=== PATIENT | male | born 1945 | race Caucasian/White ===

== ENCOUNTER → 2016-12-22 | Outpatient (REF) | payer MEDICARE, BC, OTHER ==
[2016-12-22 14:01] LABS: MEAN CORPUSCULAR HGB CONC 33.2 g/dl (32.0-36.5); MEAN CORPUSCULAR VOLUME 93.5 fl (80.0-96.0); WHITE BLOOD COUNT 5.2 K/mm3 (4.0-10.0)
[2016-12-22 14:38] LABS: ALBUMIN 3.6 GM/DL (3.2-5.2); ALBUMIN/GLOBULIN RATIO 1.03 (1.00-1.93); ALKALINE PHOSPHATASE 54 U/L (45-117); ALT/SGPT 41 U/L (12-78); ANION GAP 9 MEQ/L (8-16); AST/SGOT 38 U/L (15-37); BILIRUBIN,TOTAL 0.7 MG/DL (0.2-1.0); BLOOD UREA NITROGEN 27 MG/DL (7-18); CALCIUM LEVEL 8.5 MG/DL (8.8-10.2); CARBON DIOXIDE LEVEL 27 MEQ/L (21-32); CHLORIDE LEVEL 105 MEQ/L (98-107); CREATININE FOR GFR 1.07 MG/DL (0.70-1.30); GLOMERULAR FILTRATION RATE > 60.0 (>42); GLUCOSE, FASTING 203 MG/DL (83-110); POTASSIUM SERUM 4.1 MEQ/L (3.5-5.1); SODIUM LEVEL 141 MEQ/L (136-145); TOTAL PROTEIN 7.1 GM/DL (6.4-8.2)
== END ==
LOC: M LABDRAW1 12:56
PROVIDERS: ATTEND Internal Medicine
DX: M06.9 Rheumatoid arthritis, unspecified (principal); E11.9 Type 2 diabetes mellitus without complications

== ENCOUNTER → 2017-07-08 | Outpatient (REF) | payer MEDICARE, OTHER ==
[2017-07-08 12:06] LABS: ALBUMIN 3.6 GM/DL (3.2-5.2); ALKALINE PHOSPHATASE 56 U/L (45-117); ALT/SGPT 30 U/L (12-78); ANION GAP 9 MEQ/L (8-16); AST/SGOT 26 U/L (7-37); BILIRUBIN,TOTAL 0.5 MG/DL (0.2-1.0); BLOOD UREA NITROGEN 24 MG/DL (7-18); CALCIUM LEVEL 8.5 MG/DL (8.8-10.2); CARBON DIOXIDE LEVEL 28 MEQ/L (21-32); CHLORIDE LEVEL 105 MEQ/L (98-107); CHOLESTEROL LEVEL 139 MG/DL (<200); CREATININE FOR GFR 1.07 MG/DL (0.70-1.30); GLOMERULAR FILTRATION RATE > 60.0 (>42); GLUCOSE, FASTING 192 MG/DL (83-110); POTASSIUM SERUM 4.4 MEQ/L (3.5-5.1); SODIUM LEVEL 142 MEQ/L (136-145); TOTAL PROTEIN 7.2 GM/DL (6.4-8.2); TRIGLYCERIDES LEVEL 217 MG/DL (<150)
== END ==
LOC: M SFHCPLAZ 09:40
PROVIDERS: ATTEND Internal Medicine
DX: E78.00 Pure hypercholesterolemia, unspecified (principal); E11.9 Type 2 diabetes mellitus without complications

== ENCOUNTER → 2018-01-08 | Outpatient (REF) | payer MEDICARE, OTHER ==
[2018-01-08 17:51] LABS: ALBUMIN 3.5 GM/DL (3.2-5.2); ALBUMIN/GLOBULIN RATIO 1.06 (1.00-1.93); ALKALINE PHOSPHATASE 58 U/L (45-117); ALT/SGPT 30 U/L (12-78); ANION GAP 11 MEQ/L (8-16); AST/SGOT 28 U/L (7-37); BILIRUBIN,TOTAL 0.5 MG/DL (0.2-1.0); BLOOD UREA NITROGEN 29 MG/DL (7-18); CALCIUM LEVEL 8.2 MG/DL (8.8-10.2); CARBON DIOXIDE LEVEL 25 MEQ/L (21-32); CHLORIDE LEVEL 106 MEQ/L (98-107); CHOLESTEROL LEVEL 130 MG/DL (<200); CHOLESTEROL RISK RATIO 5.416 (<5); CREATININE FOR GFR 1.21 MG/DL (0.70-1.30); GLOMERULAR FILTRATION RATE > 60.0 (>42); GLUCOSE, FASTING 288 MG/DL (70-100); HDL CHOLESTEROL 24 MG/DL (>40); LDL CHOLESTEROL 43.8 MG/DL (<100); MAGNESIUM LEVEL 1.3 MG/DL (1.8-2.4); NON-HDL-C 106 MG/DL; POTASSIUM SERUM 4.2 MEQ/L (3.5-5.1); SODIUM LEVEL 142 MEQ/L (136-145); TOTAL PROTEIN 6.8 GM/DL (6.4-8.2); TRIGLYCERIDES LEVEL 311 MG/DL (<150)
[2018-01-08 17:58] LABS: ESTIMATED AVERAGE GLUCOSE 209 MG/DL (60-110); HEMOGLOBIN A1c 8.9 %
[2018-01-08 18:33] LABS: MALB URINE SIEMENS 25.2 MG/L; MAU/CREAT RATIO 17.6 MCG/MG (0.0-30.0)
== END ==
LOC: M SFHCPLAZ 09:48
DX: I10 Essential (primary) hypertension (principal); E11.9 Type 2 diabetes mellitus without complications; E78.00 Pure hypercholesterolemia, unspecified
CPT/HCPCS: 83735

== ENCOUNTER 2018-02-20 18:45 | Emergency (ER) | payer MEDICARE, BC, OTHER | END 2018-02-20 20:08 | disposition home or self-care (01) | LOC: M ED 18:45 | DX: S00.03XA Contusion of scalp, initial encounter (principal); S80.211A Abrasion, right knee, initial encounter; W01.198A Fall on same level from slipping, tripping and stumbling with subsequent striking against other object, initial encounter; Y92.89 Other specified places as the place of occurrence of the external cause; I25.10 Atherosclerotic heart disease of native coronary artery without angina pectoris; E11.9 Type 2 diabetes mellitus without complications; J44.9 Chronic obstructive pulmonary disease, unspecified; G47.33 Obstructive sleep apnea (adult) (pediatric); M06.9 Rheumatoid arthritis, unspecified; Z95.0 Presence of cardiac pacemaker; Z95.5 Presence of coronary angioplasty implant and graft; Z79.899 Other long term (current) drug therapy; Z79.01 Long term (current) use of anticoagulants; Z79.84 Long term (current) use of oral hypoglycemic drugs | CPT/HCPCS: 70450 ==

== ENCOUNTER 2018-03-12 11:45 | Emergency (ER) | payer MEDICARE, BC, OTHER | END 2018-03-12 12:40 | disposition home or self-care (01) | LOC: M ED 11:45 | DX: S20.212A Contusion of left front wall of thorax, initial encounter (principal); W01.198A Fall on same level from slipping, tripping and stumbling with subsequent striking against other object, initial encounter; Y92.099 Unspecified place in other non-institutional residence as the place of occurrence of the external cause; Y93.9 Activity, unspecified; Y99.9 Unspecified external cause status; E11.9 Type 2 diabetes mellitus without complications; I10 Essential (primary) hypertension; J44.9 Chronic obstructive pulmonary disease, unspecified; M19.90 Unspecified osteoarthritis, unspecified site; Z95.0 Presence of cardiac pacemaker; Z79.82 Long term (current) use of aspirin; Z79.84 Long term (current) use of oral hypoglycemic drugs; Z79.899 Other long term (current) drug therapy | CPT/HCPCS: 71101 ==

== ENCOUNTER → 2018-04-27 | Outpatient (CLI) | payer MEDICARE, BC, OTHER | LOC: M WUC 11:43 | DX: M17.12 Unilateral primary osteoarthritis, left knee (principal); M25.562 Pain in left knee | CPT/HCPCS: 73560 ==

== ENCOUNTER → 2018-07-07 | Outpatient (CLI) | payer MEDICARE, OTHER | LOC: M LRY 09:07 | DX: M06.9 Rheumatoid arthritis, unspecified (principal) | CPT/HCPCS: 73130; 80053 ==

== ENCOUNTER → 2018-07-07 | Outpatient (REF) | payer MEDICARE, OTHER ==
[2018-07-07 11:57] LABS: BASO % 0.6 % (0.0-1.0); EOS # 0.2 10^3/uL (0.0-0.50); EOS % 2.6 % (0.0-3.0); HEMATOCRIT 43.9 % (42.0-52.0); HEMOGLOBIN 14.7 g/dl (13.5-17.5); IMMATURE GRANULOCYTE % 0.5 % (0-3.0); LYMPH # 0.9 10^3/uL (1.5-4.5); LYMPH % 14.4 % (24.0-44.0); MEAN CORPUSCULAR HEMOGLOBIN 30.7 pg (27.0-33.0); MEAN CORPUSCULAR HGB CONC 33.5 g/dl (32.0-36.5); MEAN CORPUSCULAR VOLUME 91.6 fl (80.0-96.0); MONO # 0.5 10^3/uL (0.0-0.8); MONO % 7.6 % (0.0-5.0); NEUTROPHILS # 4.9 10^3/uL (1.8-7.7); NEUTROPHILS % 74.3 % (36.0-66.0); PLATELET COUNT, AUTOMATED 105 10^3/uL (150-450); RED BLOOD COUNT 4.79 10^6/uL (4.30-6.10); RED CELL DISTRIBUTION WIDTH 13.9 % (11.5-14.5); WHITE BLOOD COUNT 6.5 10^3/uL (4.0-10.0)
[2018-07-07 12:02] LABS: APPEARANCE, URINE CLEAR (CLEAR); BACTERIA, URINE AUTO NEGATIVE (NEGATIVE); BILIRUBIN, URINE AUTO NEGATIVE (NEGATIVE); BLOOD, URINE BLOOD NEGATIVE (NEGATIVE); COLOR, URINE YELLOW (YELLOW); GLUCOSE, URINE (UA) AUTO 3+ mg/dL (NEGATIVE); KETONE, URINE AUTO NEGATIVE (NEGATIVE); LEUKOCYTE ESTERASE, URINE AUTO NEGATIVE (NEGATIVE); MUCUS, URINE SMALL (NEGATIVE); NITRITE, URINE AUTO NEGATIVE (NEGATIVE); PROTEIN, URINE AUTO NEGATIVE (NEGATIVE); RBC, URINE AUTO 0 /HPF (0-3); SQUAMOUS EPITHELIAL CELL UR AU 0 /HPF (0-6); UROBILINOGEN, URINE AUTO 0.2 mg/dL (0.0-2.0); WBC, URINE AUTO 0 /HPF (0-3)
[2018-07-07 12:24] LABS: ALBUMIN 3.4 GM/DL (3.2-5.2); ALBUMIN/GLOBULIN RATIO 0.97 (1.00-1.93); ALKALINE PHOSPHATASE 54 U/L (45-117); ALT/SGPT 37 U/L (12-78); ANION GAP 9 MEQ/L (8-16); AST/SGOT 26 U/L (7-37); BILIRUBIN,TOTAL 0.7 MG/DL (0.2-1.0); BLOOD UREA NITROGEN 32 MG/DL (7-18); C REACTIVE PROTEIN QUANTITATIV < 0.30 MG/DL (0.00-0.30); CALCIUM LEVEL 8.4 MG/DL (8.8-10.2); CARBON DIOXIDE LEVEL 27 MEQ/L (21-32); CHLORIDE LEVEL 105 MEQ/L (98-107); CREATININE FOR GFR 1.19 MG/DL (0.70-1.30); GLOMERULAR FILTRATION RATE > 60.0 (>42); GLUCOSE, FASTING 196 MG/DL (70-100); POTASSIUM SERUM 4.3 MEQ/L (3.5-5.1); RHEUMATOID FACTOR QUANT < 10.0 IU/ML (<15.0); SODIUM LEVEL 141 MEQ/L (136-145); TOTAL PROTEIN 6.9 GM/DL (6.4-8.2)
[2018-07-07 12:29] LABS: TOTAL PROTEIN,RANDOM URINE 14.7 MG/DL (0.0-12.0)
[2018-07-07 12:36] LABS: COMPLEMENT C3 121 MG/DL (90-180); COMPLEMENT C4 14 MG/DL (10-40); HEPATITIS B SURFACE ANTIBODY NEGATIVE (POSITIVE)
[2018-07-07 12:41] LABS: HEPATITIS B SURFACE ANTIGEN NEGATIVE (NEGATIVE)
[2018-07-07 13:09] LABS: HEPATITIS C VIRUS ABY INDEX 0.1 INDEX (<0.8)
[2018-07-07 13:24] LABS: ERYTHROCYTE SEDIMENTATION RATE 10 mm/hr (0-20)
[2018-07-10 15:07] LABS: QuantiFERON-TB Gold Plus Negative (Negative)
[2018-07-11 00:06] LABS: ANA (HEP2) Negative (.); ANTI DOUBLE STRAND-DNA AB 2 IU/mL (0-9); HEPATITIS B CORE ANTIBODY IGG Negative (Negative); RNP ANTIBODY 0.2 AI (0.0-0.9); SMITHS ANTIBODY < 0.2 AI (0.0-0.9); SSA SJOGRENS A <0.2 AI (0.0-0.9); SSB SJOGRENS B <0.2 AI (0.0-0.9)
[2018-07-11 00:06] LABS: CYCLIC CITRULLINATED PEPTIDE 40 units (0-19)
== END ==
LOC: M SFHCLERA 08:49
DX: M06.9 Rheumatoid arthritis, unspecified (principal); M32.9 Systemic lupus erythematosus, unspecified; M65.331 Trigger finger, right middle finger; Z79.899 Other long term (current) drug therapy
CPT/HCPCS: 80053

== ENCOUNTER → 2018-08-08 | Outpatient (CLI) | payer MEDICARE, OTHER ==
[~2018-08-08] MED LIST: AMLO5TAB6; ASPI1TAB PO; DIGO0.12; ELIQ5TAB; ENBR50IN4; FLUO40CA; FOLI1TAB11; GLIP5TAB8 PO; HYDR25TAB; JANU100T; JARD1TAB; LISI-538; METF500T13 PO; METH2.5T48; METO200T28; SIMV20TA2; TAMSULOSIN
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
== END ==
LOC: M WUC 15:10
PROVIDERS: ATTEND Physician Assistant
DX: S90.31XA Contusion of right foot, initial encounter (principal); X58.XXXA Exposure to other specified factors, initial encounter; Y92.9 Unspecified place or not applicable

== ENCOUNTER → 2018-08-31 | Outpatient (CLI) | payer MEDICARE, OTHER ==
[2018-08-31 13:05] LABS: ALBUMIN 3.4 GM/DL (3.2-5.2); BILIRUBIN,TOTAL 0.7 MG/DL (0.2-1.0); CALCIUM LEVEL 8.8 MG/DL (8.8-10.2); CHOLESTEROL RISK RATIO 4.235 (<5); CREATININE FOR GFR 1.42 MG/DL (0.70-1.30); GLOMERULAR FILTRATION RATE 51.9 (>42); POTASSIUM SERUM 4.7 MEQ/L (3.5-5.1)
[2018-08-31 14:21] LABS: HEMOGLOBIN A1c 8.3 %
== END ==
LOC: M WUC 09:08
PROVIDERS: ATTEND Family Medicine
DX: E11.65 Type 2 diabetes mellitus with hyperglycemia (principal)

== ENCOUNTER → 2018-09-18 | Outpatient (CLI) | payer MEDICARE, OTHER ==
[2018-09-18 17:49] LABS: ALBUMIN 3.4 GM/DL (3.2-5.2); ALT/SGPT 52 U/L (12-78); BILIRUBIN,TOTAL 0.4 MG/DL (0.2-1.0); BLOOD UREA NITROGEN 37 MG/DL (7-18); C REACTIVE PROTEIN QUANTITATIV < 0.30 MG/DL (0.00-0.30); CALCIUM LEVEL 8.6 MG/DL (8.8-10.2); CARBON DIOXIDE LEVEL 27 MEQ/L (21-32); CHLORIDE LEVEL 107 MEQ/L (98-107); CREATININE FOR GFR 1.27 MG/DL (0.70-1.30); GLUCOSE, FASTING 174 MG/DL (70-100); POTASSIUM SERUM 4.6 MEQ/L (3.5-5.1); SODIUM LEVEL 141 MEQ/L (136-145); TOTAL PROTEIN 6.6 GM/DL (6.4-8.2)
[2018-09-18 17:56] LABS: BASO % 0.4 % (0.0-1.0); EOS # 0.2 10^3/uL (0.0-0.50); EOS % 2.3 % (0.0-3.0); HEMATOCRIT 42.5 % (42.0-52.0); HEMOGLOBIN 14.2 g/dl (13.5-17.5); LYMPH # 0.9 10^3/uL (1.5-4.5); MEAN CORPUSCULAR HEMOGLOBIN 31.9 pg (27.0-33.0); MEAN CORPUSCULAR HGB CONC 33.4 g/dl (32.0-36.5); MEAN CORPUSCULAR VOLUME 95.5 fl (80.0-96.0); MONO # 0.5 10^3/uL (0.0-0.8); MONO % 7.6 % (0.0-5.0); NEUTROPHILS # 5.4 10^3/uL (1.8-7.7); NEUTROPHILS % 76.3 % (36.0-66.0); PLATELET COUNT, AUTOMATED 109 10^3/uL (150-450); RED BLOOD COUNT 4.45 10^6/uL (4.30-6.10); WHITE BLOOD COUNT 7.1 10^3/uL (4.0-10.0)
[2018-09-18 18:21] LABS: ERYTHROCYTE SEDIMENTATION RATE 10 mm/hr (0-20)
== END ==
LOC: M WUC 11:48
PROVIDERS: ATTEND Internal Medicine Rheumatology
DX: M06.9 Rheumatoid arthritis, unspecified (principal)

== ENCOUNTER → 2018-11-11 | Outpatient (CLI) | payer MEDICARE, OTHER ==
[2018-11-11 13:15] LABS: HEMATOCRIT 43.7 % (42.0-52.0); HEMOGLOBIN 14.6 g/dl (13.5-17.5); MEAN CORPUSCULAR HEMOGLOBIN 31.2 pg (27.0-33.0); MEAN CORPUSCULAR HGB CONC 33.4 g/dl (32.0-36.5); MEAN CORPUSCULAR VOLUME 93.4 fl (80.0-96.0); PLATELET COUNT, AUTOMATED 130 10^3/uL (150-450); RED BLOOD COUNT 4.68 10^6/uL (4.30-6.10); WHITE BLOOD COUNT 7.3 10^3/uL (4.0-10.0)
[2018-11-11 13:38] LABS: ALBUMIN 3.5 GM/DL (3.2-5.2); ALT/SGPT 31 U/L (12-78); BILIRUBIN,TOTAL 0.7 MG/DL (0.2-1.0); BLOOD UREA NITROGEN 24 MG/DL (7-18); C REACTIVE PROTEIN QUANTITATIV < 0.30 MG/DL (0.00-0.30); CALCIUM LEVEL 8.7 MG/DL (8.8-10.2); CARBON DIOXIDE LEVEL 26 MEQ/L (21-32); CHLORIDE LEVEL 105 MEQ/L (98-107); CREATININE FOR GFR 1.16 MG/DL (0.70-1.30); GLOMERULAR FILTRATION RATE > 60.0 (>42); GLUCOSE, FASTING 166 MG/DL (70-100); POTASSIUM SERUM 4.4 MEQ/L (3.5-5.1); SODIUM LEVEL 140 MEQ/L (136-145); TOTAL PROTEIN 7.1 GM/DL (6.4-8.2)
[2018-11-11 13:53] LABS: ERYTHROCYTE SEDIMENTATION RATE 14 mm/hr (0-20)
== END ==
LOC: M WUC 10:22
PROVIDERS: ATTEND Internal Medicine Rheumatology
DX: M06.9 Rheumatoid arthritis, unspecified (principal)

== ENCOUNTER → 2019-01-11 | Outpatient (CLI) | payer MEDICARE, OTHER, BC ==
[~2019-01-11] MED LIST changes: -ASPI1TAB PO; +ASPI81TA26 PO
--- NOTE | 2019-01-11 14:14 | REP ---
Clinical: Acute right foot pain. Technique: AP, lateral, bilateral oblique views right foot . Findings: The osseous structures and joint spaces are intact and normal. There is no evidence for acute fracture or dislocation. No periosteal reaction or changes to suggest old injury. Surrounding soft tissues are unremarkable. Incidental vascular calcifications suggest small vessel disease. No subcutaneous emphysema or radiodense foreign body. Impression: No acute fracture or dislocation. No findings to suggest old injury. Peripheral vascular disease. Electronically Signed by Santiago Espinoza MD 01/11/2019 02:05 P
== END ==
LOC: M RAD 12:27
PROVIDERS: ATTEND Family Medicine
DX: I73.9 Peripheral vascular disease, unspecified (principal)

== ENCOUNTER → 2019-02-01 | Outpatient (REF) | payer MEDICARE, OTHER ==
[2019-02-01 13:19] LABS: APPEARANCE, URINE CLEAR (CLEAR); BACTERIA, URINE AUTO NEGATIVE (NEGATIVE); BILIRUBIN, URINE AUTO NEGATIVE (NEGATIVE); BLOOD, URINE BLOOD NEGATIVE (NEGATIVE); COLOR, URINE YELLOW (YELLOW); GLUCOSE, URINE (UA) AUTO 3+ mg/dL (NEGATIVE); KETONE, URINE AUTO NEGATIVE (NEGATIVE); LEUKOCYTE ESTERASE, URINE AUTO NEGATIVE (NEGATIVE); MUCUS, URINE SMALL (NEGATIVE); NITRITE, URINE AUTO NEGATIVE (NEGATIVE); PROTEIN, URINE AUTO NEGATIVE (NEGATIVE); RBC, URINE AUTO 0 /HPF (0-3); SPECIFIC GRAVITY URINE AUTO 1.025 (1.002-1.035); SQUAMOUS EPITHELIAL CELL UR AU 0 /HPF (0-6); UROBILINOGEN, URINE AUTO 0.2 mg/dL (0.0-2.0); WBC, URINE AUTO 1 /HPF (0-3)
== END ==
LOC: M SMT 12:49
PROVIDERS: ATTEND Nurse Practitioner Women's Health
DX: N39.41 Urge incontinence (principal)
CPT/HCPCS: 36415; 51798; 80053; 81001; 85025; 85652; 86140; 87086; G0463

== ENCOUNTER → 2019-02-01 | Outpatient (REF) | payer MEDICARE, OTHER ==
[2019-02-01 19:07] LABS: BASO % 0.6 % (0.0-1.0); EOS # 0.1 10^3/uL (0.0-0.50); EOS % 2.1 % (0.0-3.0); HEMATOCRIT 44.2 % (42.0-52.0); HEMOGLOBIN 14.1 g/dl (13.5-17.5); LYMPH # 0.7 10^3/uL (1.5-4.5); LYMPH % 11.3 % (24.0-44.0); MEAN CORPUSCULAR HEMOGLOBIN 29.4 pg (27.0-33.0); MEAN CORPUSCULAR HGB CONC 31.9 g/dl (32.0-36.5); MEAN CORPUSCULAR VOLUME 92.3 fl (80.0-96.0); MONO # 0.5 10^3/uL (0.0-0.8); MONO % 7.8 % (0.0-5.0); NEUTROPHILS # 5.1 10^3/uL (1.8-7.7); NEUTROPHILS % 77.9 % (36.0-66.0); PLATELET COUNT, AUTOMATED 130 10^3/uL (150-450); RED BLOOD COUNT 4.79 10^6/uL (4.30-6.10); WHITE BLOOD COUNT 6.5 10^3/uL (4.0-10.0)
[2019-02-01 19:28] LABS: ALBUMIN 3.4 GM/DL (3.2-5.2); BILIRUBIN,TOTAL 0.5 MG/DL (0.2-1.0); C REACTIVE PROTEIN QUANTITATIV 0.3 MG/DL (0.00-0.30); CALCIUM LEVEL 9.2 MG/DL (8.8-10.2); CREATININE FOR GFR 1.27 MG/DL (0.70-1.30); GLOMERULAR FILTRATION RATE 58.9 (>42); POTASSIUM SERUM 4.1 MEQ/L (3.5-5.1); TOTAL PROTEIN 7.4 GM/DL (6.4-8.2)
[2019-02-01 20:14] LABS: ERYTHROCYTE SEDIMENTATION RATE 12 mm/hr (0-20)
== END ==
LOC: M SFHCPLAZ 15:39
PROVIDERS: ATTEND Internal Medicine Rheumatology
DX: M06.9 Rheumatoid arthritis, unspecified (principal)

== ENCOUNTER → 2019-09-22 | Outpatient (REF) | payer MEDICARE, OTHER ==
[~2019-09-22] MED LIST changes: -DIGO0.12; +DIGO0.123; -ENBR50IN4; +ETAN50PE; -SIMV20TA2; +SIMV20TA22
[2019-09-22 16:23] LABS: APPEARANCE, URINE CLEAR (CLEAR); BACTERIA, URINE AUTO NEGATIVE (NEGATIVE); BILIRUBIN, URINE AUTO NEGATIVE (NEGATIVE); BLOOD, URINE BLOOD NEGATIVE (NEGATIVE); COLOR, URINE YELLOW (YELLOW); GLUCOSE, URINE (UA) AUTO 3+ mg/dL (NEGATIVE); KETONE, URINE AUTO NEGATIVE (NEGATIVE); LEUKOCYTE ESTERASE, URINE AUTO NEGATIVE (NEGATIVE); MUCUS, URINE SMALL (NEGATIVE); NITRITE, URINE AUTO NEGATIVE (NEGATIVE); PROTEIN, URINE AUTO NEGATIVE (NEGATIVE); RBC, URINE AUTO 1 /HPF (0-3); SPECIFIC GRAVITY URINE AUTO 1.026 (1.002-1.035); SQUAMOUS EPITHELIAL CELL UR AU 0 /HPF (0-6); UROBILINOGEN, URINE AUTO 0.2 mg/dL (0.0-2.0); WBC, URINE AUTO 0 /HPF (0-3)
== END ==
LOC: M SMT 16:01
PROVIDERS: ATTEND Nurse Practitioner Women's Health
DX: R35.0 Frequency of micturition (principal)

== ENCOUNTER → 2019-12-28 | Outpatient (CLI) | payer MEDICARE, BC, OTHER ==
--- NOTE | 2019-12-28 12:20 | REP ---
CT CHEST WITHOUT IV CONTRAST: CT chest performed without IV contrast. Sagittal and coronal reconstruction images are performed. Comparison made with prior CT chest, 10/14/2010 at [facility]. The lungs show mild diffuse interstitial fibrotic change. No consolidating infiltrate is seen. There are two calcified granulomas in the left lower lobe. Heart is normal in size. There is no pleural or pericardial effusion. There is mild ectasia diffusely of the ascending thoracic aorta and aortic arch with mild atherosclerotic calcification. I do not see significant axillary or mediastinal adenopathy. Dual-lead pacemaker is noted. There are mild degenerative changes of the spine. In the visualized portions of the upper abdomen, the liver has a cirrhotic appearance with diffusely lobulated borders. The spleen is enlarged. IMPRESSION: Mild interstitial fibrotic change in the lungs. Two calcified granulomas left lower lobe. No suspicious nodule or lymphadenopathy in the chest. The liver has a cirrhotic appearance and there is splenomegaly noted suggesting portal hypertension. Electronically Signed by Catrachito Dillon MD 12/28/2019 12:51 P
== END ==
LOC: M RAD 09:07
PROVIDERS: ATTEND Internal Medicine Pulmonary Disease
DX: R91.8 Other nonspecific abnormal finding of lung field (principal); R16.1 Splenomegaly, not elsewhere classified

== ENCOUNTER → 2020-12-06 | Outpatient (CLI) | payer MEDICARE, BC, OTHER ==
[~2020-12-06] MED LIST changes: +AMLO1TAB24; -AMLO5TAB6; +HYDR-3490; -HYDR25TAB; -LISI-538; +LISI20TA33
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
== END ==
LOC: M WUC 15:40
PROVIDERS: ATTEND Physician Assistant
DX: S20.211A Contusion of right front wall of thorax, initial encounter (principal); W18.30XA Fall on same level, unspecified, initial encounter; Y92.009 Unspecified place in unspecified non-institutional (private) residence as the place of occurrence of the external cause

== ENCOUNTER → 2021-01-17 | Outpatient (CLI) | payer MEDICARE, BC, OTHER ==
[2021-01-17 12:30] LABS: HEMATOCRIT 43.1 % (42.0-52.0); HEMOGLOBIN 13.7 g/dl (13.5-17.5); MEAN CORPUSCULAR HEMOGLOBIN 30.8 pg (27.0-33.0); MEAN CORPUSCULAR HGB CONC 31.8 g/dl (32.0-36.5); MEAN CORPUSCULAR VOLUME 96.9 fl (80.0-96.0); RED BLOOD COUNT 4.45 10^6/uL (4.30-6.10); WHITE BLOOD COUNT 6.5 10^3/uL (4.0-10.0)
[2021-01-17 12:47] LABS: INR 1.25
[2021-01-17 12:58] LABS: PLATELET COUNT, AUTOMATED 81 10^3/uL (150-450)
[2021-01-17 13:10] LABS: ALBUMIN 3.4 GM/DL (3.2-5.2); ALT/SGPT 25 U/L (12-78); BILIRUBIN,TOTAL 0.4 MG/DL (0.2-1.0); BLOOD UREA NITROGEN 21 MG/DL (7-18); CALCIUM LEVEL 9.5 MG/DL (8.8-10.2); CARBON DIOXIDE LEVEL 28 MEQ/L (21-32); CHLORIDE LEVEL 108 MEQ/L (98-107); CHOLESTEROL LEVEL 116 MG/DL (<200); CHOLESTEROL RISK RATIO 3.866 (<5); CREATININE FOR GFR 1.07 MG/DL (0.70-1.30); GLOMERULAR FILTRATION RATE > 60.0 (>42); GLUCOSE, FASTING 149 MG/DL (70-100); HDL CHOLESTEROL 30 MG/DL (>40); LDL CHOLESTEROL 60 MG/DL (<100); NON-HDL-C 86 MG/DL; NT-PRO BNP 333 PG/ML (<450); POTASSIUM SERUM 4.3 MEQ/L (3.5-5.1); SODIUM LEVEL 141 MEQ/L (136-145); TOTAL PROTEIN 6.9 GM/DL (6.4-8.2); TRIGLYCERIDES LEVEL 129 MG/DL (<150)
== END ==
LOC: M WUC 10:28
PROVIDERS: ATTEND Physician Assistant
DX: D69.6 Thrombocytopenia, unspecified (principal); K74.60 Unspecified cirrhosis of liver; Z79.899 Other long term (current) drug therapy

== ENCOUNTER → 2021-02-05 | Outpatient (CLI) | payer MEDICARE, BC, OTHER ==
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
== END ==
LOC: M RAD 09:17
PROVIDERS: ATTEND Physician Assistant
DX: R10.11 Right upper quadrant pain (principal); R74.01 Elevation of levels of liver transaminase levels; D69.6 Thrombocytopenia, unspecified

== ENCOUNTER → 2021-04-26 | Outpatient (CLI) | payer MEDICARE, OTHER, BC ==
[2021-04-26 10:18] LABS: PARTIAL THROMBOPLASTIN TIME 33.7 SECONDS (25.9-37.0)
[2021-04-26 10:22] LABS: INR 1.26; PROTHROMBIN TIME 16.2 SECONDS (12.7-14.5)
[2021-04-26 10:45] LABS: ALBUMIN 3.2 GM/DL (3.2-5.2); ALT/SGPT 23 U/L (12-78); BILIRUBIN,DIRECT 0.2 MG/DL (0.0-0.2); BILIRUBIN,TOTAL 0.6 MG/DL (0.2-1.0); FERRITIN 9 NG/ML (26-388); HEPATITIS B SURFACE ANTIBODY NEGATIVE (POSITIVE); IRON (FE) 26 UG/DL (65-175); THYROID STIMULATING HORMONE 0.941 uIU/ML (0.358-3.740); TOTAL IRON BINDING CAPACITY 372 UG/DL (250-450); TOTAL PROTEIN 6.8 GM/DL (6.4-8.2)
[2021-04-26 10:46] LABS: TOTAL 25(OH) VITAMIN D 72.1 NG/ML (30.0-100.0)
[2021-04-26 10:55] LABS: HEPATITIS B SURFACE ANTIGEN NEGATIVE (NEGATIVE)
[2021-04-26 11:23] LABS: HEPATITIS B CORE ANTIBODY IGM NEGATIVE (NEGATIVE); HEPATITIS C VIRUS ABY INDEX < 0.0 INDEX (<0.8)
[2021-04-26 11:25] LABS: HEPATITIS A ANTIBODY IGM NEGATIVE (NEGATIVE)
[2021-04-29 10:11] LABS: ALPHA 1 ANTITRYPSIN 126 mg/dL (101-187); ANTI-MITOCHONDRIAL ANTIBODY <20.0 Units (0.0-20.0); ANTI-SMOOTH MUSCLE ANTIBODY 10 Units (0-19); ANTINUCLEAR ANTIBODIES DIRECT Negative (Negative); CERULOPLASMIN 24.6 mg/dL (16.0-31.0); HEPATITIS A IgG TOTAL Positive (Negative); LIVER-KIDNEY MICROSOMAL ABY <20.1 Units (0.0-20.0); TISSUE TRANSGLUTAMINASE IgA <2 U/mL (0-3)
[2021-04-29 12:49] LABS: ALBUMIN 3.64 GM/DL (3.29-5.55); ALBUMIN % 53.5 % (55.8-66.1); ALPHA-1-GLOBULINS 0.27 GM/DL (0.17-0.41); ALPHA-2-GLOBULINS 0.68 GM/DL (0.42-0.99); BETA-1-GLOBULINS % 7.4 % (4.7-7.2); BETA-2-GLOBULINS 0.37 GM/DL (0.19-0.55); BETA-2-GLOBULINS % 5.6 % (3.2-6.5); GAMMA GLOBULIN % 19.6 % (11.1-18.8); GAMMA GLOBULINS 1.33 GM/DL (0.65-1.58)
== END ==
LOC: M WUC 08:27
PROVIDERS: ATTEND Student in an Organized Health Care Education/Training Program
DX: R74.8 Abnormal levels of other serum enzymes (principal); R53.83 Other fatigue; E56.1 Deficiency of vitamin K; Z79.899 Other long term (current) drug therapy

== ENCOUNTER 2021-06-29 13:51 | Emergency (ER) | payer OTHER, MEDICARE, BC ==
[~2021-06-29] VITALS: Ht 180.3 cm; Wt 97.3 kg
[2021-06-29 14:09] VITALS: BP 144/80
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
--- OUTSIDE RECORDS SUMMARY | 2021-06-29 14:50 | CCD ---
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 Active Not available benzonatate 100 mg capsule Take 1 capsule 3 times a day by oral route as needed. Active Not available cephalexin 500 mg capsule TAKE ONE CAPSULE BY MOUTH EVERY TWELVE HOURS FOR 7 DAYS Completed 11/30/2020 clopidogrel 75 mg tablet TAKE 4 TABLETS BY MOUTH ONCE DAILY FOR ONE DAY, TAKE ALL FOUR TABLETS THE NIGHT PRIOR TO CARDIAC CATHETERIZATION Active Not emory ilable digoxin 125 mcg (0.125 mg) tablet Active Not available doxycycline hyclate 100 mg capsule Take 1 capsule twice a day by oral route for 7 days. Active Not available Eliquis 5 mg tablet Active Not availabl e fluoxetine 20 mg capsule Completed 021 fluoxetine 20 mg tablet Take 1 tablet every day by oral route. Completed 01/31/2021 fluoxetine 40 mg capsule TAKE ONE CAPSULE BY MOUTH @8AM Completed 06/24/20 21 fluticasone propionate 50 mcg/actuation nasal spray,suspension INSTILL TWO SPRAYS IN EACH NOSTRIL ONCE DAILY Completed 11/30/2020 GaviLyte-G 236 gram-22.74 gram-6.74 gram-5.86 gram oral solution Completed 06/24/2021 glipizide 5 mg tablet Active Not availa ble irbesartan 150 mg tablet TAKE ONE TABLET BY MOUTH @8AM Completed Jardiance 10 mg tablet Take 1 tablet every day by oral route. Completed 11/30/2020 Jardiance 25 mg tablet Active Not avail able loratadine 10 mg capsule Take by oral route. Completed 06/24/2021 losartan 25 mg tablet Active Not availa ble metformin ER 500 mg tablet,extended rele ase 24 hr TAKE FOUR TABLETS BY MOUTH EVERY DAY Active No t available metoprolol succinate ER 100 mg tablet,extended release 24 hr Act sadia Not available metoprolol succinate ER 200 mg tablet,extended release 24 hr Com pleted 05/01/2021 Myrbetriq 50 mg tablet,extended release TAKE ONE TABLET BY MOUTH @8AM Completed sertraline 25 mg tablet Active Not avai lable simvastatin 20 mg tablet TAKE ONE TABLET BY MOUTH @8PM Completed Toviaz 4 mg tablet,extended release Active Not available tramadol 50 mg tablet TAKE ONE TABLET BY MOUTH ONCE DAILY NEEDED FOR PAIN, MAX DAILY DOSE ONE TABLET Completed 11/30/2020 Problems Name Status Onset Date Source Diabetes Mellitus Active 11/30/2020 Body Mass Index 30+ - Obesity Active 11/30/2020 Mixed Anxiety and Depressive Disorder Active 11/30/2020 Chronic Atrial Fibrillation Active 11/30/2020 Gastroesophageal Reflux Disease without Esophagitis Active 11/30/2020 Lower Abdominal Pain Active 01/11/2021 Obstructive Sleep Apnea Syndrome Active 06/24/2021 Coronary Arteriosclerosis Active 06/24/2021 Cardiac Pacemaker in Situ Active 06/24/2021 Procedures Date Name Performed by Placement of Stent in Pulmonary Artery I nformation not available Cardiac Pacemaker Procedure Information not available Results Lab Results Date Name Specimen Result Interpretation Description Value Range Status Address 06/21/2021 SARS CoV 2 RdRp Gene, QL Probe, Respiratory Spec imen Nasopharyngeal Normal Sars-cov-2 negative negative Final [facility] Medical: [address] [facility] 04/26/2021 PT/PTT, Plasma High Prothrombin Time 16. 2 seconds 12.7-14.5 seconds Final [facility]: 83 0 [facility] Normal Inr 1.26 Final [facility]: [address] [facility] Normal Partial Thromboplastin Time 33 .7 seconds 25.9-37.0 seconds [facility]: [address] [facility] 04/26/2021 Gamma Glutamyltranspeptidase High Gamma Glutamyltranspeptidase 113 U/L 15-85 U/L Final [facility] nter: [address] [place] [address] 04/26/2021 Vitamin D, 25-Hydroxy, Total, Serum Normal Total 25(Oh) Vitamin D 72.1 NG/mL 30.0-100.0 NG/mL Final [facility]: [address] [place] [address] 04/26/2021 Smooth Muscle Ab, Serum Normal Anti -smooth Muscle Antibody 10 units 0-19 units [facility] nter: [address] [place] [address] 04/26/2021 Grpdl-9-Fcingjjictu (Aat), QN, Serum Normal Alpha 1 Antitrypsin 126 mg/dL 101-187 mg/dL Final [facility] Center: [address] [place] [address] 04/26/2021 BRICE (Antinuclear Antibodies) Screen, Serum Nor mal Antinuclear Antibodies Direct negative negative Final [facility] ical Center: [address] [place] [address] 04/26/2021 Tissue Transglutaminase IgA Normal Tissue Transglutaminase IgA <2 U/mL 0-3 U/mL [facility] nter: [address] [place] [address] 04/26/2021 Liver-kidney Microsomal Effie Normal Liver-kidney Microsomal Effie <20.1 units 0.0-20.0 units [facility] nter: [address] [place] [address] 04/26/2021 Hepatitis a IgG Total ABNORMAL Hepatitis a I gG Total positive negative [facility]: 83 0 [facility] 04/26/2021 Ceruloplasmin, Serum Normal Ceruloplasmin 24.6 mg/dL 16.0-31.0 mg/dL [facility]: 83 0 [facility] 04/26/2021 Mitochondrial Ab, Serum Normal Anti -mitochondrial Antibody <20.0 units 0.0-20.0 units [facility] nter: [address] [place] [address] 04/26/2021 Cordero Fibrosure [id number] High Fibrosis Sco re 0.74 0.00-0.21 [facility]: [address] [place] [address] Normal Fibrosis Stage F3-F4 . Final [facility]: [address] [facility] High Steatosis Score 0.77 0.00-0.30 [facility]: [address] [facility] Normal Steatosis Grade . [facility]: [address] [facility] High Cordero Score 0.50 0.25 [facility]: [address] [facility] Normal Cordero Grade . Final [facility]: [address] [facility] Normal Height 72 in . in [facility]: [address] [facility] Normal Weight [address] [facility]: [address] [facility] High Alpha 2-Macroglobulins,qn 281 mg/dL 110-276 mg/dL [facility]: [address] [facility] Normal Haptoglobin 105 mg/dL 34-355 mg/dL F [facility]: [address] [facility] Low Apolipoprotein a-1 91 mg/dL 101-178 mg/dL [facility]: [address] [facility] Normal Bilirubin, Total 0.3 mg/dL 0.0-1.2 m g/dL [facility]: [address] [facility] High Ggt 86 IU/L 0-65 IU/L [facility]: [address] [facility] Normal ALT (SGPT) P5P 19 IU/L 0-55 IU/L [facility]: [address] [facility] Normal AST (SGOT) P5P 27 IU/L 0-40 IU/L [facility]: [address] [facility] Normal Cholesterol Total 126 mg/dL 100-199 mg/dL [facility]: [address] [facility] High Glucose, Serum 162 mg/dL 65-99 mg/dL [facility]: [address] [facility] High Triglycerides 159 mg/dL 0-149 mg/dL [facility]: [address] [facility] Normal Interpretations . [facility]: [address] [facility] Normal Fibrosis Scoring . Final [facility]: [address] [facility] Normal Steatosis Grading . [facility] 8[address] [facility] Normal Cordero Scoring . Final [facility]: [address] [facility] Normal Limitations . Final [facility]: [address] [facility] Normal Comment . Final [facility]: [address] [facility] 04/26/2021 Hepatitis C Ab, Serum Normal Hepati tis C Virus Effie Index < 0.0 index <0.8 index Final [facility] nter: [address] [facility] 04/26/2021 Hepatic Function Panel, Serum Normal AST/SG OT 25 U/L 7-37 U/L [facility]: [address] [facility] Normal ALT/SGPT 23 U/L 12-78 U/L Final [facility]: [address] [facility] Normal Alkaline Phosphatase 59 U/L 45-117 U /L [facility]: [address] [facility] Normal Bilirubin,total 0.6 mg/dL 0.2-1.0 mg /dL [facility]: [address] [facility] Normal Bilirubin,direct 0.2 mg/dL 0.0-0.2 m g/dL [facility]: 0 [facility] Normal Total Protein 6.8 gm/dL 6.4-8.2 gm/d L [facility]: [address] [facility] Normal Albumin 3.2 gm/dL 3.2-5.2 gm/dL [facility]: [address] [facility] Normal Albumin/globulin Ratio 0.9 [facility]: [address] [facility] 04/26/2021 TIBC (Total Iron-binding Capacity), Serum Low Iron (Fe) 26 ug/dL 65-175 ug/dL [facility] nter: [address] [facility] Normal Total Iron Binding Capacity 372 ug/d L 250-450 ug/dL [facility]: [address] [place] [address] Low Percent Saturation 7.0 % 19.7-50.0 % [facility]: [address] [place] [address] 04/26/2021 Protein Electrophoresis Panel, Serum or Plasma Lo w Albumin % 53.5 % 55.8-66.1 % [facility] nter: [address] [place] [address] Normal Ayrlt-3-Jouiqsyk % 4.0 % 2.9-4.9 % [facility]: [address] [place] [address] Normal Ggaze-7-Ldcnvbxdp % 10.0 % 7.1-11.8 % [facility]: [address] [place] [address] High Ytsf-0-Kdgnsjfhm % 7.4 % 4.7-7.2 % [facility]: [address] [place] [address] Normal Sbba-0-Kqyxkzhct % 5.6 % 3.2-6.5 % [facility]: [address] [place] [address] High Gamma Globulin % 19.6 % 11.1-18.8 % [facility]: [address] [place] [address] Normal Albumin 3.64 gm/dL 3.29-5.55 gm/dL F inal [facility]: [address] [place] [address] Normal Wrluv-3-Txabnqssh 0.27 gm/dL 0.17-0. 41 gm/dL [facility]: [address] [place] [address] Normal Ncxqp-9-Nwxynissg 0.68 gm/dL 0.42-0. 99 gm/dL [facility]: [address] [place] [address] Normal Znzw-3-Pyashlqud 0.50 gm/dL 0.28-0.6 0 gm/dL [facility]: [address] [place] [address] Normal Fmpm-2-Beqwhomlh 0.37 gm/dL 0.19-0.5 5 gm/dL [facility]: [address] [place] [address] Normal Gamma Globulins 1.33 gm/dL 0.65-1.58 gm/dL [facility]: [address] [place] [address] Normal Total Protein 6.8 gm/dL 6.4-8.2 gm/d L [facility]: [address] [facility] Normal Spep Interpretation see comment [facility]: [address] [place] [address] Normal Spep Pathologist Review rev'd by Hector mckeon [facility]: [address] [place] [address] 04/26/2021 Hepatitis B Monitoring Profile Normal Hepatitis B Surface Antigen negative negative [facility]: [address] [place] [address] Normal Hepatitis B Surface Antibody negativ e positive [facility]: [address] [place] [address] Normal Hepatitis B Core Antibody IgM negati ve negative [facility]: [address] [place] [address] 04/26/2021 Hepatitis a Antibody IgM Normal Hep atitis a Antibody IgM negative negative [facility] nter: [address] [place] [address] 04/26/2021 TSH, Serum or Plasma Normal Thyroid Stimulating Hormone 0.941 uIU/mL 0.358-3.740 uIU/mL [facility] nter: [address] [facility] 04/26/2021 Ferritin, Serum or Plasma Low Ferritin 9 NG/mL 26-388 NG/mL [facility]: [address] [place] [address] 04/26/2021 Alpha Fetoprotein Tumor Quant Normal Alpha Fetoprotein Tumor Quant 2.1 NG/mL <8.1 NG/mL [facility]: [address] [place] [address] 04/24/2021 Lipid Panel, Serum Blood venous Cholesterol , Total 124 mg/dL <200 mg/dL Final [facility]: [address] Blood venous Low HDL Cholesterol 25 mg/dL > or = 40 mg/dL Final [facility]: [address] Blood venous Triglycerides 148 mg/dL <150 mg/dL Final [facility]: [address] Blood venous LDL-cholesterol 76 mg/dL (yumi c) <100 mg/dL (calc) Final [facility]: [address] Blood venous High Chol/hdlc Ratio 5.0 calc <5.0 calc Final [facility]: [address] [facility] Blood venous Non HDL Cholesterol 99 m g/dL (calc) <130 mg/dL (calc) Final [facility]: [address] [facility] Blood venous High LDL Particle Number 1171 nmol /L <1138 nmol/L Final [facility]: [address] [facility] Blood venous High LDL Small 347 nmol/L <142 nmo l/L Final [facility]: [address] [facility] Blood venous High LDL Medium 223 nmol/L <215 nm ol/L Final [facility]: [address] [facility] Blood venous Low HDL Large 3402 nmol/L >6729 n mol/L Final [facility]: [address] [facility] Blood venous ABNORMAL LDL Pattern B pattern A pat tern Final [facility]: [address] [facility] Blood venous Low LDL Peak Size 210.9 angstrom >222.9 angstrom Final [facility]: [address] [facility] Blood venous Apolipoprotein B 77 mg/dL Final [facility]: [address] [facility] Blood venous Lipoprotein (a) 18 nmol/L <75 nmol/L Final [facility]: [address] [facility] 04/24/2021 CMP, Serum or Plasma Blood venous High Glucose 163 mg/dL 65-99 mg/dL Final [facility]: [address] [facility] Blood venous High Urea Nitrogen (BUN) 29 mg/dL 7-25 mg/dL [facility]: [address] [facility] Blood venous Normal Creatinine 1.10 mg/dL 0.70-1. 18 mg/dL Final [facility]: [address] [facility] Blood venous Normal eGFR Non-afr. Bhutanese 6 4 mL/min/1.73m2 > or = 60 mL/min/1.73m2 Final [facility]: [address] [facility] Blood venous Normal eGFR 75 mL/min/1.73m2 > or = 60 mL/min/1.73m2 Final [facility]: [address] [facility] Blood venous High BUN/creatinine Ratio 26 (calc ) 6-22 (calc) Final [facility]: [address] [facility] Blood venous Normal Sodium 140 mmol/L 135-146 mmo l/L Final [facility]: [address] [facility] Blood venous Normal Potassium 4.3 mmol/L 3.5-5.3 mmol/L Final [facility]: [address] [facility] [place] Blood venous Normal Chloride 105 mmol/L 98-110 mm ol/L [facility]: [address] [facility] Blood venous Normal Carbon Dioxide 24 mmol/L 20-3 2 mmol/L Final [facility]: [address] [facility] Blood venous Normal Calcium 9.0 mg/dL 8.6-10.3 mg /dL Final [facility]: [address] [facility] Blood venous Normal Protein, Total 6.7 g/dL 6.1-8 .1 g/dL Final [facility]: [address] [facility] Blood venous Normal Albumin 3.7 g/dL 3.6-5.1 g/dL [facility]: [address] [facility] Blood venous Normal Globulin 3.0 g/dL (calc) 1.9- 3.7 g/dL (calc) Final [facility]: [address] [facility] Blood venous Normal Albumin/globulin Ratio 1 .2 (calc) 1.0-2.5 (calc) Final [facility]: [address] [facility] Blood venous Normal Bilirubin, Total 0.7 mg/dL 0. 2-1.2 mg/dL Final [facility]: [address] [facility] Blood venous Normal Alkaline Phosphatase 55 U/L 3 5-144 U/L Final [facility]: [address] [facility] Blood venous Normal Ast 22 U/L 10-35 U/L Final [facility]: [address] [place] [facility] Blood venous Normal Alt 15 U/L 9-46 U/L [facility]: [address] [place] [facility] 04/24/2021 Microalbumin, Urine Urine Normal Albumin, Urine 0.7 mg/dL see note: mg/dL [facility] [address] [facility] Urine Dex Final [facility]: [address] [facility] 04/24/2021 Tsh Blood venous Normal Tsh 0.79 mIU/L 0.40-4.50 mIU/L Final [facility]: [address] [facility] 04/24/2021 HbA1C (Hemoglobin a1C), Blood Blood venous High Hemoglobin a1C 7.0 % of total HGB <5.7 % of total HGB Final [facility]: [address] [facility] 01/24/2021 Lipid Panel, Serum Blood venous High Triglycerid es 160 mg/dL <150 mg/dL Final [facility]: [address] [facility] Blood venous Normal Cholesterol, Total 119 mg/dL <200 mg/dL Final [facility]: [address] [facility] Blood venous Low HDL Cholesterol 24 mg/dL > or = 40 mg/dL [facility]: [address] [facility] Blood venous Normal LDL-cholesterol 71 mg/dL (yumi c) Final [facility]: [address] [facility] Blood venous High Chol/hdlc Ratio 5.0 (calc) <5 .0 (calc) Final [facility]: [address] [facility] Blood venous Normal Non HDL Cholesterol 95 m g/dL (calc) <130 mg/dL (calc) Final [facility]: [address] [facility] 01/24/2021 TSH, Serum or Plasma Blood venous Normal T3 Uptake 31 % 22-35 % [facility]: [address] [facility] Normal T4 (Thyroxine), Total 5. 2 mcg/dL 4.9-10.5 mcg/dL Final [facility]: [address] [facility] Blood venous Normal Free T4 Index (T7) 1.6 1.4 -3.8 [facility]: [address] [facility] Blood venous Normal Tsh 1.18 mIU/L 0.40-4.50 mIU /L [facility]: [address] [facility] 01/24/2021 CMP, Serum or Plasma Blood venous High Glucose 151 mg/dL 65-99 mg/dL Final [facility]: [address] [facility] Blood venous Normal Urea Nitrogen (BUN) 25 mg/dL 7-25 mg/dL Final [facility]: [address] [facility] Blood venous Normal Creatinine 1.06 mg/dL 0.70-1. 18 mg/dL [facility]: [address] [facility] Blood venous Normal eGFR Non-afr. Bhutanese 6 7 mL/min/1.73m2 > or = 60 mL/min/1.73m2 Final [facility]: [address] [facility] Blood venous Normal eGFR 78 mL/min/1.73m2 > or = 60 mL/min/1.73m2 Final [facility]: [address] [facility] Blood venous BUN/creatinine Ratio not applicable (calc) 6-22 (calc) [facility]: [address] [facility] Blood venous Normal Sodium 140 mmol/L 135-146 mmo l/L [facility]: [address] [facility] Blood venous Normal Potassium 4.4 mmol/L 3.5-5.3 mmol/L [facility]: [address] [facility] Blood venous Normal Chloride 105 mmol/L 98-110 mm ol/L [facility]: [address] [facility] Blood venous Normal Carbon Dioxide 29 mmol/L 20-3 2 mmol/L [facility]: [address] [facility] Blood venous Normal Calcium 9.1 mg/dL 8.6-10.3 mg /dL [facility]: [address] [facility] Blood venous Normal Protein, Total 6.7 g/dL 6.1-8 .1 g/dL [facility]: [address] [facility] Blood venous Normal Albumin 3.7 g/dL 3.6-5.1 g/dL [facility]: [address] [facility] Blood venous Normal Globulin 3.0 g/dL (calc) 1.9- 3.7 g/dL (calc) [facility]: [address] [facility] Blood venous Normal Albumin/globulin Ratio 1 .2 (calc) 1.0-2.5 (calc) [facility]: [address] [facility] Blood venous Normal Bilirubin, Total 0.5 mg/dL 0. 2-1.2 mg/dL [facility]: [address] [facility] Blood venous Normal Alkaline Phosphatase 70 U/L 3 5-144 U/L Final [facility]: [address] [facility] Blood venous Normal Ast 21 U/L 10-35 U/L Final [facility]: [address] [facility] [place] Blood venous Normal Alt 14 U/L 9-46 U/L Final [facility]: [address] [facility] [place] 01/24/2021 HbA1C (Hemoglobin a1C), Blood Blood venous High Hemoglobin a1C 6.5 % of total HGB <5.7 % of total HGB Final [facility]: [address] [place] [facility] [place] Past Encounters 06/24/2021 Acute Bronchitis Ayah Clark MD: [address] [place] [phone], Ph. 06/21/2021 Exposure to SARS-CoV-2 Victor Manuel Concepcion MD: [address] [place] [phone], Ph. 05/31/2021 Mixed Anxiety and Depressive Disorder; Chronic Atrial Fibrillation; Administration of Influenza Vaccine Victor Manuel Concepcion MD: [address] [place] [phone], Ph. 05/01/2021 Body Mass Index 30+ - Obesity; Diabetes Mellitus; Mixed Anxiety and Depressive Disorder; Chronic Atrial Fibrillation Victor Manuel Concepcion MD: [address] [place] [phone], Ph. 04/24/2021 Victor Manuel Concepcion MD: [address] [place] [phone], Ph. 01/31/2021 Diabetes Mellitus; Type 2 Diabetes Mellitus without Complication; Mixed Anxiety and Depressive Disorder Victor Manuel Concepcion MD: [address] [place] [phone], Ph. 01/24/2021 Victor Manuel Concepcion MD: [address] [place] [phone], Ph. 01/11/2021 Lower Abdominal Pain Victor Manuel Concepcion MD: [address] [place] [phone], Ph. 11/30/2020 Gastroesophageal Reflux Disease without Esophagitis; Diabetes Mellitus; Chronic Atrial Fibrillation; Mixed Anxiety and Depressive Disorder; Body Mass Index 30+ - Obesity Victor Manuel Concepcion MD: [address] [place] [phone], Ph. Social History Tobacco Smoking Status Never Smoker Vaccine List Vaccine Type COVID-19, mRNA, LNP-S, PF, 100 mcg/0.5 m L dose 12/11/2020 influenza, high-dose, quadrivalent .7 mL Plan of Care Reminders Provider Appointments None recorded. Lab None recorded. Referral None recorded. Procedures None recorded. Surgeries None recorded. Imaging None recorded. Vitals 06/24/2021 02:00PM SAME DAY 20 Height Weight BMI Blood Pressure 72 in 209 lbs 6 oz 28.4 kg/m2 126/72 mm[Hg] 05/31/2021 01:00PM ESTABLISHED [id number] Height Weight BMI Blood Pressure 72 in 206 lbs 27.9 kg/m2 107/74 mm[Hg] 05/01/2021 03:00PM ESTABLISHED [id number] Height Weight BMI Blood Pressure 72 in 90/62 mm[Hg] 04/24/2021 09:10AM NURSE LAB COLLECTION Height 72 in 01/31/2021 03:00PM ESTABLISHED [id number] Height Weight BMI Blood Pressure 72 in 195 lbs 2 oz 26.5 kg/m2 97/67 mm[Hg] 01/24/2021 08:20AM NURSE LAB COLLECTION Height 72 in 01/11/2021 03:00PM ESTABLISHED [id number] Height Weight BMI Blood Pressure 72 in 210 lbs 4 oz 28.5 kg/m2 114/81 mm[Hg] 11/30/2020 10:20AM NEW PATIENT (10yrs - OLDER) Height Weight BMI Blood Pressure 72 in 222 lbs 2 oz 30.1 kg/m2 143/98 mm[Hg]
--- OUTSIDE RECORDS SUMMARY | 2021-06-29 14:50 | CCD ---
Author Organization Unknown Address [address] [place] [address] Phone [phone] Care Team Providers Care Individual Small Group Instructor Name Role Phone KELLY KIRK 82 [phone] [facility] 114 [phone] Allergies Code Code System Name Reaction Severity [...] Result Interpretation Description Value Range Status Address 04/26/2021 PT/PTT, Plasma High Prothrombin Time 16. 2 seconds 12.7-14.5 seconds [facility]: 83 0 [facility] Normal Inr 1.26 [facility]: 830 [facility] Normal Partial Thromboplastin Time 33 .7 seconds 25.9-37.0 seconds Final [facility]: 830 [facility] 04/26/2021 Gamma Glutamyltranspeptidase High Gamma Glutamyltranspeptidase 113 U/L 15-85 U/L [facility] nter: 830 [facility] 04/26/2021 Vitamin D, 25-Hydroxy, Total, Serum Normal Total 25(Oh) Vitamin D 72.1 NG/mL 30.0-100.0 NG/mL [facility] Center: [address] [place] [address] 04/26/2021 Smooth Muscle Ab, Serum Normal Anti -smooth Muscle Antibody 10 units 0-19 units [facility] nter: [address] [place] [address] 04/26/2021 [id number] (Aat), QN, Serum Normal Alpha 1 Antitrypsin 126 mg/dL 101-187 mg/dL [facility] l Center: [address] [place] [address] 04/26/2021 BRICE (Antinuclear Antibodies) Screen, Serum Nor mal Antinuclear Antibodies Direct negative negative [facility] ical Center: [address] [place] [address] 04/26/2021 Tissue Transglutaminase IgA Normal Tissue Transglutaminase IgA <2 U/mL 0-3 U/mL [facility] nter: [address] [place] [address] 04/26/2021 Liver-kidney Microsomal Effie Normal Liver-kidney Microsomal Effie <20.1 units 0.0-20.0 units [facility] nter: 0 [facility] 04/26/2021 Hepatitis a IgG Total ABNORMAL Hepatitis a I gG Total positive negative [facility]: 83 0 [facility] 04/26/2021 Ceruloplasmin, Serum Normal Ceruloplasmin 24.6 mg/dL 16.0-31.0 mg/dL [facility]: 83 0 [facility] 04/26/2021 Mitochondrial Ab, Serum Normal Anti -mitochondrial Antibody <20.0 units 0.0-20.0 units [facility] nter: 0 [facility] 04/26/2021 Cordero Fibrosure [id number] High Fibrosis Sco re 0.74 0.00-0.21 [facility]: [address] [place] [address] Normal Fibrosis Stage F3-F4 . [facility]: [address] [place] [address] High Steatosis Score 0.77 0.00-0.30 [facility]: [address] [place], [place] [id number] Normal Steatosis Grade . Final [facility]: 830 [facility] High Cordero Score 0.50 0.25 [facility]: 830 [facility] Normal Cordero Grade . Final [facility]: 830 [facility] Normal Height 72 in . in [facility]: 830 [facility] Normal Weight 210 lbs . lbs Final [facility]: 830 [facility] High Alpha 2-Macroglobulins,qn 281 mg/dL 110-276 mg/dL [facility]: 830 [facility] Normal Haptoglobin 105 mg/dL 34-355 mg/dL [facility]: 830 [facility] Low Apolipoprotein a-1 91 mg/dL 101-178 mg/dL [facility]: 830 [facility] Normal Bilirubin, Total 0.3 mg/dL 0.0-1.2 m g/dL [facility]: 830 [facility] High Ggt 86 IU/L 0-65 IU/L [facility]: 830 [facility] Normal ALT (SGPT) P5P 19 IU/L 0-55 IU/L [facility]: 830 [facility] Normal AST (SGOT) P5P 27 IU/L 0-40 IU/L [facility]: 830 [facility] Normal Cholesterol Total 126 mg/dL 100-199 mg/dL [facility]: 830 [facility] High Glucose, Serum 162 mg/dL 65-99 mg/dL [facility]: 830 [facility] High Triglycerides 159 mg/dL 0-149 mg/dL [facility]: 830 [facility] Normal Interpretations . [facility]: 830 [facility] Normal Fibrosis Scoring . [facility]: 830 [facility] Normal Steatosis Grading . [facility]: 830 [facility] Normal Cordero Scoring . Final [facility]: 830 [facility] Normal Limitations . Final [facility]: 830 [facility] Normal Comment . Final [facility]: 830 [facility] 04/26/2021 Hepatitis C Ab, Serum Normal Hepati tis C Virus Effie Index < 0.0 index <0.8 index Final [facility] nter: 830 [facility] 04/26/2021 Hepatic Function Panel, Serum Normal AST/SG OT 25 U/L 7-37 U/L Final [facility]: 830 [facility] Normal ALT/SGPT 23 U/L 12-78 U/L Final [facility]: 830 [facility] Normal Alkaline Phosphatase 59 U/L 45-117 U /L [facility]: 830 [facility] Normal Bilirubin,total 0.6 mg/dL 0.2-1.0 mg /dL [facility]: 830 [facility] Normal Bilirubin,direct 0.2 mg/dL 0.0-0.2 m g/dL [facility]: 830 [facility] Normal Total Protein 6.8 gm/dL 6.4-8.2 gm/d L [facility]: 830 [facility] Normal Albumin 3.2 gm/dL 3.2-5.2 gm/dL Liza l [facility]: 830 [facility] Normal Albumin/globulin Ratio 0.9 [facility]: 830 [facility] 04/26/2021 TIBC (Total Iron-binding Capacity), Serum Low Iron (Fe) 26 ug/dL 65-175 ug/dL [facility] nter: 830 [facility] Normal Total Iron Binding Capacity 372 ug/d L 250-450 ug/dL [facility]: 0 [facility] Low Percent Saturation 7.0 % 19.7-50.0 % [facility]: 830 [facility] 04/26/2021 Protein Electrophoresis Panel, Serum or Plasma Lo w Albumin % 53.5 % 55.8-66.1 % [facility] nter: [address] [place] [address] Normal Hemim-3-Wnvwmhgz % 4.0 % 2.9-4.9 % [facility]: [address] [place] [address] Normal Xirlh-4-Sugxrlvgt % 10.0 % 7.1-11.8 % [facility]: [address] [place] [address] High Xypq-3-Hcolrbuom % 7.4 % 4.7-7.2 % [facility]: [address] [place] [address] Normal Nbrq-2-Mrvzkaycl % 5.6 % 3.2-6.5 % [facility]: [address] [place] [address] High Gamma Globulin % 19.6 % 11.1-18.8 % [facility]: [address] [place] [address] Normal Albumin 3.64 gm/dL 3.29-5.55 gm/dL F inal [facility]: [address] [place] [address] Normal Lmpyo-6-Cxghtyaza 0.27 gm/dL 0.17-0. 41 gm/dL [facility]: [address] [place] [address] Normal Hcyaj-7-Gexrzvfzm 0.68 gm/dL 0.42-0. 99 gm/dL [facility]: [address] [place] [address] Normal Kavb-0-Wnqtevyfu 0.50 gm/dL 0.28-0.6 0 gm/dL [facility]: [address] [place] [address] Normal Nwmb-5-Prsttpqad 0.37 gm/dL 0.19-0.5 5 gm/dL [facility]: [address] [place] [address] Normal Gamma Globulins 1.33 gm/dL 0.65-1.58 gm/dL [facility]: [address] [place] [address] Normal Total Protein 6.8 gm/dL 6.4-8.2 gm/d L [facility]: [address] [place] [address] Normal Spep Interpretation see comment [facility]: [address] [place] [address] Normal Spep Pathologist Review rev'd by Hector mckeon [facility]: [address] [place] [address] 04/26/2021 Hepatitis B Monitoring Profile Normal Hepatitis B Surface Antigen negative negative Final [facility]: [address] [place] [address] Normal Hepatitis B Surface Antibody negativ e positive Final [facility]: [address] [place] [address] Normal Hepatitis B Core Antibody IgM negati ve negative Final [facility]: [address] [place] [address] 04/26/2021 Hepatitis a Antibody IgM Normal Hep atitis a Antibody IgM negative negative Final [facility] nter: [address] [place] [address] 04/26/2021 TSH, Serum or Plasma Normal Thyroid Stimulating Hormone 0.941 uIU/mL 0.358-3.740 uIU/mL [facility] nter: [address] [place] [address] 04/26/2021 Ferritin, Serum or Plasma Low Ferritin 9 NG/mL 26-388 NG/mL Final [facility]: [address] [place] [address] 04/26/2021 Alpha Fetoprotein Tumor Quant Normal Alpha Fetoprotein Tumor Quant 2.1 NG/mL <8.1 NG/mL [facility]: [address] [place] [address] 04/24/2021 Lipid Panel, Serum Blood venous Cholesterol , Total 124 mg/dL <200 mg/dL [facility] [address] [facility] Blood venous Low HDL Cholesterol 25 mg/dL > or = 40 mg/dL Final [facility]: [address] [facility] Blood venous Triglycerides 148 mg/dL <150 mg/dL Final [facility]: [address] [facility] Blood venous LDL-cholesterol 76 mg/dL (yumi c) <100 mg/dL (calc) Final [facility]: [address] [facility] Blood venous High Chol/hdlc Ratio 5.0 calc <5.[address] [facility]: [address] [facility] Blood venous Non HDL Cholesterol 99 m g/dL (calc) <130 mg/dL (calc) Final [facility]: [address] [facility] Blood venous High LDL Particle Number 1171 nmol /L <1138 nmol/L Final [facility]: 875 [facility] Blood venous High LDL Small 347 nmol/L <142 nmo l/L Final [facility]: 875 [facility] Blood venous High LDL Medium 223 nmol/L <215 nm ol/L Final [facility]: 875 [facility] Blood venous Low HDL Large 3402 nmol/L >6729 n mol/L Final [facility]: 875 [facility] Blood venous ABNORMAL LDL Pattern B pattern A pat tern Final [facility]: 875 [facility] Blood venous Low LDL Peak Size 210.9 angstrom >222.[address] [facility]: 875 [facility] Blood venous Apolipoprotein B 77 mg/dL [facility]: 875 [facility] Blood venous Lipoprotein (a) 18 nmol/L <75 nmol/L Final [facility]: 875 [facility] 04/24/2021 CMP, Serum or Plasma Blood venous High Glucose 163 mg/dL 65-99 mg/dL Final [facility]: 875 [facility] Blood venous High Urea Nitrogen (BUN) 29 mg/dL 7-25 mg/dL Final [facility]: 875 [facility] Blood venous Normal Creatinine 1.10 mg/dL 0.70-1. 18 mg/dL [facility]: 875 [facility] Blood venous Normal eGFR Non-afr. Libyan 6 4 mL/min/1.73m2 > or = 60 mL/min/1.73m2 Final [facility]: 875 [facility] Blood venous Normal eGFR 75 mL/min/1.73m2 > or = 60 mL/min/1.73m2 Final [facility]: 875 [facility] Blood venous High BUN/creatinine Ratio 26 (calc ) 6-22 (calc) [facility]: 875 [facility] Blood venous Normal Sodium 140 mmol/L 135-146 mmo l/L Final [facility]: 875 [facility] Blood venous Normal Potassium 4.3 mmol/L 3.5-5.3 mmol/L Final [facility]: 875 [facility] Blood venous Normal Chloride 105 mmol/L 98-110 mm ol/L Final [facility]: 875 [facility] Blood venous Normal Carbon Dioxide 24 mmol/L 20-3 2 mmol/L [facility]: 875 [facility] Blood venous Normal Calcium 9.0 mg/dL 8.6-10.3 mg /dL Final [facility]: 875 [facility] Blood venous Normal Protein, Total 6.7 g/dL 6.1-8 .1 g/dL [facility]: 875 [facility] Blood venous Normal Albumin 3.7 g/dL 3.6-5.1 g/dL [facility]: 875 [facility] Blood venous Normal Globulin 3.0 g/dL (calc) 1.9- 3.7 g/dL (calc) [facility]: 875 [facility] Blood venous Normal Albumin/globulin Ratio 1 .2 (calc) 1.0-2.5 (calc) [facility]: [address] [facility] Blood venous Normal Bilirubin, Total 0.7 mg/dL 0. 2-1.2 mg/dL Final [facility]: 875 [facility] Blood venous Normal Alkaline Phosphatase 55 U/L 3 5-144 U/L [facility]: 875 [facility] Blood venous Normal Ast 22 U/L 10-35 U/L Final [facility]: 875 [facility] Blood venous Normal Alt 15 U/L 9-46 U/L Final [facility]est [facility]: 875 [facility] 04/24/2021 Microalbumin, Urine Urine Normal Albumin, Urine 0.7 mg/dL see note: mg/dL [facility] 875 [facility] Urine Dex Final [facility]: 875 [facility] 04/24/2021 Tsh Blood venous Normal Tsh 0.79 mIU/L 0.40-4.50 mIU/L Final [facility]: 875 [facility] 04/24/2021 HbA1C (Hemoglobin a1C), Blood Blood venous High Hemoglobin a1C 7.0 % of total HGB <5.7 % of total HGB Final [facility]: 875 [facility] 01/24/2021 Lipid Panel, Serum Blood venous High Triglycerid es 160 mg/dL <150 mg/dL Final [facility]: 875 [facility] Blood venous Normal Cholesterol, Total 119 mg/dL <200 mg/dL [facility]: 875 [facility] Blood venous Low HDL Cholesterol 24 mg/dL > or = 40 mg/dL [facility]: 875 [facility] Blood venous Normal LDL-cholesterol 71 mg/dL (yumi c) [facility]: 875 [facility] Blood venous High Chol/hdlc Ratio 5.0 (calc) <5 .0 (calc) [facility]: 875 [facility] Blood venous Normal Non HDL Cholesterol 95 m g/dL (calc) <130 mg/dL (calc) Final [facility]: 875 [facility] 01/24/2021 TSH, Serum or Plasma Blood venous Normal T3 Uptake 31 % 22-35 % [facility]: 875 [facility] Blood venous Normal T4 (Thyroxine), Total 5. 2 mcg/dL 4.9-10.5 mcg/dL [facility]: 875 [facility] Blood venous Normal Free T4 Index (T7) 1.6 1.4 -3.8 [facility]: 875 [facility] Blood venous Normal Tsh 1.18 mIU/L 0.40-4.50 mIU /L [facility]: 875 [facility] 01/24/2021 CMP, Serum or Plasma Blood venous High Glucose 151 mg/dL 65-99 mg/dL [facility]: 875 [facility] Blood venous Normal Urea Nitrogen (BUN) 25 mg/dL 7-25 mg/dL [facility]: 875 [facility] Blood venous Normal Creatinine 1.06 mg/dL 0.70-1. 18 mg/dL [facility]: 875 [facility] Blood venous Normal eGFR Non-afr. Libyan 6 7 mL/min/1.73m2 > or = 60 mL/min/1.73m2 Final [facility]: 875 [facility] Blood venous Normal eGFR 78 mL/min/1.73m2 > or = 60 mL/min/1.73m2 Final [facility]: 875 [facility] Blood venous BUN/creatinine Ratio not applicable (calc) 6-22 (calc) [facility]: [address] [facility] Blood venous Normal Sodium 140 mmol/L 135-146 mmo l/L [facility]: 875 [facility] Blood venous Normal Potassium 4.4 mmol/L 3.5-5.3 mmol/L [facility]: 875 [facility] Blood venous Normal Chloride 105 mmol/L 98-110 mm ol/L [facility]: 875 [facility] Blood venous Normal Carbon Dioxide 29 mmol/L 20-3 2 mmol/L [facility]: 875 [facility] Blood venous Normal Calcium 9.1 mg/dL 8.6-10.3 mg /dL [facility]: 8[address] [facility] Blood venous Normal Protein, Total 6.7 g/dL 6.1-8 .1 g/dL [facility]: 875 [facility] Blood venous Normal Albumin 3.7 g/dL 3.6-5.1 g/dL [facility]: 875 [facility] Blood venous Normal Globulin 3.0 g/dL (calc) 1.9- 3.7 g/dL (calc) [facility]: 875 [facility] Blood venous Normal Albumin/globulin Ratio 1 .2 (calc) 1.0-2.5 (calc) [facility]: [address] [facility] [facility] Blood venous Normal Bilirubin, Total 0.5 mg/dL 0. 2-1.2 mg/dL [facility]: 875 [facility] Blood venous Normal Alkaline Phosphatase 70 U/L 3 5-144 U/L [facility]: 875 [facility] Blood venous Normal Ast 21 U/L 10-35 U/L [facility]: [address] [facility] Blood venous Normal Alt 14 U/L 9-46 U/L Final [facility]: [address] [facility] 01/24/2021 HbA1C (Hemoglobin a1C), Blood Blood venous High Hemoglobin a1C 6.5 % of total HGB <5.7 % of total HGB Final [facility]: [address] [facility] Past Encounters 06/24/2021 Acute Bronchitis Ayah Clark MD: [address] [place] [phone], Ph. 06/21/2021 Exposure to SARS-CoV-2 Victor Manuel Concepcion MD: [address] [place] [phone], Ph. 05/31/2021 Mixed Anxiety and Depressive Disorder; Chronic Atrial Fibrillation; Administration of Influenza Vaccine Victor Manuel Concepcion MD: [address] [place] [phone], Ph. 05/01/2021 Body Mass Index 30+ - Obesity; Diabetes Mellitus; Mixed Anxiety and Depressive Disorder; Chronic Atrial Fibrillation Victor Manuel Concepcion MD: [address] [place] [phone], Ph. 04/24/2021 Victor Manuel Concepcion MD: [address] [place] [phone], Ph. 01/31/2021 Diabetes Mellitus; Type 2 Diabetes Mellitus without Complication; Mixed Anxiety and Depressive Disorder Victor Manuel Concepcion MD: [address] [place] [phone], Ph. 01/24/2021 Victor Manuel Concepcion MD: [address] [place] [phone], Ph. 01/11/2021 Lower Abdominal Pain Victor Manuel Concepcion MD: [address] [place] [phone], Ph. 11/30/2020 Gastroesophageal Reflux Disease without Esophagitis; Diabetes Mellitus; Chronic Atrial Fibrillation; Mixed Anxiety and Depressive Disorder; Body Mass Index 30+ - Obesity Victor Manuel Concepcion MD: [address] [place] [phone], Ph. Social History Tobacco Smoking Status Never [...] 28.4 kg/m2 126/72 mm[Hg] 05/31/2021 01:00PM ESTABLISHED [id number] Height Weight BMI Blood Pressure 72 in 206 lbs 27.9 kg/m2 107/74 mm[Hg] 05/01/2021 03:00PM ESTABLISHED [id number] Height Weight BMI Blood Pressure 72 in 90/62 mm[Hg] 04/24/2021 09:10AM NURSE LAB COLLECTION Height 72 in 01/31/2021 03:00PM ESTABLISHED [id number] Height Weight BMI Blood Pressure 72 in 195 lbs 2 oz 26.5 kg/m2 97/67 mm[Hg] 01/24/2021 08:20AM NURSE LAB COLLECTION Height 72 in 01/11/2021 03:00PM ESTABLISHED [id number] Height Weight BMI Blood Pressure 72 in 210 lbs 4 oz 28.5 kg/m2 114/81 mm[Hg] 11/30/2020 10:20AM NEW PATIENT (12yrs - OLDER) Height Weight BMI Blood Pressure 72 in 222 lbs 2 oz 30.1 kg/m2 143/98 mm[Hg]
--- OUTSIDE RECORDS SUMMARY | 2021-06-29 14:50 | CCD ---
Author Organization Unknown Address [address] [place] [id number] Phone [phone] Care Team Providers Care Lead Software Development Engineer Name Role Phone Victor Manuel Concepcion Unavailable Unavailable Allergies Code Code System Name Reaction Severity Status Onset NKDA Medications Name Status Start Date Stop Date albuterol sulfate HFA 90 mcg/actuation a erosol inhaler INHALE TWO PUFFS BY MOUTH FOUR TIMES DAILY NEEDED Active Not available atorvastatin 20 mg tablet TAKE ONE TABLET BY MOUTH @8PM Active Not avail able Baby Aspirin 81 mg chewable tablet Chew 1 tablet every day by oral route. Active Not available cephalexin 500 mg capsule TAKE ONE CAPSULE BY MOUTH EVERY TWELVE HOURS FOR 7 DAYS Completed 11/30/2020 clopidogrel 75 mg tablet TAKE 4 TABLETS BY MOUTH ONCE DAILY FOR ONE DAY, TAKE ALL FOUR TABLETS THE NIGHT PRIOR TO CARDIAC CATHETERIZATION Active Not emory ilable digoxin 125 mcg (0.125 mg) tablet TAKE ONE TABLET BY MOUTH @8PM Active Not avail able Eliquis 5 mg tablet TAKE ONE TABLET BY MOUTH @8AM and TAKE ONE TABLET BY MOUTH @8PM Active Not available fluoxetine 20 mg capsule Completed fluoxetine 20 mg tablet Take 1 tablet every day by oral route. Completed 01/31/2021 fluoxetine 40 mg capsule TAKE ONE CAPSULE BY MOUTH @8AM Active Not avai lable fluticasone propionate 50 mcg/actuation nasal spray,suspension INSTILL TWO SPRAYS IN EACH NOSTRIL ONCE DAILY Completed 11/30/2020 GaviLyte-G 236 gram-22.74 gram-6.74 gram-5.86 gram oral solution Active Not available glipizide 5 mg tablet Active Not availa ble irbesartan 150 mg tablet TAKE ONE TABLET BY MOUTH @8AM Completed Jardiance 10 mg tablet Take 1 tablet every day by oral route. Completed 11/30/2020 Jardiance 25 mg tablet TAKE ONE TABLET BY MOUTH @8AM Active Not avail able loratadine 10 mg capsule Take by oral route. Active Not available losartan 25 mg tablet TAKE ONE TABLET BY MOUTH @8AM Active Not avail able metformin ER 500 mg tablet,extended rele ase 24 hr TAKE FOUR TABLETS BY MOUTH EVERY DAY Active No t available metoprolol succinate ER 100 mg tablet,ex tended release 24 hr TAKE ONE TABLET BY MOUTH @8PM Active Not avail able metoprolol succinate ER 200 mg tablet,extended release 24 hr Com pleted 05/01/2021 Myrbetriq 50 mg tablet,extended release TAKE ONE TABLET BY MOUTH @8AM Completed 1 sertraline 25 mg tablet Take 1 tablet every day by oral route. Active Not available simvastatin 20 mg tablet TAKE ONE TABLET BY MOUTH @8PM Completed 1 Toviaz 4 mg tablet,extended release TAKE ONE TABLET BY MOUTH @8PM Active Not avail able tramadol 50 mg tablet TAKE ONE TABLET BY MOUTH ONCE DAILY NEEDED FOR PAIN, MAX DAILY DOSE ONE TABLET Completed 11/30/2020 Problems Name Status Onset Date Source Diabetes Mellitus Active 11/30/2020 Body Mass Index 30+ - Obesity Active 11/30/2020 Mixed Anxiety and Depressive Disorder Active 11/30/2020 Chronic Atrial Fibrillation Active 11/30/2020 Gastroesophageal Reflux Disease without Esophagitis Active 11/30/2020 Lower Abdominal Pain Active 01/11/2021 Procedures Date Name Performed by Placement of Stent 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 2 seconds 12.7-14.5 seconds [facility]: [address] [facility] Normal Inr 1.26 [facility]: 0 [facility] Normal Partial Thromboplastin Time 33 .7 seconds 25.9-37.0 seconds [facility]: [address] [facility] 04/26/2021 Gamma Glutamyltranspeptidase High Gamma Glutamyltranspeptidase 113 U/L 15-85 U/L [facility] nter: 0 [facility] 04/26/2021 Vitamin D, 25-Hydroxy, Total, Serum Normal Total 25(Oh) Vitamin D 72.1 NG/mL 30.0-100.0 NG/mL Final [facility]: 0 [facility] 04/26/2021 Smooth Muscle Ab, Serum Normal Anti -smooth Muscle Antibody 10 units 0-19 units [facility] nter: [address] [facility] 04/26/2021 Hlqam-5-Gxosszkycaj (Aat), QN, Serum Normal Alpha 1 Antitrypsin 126 mg/dL 101-187 mg/dL [facility]: [address] [place] [address] 04/26/2021 BRICE (Antinuclear Antibodies) Screen, Serum Nor mal Antinuclear Antibodies Direct negative negative [facility] ical Center: [address] [place] [address] 04/26/2021 Tissue Transglutaminase IgA Normal Tissue Transglutaminase IgA <2 U/mL 0-3 U/mL [facility] nter: 0 [facility] 04/26/2021 Liver-kidney Microsomal Effie Normal Liver-kidney Microsomal Effie <20.1 units 0.0-20.0 units [facility] nter: [address] [facility] 04/26/2021 Hepatitis a IgG Total ABNORMAL Hepatitis a I gG Total positive negative [facility]: [address] [facility] 04/26/2021 Ceruloplasmin, Serum Normal Ceruloplasmin 24.6 mg/dL 16.0-31.0 mg/dL [facility]: [address] [facility] 04/26/2021 Mitochondrial Ab, Serum Normal Anti -mitochondrial Antibody <20.0 units 0.0-20.0 units [facility] nter: [address] [facility] 04/26/2021 Cordero Fibrosure [id number] High Fibrosis Sco re 0.74 0.00-0.21 [facility]: 0 [facility] Normal Fibrosis Stage F3-F4 . [facility]: 0 [facility] High Steatosis Score 0.77 0.00-0.30 [facility]: 0 [facility] Normal Steatosis Grade . [facility] 0 [facility] High Cordero Score 0.50 0.25 [facility]: [address] [facility] Normal Cordero Grade . Final [facility]: [address] [facility] Normal Height 72 in . in Final [facility]: [address] [facility] Normal Weight 210 lbs . lbs [facility]: [address] [facility] High Alpha 2-Macroglobulins,qn 281 mg/dL 110-276 mg/dL [facility]: [address] [facility] Normal Haptoglobin 105 mg/dL 34-355 mg/dL [facility]: [address] [facility] Low Apolipoprotein a-1 91 mg/dL 101-178 mg/dL [facility]: [address] [facility] Normal Bilirubin, Total 0.3 mg/dL 0.0-1.2 m g/dL [facility]: [address] [facility] High Ggt 86 IU/L 0-65 IU/L [facility]: [address] [facility] Normal ALT (SGPT) P5P 19 IU/L 0-55 IU/L [facility]: [address] [facility] Normal AST (SGOT) P5P 27 IU/L 0-40 IU/L [facility]: [address] [facility] Normal Cholesterol Total 126 mg/dL 100-199 mg/dL [facility]: [address] [facility] High Glucose, Serum 162 mg/dL 65-99 mg/dL [facility]: [address] [facility] High Triglycerides 159 mg/dL 0-149 mg/dL [facility]: [address] [facility] Normal Interpretations . [facility]: [address] [facility] Normal Fibrosis Scoring . Final [facility]: [address] [facility] Normal Steatosis Grading . [facility]: [address] [facility] Normal Cordero Scoring . Final [facility]: [address] [facility] Normal Limitations . Final [facility]: [address] [facility] Normal Comment . Final [facility]: [address] [place] [address] 04/26/2021 Hepatitis C Ab, Serum Normal Hepati tis C Virus Effie Index < 0.0 index <0.8 index [facility] nter: [address] [place] [address] 04/26/2021 Hepatic Function Panel, Serum Normal AST/SG OT 25 U/L 7-37 U/L [facility]: [address] [place] [address] Normal ALT/SGPT 23 U/L 12-78 U/L [facility]: [address] [place] [address] Normal Alkaline Phosphatase 59 U/L 45-117 U /L [facility]: [address] [place] [address] Normal Bilirubin,total 0.6 mg/dL 0.2-1.0 mg /dL [facility]: [address] [place] [address] Normal Bilirubin,direct 0.2 mg/dL 0.0-0.2 m g/dL [facility]: [address] [place] [address] Normal Total Protein 6.8 gm/dL 6.4-8.2 gm/d L [facility]: [address] [place] [address] Normal Albumin 3.2 gm/dL 3.2-5.2 gm/dL Liza l [facility]: [address] [place] [address] Normal Albumin/globulin Ratio 0.9 [facility]: [address] [place] [address] 04/26/2021 TIBC (Total Iron-binding Capacity), Serum Low Iron (Fe) 26 ug/dL 65-175 ug/dL [facility] nter: [address] [place] [address] Normal Total Iron Binding Capacity 372 ug/d L 250-450 ug/dL [facility]: [address] [place] [address] Low Percent Saturation 7.0 % 19.7-50.0 % [facility]: [address] [place] [address] 04/26/2021 Protein Electrophoresis Panel, Serum or Plasma Lo w Albumin % 53.5 % 55.8-66.1 % [facility] nter: [address] [place] [address] Normal Umljs-4-Tslcccim % 4.0 % 2.9-4.9 % [facility]: [address] [place] [address] Normal Uoszc-8-Lwdouxavi % 10.0 % 7.1-11.8 % [facility]: [address] [place] [address] High Ktop-3-Qpwakogck % 7.4 % 4.7-7.2 % [facility]: [address] [place] [address] Normal Hcqn-2-Wfrksfesc % 5.6 % 3.2-6.5 % [facility]: [address] [place] [address] High Gamma Globulin % 19.6 % 11.1-18.8 % [facility]: [address] [place] [address] Normal Albumin 3.64 gm/dL 3.29-5.55 gm/dL F inal [facility]: [address] [place] [address] Normal Ioofw-0-Thddbwxch 0.27 gm/dL 0.17-0. 41 gm/dL [facility]: [address] [place] [address] Normal Wapnk-9-Gxmdnnvca 0.68 gm/dL 0.42-0. 99 gm/dL [facility]: [address] [place] [address] Normal Nguk-5-Pbdwmkctk 0.50 gm/dL 0.28-0.6 0 gm/dL [facility]: [address] [place] [address] Normal Klyz-5-Niqplbmlh 0.37 gm/dL 0.19-0.5 5 gm/dL [facility]: [address] [place] [address] Normal Gamma Globulins 1.33 gm/dL 0.65-1.58 gm/dL [facility]: [address] [place] [address] Normal Total Protein 6.8 gm/dL 6.4-8.2 gm/d L [facility]: [address] [place] [address] Normal Spep Interpretation see comment [facility]: [address] [place] [address] Normal Spep Pathologist Review rev'd by Hector mckeon [facility]: [address] [place] [address] 04/26/2021 Hepatitis B Monitoring Profile Normal Hepatitis B Surface Antigen negative negative Final [facility]: [address] [facility] Normal Hepatitis B Surface Antibody negativ e positive Final [facility]: [address] [facility] Normal Hepatitis B Core Antibody IgM negati ve negative Final [facility]: [address] [place] [address] 04/26/2021 Hepatitis a Antibody IgM Normal Hep atitis a Antibody IgM negative negative Final [facility] nter: 0 [facility] 04/26/2021 TSH, Serum or Plasma Normal Thyroid Stimulating Hormone 0.941 uIU/mL 0.358-3.740 uIU/mL Final [facility] nter: 0 [facility] 04/26/2021 Ferritin, Serum or Plasma Low Ferritin 9 NG/mL 26-388 NG/mL Final [facility]: [address] [place] [address] 04/26/2021 Alpha Fetoprotein Tumor Quant Normal Alpha Fetoprotein Tumor Quant 2.1 NG/mL <8.1 NG/mL Final [facility]: [address] [facility] 04/24/2021 Lipid Panel, Serum Blood venous Cholesterol , Total 124 mg/dL <200 mg/dL [facility] [address] [facility] Blood venous Low HDL Cholesterol 25 mg/dL > or = 40 mg/dL Final [facility]: [address] [facility] Blood venous Triglycerides 148 mg/dL <150 mg/dL Final [facility]: [address] [facility] Blood venous LDL-cholesterol 76 mg/dL (yumi c) <100 mg/dL (calc) Final [facility]: [address] [facility] Blood venous High Chol/hdlc Ratio 5.0 calc <5.0 calc Final [facility]: [address] [facility] Blood venous Non HDL Cholesterol 99 m g/dL (calc) <130 mg/dL (calc) Final [facility]: [address] [facility] Blood venous High LDL Particle Number 1171 nmol /L <1138 nmol/L Final [facility]: [address] [facility] High LDL Small 347 nmol/L <142 nmo l/L [facility]: [address] [facility] Blood venous High LDL Medium 223 nmol/L <215 nm ol/L Final [facility]: [address] [facility] Blood venous Low HDL Large 3402 nmol/L >6729 n mol/L Final [facility]: [address] [facility] Blood venous ABNORMAL LDL Pattern B pattern A pat tern Final [facility]: [address] [facility] Blood venous Low LDL Peak Size 210.9 angstrom >222.9 angstrom Final [facility]: [address] [facility] Blood venous Apolipoprotein B 77 mg/dL Final [facility]: [address] [facility] Blood venous Lipoprotein (a) 18 nmol/L <75 nmol/L [facility]: [address] [facility] 04/24/2021 CMP, Serum or Plasma Blood venous High Glucose 163 mg/dL 65-99 mg/dL Final [facility]: [address] [facility] Blood venous High Urea Nitrogen (BUN) 29 mg/dL 7-25 mg/dL Final [facility]: [address] [facility] Blood venous Normal Creatinine 1.10 mg/dL 0.70-1. 18 mg/dL [facility]: [address] [facility] Blood venous Normal eGFR Non-afr. [place] 6 4 mL/min/1.73m2 > or = 60 mL/min/1.73m2 Final [facility]: [address] [facility] Blood venous Normal eGFR 75 mL/min/1.73m2 > or = 60 mL/min/1.73m2 Final [facility]: [address] [facility] Blood venous High BUN/creatinine Ratio 26 (calc ) 6-22 (calc) [facility]: [address] [facility] Blood venous Normal Sodium 140 mmol/L 135-146 mmo l/L Final [facility]: [address] [facility] Blood venous Normal Potassium 4.3 mmol/L 3.5-5.3 mmol/L Final [facility]: [address] [facility] Blood venous Normal Chloride 105 mmol/L 98-110 mm ol/L Final [facility]: [address] [facility] Blood venous Normal Carbon Dioxide 24 mmol/L 20-3 2 mmol/L Final [facility]: [address] [facility] Blood venous Normal Calcium 9.0 mg/dL 8.6-10.3 mg /dL [facility]: [address] [facility] Blood venous Normal Protein, Total 6.7 g/dL 6.1-8 .1 g/dL [facility]: [address] [facility] Blood venous Normal Albumin 3.7 g/dL 3.6-5.1 g/dL [facility]: [address] [facility] Blood venous Normal Globulin 3.0 g/dL (calc) 1.9- 3.7 g/dL (calc) [facility]: [address] [facility] Blood venous Normal Albumin/globulin Ratio 1 .2 (calc) 1.0-2.5 (calc) [facility]: [address] [facility] Blood venous Normal Bilirubin, Total 0.7 mg/dL 0. 2-1.2 mg/dL Final [facility]: [address] [facility] Blood venous Normal Alkaline Phosphatase 55 U/L 3 5-144 U/L [facility]: [address] [facility] Blood venous Normal Ast 22 U/L 10-35 U/L Final [facility]: [address] [facility] Blood venous Normal Alt 15 U/L 9-46 U/L Final [facility]: [address] [facility] 04/24/2021 Microalbumin, Urine Urine Normal Albumin, Urine 0.7 mg/dL see note: mg/dL [facility] [address] [facility] Urine Dex Final [facility]: [address] [facility] 04/24/2021 Tsh Blood venous Normal Tsh 0.79 mIU/L 0.40-4.50 mIU/L Final [facility]: [address] [facility] 04/24/2021 HbA1C (Hemoglobin a1C), Blood Blood venous High Hemoglobin a1C 7.0 % of total HGB <5.7 % of total HGB Final [facility]: [address] [facility] 01/24/2021 Lipid Panel, Serum Blood venous High Triglycerid es 160 mg/dL <150 mg/dL Final [facility]: [address] [facility] Blood venous Normal Cholesterol, Total 119 mg/dL <200 mg/dL [facility]: [address] [facility] Blood venous Low HDL Cholesterol 24 mg/dL > or = 40 mg/dL [facility]: [address] [facility] Blood venous Normal LDL-cholesterol 71 mg/dL (yumi c) [facility]: [address] [facility] Blood venous High Chol/hdlc Ratio 5.0 (calc) <5 .0 (calc) Final [facility]: [address] [facility] Blood venous Normal Non HDL Cholesterol 95 m g/dL (calc) <130 mg/dL (calc) Final [facility]: [address] [facility] 01/24/2021 TSH, Serum or Plasma Blood venous Normal T3 Uptake 31 % 22-35 % [facility]: [address] [facility] Blood venous Normal T4 (Thyroxine), Total 5. 2 mcg/dL 4.9-10.5 mcg/dL Final [facility]: [address] [facility] Blood venous Normal Free T4 Index (T7) 1.6 1.4 -3.8 [facility]: [address] [facility] Blood venous Normal Tsh 1.18 mIU/L 0.40-4.50 mIU /L [facility]: [address] [facility] 01/24/2021 CMP, Serum or Plasma Blood venous High Glucose 151 mg/dL 65-99 mg/dL Final [facility]: [address] [facility] Blood venous Normal Urea Nitrogen (BUN) 25 mg/dL 7-25 mg/dL Final [facility]: [address] [facility] Blood venous Normal Creatinine 1.06 mg/dL 0.70-1. 18 mg/dL [facility]: [address] [facility] Blood venous Normal eGFR Non-afr. [place] 6 7 mL/min/1.73m2 > or = 60 mL/min/1.73m2 Final [facility]: [address] [facility] Blood venous Normal eGFR 78 mL/min/1.73m2 > or = 60 mL/min/1.73m2 [facility] [address] [facility] Blood venous BUN/creatinine Ratio not applicable (calc) 6-22 (calc) [facility]: [address] [facility] Blood venous Normal Sodium 140 mmol/L 135-146 mmo l/L [facility]: [address] [facility] Blood venous Normal Potassium 4.4 mmol/L 3.5-5.3 mmol/L [facility]: [address] [facility] Blood venous Normal Chloride 105 mmol/L 98-110 mm ol/L [facility]: [address] [facility] Blood venous Normal Carbon Dioxide 29 mmol/L 20-3 2 mmol/L [facility]: [address] [facility] Blood venous Normal Calcium 9.1 mg/dL 8.6-10.3 mg /dL [facility]: [address] [facility] Blood venous Normal Protein, Total 6.7 g/dL 6.1-8 .1 g/dL [facility]: [address] [facility] Blood venous Normal Albumin 3.7 g/dL 3.6-5.1 g/dL [facility]: [address] [facility] Blood venous Normal Globulin 3.0 g/dL (calc) 1.9- 3.7 g/dL (calc) [facility]: [address] [facility] Blood venous Normal Albumin/globulin Ratio 1 .2 (calc) 1.0-2.5 (calc) [facility]: [address] [facility] Blood venous Normal Bilirubin, Total 0.5 mg/dL 0. 2-1.2 mg/dL [facility]: [address] [facility] Blood venous Normal Alkaline Phosphatase 70 U/L 3 5-144 U/L [facility]: [address] [facility] Blood venous Normal Ast 21 U/L 10-35 U/L [facility]: [address] [facility] Blood venous Normal Alt 14 U/L 9-46 U/L Final [facility]: [facility]/24/[facility]21 HbA1C (Hemoglobin a1C), Blood Blood venous High Hemoglobin a1C 6.5 % of total HGB <5.7 % of total HGB Final [facility]: [address] [facility] [facility] Past Encounters 05/31/2021 Mixed Anxiety and Depressive Disorder; Chronic Atrial Fibrillation; Administration of Influenza Vaccine Victor Manuel Concepcion MD: [address] [place] [phone], Ph. 05/01/2021 Body Mass Index 30+ - Obesity; Diabetes Mellitus; Mixed Anxiety and Depressive Disorder; Chronic Atrial Fibrillation Victor Manuel Concepcion MD: [address] [place] [phone], Ph. 04/24/2021 Victor Manuel Concepcion MD: [address] [place] [phone], Ph. 01/31/2021 Diabetes Mellitus; Type 2 Diabetes Mellitus without Complication; Mixed Anxiety and Depressive Disorder Victor Manuel Concepcion MD: [address] [place] [phone], Ph. 01/24/2021 Victor Manuel Concepcion MD: [address] [place] [phone], Ph. 01/11/2021 Lower Abdominal Pain Victor Manuel Concepcion MD: [address] [place] [phone], Ph. 11/30/2020 Gastroesophageal Reflux Disease without Esophagitis; Diabetes Mellitus; Chronic Atrial Fibrillation; Mixed Anxiety and Depressive Disorder; Body Mass Index 30+ - Obesity Victor Manuel Concepcion MD: [address] [place] [phone], Ph. Social History Tobacco Smoking Status Never Smoker Vaccine List Vaccine Type COVID-19, mRNA, LNP-S, PF, 100 mcg/0.5 m L dose 12/11/2020 Plan of Care Reminders Provider Appointments None recorded. Lab None recorded. Referral None recorded. Procedures None recorded. Surgeries None recorded. Imaging None recorded. Vitals 05/31/2021 01:00PM ESTABLISHED [id number] Height Weight BMI Blood Pressure 72 in 206 lbs 27.9 kg/m2 107/74 mm[Hg] 05/01/2021 03:00PM ESTABLISHED [id number] Height Weight BMI Blood Pressure 72 in 90/62 mm[Hg] 04/24/2021 09:10AM NURSE LAB COLLECTION Height 72 in 01/31/2021 03:00PM ESTABLISHED [id number] Height Weight BMI Blood Pressure 72 in 195 lbs 2 oz 26.5 kg/m2 97/67 mm[Hg] 01/24/2021 08:20AM NURSE LAB COLLECTION Height 72 in 01/11/2021 03:00PM ESTABLISHED [id number] Height Weight BMI Blood Pressure 72 in 210 lbs 4 oz 28.5 kg/m2 114/81 mm[Hg] 11/30/2020 10:20AM NEW PATIENT (10yrs - OLDER) Height Weight BMI Blood Pressure 72 in 222 lbs 2 oz 30.1 kg/m2 143/98 mm[Hg]
--- OUTSIDE RECORDS SUMMARY | 2021-06-29 14:50 | CCD ---
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 2 seconds 12.7-14.5 seconds [facility]: 83 0 [facility] Normal Inr 1.26 [facility]: 0 [facility] Normal Partial Thromboplastin Time 33 .7 seconds 25.9-37.0 seconds [facility]: 830 [facility] 04/26/2021 Gamma Glutamyltranspeptidase High Gamma Glutamyltranspeptidase 113 U/L 15-85 U/L [facility] nter: 0 [facility] 04/26/2021 Vitamin D, 25-Hydroxy, Total, Serum Normal Total 25(Oh) Vitamin D 72.1 NG/mL 30.0-100.0 NG/mL Final [facility] Center: 0 [facility] 04/26/2021 Smooth Muscle Ab, Serum Normal Anti -smooth Muscle Antibody 10 units 0-19 units [facility] nter: 830 [facility] 04/26/2021 Qowud-7-Ayeyzfawwur (Aat), QN, Serum Normal Alpha 1 Antitrypsin 126 mg/dL 101-187 mg/dL [facility] Center: [address] [place] [address] 04/26/2021 BRICE (Antinuclear Antibodies) Screen, Serum Nor mal Antinuclear Antibodies Direct negative negative [facility] ical Center: [address] [place] [address] 04/26/2021 Tissue Transglutaminase IgA Normal Tissue Transglutaminase IgA <2 U/mL 0-3 U/mL [facility] nter: 0 [facility] 04/26/2021 Liver-kidney Microsomal Effie Normal Liver-kidney Microsomal Effie <20.1 units 0.0-20.0 units [facility] nter: 830 [facility] 04/26/2021 Hepatitis a IgG Total ABNORMAL Hepatitis a I gG Total positive negative [facility]: 83 0 [facility] 04/26/2021 Ceruloplasmin, Serum Normal Ceruloplasmin 24.6 mg/dL 16.0-31.0 mg/dL [facility]: 83 0 [facility] 04/26/2021 Mitochondrial Ab, Serum Normal Anti -mitochondrial Antibody <20.0 units 0.0-20.0 units [facility] nter: 830 [facility] 04/26/2021 Cordero Fibrosure [id number] High Fibrosis Sco re 0.74 0.00-0.21 [facility]: 0 [facility] Normal Fibrosis Stage F3-F4 . [facility]: 0 [facility] High Steatosis Score 0.77 0.00-0.30 [facility]: 0 [facility] Normal Steatosis Grade . [facility]: 0 [facility] High Cordero Score 0.50 0.25 [facility]: 830 [facility] Normal Cordero Grade . Final [facility]: 830 [facility] Normal Height 72 in . in Final [facility]: 830 [facility] Normal Weight 210 lbs . lbs [facility]: 830 [facility] High Alpha 2-Macroglobulins,qn 281 mg/dL 110-276 mg/dL [facility]: 830 [facility] Normal Haptoglobin 105 mg/dL 34-355 mg/dL F [facility]: 830 [facility] Low Apolipoprotein a-1 91 mg/dL 101-178 mg/dL [facility]: 830 [facility] Normal Bilirubin, Total 0.3 mg/dL 0.0-1.2 m g/dL [facility]: 830 [facility] High Ggt 86 IU/L 0-65 IU/L [facility]: 830 [facility] Normal ALT (SGPT) P5P 19 IU/L 0-55 IU/L [facility]: 830 [facility] Normal AST (SGOT) P5P 27 IU/L 0-40 IU/L [facility]: 830 [facility] Normal Cholesterol Total 126 mg/dL 100-199 mg/dL [facility]: 830 [facility] High Glucose, Serum 162 mg/dL 65-99 mg/dL [facility]: 830 [facility] High Triglycerides 159 mg/dL 0-149 mg/dL [facility]: 830 [facility] Normal Interpretations . [facility]: 830 [facility] Normal Fibrosis Scoring . Final [facility]: 830 [facility] Normal Steatosis Grading . [facility]: 830 [facility] Normal Cordero Scoring . Final [facility]: 830 [facility] Normal Limitations . Final [facility]: 830 [facility] Normal Comment . Final [facility]: [address] [place] [address] 04/26/2021 Hepatitis C Ab, Serum Normal Hepati tis C Virus Effie Index < 0.0 index <0.8 index [facility] nter: [address] [place] [address] 04/26/2021 Hepatic Function Panel, Serum Normal AST/SG OT 25 U/L 7-37 U/L [facility]: [address] [place] [address] Normal ALT/SGPT 23 U/L 12-78 U/L [facility]: [address] [place] [address] Normal Alkaline Phosphatase 59 U/L 45-117 U /L [facility]: [address] [place] [address] Normal Bilirubin,total 0.6 mg/dL 0.2-1.0 mg /dL [facility]: [address] [place] [address] Normal Bilirubin,direct 0.2 mg/dL 0.0-0.2 m g/dL [facility]: [address] [place] [address] Normal Total Protein 6.8 gm/dL 6.4-8.2 gm/d L [facility]: [address] [place] [address] Normal Albumin 3.2 gm/dL 3.2-5.2 gm/dL Liza l [facility]: [address] [place] [address] Normal Albumin/globulin Ratio 0.9 [facility]: [address] [place] [address] 04/26/2021 TIBC (Total Iron-binding Capacity), Serum Low Iron (Fe) 26 ug/dL 65-175 ug/dL [facility] nter: [address] [place] [address] Normal Total Iron Binding Capacity 372 ug/d L 250-450 ug/dL [facility]: [address] [place] [address] Low Percent Saturation 7.0 % 19.7-50.0 % [facility]: [address] [place] [address] 04/26/2021 Protein Electrophoresis Panel, Serum or Plasma Lo w Albumin % 53.5 % 55.8-66.1 % [facility] nter: [address] [place] [address] Normal Kurdf-6-Hzzlgyja % 4.0 % 2.9-4.9 % [facility]: [address] [place] [address] Normal Mcgnv-3-Mzvqbonjl % 10.0 % 7.1-11.8 % [facility]: [address] [place] [address] High Kruu-6-Enfioxknx % 7.4 % 4.7-7.2 % [facility]: [address] [place] [address] Normal Afot-1-Yauhgcqcd % 5.6 % 3.2-6.5 % [facility]: [address] [place] [address] High Gamma Globulin % 19.6 % 11.1-18.8 % [facility]: [address] [place] [address] Normal Albumin 3.64 gm/dL 3.29-5.55 gm/dL F inal [facility]: [address] [place] [address] Normal Ptjrj-3-Tujkrfipj 0.27 gm/dL 0.17-0. 41 gm/dL [facility]: [address] [place] [address] Normal Tpuue-7-Xqlnbfzrb 0.68 gm/dL 0.42-0. 99 gm/dL [facility]: [address] [place] [address] Normal Arnq-8-Vgyitvdst 0.50 gm/dL 0.28-0.6 0 gm/dL [facility]: [address] [place] [address] Normal Njup-4-Bcnhkoiou 0.37 gm/dL 0.19-0.5 5 gm/dL [facility]: [address] [place] [address] Normal Gamma Globulins 1.33 gm/dL 0.65-1.58 gm/dL [facility]: [address] [place] [address] Normal Total Protein 6.8 gm/dL 6.4-8.2 gm/d L [facility]: [address] [place] [address] Normal Spep Interpretation see comment [facility]: [address] [place] [address] Normal Spep Pathologist Review rev'd by Hector mckeon [facility]: [address] [place] [address] 04/26/2021 Hepatitis B Monitoring Profile Normal Hepatitis B Surface Antigen negative negative Final [facility] Center: 830 [facility] Normal Hepatitis B Surface Antibody negativ e positive Final [facility]: 830 [facility] Normal Hepatitis B Core Antibody IgM negati ve negative Final [facility]: [address] [place] [address] 04/26/2021 Hepatitis a Antibody IgM Normal Hep atitis a Antibody IgM negative negative Final [facility] nter: 0 [facility] 04/26/2021 TSH, Serum or Plasma Normal Thyroid Stimulating Hormone 0.941 uIU/mL 0.358-3.740 uIU/mL Final [facility] nter: 0 [facility] 04/26/2021 Ferritin, Serum or Plasma Low Ferritin 9 NG/mL 26-388 NG/mL Final [facility]: [address] [place] [address] 04/26/2021 Alpha Fetoprotein Tumor Quant Normal Alpha Fetoprotein Tumor Quant 2.1 NG/mL <8.1 NG/mL Final [facility]: 830 [facility] 04/24/2021 Lipid Panel, Serum Blood venous Cholesterol , Total 124 mg/dL <200 mg/dL [facility] : [address] [facility] Blood venous Low HDL Cholesterol 25 mg/dL > or = 40 mg/dL Final [facility]: [address] [facility] Blood venous Triglycerides 148 mg/dL <150 mg/dL Final [facility]: [address] [facility] Blood venous LDL-cholesterol 76 mg/dL (yumi c) <100 mg/dL (calc) Final [facility]: [address] [facility] Blood venous High Chol/hdlc Ratio 5.0 calc <5.0 calc Final [facility]: [address] [facility] Blood venous Non HDL Cholesterol 99 m g/dL (calc) <130 mg/dL (calc) Final [facility]: [address] [facility] Blood venous High LDL Particle Number 1171 nmol /L <1138 nmol/L Final [facility]: [address] [facility] Blood venous High LDL Small 347 nmol/L <142 nmo l/L [facility]: 875 [facility] Blood venous High LDL Medium 223 nmol/L <215 nm ol/L Final [facility]: 875 [facility] Blood venous Low HDL Large 3402 nmol/L >6729 n mol/L Final [facility]: 875 [facility] Blood venous ABNORMAL LDL Pattern B pattern A pat tern Final [facility]: 875 [facility] Blood venous Low LDL Peak Size 210.9 angstrom >222.9 angstrom Final [facility]: 875 [facility] Blood venous Apolipoprotein B 77 mg/dL Final [facility]: 875 [facility] Blood venous Lipoprotein (a) 18 nmol/L <75 nmol/L [facility]: 875 [facility] 04/24/2021 CMP, Serum or Plasma Blood venous High Glucose 163 mg/dL 65-99 mg/dL Final [facility]: 875 [facility] Blood venous High Urea Nitrogen (BUN) 29 mg/dL 7-25 mg/dL Final [facility]: 875 [facility] Blood venous Normal Creatinine 1.10 mg/dL 0.70-1. 18 mg/dL [facility]: 875 [facility] Blood venous Normal eGFR Non-afr. Algerian 6 4 mL/min/1.73m2 > or = 60 mL/min/1.73m2 Final [facility]: 875 [facility] Blood venous Normal eGFR 75 mL/min/1.73m2 > or = 60 mL/min/1.73m2 Final [facility]: 875 [facility] Blood venous High BUN/creatinine Ratio 26 (calc ) 6-22 (calc) [facility]: 875 [facility] Blood venous Normal Sodium 140 mmol/L 135-146 mmo l/L Final [facility]: 875 [facility] Blood venous Normal Potassium 4.3 mmol/L 3.5-5.3 mmol/L Final [facility]: 875 [facility] Blood venous Normal Chloride 105 mmol/L 98-110 mm ol/L Final [facility]: 875 [facility] Blood venous Normal Carbon Dioxide 24 mmol/L 20-3 2 mmol/L Final [facility]: 875 [facility] Blood venous Normal Calcium 9.0 mg/dL 8.6-10.3 mg /dL [facility]: 875 [facility] Blood venous Normal Protein, Total 6.7 g/dL 6.1-8 .1 g/dL [facility]: 875 [facility] Blood venous Normal Albumin 3.7 g/dL 3.6-5.1 g/dL [facility]: 875 [facility] Blood venous Normal Globulin 3.0 g/dL (calc) 1.9- 3.7 g/dL (calc) [facility]: 875 [facility] Blood venous Normal Albumin/globulin Ratio 1 .2 (calc) 1.0-2.5 (calc) [facility]: 875 [facility] Blood venous Normal Bilirubin, Total 0.7 mg/dL 0. 2-1.2 mg/dL Final [facility]: 875 [facility] Blood venous Normal Alkaline Phosphatase 55 U/L 3 5-144 U/L [facility]: 875 [facility] Blood venous Normal Ast 22 U/L 10-35 U/L Final [facility]: 875 [facility] Blood venous Normal Alt 15 U/L 9-46 U/L Final [facility]est [facility]: 875 [facility] 04/24/2021 Microalbumin, Urine Urine Normal Albumin, Urine 0.7 mg/dL see note: mg/dL Final [facility]: 875 [facility] Urine Dex Final [facility] Diag nostics [facility]: 875 [facility] 04/24/2021 Tsh Blood venous Normal Tsh 0.79 mIU/L 0.40-4.50 mIU/L Final [facility]: 875 [facility] 04/24/2021 HbA1C (Hemoglobin a1C), Blood Blood venous High Hemoglobin a1C 7.0 % of total HGB <5.7 % of total HGB Final [facility]: 875 [facility] 01/24/2021 Lipid Panel, Serum Blood venous High Triglycerid es 160 mg/dL <150 mg/dL Final [facility]: 875 [facility] Blood venous Normal Cholesterol, Total 119 mg/dL <200 mg/dL [facility]: 875 [facility] Blood venous Low HDL Cholesterol 24 mg/dL > or = 40 mg/dL [facility]: 875 [facility] Blood venous Normal LDL-cholesterol 71 mg/dL (yumi c) [facility]: 875 [facility] Blood venous High Chol/hdlc Ratio 5.0 (calc) <5 .0 (calc) Final [facility]: 875 [facility] Blood venous Normal Non HDL Cholesterol 95 m g/dL (calc) <130 mg/dL (calc) Final [facility]: 875 [facility] 01/24/2021 TSH, Serum or Plasma Blood venous Normal T3 Uptake 31 % 22-35 % [facility]: 875 [facility] Blood venous Normal T4 (Thyroxine), Total 5. 2 mcg/dL 4.9-10.5 mcg/dL Final [facility]: 875 [facility] Blood venous Normal Free T4 Index (T7) 1.6 1.4 -3.8 [facility]: 875 [facility] Blood venous Normal Tsh 1.18 mIU/L 0.40-4.50 mIU /L [facility]: 875 [facility] 01/24/2021 CMP, Serum or Plasma Blood venous High Glucose 151 mg/dL 65-99 mg/dL Final [facility]: 875 [facility] Blood venous Normal Urea Nitrogen (BUN) 25 mg/dL 7-25 mg/dL Final [facility]: 875 [facility] Blood venous Normal Creatinine 1.06 mg/dL 0.70-1. 18 mg/dL [facility]: 875 [facility] Blood venous Normal eGFR Non-afr. Algerian 6 7 mL/min/1.73m2 > or = 60 mL/min/1.73m2 Final [facility]: 875 [facility] Blood venous Normal eGFR 78 mL/min/1.73m2 > or = 60 mL/min/1.73m2 [facility] 875 [facility] Blood venous BUN/creatinine Ratio not applicable (calc) 6-22 (calc) [facility]: [address] [facility] Blood venous Normal Sodium 140 mmol/L 135-146 mmo l/L [facility]: 875 [facility] Blood venous Normal Potassium 4.4 mmol/L 3.5-5.3 mmol/L [facility]: 875 [facility] Blood venous Normal Chloride 105 mmol/L 98-110 mm ol/L [facility]: 875 [facility] Blood venous Normal Carbon Dioxide 29 mmol/L 20-3 2 mmol/L [facility]: 875 [facility] Blood venous Normal Calcium 9.1 mg/dL 8.6-10.3 mg /dL [facility]: 875 [facility] Blood venous Normal Protein, Total 6.7 g/dL 6.1-8 .1 g/dL [facility]: 875 [facility] Blood venous Normal Albumin 3.7 g/dL 3.6-5.1 g/dL [facility]: 875 [facility] Blood venous Normal Globulin 3.0 g/dL (calc) 1.9- 3.7 g/dL (calc) [facility]: 875 [facility] Blood venous Normal Albumin/globulin Ratio 1 .2 (calc) 1.0-2.5 (calc) [facility]: [address] [facility] Blood venous Normal Bilirubin, Total 0.5 mg/dL 0. 2-1.2 mg/dL [facility]: 875 [facility] Blood venous Normal Alkaline Phosphatase 70 U/L 3 5-144 U/L [facility]: 875 [facility] Blood venous Normal Ast 21 U/L 10-35 U/L [facility]: 875 [facility] Blood venous Normal Alt 14 U/L 9-46 U/L Final [facility]21 HbA1C (Hemoglobin a1C), Blood Blood venous High Hemoglobin a1C 6.5 % of total HGB <5.7 % of total HGB Final [facility]: [address] [place] Past Encounters 05/31/2021 Mixed Anxiety and Depressive Disorder; Chronic Atrial Fibrillation; Administration of Influenza Vaccine Victor Manuel Concepcion MD: [address] [place] [phone], Ph. 05/01/2021 Body Mass Index 30+ - Obesity; Diabetes Mellitus; Mixed Anxiety and Depressive Disorder; Chronic Atrial Fibrillation Victor Manuel Concepcion MD: [address] [place] [phone], Ph. 04/24/2021 Victor Manuel Concepcion MD: [address] [place] [phone], Ph. 01/31/2021 Diabetes Mellitus; Type 2 Diabetes Mellitus without Complication; Mixed Anxiety and Depressive Disorder Victor Manuel Concepcion MD: [address] [place] [phone], Ph. 01/24/2021 Victor Manuel Concepcion MD: [address] [place] [phone], Ph. 01/11/2021 Lower Abdominal Pain Victor Manuel Concepcion MD: [address] [place] [phone], Ph. 11/30/2020 Gastroesophageal Reflux Disease without Esophagitis; Diabetes Mellitus; Chronic Atrial Fibrillation; Mixed Anxiety and Depressive Disorder; Body Mass Index 30+ - Obesity Victor Manuel Concepcion MD: [address] [place] [phone], Ph. Social History Tobacco Smoking Status Never Smoker Vaccine List Vaccine Type COVID-19, mRNA, LNP-S, PF, 100 mcg/0.5 m L dose 12/11/2020 Plan of Care Reminders Provider Appointments None recorded. Lab None recorded. Referral None recorded. Procedures None recorded. Surgeries None recorded. Imaging None recorded. Vitals 05/31/2021 01:00PM ESTABLISHED [id number] Height Weight BMI Blood Pressure 72 in 206 lbs 27.9 kg/m2 107/74 mm[Hg] 05/01/2021 03:00PM ESTABLISHED [id number] Height Weight BMI Blood Pressure 72 in 90/62 mm[Hg] 04/24/2021 09:10AM NURSE LAB COLLECTION Height 72 in 01/31/2021 03:00PM ESTABLISHED [id number] Height Weight BMI Blood Pressure 72 in 195 lbs 2 oz 26.5 kg/m2 97/67 mm[Hg] 01/24/2021 08:20AM NURSE LAB COLLECTION Height 72 in 01/11/2021 03:00PM ESTABLISHED [id number] Height Weight BMI Blood Pressure 72 in 210 lbs 4 oz 28.5 kg/m2 114/81 mm[Hg] 11/30/2020 10:20AM NEW PATIENT (12yrs - OLDER) Height Weight BMI Blood Pressure 72 in 222 lbs 2 oz 30.1 kg/m2 143/98 mm[Hg]
--- OUTSIDE RECORDS SUMMARY | 2021-06-29 14:51 | CCD ---
Author Organization Unknown Address [address] [place] [address] Phone [phone] Care Team Providers Care [employer]person [employer] Name Role Phone Victor Manuel Concepcion Unavailable [...] mcg (0.125 mg) tablet Active Not available Eliquis 5 mg tablet Active Not availabl e fluoxetine 20 mg capsule Completed 021 fluoxetine 20 mg tablet Take 1 tablet every day by oral route. Completed 01/31/2021 fluoxetine 40 mg capsule Active Not emory ilable fluticasone propionate 50 mcg/actuation nasal spray,suspension INSTILL TWO SPRAYS IN EACH NOSTRIL ONCE DAILY Completed 11/30/2020 glipizide 5 mg tablet Active Not availa ble irbesartan 150 mg tablet TAKE ONE TABLET BY MOUTH @8AM Completed Jardiance 10 mg tablet Take 1 tablet every day by oral route. Completed 11/30/2020 Jardiance 25 mg tablet Active Not avail able loratadine 10 mg capsule Take by oral route. Active Not available losartan 25 mg tablet Active Not availa ble metformin ER 500 mg tablet,extended rele ase 24 hr TAKE FOUR TABLETS BY MOUTH EVERY DAY Active No t available metoprolol succinate ER 200 mg tablet,extended release 24 hr Act sadia Not available Myrbetriq 50 mg tablet,extended release TAKE ONE TABLET BY MOUTH @8AM Completed simvastatin 20 mg tablet TAKE ONE TABLET BY MOUTH @8PM Active Not avail able Toviaz 4 mg tablet,extended release Active Not [...] Result Interpretation Description Value Range Status Address 01/24/2021 Lipid Panel, Serum Blood venous High Triglycerid es 160 mg/dL <150 mg/dL Final [facility]: [address] [facility] Blood venous Normal Cholesterol, Total 119 mg/dL <200 mg/dL Final [facility]: [address] [facility] Blood venous Low HDL Cholesterol 24 mg/dL > or = 40 mg/dL Final [facility]: [address] [facility] Blood venous Normal LDL-cholesterol 71 mg/dL (yumi c) Final [facility]: [address] [facility] Blood venous High Chol/hdlc Ratio 5.0 (calc) <5 .0 (calc) Final [facility]: [address] [facility] Blood venous Normal Non HDL Cholesterol 95 m g/dL (calc) <130 mg/dL (calc) Final [facility]: [address] [facility] 01/24/2021 TSH, Serum or Plasma Blood venous Normal T3 Uptake 31 % 22-35 % Final [facility]: [address] [facility] Blood venous Normal T4 (Thyroxine), Total 5. 2 mcg/dL 4.9-10.5 mcg/dL Final [facility]: [address] [facility] Blood venous Normal Free T4 Index (T7) 1.6 1.4 -3.8 [facility]: [address] [facility] Blood venous Normal Tsh 1.18 mIU/L 0.40-4.50 mIU /L Final [facility]: [address] [facility] 01/24/2021 CMP, Serum or Plasma Blood venous High Glucose 151 mg/dL 65-99 mg/dL Final [facility]: [address] [facility] Blood venous Normal Urea Nitrogen (BUN) 25 mg/dL 7-25 mg/dL [facility]: [address] [facility] Blood venous Normal Creatinine 1.06 mg/dL 0.70-1. 18 mg/dL [facility]: [address] [facility] Blood venous Normal eGFR Non-afr. Citizen Of [place] 6 7 mL/min/1.73m2 > or = 60 mL/min/1.73m2 Final [facility]: [address] [facility] Blood venous Normal eGFR 78 mL/min/1.73m2 > or = 60 mL/min/1.73m2 Final [facility]: [address] [facility] Blood venous BUN/creatinine Ratio not applicable (calc) 6-22 (calc) [facility]: [address] [facility] venous Normal Sodium 140 mmol/L 135-146 mmo l/L [facility]: [address] [facility] Blood venous Normal Potassium 4.4 mmol/L 3.5-5.3 mmol/L [facility]: [address] [facility] Blood venous Normal Chloride 105 mmol/L 98-110 mm ol/L [facility]: [address] [facility] Blood venous Normal Carbon Dioxide 29 mmol/L 20-3 2 mmol/L [facility]: [address] [facility] Blood venous Normal Calcium 9.1 mg/dL 8.6-10.3 mg /dL [facility]: [address] [facility] Blood venous Normal Protein, Total 6.7 g/dL 6.1-8 .1 g/dL [facility]: [address] [facility] Blood venous Normal Albumin 3.7 g/dL 3.6-5.1 g/dL [facility]: [address] [facility] Blood venous Normal Globulin 3.0 g/dL (calc) 1.9- 3.7 g/dL (calc) [facility]: [address] [facility] Blood venous Normal Albumin/globulin Ratio 1 .2 (calc) 1.0-2.5 (calc) Final [facility]: [address] [facility] Blood venous Normal Bilirubin, Total 0.5 mg/dL 0. 2-1.2 mg/dL Final [facility]: [address] [facility] Blood venous Normal Alkaline Phosphatase 70 U/L 3 5-144 U/L Final [facility]: [address] [facility] Blood venous Normal Ast 21 U/L 10-35 U/L Final [facility]: [address] [facility] Blood venous Normal Alt 14 U/L 9-46 U/L Final [facility]: [address] [facility] 01/24/2021 HbA1C (Hemoglobin a1C), Blood Blood venous High Hemoglobin a1C 6.5 % of total HGB <5.7 % of total HGB Final [facility] Encounters 04/24/2021 Victor Manuel Concepcion MD: [address] [place] [phone], Ph. 01/31/2021 Diabetes Mellitus; Type 2 Diabetes Mellitus without Complication; Mixed Anxiety and Depressive Disorder Victor Manuel Concepcion MD: [address] [place] [phone], Ph. 01/24/2021 Victor Manuel Concepcion MD: [address] [place] [phone], Ph. 01/11/2021 Lower Abdominal Pain Victor Manuel Concepcion MD: [address] [place] [phone], Ph. 11/30/2020 Gastroesophageal Reflux Disease without Esophagitis; Diabetes Mellitus; Chronic Atrial Fibrillation; Mixed Anxiety and Depressive Disorder; Body Mass Index 30+ - Obesity Victor Manuel Concepcion MD: [address] [place] [phone], Ph. Social History Tobacco Smoking Status Never Smoker Vaccine List Vaccine Type COVID-19, mRNA, LNP-S, PF, 100 mcg/0.5 m L dose 12/11/2020 Plan of Care Reminders Provider Appointments None recorded. Lab None recorded. Referral None recorded. Procedures None recorded. Surgeries None recorded. Imaging None recorded. Vitals 04/24/2021 09:10AM NURSE LAB COLLECTION Height 72 in 01/31/2021 03:00PM ESTABLISHED [id number] Height Weight BMI Blood Pressure 72 in 195 lbs 2 oz 26.5 kg/m2 97/67 mm[Hg] 01/24/2021 08:20AM NURSE LAB COLLECTION Height 72 in 01/11/2021 03:00PM ESTABLISHED [id number] Height Weight BMI Blood Pressure 72 in 210 lbs 4 oz 28.5 kg/m2 114/81 mm[Hg] 11/30/2020 10:20AM NEW PATIENT (10yrs - OLDER) Height Weight BMI Blood Pressure 72 in 222 lbs 2 oz 30.1 kg/m2 143/98 mm[Hg]
--- OUTSIDE RECORDS SUMMARY | 2021-06-29 14:51 | CCD | Continuity of Care Document ---
Author Author Edwin OROURKE F.N.P. Organization Unknown Address [address], [address] [place] [address] Phone [phone] Care Team Providers Care Social Director Name Role Phone Victor Manuel Concepcion MD [facility] [phone] Problems Description No Information Available Social History Type Date Description Comments Sex Unknown ETOH Use Denies alcohol use Tobacco Use Start: Unknown Patient has never smoked Sun Exposure moderate amount of sun exposure Sun Exposure Has never used tanning bed Sun Exposure Has never experienced blistering from sunburns Sun Exposure Does not use sunscreen Allergies and adverse reactions Description No Known Drug Allergies Medications Active Medications SIG Qnty Indications Ordering Provide r Date Lisinopril 20mg Tablets 1 tab by mouth every day Unknown Metformin HCL 500mg Tablets 2 tab by mouth twice a day Unknown Prozac 20mg Capsules 1 tab by mouth every day Unknown Vitamin D3 5000Unit Capsules 1 tab by mouth every day Unknown Digoxin 125mcg Tablets 1 tab by mouth every day Unknown Aspir-[address] 1 tab by mouth every day Unknown Hydrochlorothiazide 25mg Tablets 1 by mouth every day Unknown Glipizide 5mg Tablets 1 tab by mouth twice a day Unknown Eliquis Unknown Zocor Unknown Metoprolol Succinate ER Unknown 0 Jardiance Unknown Magnesium Oxide Unknown 0 Vitamin B12 Unknown Immunizations Description No Information Available Vital Signs Date Vital Result Comment 05/08/2021 10:15am BP Systolic 135 mmHg BP Diastolic 85 mmHg Weight 206.00 lb Height 71 inches 5'11" BMI (Body Mass Index) 28.7 kg/m2 11/05/2020 10:03am BP Systolic 128 mmHg BP Diastolic 71 mmHg Weight 208.00 lb Body Temperature 97.1 F Results Test Acquired Date Facility Test Result H/L Range Note L Holiness ( 3 Of 4 ) 05/08/2021 [facility] Icd9 Code ICD9 Code: C44.6 <SEE NOTE> 1, 2 PDFReport SEE IMAGE 1 A. Excise with CO 06/29 B. No further treatment necessary C. LN2 any remaining D. Excise with CO 06/29 2 ICD9 Code: C44.609 Protocol: shave Clinical Text: BCC Final Diagnosis: BASAL CELL CARCINOMA, SUPERFICIAL AND NODULAR TYPE. Gross Text: The specimen grossly was irregular in shape and measured 10 x 6 mm. on the surface and 1 mm. deep. It was divided into 2 sections on the long axis. All of the tissue was submitted for processing. Microscopic Description: There are aggregates of basaloid cells emanating from the undersurface of the epidermis and forming nests. These basaloid cells have hyperchromatic nuclei, scant cytoplasm and show peripheral palisading. CPT: 40407*4 CPT: 87313*1 CPT: 96963*1 Procedures Date Code Description Status 05/08/2021 67003 Office/Outpatient Established Mo d MDM 30-39 Min Completed 05/08/2021 74750 Each Separate/Additional Lesion Completed 05/08/2021 89451 Shave Biopsy Of Skin, Single Les ion Completed Medical Devices Description No Information Available Encounters Type Date Location Provider Dx Diagnosis Office Visit 05/08/2021 10:15a Main Office Claribel Orourke, F.N.P. D48.5 Neoplasm of uncertain behavior of skin D22.5 Melanocytic nevi of trunk L82.1 Other seborrheic keratosis L81.4 Other melanin hyperpigmentat ion L85.9 Epidermal thickening, unspec ified R23.3 Spontaneous ecchymoses Z85.820 Personal history of malignan t melanoma of skin Z85.828 Personal history of other ma lignant neoplasm of skin Z08 Encntr for follow-up exam af ter trtmt for malignant neoplasm Assessments Date Code Description Provider 05/08/2021 D48.5 Neoplasm of uncertain behavior o f skin Claribel Orourke, F.N.P. 05/08/2021 D22.5 Melanocytic nevi of trunk Isabelleandre hopper Dave, F.N.P. 05/08/2021 L82.1 Other seborrheic keratosis Mary Orourke F.N.P. 05/08/2021 L81.4 Other melanin hyperpigmentation Claribel Orourke F.N.P. 05/08/2021 L85.9 Epidermal thickening, unspecifie d Claribel Orourke, F.N.P. 05/08/2021 R23.3 Spontaneous ecchymoses Claribel Orourke F.N.P. 05/08/2021 Z85.820 Personal history of malignant me lanoma of skin Claribel Orourke F.N.P. 05/08/2021 Z85.828 Personal history of other malign ant neoplasm of skin Claribel Orourke F.N.P. 05/08/2021 Z08 Encounter for follow-up examinat ion after completed treatmen Liseth HesterN.P. Plan of Treatment Future Appointment(s):* 06/19/2021 2:30 pm - Claribel Orourke FScarlettN.P. at Main Office * 11/12/2021 10:45 am - Liseth HesterN.P. at Main Office 05/08/2021 - Liseth HesterN.P.* D48.5 Neoplasm of uncertain behavior of skin* Comments:* Shave biopsy today, back - changed nevus, R preauricular and L nondenominational - AK vs SCC in situ, L forearm - BCC.Discussed risks of biopsy to include scarring, infection, need for further treatment. Alternative to the biopsy is watchful waiting.Informed consent for biopsy signed and photographs takenVerified , name and sites. The area was prepped with alcohol and anesthesized with 1% Lidocaine with Epinephrine. The wound was dressed with band-aid and Vaseline. Patient tolerated well with no complications. Specimen sent to pathology. Wound care instructions provided. Will call with pathology when available.Instructed to call with any problems. Continue to monitor for recurrence. * D22.5 Melanocytic nevi of trunk* Comments:* Nevi on trunk appear healthy. Monitor for changes. Sun protection and sunscreen use discussed. Literature given on monthly self skin evaluations. Should any moles change in shape or color, itch, bleed or burn, pt will contact office for evaluation sooner than their interval appointment. * L82.1 Other seborrheic keratosis* Comments:* Reassurance.Discussed seborrheic keratoses are benign warty growths on the skin that appear with age and that they are not contagious.The precise cause of Miguel K's is unknown although can run in families so genes may play a role.Discussed if ever becomes irritated to call for a removal appointment. * L81.4 Other melanin hyperpigmentation* Comments:* Solar lentigines - reassurance.Discussed that solar lentignes appear from the sun that was received years ago. * L85.9 Epidermal thickening, unspecified* Comments:* Reassurance.Discussed if lesion becomes irritated or catches on clothing, we can remove in the future. * R23.3 Spontaneous ecchymoses* Comments:* Reassurance. Call with any problems. * Z85.820 Personal history of malignant melanoma of skin* Comments:* Continue to monitor for recurrence. * Z85.828 Personal history of other malignant neoplasm of skin* Comments:* Continue to monitor for recurrence. * Z08 Encounter for follow-up examination after completed treatmen* Comments:* Reviewed sign and symptoms of skin cancer, including ABCDE's of melanoma.Discussed the importance of using a sunscreen with Zinc Oxide or Titanium Dioxide and to reapply every 2-3 hours.Discussed importance of avoidance of tanning beds and excessive UV exposure.Discussed the importance of monthly self skin examinations.Recommended a skin cancer screening on a yearly basis.Discussed increased risk of skin cancer due to sunburn. See above. * Follow up:* 6 months/PRN - FSC/MM Functional Status Description No Information Available Mental Status Description No Information Available Referrals Description No Information Available
--- OUTSIDE RECORDS SUMMARY | 2021-06-29 14:51 | CCD ---
Author Organization Unknown Address [address] [place] [address] Phone [phone] Care Team Providers Care Foil Wrapper Name Role Phone Victor Manuel Concepcion Unavailable [...] 100 mg tablet,ex tended release 24 hr Take 1 tablet every day by oral route. Active Not available metoprolol succinate ER 200 mg tablet,extended release 24 hr Com pleted 05/01/2021 Myrbetriq 50 mg tablet,extended release TAKE ONE TABLET BY MOUTH @8AM Completed 1 simvastatin 20 mg tablet TAKE ONE TABLET BY MOUTH @8PM Completed 1 Toviaz 4 mg tablet,extended release Active Not [...] Prothrombin Time 16. 2 seconds 12.7-14.5 seconds [facility]: [address] [place] [address] Normal Inr 1.26 [facility]: [address] [place] [address] Normal Partial Thromboplastin Time 33 .7 seconds 25.9-37.0 seconds [facility]: [address] [place] [address] 04/26/2021 Gamma Glutamyltranspeptidase High Gamma Glutamyltranspeptidase 113 U/L 15-85 U/L [facility] nter: [address] [place] [address] 04/26/2021 Vitamin D, 25-Hydroxy, Total, Serum Normal Total 25(Oh) Vitamin D 72.1 NG/mL 30.0-100.0 NG/mL Final [facility] Center: [address] [place] [address] 04/26/2021 Smooth Muscle Ab, Serum Normal Anti -smooth Muscle Antibody 10 units 0-19 units Final [facility] nter: [address] [place] [address] 04/26/2021 Onpaz-9-Dvuxrydcjbo (Aat), QN, Serum Normal Alpha 1 Antitrypsin 126 mg/dL 101-187 mg/dL Final [facility] Center: [address] [place] [address] 04/26/2021 BRICE (Antinuclear Antibodies) Screen, Serum Nor mal Antinuclear Antibodies Direct negative negative [facility] Center: [address] [facility] 04/26/2021 Tissue Transglutaminase IgA Normal Tissue Transglutaminase IgA <2 U/mL 0-3 U/mL [facility] nter: [address] [facility] 04/26/2021 Liver-kidney Microsomal Effie Normal Liver-kidney Microsomal Effie <20.1 units 0.0-20.0 units [facility] nter: [address] [facility] 04/26/2021 Hepatitis a IgG Total ABNORMAL Hepatitis a I gG Total positive negative [facility]: [address] [facility] 04/26/2021 Ceruloplasmin, Serum Normal Ceruloplasmin 24.6 mg/dL 16.0-31.0 mg/dL [facility]: [address] [facility] 04/26/2021 Mitochondrial Ab, Serum Normal Anti -mitochondrial Antibody <20.0 units 0.0-20.0 units [facility] nter: [address] [facility] 04/26/2021 Cordero Fibrosure [id number] High Fibrosis Sco re 0.74 0.00-0.21 [facility]: [address] [facility] Normal Fibrosis Stage F3-F4 . [facility]: [address] [facility] High Steatosis Score 0.77 0.00-0.30 [facility]: [address] [facility] Normal Steatosis Grade . [facility]: [address] [facility] High Cordero Score 0.50 0.25 [facility]: [address] [facility] Normal Cordero Grade . [facility]: [address] [facility] Normal Height 72 in . in [facility]: [address] [facility] Normal Weight 210 lbs . lbs [facility]: [address] [facility] High Alpha 2-Macroglobulins,qn 281 mg/dL 110-276 mg/dL [facility]: [address] [facility] Normal Haptoglobin 105 mg/dL 34-355 mg/dL F inal [facility]: [address] [facility] Low Apolipoprotein a-1 91 mg/dL 101-178 mg/dL [facility]: [address] [facility] Normal Bilirubin, Total 0.3 mg/dL 0.0-1.2 m g/dL [facility]: [address] [facility] High Ggt 86 IU/L 0-65 IU/L [facility]: [address] [facility] Normal ALT (SGPT) P5P 19 IU/L 0-55 IU/L [facility]: [address] [facility] Normal AST (SGOT) P5P 27 IU/L 0-40 IU/L [facility]: [address] [facility] Normal Cholesterol Total 126 mg/dL 100-199 mg/dL [facility]: [address] [facility] High Glucose, Serum 162 mg/dL 65-99 mg/dL [facility]: [address] [facility] High Triglycerides 159 mg/dL 0-149 mg/dL [facility]: [address] [facility] Normal Interpretations . [facility]: [address] [facility] Normal Fibrosis Scoring . Final [facility]: [address] [facility] Normal Steatosis Grading . [facility]: [address] [facility] Normal Cordero Scoring . Final [facility]: [address] [facility] Normal Limitations . Final [facility]: [address] [facility] Normal Comment . Final [facility]: [address] [facility] 04/26/2021 Hepatitis C Ab, Serum Normal Hepati tis C Virus Effie Index < 0.0 index <0.8 index [facility] nter: [address] [facility] 04/26/2021 Hepatic Function Panel, Serum Normal AST/SG OT 25 U/L 7-37 U/L [facility]: [address] [place] [address] Normal ALT/SGPT 23 U/L 12-78 U/L Final [facility]: [address] [place] [address] Normal Alkaline Phosphatase 59 U/L 45-117 U /L [facility]: [address] [place] [address] Normal Bilirubin,total 0.6 mg/dL 0.2-1.0 mg /dL [facility]: [address] [place] [address] Normal Bilirubin,direct 0.2 mg/dL 0.0-0.2 m g/dL [facility]: [address] [place] [address] Normal Total Protein 6.8 gm/dL 6.4-8.2 gm/d L [facility]: [address] [place] [address] Normal Albumin 3.2 gm/dL 3.2-5.2 gm/dL Liza l [facility]: [address] [place] [address] Normal Albumin/globulin Ratio 0.9 [facility]: [address] [place] [address] 04/26/2021 TIBC (Total Iron-binding Capacity), Serum Low Iron (Fe) 26 ug/dL 65-175 ug/dL [facility]ter: [address] [place] [address] Normal Total Iron Binding Capacity 372 ug/d L 250-450 ug/dL [facility]: [address] [place] [address] Low Percent Saturation 7.0 % 19.7-50.0 % [facility]: [address] [place] [address] 04/26/2021 Protein Electrophoresis Panel, Serum or Plasma Lo w Albumin % 53.5 % 55.8-66.1 % [facility]: [address] [place] [address] Normal Jfwfg-7-Zsnhnchn % 4.0 % 2.9-4.9 % [facility]: [address] [place] [address] Normal Dkjti-4-Xtzrezykq % 10.0 % 7.1-11.8 % [facility]: [address] [place] [address] High Boue-1-Bttvjwtbv % 7.4 % 4.7-7.2 % [facility]: [address] [place] [address] Normal Hade-5-Tepbmmxib % 5.6 % 3.2-6.5 % [facility]: [address] [place] [address] High Gamma Globulin % 19.6 % 11.1-18.8 % [facility]: [address] [place] [address] Normal Albumin 3.64 gm/dL 3.29-5.55 gm/dL F inal [facility]: [address] [facility] Normal Hqrxi-8-Itbmttpes 0.27 gm/dL 0.17-0. 41 gm/dL [facility]: [address] [place] [address] Normal Ghnuk-8-Nkwoervuf 0.68 gm/dL 0.42-0. 99 gm/dL [facility]: [address] [place] [address] Normal Udcd-9-Qnmdopsrc 0.50 gm/dL 0.28-0.6 0 gm/dL [facility]: [address] [place] [address] Normal Qrvk-1-Duxlrgcvw 0.37 gm/dL 0.19-0.5 5 gm/dL [facility]: [address] [place] [address] Normal Gamma Globulins 1.33 gm/dL 0.65-1.58 gm/dL [facility]: [address] [place] [address] Normal Total Protein 6.8 gm/dL 6.4-8.2 gm/d L [facility]: [address] [place] [address] Normal Spep Interpretation see comment [facility]: [address] [place] [address] Normal Spep Pathologist Review rev'd by Hector mckeon [facility]: [address] [place] [address] 04/26/2021 Hepatitis B Monitoring Profile Normal Hepatitis B Surface Antigen negative negative [facility] Center: [address] [place] [address] Normal Hepatitis B Surface Antibody negativ e positive [facility]: 0 [facility] Normal Hepatitis B Core Antibody IgM negati ve negative [facility]: 0 [facility] 04/26/2021 Hepatitis a Antibody IgM Normal Hep atitis a Antibody IgM negative negative [facility] nter: [address] [facility] 04/26/2021 TSH, Serum or Plasma Normal Thyroid Stimulating Hormone 0.941 uIU/mL 0.358-3.740 uIU/mL Final [facility] nter: [address] [facility] 04/26/2021 Ferritin, Serum or Plasma Low Ferritin 9 NG/mL 26-388 NG/mL Final [facility]: [address] [facility] 04/26/2021 Alpha Fetoprotein Tumor Quant Normal Alpha Fetoprotein Tumor Quant 2.1 NG/mL <8.1 NG/mL Final [facility]: [address] [facility] 04/24/2021 HbA1C (Hemoglobin a1C), Blood Blood venous High Hemoglobin a1C 7.0 % of total HGB <5.7 % of total HGB Final [facility] 01/24/2021 Lipid Panel, Serum Blood venous High Triglycerid es 160 mg/dL <150 mg/dL Final [facility]: [address] [facility] Blood venous Normal Cholesterol, Total 119 mg/dL <200 mg/dL Final [facility]: [address] [facility] Blood venous Low HDL Cholesterol 24 mg/dL > or = 40 mg/dL Final [facility]: [address] [facility] Blood venous Normal LDL-cholesterol 71 mg/dL (yumi c) Final [facility]: [address] [facility] Blood venous High Chol/hdlc Ratio 5.0 (calc) <5 .0 (calc) Final [facility]: [address] [facility] Blood venous Normal Non HDL Cholesterol 95 m g/dL (calc) <130 mg/dL (calc) Final [facility]: [address] [facility] 01/24/2021 TSH, Serum or Plasma Blood venous Normal T3 Uptake 31 % 22-35 % Final [facility]: [address] [facility] Blood venous Normal T4 (Thyroxine), Total 5. 2 mcg/dL 4.9-10.5 mcg/dL Final [facility]: [address] [facility] Blood venous Normal Free T4 Index (T7) 1.6 1.4 -3.[address] [facility]: [address] [facility] Blood venous Normal Tsh 1.18 mIU/L 0.40-4.50 mIU /L Final [facility]: [address] [facility] 01/24/2021 CMP, Serum or Plasma Blood venous High Glucose 151 mg/dL 65-99 mg/dL Final [facility]: [address] [facility] Blood venous Normal Urea Nitrogen (BUN) 25 mg/dL 7-25 mg/dL Final [facility]: [address] [facility] Blood venous Normal Creatinine 1.06 mg/dL 0.70-1. 18 mg/dL [facility]: [address] [facility] Blood venous Normal eGFR Non-afr. Samoan 6 7 mL/min/1.73m2 > or = 60 mL/min/1.73m2 Final [facility]: [address] [facility] Blood venous Normal eGFR 78 mL/min/1.73m2 > or = 60 mL/min/1.73m2 Final [facility]: [address] [facility] Blood venous BUN/creatinine Ratio not applicable (calc) 6-22 (calc) [facility]: [address] [facility] Blood venous Normal Sodium 140 mmol/L 135-146 mmo l/L [facility]: [address] [facility] Blood venous Normal Potassium 4.4 mmol/L 3.5-5.3 mmol/L [facility]: [address] [facility] Blood venous Normal Chloride 105 mmol/L 98-110 mm ol/L Final [facility]: [address] [facility] Blood venous Normal Carbon Dioxide 29 mmol/L 20-3 2 mmol/L [facility]: [address] [facility] Blood venous Normal Calcium 9.1 mg/dL 8.6-10.3 mg /dL [facility]: [address] [facility] Blood venous Normal Protein, Total 6.7 g/dL 6.1-8 .1 g/dL [facility]: [address] [facility] Blood venous Normal Albumin 3.7 g/dL 3.6-5.1 g/dL [facility]: [address] [facility] Blood venous Normal Globulin 3.0 g/dL (calc) 1.9- 3.7 g/dL (calc) Final [facility]: [address] [place] [facility] Blood venous Normal Albumin/globulin Ratio 1 .2 (calc) 1.0-2.5 (calc) Final [facility]: [address] [facility] Blood venous Normal Bilirubin, Total 0.5 mg/dL 0. 2-1.2 mg/dL Final [facility]: [address] [facility] Blood venous Normal Alkaline Phosphatase 70 U/L 3 5-144 U/L Final [facility]: [address] [facility] Blood venous Normal Ast 21 U/L 10-35 U/L Final [facility]: [address] [facility] Blood venous Normal Alt 14 U/L 9-46 U/L Final [facility]: [address] [facility] 01/24/2021 HbA1C (Hemoglobin a1C), Blood Blood venous High Hemoglobin a1C 6.5 % of total HGB <5.7 % of total HGB Final [facility]: [address] [facility] Past Encounters 05/01/2021 Body Mass Index 30+ - Obesity; Diabetes Mellitus; Mixed Anxiety and Depressive Disorder; Chronic Atrial Fibrillation Victor Manuel Concepcion MD: [address] [place] [address], Ph. 04/24/2021 Victor Manuel Concepcion MD: [address] [place] [phone], Ph. 01/31/2021 Diabetes Mellitus; Type 2 Diabetes Mellitus without Complication; Mixed Anxiety and Depressive Disorder Victor Manuel Concepcion MD: [address] [place] [address], Ph. 01/24/2021 Victor Manuel Concepcion MD: [address] [place] [address], Ph. 01/11/2021 Lower Abdominal Pain Victor Manuel Concepcion MD: [address] [place] [address], Ph. 11/30/2020 Gastroesophageal Reflux Disease without Esophagitis; Diabetes Mellitus; Chronic Atrial Fibrillation; Mixed Anxiety and Depressive Disorder; Body Mass Index 30+ - Obesity Victor Manuel Concepcion MD: [address] [place] [address], Ph. Social History Tobacco Smoking Status Never Smoker Vaccine List Vaccine Type COVID-19, mRNA, LNP-S, PF, 100 mcg/0.5 m L dose 12/11/2020 Plan of Care Reminders Provider Appointments None recorded. Lab None recorded. Referral None recorded. Procedures None recorded. Surgeries None recorded. Imaging None recorded. Vitals 05/01/2021 03:00PM ESTABLISHED [id number] Height Weight BMI Blood Pressure 72 in 90/62 mm[Hg] 04/24/2021 09:10AM NURSE LAB COLLECTION Height 72 in 01/31/2021 03:00PM ESTABLISHED [id number] Height Weight BMI Blood Pressure 72 in 195 lbs 2 oz 26.5 kg/m2 97/67 mm[Hg] 01/24/2021 08:20AM NURSE LAB COLLECTION Height 72 in 01/11/2021 03:00PM ESTABLISHED [id number] Height Weight BMI Blood Pressure 72 in 210 lbs 4 oz 28.5 kg/m2 114/81 mm[Hg] 11/30/2020 10:20AM NEW PATIENT (10yrs - OLDER) Height Weight BMI Blood Pressure 72 in 222 lbs 2 oz 30.1 kg/m2 143/98 mm[Hg]
--- OUTSIDE RECORDS SUMMARY | 2021-06-29 14:51 | CCD | Continuity of Care Document ---
Author Author Edwin OROURKE F.N.P. Organization Unknown Address [address], [address] [place] [address] Phone [phone] Care Team Providers Care Internal Specialist Name Role Phone Victor Manuel Concepcion MD AUTM [phone] Problems Description No Information Available Social History [...] Date Facility Test Result H/L Range Note Laboratory test finding 05/08/2021 Edel R[facility]ARDSON [id number] Pathology <pending> Procedures Date Code Description Status 05/08/2021 21776 Office/Outpatient Established Mo d MDM 30-39 Min Completed 05/08/2021 75326 Each Separate/Additional Lesion Completed 05/08/2021 42923 Shave Biopsy Of Skin, Single Les ion [...] F.N.P. 05/08/2021 D22.5 Melanocytic nevi of trunk Sachin Young'reuben, F.N.P. 05/08/2021 L82.1 Other seborrheic keratosis Mary Young'reuben, F.N.P. 05/08/2021 L81.4 Other melanin hyperpigmentation Claribel Young'reuben, F.N.P. 05/08/2021 L85.9 Epidermal thickening, unspecifie d Claribel Reesereuben, F.N.P. 05/08/2021 R23.3 Spontaneous ecchymoses Claribel Orourke, F.N.P. 05/08/2021 Z85.820 Personal history of malignant me lanoma of skin Brissa Hester. 05/08/2021 Z85.828 Personal history of other malign ant neoplasm of skin Brissa Hester. 05/08/2021 Z08 Encounter for follow-up examinat ion after completed treatmen Brissa Hester. Plan of Treatment Future Appointment(s):* 11/12/2021 10:45 am - Brissa Hester. at Main Office 05/08/2021 - Brissa Hester.* D48.5 Neoplasm of uncertain behavior of skin* Comments:* Shave biopsy today, back - changed nevus, R preauricular and L restoration - AK vs SCC in situ, L [...]
--- OUTSIDE RECORDS SUMMARY | 2021-06-29 14:54 | CCD ---
Author Author [facility] Organization [facility] Address Unknown Phone Unavailable Care Team Providers Care Pipe Tester Name Role Phone Jame Concepcion MD Unavailable Unavailable Jame Concepcion MD Unavailable Unavailable Jame Concepcion MD Unavailable Unavailable Jame Concepcion MD Unavailable Unavailable Jame Concepcion MD Unavailable Unavailable Jame Concepcion MD Unavailable Unavailable Jame Concepcion MD Unavailable Unavailable Jame Concepcion MD Unavailable Unavailable Jame Concepcion MD Unavailable Unavailable Jame Concepcion MD Unavailable Unavailable Jame Concepcion MD Unavailable Unavailable Jame Concepcion MD Unavailable Unavailable Jame Concepcion MD Unavailable Unavailable Jame Concepcion MD Unavailable Unavailable Jame Concepcion MD Unavailable Unavailable Jame Concepcion MD Unavailable Unavailable Jame Concepcion MD Unavailable Unavailable Jame Concepcion MD Unavailable Unavailable Jame Concepcion MD Unavailable Unavailable Jame Concepcion MD Unavailable Unavailable Jame Concepcion MD Unavailable Unavailable Jame Concepcion MD Unavailable Unavailable Jame Concepcion MD Unavailable Unavailable Jame Concepcion MD Unavailable Unavailable Jame Concepcion MD Unavailable Unavailable Jame Concepcion MD Unavailable Unavailable Jame Concepcion MD Unavailable Unavailable Jame Concepcion MD Unavailable Unavailable Jame Concepcion MD Unavailable Unavailable Jame Concepcion MD Unavailable Unavailable Jame Concepcion MD Unavailable Unavailable Jame Concepcion MD Unavailable Unavailable Jame Concepcion MD Unavailable Unavailable Jame Concepcion MD Unavailable Unavailable Jame Concepcion MD Unavailable Unavailable Jame Concepcion MD Unavailable Unavailable Jame Concepcion MD Unavailable Unavailable Jame Concepcion MD Unavailable Unavailable Jame Concepcion MD Unavailable Unavailable Jame Concepcion MD Unavailable Unavailable Jame Concepcion MD Unavailable Unavailable Jame Concepcion MD Unavailable Unavailable Jame Concepcion MD Unavailable Unavailable Jame Concepcion MD Unavailable Unavailable Jame Concepcion MD Unavailable Unavailable Concepcion, Jame Rush MD Unavailable Unavailable Concepcion, Jame Rush MD Unavailable Unavailable Concepcion, Jame Rush MD Unavailable Unavailable Concepcion, Jame Rush MD Unavailable Unavailable Concepcion, Jame Rush MD Unavailable Unavailable Concepcion, Jame Rush MD Unavailable Unavailable Concepcion, Jame Rush MD Unavailable Unavailable Concepcion, Jame Rush MD Unavailable Unavailable Concepcion, Jame Rush MD Unavailable Unavailable Carlene, Jame Rush MD Unavailable Unavailable Concepcion, Jame Rush MD Unavailable Unavailable Concepcion, Jame Rush MD Unavailable Unavailable Concepcion, Jame Rush MD Unavailable Unavailable Concepcion, Jame Rush MD Unavailable Unavailable Concepcion, Jame Rush MD Unavailable Unavailable Concepcion, Jame Rush MD Unavailable Unavailable Concepcion, Jame Rush MD Unavailable Unavailable Concepcion, Jame Rush MD Unavailable Unavailable Concepcion, Jame Rush MD Unavailable Unavailable Concepcion, Jame Rush MD Unavailable Unavailable Concepcion, Jame Rush MD Unavailable Unavailable Concepcion, Jame Rush MD Unavailable Unavailable Concepcion, Jame Rush MD Unavailable Unavailable Concepcion, Jame Rush MD Unavailable Unavailable Concepcion, Jame Rush MD Unavailable Unavailable Concepcion, Jame Rush MD Unavailable Unavailable Concepcion, Jame Rush MD Unavailable Unavailable Concepcion, Jame Rush MD Unavailable Unavailable Concepcion, Jame Rush MD Unavailable Unavailable Concepcion, Jame Rush MD Unavailable Unavailable Concepcion, Jame Rush MD Unavailable Unavailable Concepcion, Jame Rush MD Unavailable Unavailable Concepcion, Jame Rush MD Unavailable Unavailable Concepcion, Jame Rush MD Unavailable Unavailable Concepcion, Jame Rush MD Unavailable Unavailable Concepcion, Jame Rush MD Unavailable Unavailable Concepcion, Jame Rush MD Unavailable Unavailable Concepcion, Jame Rush MD Unavailable Unavailable Concepcion, Jame Rush MD Unavailable Unavailable Concepcion, Jame Rush MD Unavailable Unavailable Concepcion, Jame Rush MD Unavailable Unavailable Concepcion, Jame Rush MD Unavailable Unavailable Concepcion, Jame Rush MD Unavailable Unavailable Carlene, Jame Rush MD Unavailable Unavailable Jame Concepcion MD Unavailable Unavailable Jame Concepcion MD Unavailable Unavailable Jame Concepcion MD Unavailable Unavailable Jame Concepcion MD Unavailable Unavailable Saurabh ORDAZ MD Unavailable Unavailable Saurabh ORDAZ MD Unavailable Unavailable Saurabh ORDAZ MD Unavailable Unavailable Saurabh ORDAZ MD Unavailable Unavailable Saurabh ORDAZ MD Unavailable Unavailable Saurabh ORDAZ MD Unavailable Unavailable Saurabh ORDAZ MD Unavailable Unavailable Saurabh ORDAZ MD Unavailable Unavailable Saurabh ORDAZ MD Unavailable Unavailable Saurabh ORDAZ MD Unavailable Unavailable Saurabh ORDAZ MD Unavailable Unavailable Saurabh ORDAZ MD Unavailable Unavailable Saurabh ORDAZ MD Unavailable Unavailable Saurabh ORDAZ MD Unavailable Unavailable Saurabh ORDAZ MD Unavailable Unavailable Saurabh ORDAZ MD Unavailable Unavailable Saurabh ORDAZ MD Unavailable Unavailable Saurabh ORDAZ MD Unavailable Unavailable Saurabh ORDAZ MD Unavailable Unavailable Saurabh ORDAZ MD Unavailable Unavailable CordellYenifer barnett MD Unavailable Unavailable CordellYenifer barnett MD Unavailable Unavailable CordellYenifer barnett MD Unavailable Unavailable CordellYenifer barnett MD Unavailable Unavailable CordellYenifer barnett MD Unavailable Unavailable CordellYenifer barnett MD Unavailable Unavailable CordellYenifer barnett MD Unavailable Unavailable CordellYenifer barnett MD Unavailable Unavailable CordellYenifer barnett MD Unavailable Unavailable CordellYenifer barnett MD Unavailable Unavailable CordellYenifer barnett MD Unavailable Unavailable CordellYenifer barnett MD Unavailable Unavailable CordellYenifer barnett MD Unavailable Unavailable CordellYenifer barnett MD Unavailable Unavailable CordellYenifer barnett MD Unavailable Unavailable CordellYenifer barnett MD Unavailable Unavailable CordellYenifer barnett MD Unavailable Unavailable CordellYenifer barnett MD Unavailable Unavailable CordellYenifer barnett MD Unavailable Unavailable CordellYenifer barnett MD Unavailable Unavailable CordellYenifer barnett MD Unavailable Unavailable CordellYenifer barnett MD Unavailable Unavailable CordellYenifer barnett MD Unavailable Unavailable CordellYenifer barnett MD Unavailable Unavailable CordellYenifer barnett MD Unavailable Unavailable CordellYenifer barnett MD Unavailable Unavailable CordellYenifer barnett MD Unavailable Unavailable CordellYenifer barnett MD Unavailable Unavailable CordellYenifer barnett MD Unavailable Unavailable CordellYenifer barnett MD Unavailable Unavailable Cordell, Shital RPA-C Unavailable Unavailable Cordell, Shital RPA-C Unavailable Unavailable Cordell, Shital RPA-C Unavailable Unavailable Cordell, Shital RPA-C Unavailable Unavailable Cordell, Shital RPA-C Unavailable Unavailable Cordell, Shital RPA-C Unavailable Unavailable Cordell, Shital RPA-C Unavailable Unavailable Cordell, Shital RPA-C Unavailable Unavailable Cordell, Shital RPA-C Unavailable Unavailable Cordell, Shital RPA-C Unavailable Unavailable Cordell, Shital RPA-C Unavailable Unavailable Cordell, Shital RPA-C Unavailable Unavailable Cordell, Shital RPA-C Unavailable Unavailable Cordell, Shital RPA-C Unavailable Unavailable Cordell, Shital RPA-C Unavailable Unavailable Cordell, Shital RPA-C Unavailable Unavailable Cordell, Shital RPA-C Unavailable Unavailable Cordell, Shital RPA-C Unavailable Unavailable Cordell, Shital RPA-C Unavailable Unavailable Cordell, Shital RPA-C Unavailable Unavailable Cordell, Shital RPA-C Unavailable Unavailable Cordell, Shital RPA-C Unavailable Unavailable Cordell, Shital RPA-C Unavailable Unavailable Cordell, Shital RPA-C Unavailable Unavailable Cordell, Shital RPA-C Unavailable Unavailable Cordell, Shital RPA-C Unavailable Unavailable Cordell, Shital RPA-C Unavailable Unavailable Cordell, Shital RPA-C Unavailable Unavailable Cordell, Shital RPA-C Unavailable Unavailable Cordell, Shital RPA-C Unavailable Unavailable Cordell, Shital RPA-C Unavailable Unavailable Cordell, Shital RPA-C Unavailable Unavailable Cordell, Shital RPA-C Unavailable Unavailable Cordell, Shital RPA-C Unavailable Unavailable Cordell, Shital RPA-C Unavailable Unavailable Cordell, Shital RPA-C Unavailable Unavailable Cordell, Shital RPA-C Unavailable Unavailable Cordell, Shital RPA-C Unavailable Unavailable Cordell, Shital RPA-C Unavailable Unavailable Cordell, Shital RPA-C Unavailable Unavailable Cordell, Shital RPA-C Unavailable Unavailable Cordell, Shital RPA-C Unavailable Unavailable Cordell, Shital RPA-C Unavailable Unavailable Cordell, Shital RPA-C Unavailable Unavailable Cordell, Shital RPA-C Unavailable Unavailable Cordell, Shital RPA-C Unavailable Unavailable Cordell, Shital RPA-C Unavailable Unavailable Cordell, Shital RPA-C Unavailable Unavailable Dominik PRASAD MD Unavailable Unavailable Dominik PRASAD MD Unavailable Unavailable Dominik PRASAD MD Unavailable Unavailable Domiink PRASAD MD Unavailable Unavailable Dominik PRASAD MD Unavailable Unavailable Dominik PRASAD MD Unavailable Unavailable Dominik PRASAD MD Unavailable Unavailable Dominik PRASAD MD Unavailable Unavailable Dominik PRASAD MD Unavailable Unavailable Dominik PRASAD MD Unavailable Unavailable Dominik PRASAD MD Unavailable Unavailable Dominik PRASAD MD Unavailable Unavailable Dominik PRASAD MD Unavailable Unavailable Dominik PRASAD MD Unavailable Unavailable Dominik PRASAD MD Unavailable Unavailable Dominik PRASAD MD Unavailable Unavailable Dominik PRASAD MD Unavailable Unavailable Dominik PRASAD MD Unavailable Unavailable Dominik PRASAD MD Unavailable Unavailable Dominik PRASAD MD Unavailable Unavailable Dominik PRASAD MD Unavailable Unavailable Dominik PRASAD MD Unavailable Unavailable Dominik PRASAD MD Unavailable Unavailable Dominik PRASAD MD Unavailable Unavailable Dominik PRASAD MD Unavailable Unavailable Dominik PRASAD MD Unavailable Unavailable Dominik PRASAD MD Unavailable Unavailable Dominik PRASAD MD Unavailable Unavailable Dominik PRASAD MD Unavailable Unavailable Dominik PRASAD MD Unavailable Unavailable OSMAR, H VICTOR MANUEL MD Unavailable Unavailable OSMAR, H VICTOR MANUEL MD Unavailable Unavailable OSMAR, H VICTOR MANUEL MD Unavailable Unavailable OSMAR, H VICTOR MANUEL MD Unavailable Unavailable OSMAR, H VICTOR MANUEL MD Unavailable Unavailable OSMAR, H VICTOR MANUEL MD Unavailable Unavailable OSMAR, H VICTOR MANUEL MD Unavailable Unavailable OSMAR, H VICTOR MANUEL MD Unavailable Unavailable OSMAR, H VICTOR MANUEL MD Unavailable Unavailable OSMAR, H VICTOR MANUEL MD Unavailable Unavailable OSMAR, H VICTOR MANUEL MD Unavailable Unavailable OSMAR, H VICTOR MANUEL MD Unavailable Unavailable OSMAR, H VICTOR MANUEL MD Unavailable Unavailable OSMAR, H VICTOR MANUEL MD Unavailable Unavailable OSMAR, H VICTOR MANUEL MD Unavailable Unavailable OSMAR, H VICTOR MANUEL MD Unavailable Unavailable OSMAR, H VICTOR MANUEL MD Unavailable Unavailable OSMAR, H VICTOR MANUEL MD Unavailable Unavailable OSMAR, H VICTOR MANUEL MD Unavailable Unavailable OSMAR, H VICTOR MANUEL MD Unavailable Unavailable OSMAR, H VICTOR MANUEL MD Unavailable Unavailable OSMAR, H VICTOR MANUEL MD Unavailable Unavailable OSMAR, H VICTOR MANUEL MD Unavailable Unavailable OSMAR, H VICTOR MANUEL MD Unavailable Unavailable OSMAR, H VICTOR MANUEL MD Unavailable Unavailable OSMAR, H VICTOR MANUEL MD Unavailable Unavailable OSMAR, H VICTOR MANUEL MD Unavailable Unavailable OSMAR, H VICTOR MANUEL MD Unavailable Unavailable OSMAR, H VICTOR MANUEL MD Unavailable Unavailable OSMAR, H VICTOR MANUEL MD Unavailable Unavailable OSMAR, H VICTOR MANUEL MD Unavailable Unavailable OSMAR, H VICTOR MANUEL MD Unavailable Unavailable OSMAR, H VICTOR MANUEL MD Unavailable Unavailable OSMAR, H VICTOR MANUEL MD Unavailable Unavailable OSMAR, H VICTOR MANUEL MD Unavailable Unavailable OSMAR, H VICTOR MANUEL MD Unavailable Unavailable OSMAR, H VICTORM ANUEL MD Unavailable Unavailable OSMAR, H VICTOR MANUEL MD Unavailable Unavailable OSMAR, H VICTOR MANUEL MD Unavailable Unavailable OSMAR, H VICTOR MANUEL MD Unavailable Unavailable OSMAR, H VICTOR MANUEL MD Unavailable Unavailable OSMAR, H VICTOR MANUEL MD Unavailable Unavailable OSMAR, H VICTOR MANUEL MD Unavailable Unavailable OSMAR, H VICTOR MANUEL MD Unavailable Unavailable OSMAR, H VICTOR MANUEL MD Unavailable Unavailable OSMAR, H VICTOR MANUEL MD Unavailable Unavailable Amber, Betina Unavailable Unavailable Amber, Betina Unavailable Unavailable Amber, Betina Unavailable Unavailable Amber, Betina Unavailable Unavailable Amber, Betina Unavailable Unavailable Amber, Betina Unavailable Unavailable Amber, Betina Unavailable Unavailable Amber, Betina Unavailable Unavailable Amber, Betina Unavailable Unavailable Amber, Betina Unavailable Unavailable Amber, Betina Unavailable Unavailable Amber, Betina Unavailable Unavailable Amber, Betina Unavailable Unavailable Amber, Betina Unavailable Unavailable Amber, Betina Unavailable Unavailable Amber, Betina Unavailable Unavailable Amber, Betina Unavailable Unavailable Amber, Betina Unavailable Unavailable Amber, Betina Unavailable Unavailable Amber, Betina Unavailable Unavailable Amber, Betina Unavailable Unavailable Amber, Betina Unavailable Unavailable Amber, Betina Unavailable Unavailable Amber, Betina Unavailable Unavailable Amber, Betina Unavailable Unavailable Amber, Betina Unavailable Unavailable GOLDIE (OSMAR), Isa CONNELL MD Unavailable Unavailab le GOLDIE (OSMAR), Isa CONNELL MD Unavailable Unavailab le GOLDIE (OSMAR), Isa CONNELL MD Unavailable Unavailab le GOLDIE (OSMAR), Isa CONNELL MD Unavailable Unavailab le GOLDIE (OSMAR), Isa CONNELL MD Unavailable Unavailab le GOLDIE (OSMAR), Isa CONNELL MD Unavailable Unavailab le GOLDIE (OSMAR), Isa CONNELL MD Unavailable Unavailab le GOLDIE (OSMAR), Isa CONNELL MD Unavailable Unavailab le GOLDIE (OSMAR), Isa CONNELL MD Unavailable Unavailab le GOLDIE (OSMAR), Isa CONNELL MD Unavailable Unavailab le GOLDIE (OSMAR), Isa CONNELL MD Unavailable Unavailab le GOLDIE (OSMAR), Isa CONNELL MD Unavailable Unavailab le GOLDIE (OSMAR), Isa CONNELL MD Unavailable Unavailab le GOLDIE (OSMAR), Isa CONNELL MD Unavailable Unavailab le GOLDIE (OSMAR), Isa CONNELL MD Unavailable Unavailab le GOLDIE (OSMAR), Isa CONNELL MD Unavailable Unavailab le GOLDIE (OSMAR), Isa CONNELL MD Unavailable Unavailab le GOLDIE (OSMAR), Isa CONNELL MD Unavailable Unavailab le GOLDIE (OSMAR), Isa CONNELL MD Unavailable Unavailab le GOLDIE (OSMAR), Isa CONNELL MD Unavailable Unavailab le GOLDIE (OSMAR), Isa CONNELL MD Unavailable Unavailab le GOLDIE (OSMAR), Isa CONNELL MD Unavailable Unavailab le GOLDIE (OSMAR), Isa CONNELL MD Unavailable Unavailab le GOLDIE (OSMAR), Isa CONNELL MD Unavailable Unavailab le GOLDIE (OSMAR), Isa CONNELL MD Unavailable Unavailab le GOLDIE (OSMAR), Isa CONNELL MD Unavailable Unavailab le GOLDIE (OSMAR), Isa CONNELL MD Unavailable Unavailab le GOLDIE (OSMAR), Isa CONNELL MD Unavailable Unavailab le GOLDIE (OSMAR), Isa CONNELL MD Unavailable Unavailab le GOLDIE (OSMAR), Isa CONNELL MD Unavailable Unavailab le GOLDIE (OSMAR), Isa CONNELL MD Unavailable Unavailab le GOLDIE (OSMAR), Isa CONNELL MD Unavailable Unavailab le GOLDIE (OSMAR), Isa CONNELL MD Unavailable Unavailab le GOLDIE (OSMAR), Isa CONNELL MD Unavailable Unavailab le GOLDIE (OSMAR), Isa CONNELL MD Unavailable Unavailab le GOLDIE (OSMAR), Isa CONNELL MD Unavailable Unavailab le GOLDIE (OSMAR), Isa CONNELL MD Unavailable Unavailab le GOLDIE (OSMAR), Isa CONNELL MD Unavailable Unavailab le GOLDIE (OSMAR), Isa CONNELL MD Unavailable Unavailab le GOLDIE (OSMAR), Isa CONNELL MD Unavailable Unavailab le GOLDIE (OSMAR), Isa CONNELL MD Unavailable Unavailab le GOLDIE (OSMAR), Isa CONNELL MD Unavailable Unavailab le GOLDIE (OSMAR), Isa CONNELL MD Unavailable Unavailab le GOLDIE (OSMAR), Isa CONNELL MD Unavailable Unavailab le GOLDIE (OSMAR), Isa CONNELL MD Unavailable Unavailab le GOLDIE (OSMAR), Isa CONNELL MD Unavailable Unavailab le GOLDIE (OSMAR), Isa CONNELL MD Unavailable Unavailab le GOLDIE (OSMAR), Isa CONNELL MD Unavailable Unavailab le GOLDIE (OSMAR), Isa CONNELL MD Unavailable Unavailab le GOLDIE (OSMAR), Isa CONNELL MD Unavailable Unavailab le GOLDIE (OSMAR), Isa CONNELL MD Unavailable Unavailab le GOLDIE (OSAMR), Isa CONNELL MD Unavailable Unavailab le GOLDIE (OSMAR), Isa CONNELL MD Unavailable Unavailab le GOLDIE (OSMAR), Isa CONNELL MD Unavailable Unavailab le GOLDIE (OSMAR), Isa CONNELL MD Unavailable Unavailab le GOLDIE (OSMAR), sIa CONNELL MD Unavailable Unavailab le GOLDIE (OSMAR), Isa CONNELL MD Unavailable Unavailab le GOLDIE (OSMAR), Isa CONNELL MD Unavailable Unavailab le GOLDIE (OSMAR), Isa CONNELL MD Unavailable Unavailab le GOLDIE (OSMAR), Isa CONNELL MD Unavailable Unavailab le GOLDIE (OSMAR), Isa CONNELL MD Unavailable Unavailab le GOLDIE (OSMAR), Isa CONNELL MD Unavailable Unavailab le GOLDIE (OSMAR), Isa CONNELL MD Unavailable Unavailab le GOLDIE (OSMAR), Isa CONNELL MD Unavailable Unavailab le GOLDIE (OSMAR), Isa CONNELL MD Unavailable Unavailab le GOLDIE (OSMAR), Isa CONNELL MD Unavailable Unavailab le GOLDIE (OSMAR), Isa CONNELL MD Unavailable Unavailab le GOLDIE (OSMAR), Isa CONNELL MD Unavailable Unavailab le GOLDIE (OSMAR), Isa CONNELL MD Unavailable Unavailab le GOLDIE (OSMAR), Isa CONNELL MD Unavailable Unavailab le GOLDIE (OSMAR), Isa CONNELL MD Unavailable Unavailab le GOLDIE (OSMAR), Isa CONNELL MD Unavailable Unavailab le GOLDIE (OSMAR), Isa CONNELL MD Unavailable Unavailab le GOLDIE (OSMAR), Isa CONNELL MD Unavailable Unavailab le GOLDIE (OSMAR), Isa CONNELL MD Unavailable Unavailab le GOLDIE (OSMAR), Isa CONNELL MD Unavailable Unavailab le GOLDIE (OSMAR), Isa CONNELL MD Unavailable Unavailab le GOLDIE (OSMAR), Isa CONNELL MD Unavailable Unavailab le GOLDIE (OSMAR), Isa CONNELL MD Unavailable Unavailab le GOLDIE (OSMAR), Isa CONNELL MD Unavailable Unavailab le GOLDIE (OSMAR), Isa CONNELL MD Unavailable Unavailab le GOLDIE (OSMAR), Isa CONNELL MD Unavailable Unavailab le GOLDIE (OSMAR), Isa CONNELL MD Unavailable Unavailab le GOLDIE (OSMAR), Isa CONNELL MD Unavailable Unavailab le GOLDIE (OSMAR), Isa CONNELL MD Unavailable Unavailab le GOLDIE (OSMAR), Isa CONNELL MD Unavailable Unavailab le GOLDIE (OSMAR), Isa CONNELL MD Unavailable Unavailab le GOLDIE (OSMAR), Isa CONNELL MD Unavailable Unavailab le GOLDIE (OSMAR), Isa CONNELL MD Unavailable Unavailab le GOLDIE (OSMAR), Isa CONNELL MD Unavailable Unavailab le GOLDIE (OSMAR), Isa CONNELL MD Unavailable Unavailab le GOLDIE (OSMAR), Isa CONNELL MD Unavailable Unavailab le GOLDIE (OSMAR), Isa CONNELL MD Unavailable Unavailab le GOLDIE (OSMAR), Isa CONNELL MD Unavailable Unavailab le GOLDIE (OSMAR), Isa CONNELL MD Unavailable Unavailab le GOLDIE (OSMAR), Isa CONNELL MD Unavailable Unavailab le GOLDIE (OSMAR), Isa CONNELL MD Unavailable Unavailab le GOLDIE (OSMAR), Isa CONNELL MD Unavailable Unavailab le GOLDIE (OSMAR), Isa CONNELL MD Unavailable Unavailab le GOLDIE (OSMAR), Isa CONNELL MD Unavailable Unavailab le GOLDIE (OSMAR), Isa CONNELL MD Unavailable Unavailab le GOLDIE (OSMAR), Isa CONNELL MD Unavailable Unavailab le GOLDIE (OSMAR), Isa CONNELL MD Unavailable Unavailab le GOLDIE (OSMAR), Isa CONNELL MD Unavailable Unavailab le GOLDIE (OSMAR), Isa CONNELL MD Unavailable Unavailab le GOLDIE (OSMAR), Isa CONNELL MD Unavailable Unavailab le GOLDIE (OSMAR), Isa CONNELL MD Unavailable Unavailab le GOLDIE (OSMAR), Isa CONNELL MD Unavailable Unavailab le GOLDIE (OSMAR), Isa CONNELL MD Unavailable Unavailab le GOLDIE (OSMAR), Isa CONNELL MD Unavailable Unavailab le GOLDIE (OSMAR), Isa CONNELL MD Unavailable Unavailab le GOLDIE (OSMAR), Isa CONNELL MD Unavailable Unavailab le GOLDIE (OSMAR), Isa CONNELL MD Unavailable Unavailab le GOLDIE (OSMAR), Isa CONNELL MD Unavailable Unavailab le GOLDIE (OSMAR), Isa CONNELL MD Unavailable Unavailab le GOLDIE (OSMAR), Isa CONNELL MD Unavailable Unavailab le GOLDIE (OSMAR), Isa CONNELL MD Unavailable Unavailab le GOLDIE (OSMAR), Isa CONNELL MD Unavailable Unavailab le GOLDIE (OSMAR), Isa CONNELL MD Unavailable Unavailab le GOLDIE (OSMAR), Isa CONNELL MD Unavailable Unavailab le GOLDIE (OSMAR), Isa CONNELL MD Unavailable Unavailab le GOLDIE (OSMAR), Isa CONNELL MD Unavailable Unavailab le GOLDIE (OSMAR), Isa CONNELL MD Unavailable Unavailab le GOLDIE (OSMAR), Isa CONNELL MD Unavailable Unavailab le GOLDIE (OSMAR), Isa CONNELL MD Unavailable Unavailab le GOLDIE (OSMAR), Isa CONNELL MD Unavailable Unavailab le GOLDIE (OSMAR), Isa CONNELL MD Unavailable Unavailab le GOLDIE (OSMAR), Isa CONNELL MD Unavailable Unavailab le GOLDIE (OSMAR), Isa CONNELL MD Unavailable Unavailab le GOLDIE (OSMAR), Isa CONNELL MD Unavailable Unavailab le GOLDIE (OSMAR), Isa CONNELL MD Unavailable Unavailab le GOLDIE (OSMAR), Isa CONNELL MD Unavailable Unavailab le GOLDIE (OSMAR), Isa CONNELL MD Unavailable Unavailab le GOLDIE (OSMAR), Isa CONNELL MD Unavailable Unavailab le GOLDIE (OSMAR), Isa CONNELL MD Unavailable Unavailab le GOLDIE (OSMAR), Isa CONNELL MD Unavailable Unavailab le GOLDIE (OSMAR), Isa CONNELL MD Unavailable Unavailab le GOLDIE (OSMAR), Isa CONNELL MD Unavailable Unavailab le GOLDIE (OSMAR), Isa CONNELL MD Unavailable Unavailab le GOLDIE (OSMAR), Isa CONNELL MD Unavailable Unavailab le GOLDIE (OSMAR), Isa CONNELL MD Unavailable Unavailab le GOLDIE (OSMAR), Isa CONNELL MD Unavailable Unavailab le GOLDIE (OSMAR), Isa CONNELL MD Unavailable Unavailab le GOLDIE (OSMAR), Isa CONNELL MD Unavailable Unavailab le GOLDIE (OSMAR), Isa CONNELL MD Unavailable Unavailab le GOLDIE (OSMAR), Isa CONNELL MD Unavailable Unavailab le GOLDIE (OSMAR), Isa CONNELL MD Unavailable Unavailab le GOLDIE (OSMAR), Isa CONNELL MD Unavailable Unavailab le GOLDIE (OSMAR), Isa CONNELL MD Unavailable Unavailab le GOLDIE (OSMAR), Isa CONNELL MD Unavailable Unavailab le GOLDIE (OSMAR), Isa CONNELL MD Unavailable Unavailab le GOLDIE (OSMAR), Isa CONNELL MD Unavailable Unavailab le GOLDIE (OSMAR), Isa CONNELL MD Unavailable Unavailab le GOLDIE (OSMAR), Isa CONNELL MD Unavailable Unavailab le GOLDIE (OSMAR), Isa CONNELL MD Unavailable Unavailab le GOLDIE (OSMAR), Isa CONNELL MD Unavailable Unavailab le GOLDIE (OSMAR), Isa CONNELL MD Unavailable Unavailab le GOLDIE (OSMAR), Isa CONNELL MD Unavailable Unavailab le GOLDIE (OSMAR), Isa CONNELL MD Unavailable Unavailab le GOLDIE (OSMAR), Isa CONNELL MD Unavailable Unavailab le GOLDIE (OSMAR), Isa CONNELL MD Unavailable Unavailab le GOLDIE (OSMAR), Isa CONNELL MD Unavailable Unavailab le GOLDIE (OSMAR), Isa CONNELL MD Unavailable Unavailab le GOLDIE (OSMAR), Isa CONNELL MD Unavailable Unavailab le GOLDIE (OSMAR), Isa CONNELL MD Unavailable Unavailab le GOLDIE (OSMAR), Isa CONNELL MD Unavailable Unavailab le GOLDIE (OSMAR), Isa CONNELL MD Unavailable Unavailab le GOLDIE (OSMAR), Isa CONNELL MD Unavailable Unavailab le GOLDIE (OSMAR), Isa CONNELL MD Unavailable Unavailab le GOLDIE (OSMAR), Isa CONNELL MD Unavailable Unavailab le GOLDIE (OSMAR), Isa CONNELL MD Unavailable Unavailab le GOLDIE (OSMAR), Isa CONNELL MD Unavailable Unavailab le GOLDIE (OSMAR), Isa CONNELL MD Unavailable Unavailab le GOLDIE (OSMAR), Isa CONNELL MD Unavailable Unavailab le El-Khally, Miranda Reyna MD Unavailable Unavailable El-Khally, Miranda Reyna MD Unavailable Unavailable El-Khally, Miranda Reyna MD Unavailable Unavailable El-Khally, A Ziad MD Unavailable Unavailable El-Khally, A Ziad MD Unavailable Unavailable El-Khally, A Ziad MD Unavailable Unavailable El-Khally, A Ziad MD Unavailable Unavailable El-Khally, A Ziad MD Unavailable Unavailable El-Khally, A Ziad MD Unavailable Unavailable El-Khally, A Ziad MD Unavailable Unavailable El-Khally, A Ziad MD Unavailable Unavailable El-Khally, A Ziad MD Unavailable Unavailable El-Khally, A Ziad MD Unavailable Unavailable El-Khally, A Ziad MD Unavailable Unavailable El-Khally, A Ziad MD Unavailable Unavailable El-Khally, A Ziad MD Unavailable Unavailable El-Khally, A Ziad MD Unavailable Unavailable El-Khally, A Ziad MD Unavailable Unavailable El-Khally, A Ziad MD Unavailable Unavailable El-Khally, A Ziad MD Unavailable Unavailable El-Khally, A Ziad MD Unavailable Unavailable El-Khally, A Ziad MD Unavailable Unavailable El-Khally, A Ziad MD Unavailable Unavailable El-Khally, A Ziad MD Unavailable Unavailable El-Khally, A Ziad MD Unavailable Unavailable El-Khally, A Ziad MD Unavailable Unavailable El-Khally, A Ziad MD Unavailable Unavailable El-Khally, A Ziad MD Unavailable Unavailable El-Khally, A Ziad MD Unavailable Unavailable El-Khally, A Ziad MD Unavailable Unavailable El-Khally, A Ziad MD Unavailable Unavailable El-Khally, A Ziad MD Unavailable Unavailable El-Khally, A Ziad MD Unavailable Unavailable El-Khally, A Ziad MD Unavailable Unavailable El-Khally, A Ziad MD Unavailable Unavailable El-Khally, A Ziad MD Unavailable Unavailable El-Khally, A Ziad MD Unavailable Unavailable El-Khally, A Ziad MD Unavailable Unavailable El-Khally, A Ziad MD Unavailable Unavailable El-Khally, A Ziad MD Unavailable Unavailable El-Khally, A Ziad MD Unavailable Unavailable El-Khally, A Ziad MD Unavailable Unavailable El-Khally, A Ziad MD Unavailable Unavailable KATHERINE, ANGIE PA Unavailable Unavailable KATHERINE, ANGIE PA Unavailable Unavailable KATHERINE, ANGIE PA Unavailable Unavailable KATHERINE, ANGIE PA Unavailable Unavailable KATHERINE, ANGIE PA Unavailable Unavailable KATHERINE, ANGIE PA Unavailable Unavailable KATHERINE, ANGIE PA Unavailable Unavailable KATHERINE, ANGIE PA Unavailable Unavailable KATHERINE, ANGIE PA Unavailable Unavailable KATHERINE, ANGIE PA Unavailable Unavailable KATHERINE, ANGIE PA Unavailable Unavailable KATHERINE, ANGIE PA Unavailable Unavailable KATHERINE, ANGIE PA Unavailable Unavailable KATHERINE, ANGIE PA Unavailable Unavailable KATHERINE, ANGIE PA Unavailable Unavailable KATHERINE, ANGIE PA Unavailable Unavailable KATHERINE, ANGIE PA Unavailable Unavailable KATHERINE, AGNIE PA Unavailable Unavailable KATHERINE, ANGIE PA Unavailable Unavailable KATHERINE, ANGIE PA Unavailable Unavailable KATHERINE, ANGIE PA Unavailable Unavailable KATHERINE, ANGIE PA Unavailable Unavailable KATHERINE, ANGIE PA Unavailable Unavailable KATHERINE, ANGIE PA Unavailable Unavailable KATHERINE, ANGIE PA Unavailable Unavailable KATHERINE, ANGIE PA Unavailable Unavailable KATHERINE, ANGIE PA Unavailable Unavailable KATHERINE, ANGIE PA Unavailable Unavailable KATHERINE, ANGIE PA Unavailable Unavailable KATHERINE, ANGIE PA Unavailable Unavailable KATHERINE, ANGIE PA Unavailable Unavailable KATHERINE, ANGIE PA Unavailable Unavailable KATHERINE, ANGIE PA Unavailable Unavailable KATHERINE, ANGIE PA Unavailable Unavailable KATHERINE, ANGIE PA Unavailable Unavailable KATHERINE, ANGIE PA Unavailable Unavailable Chloe Vojtech Unavailable Unavailable Ivan Coronajtech Unavailable Unavailable Ivan Coronajjennifer CHOUDHARY Unavailable Unavailable Ivan Coronajtech Unavailable Unavailable Ivan Coronajtech Unavailable Unavailable Kaileyka Vojtech Unavailable Unavailable Kaileyka Vojtech Unavailable Unavailable Kaileyka Vojtech Unavailable Unavailable Chloe Vojtech Unavailable Unavailable Kaileyka Vojtech Unavailable Unavailable Kaileyka Vojtech Unavailable Unavailable Slecristinaka Vojtech Unavailable Unavailable Kaileyka Vojtech Unavailable Unavailable Slecristinaka Vojtech Unavailable Unavailable Kaileyka Vojtech Unavailable Unavailable Kaileyka Vojtech Unavailable Unavailable Kaileyka Vojtech Unavailable Unavailable Kaileyka Vojtech Unavailable Unavailable Slecristinaka Vojtech Unavailable Unavailable Slecristinaka Vojtech Unavailable Unavailable Slezka Vojtech Unavailable Unavailable Slecristinaka Vojtech Unavailable Unavailable Slecristinaka Vojtech Unavailable Unavailable Slecristinaka Voella CHOUDHARY Unavailable Unavailable Licha Corona MD Unavailable Unavailable Licha Corona MD Unavailable Unavailable Licha Corona MD Unavailable Unavailable Licha Corona MD Unavailable Unavailable Licha Corona MD Unavailable Unavailable Licha Corona MD Unavailable Unavailable Licha Corona MD Unavailable Unavailable Lihca Corona MD Unavailable Unavailable Licha Corona MD Unavailable Unavailable Licha Corona MD Unavailable Unavailable Licha Corona MD Unavailable Unavailable Licha Corona MD Unavailable Unavailable Licha Corona MD Unavailable Unavailable Licha Corona MD Unavailable Unavailable Licha Corona MD Unavailable Unavailable Licha Corona MD Unavailable Unavailable Licha Corona MD Unavailable Unavailable Licha Corona MD Unavailable Unavailable Licha Corona MD Unavailable Unavailable Licha Corona MD Unavailable Unavailable Licha Corona MD Unavailable Unavailable Licha Corona MD Unavailable Unavailable Licha Corona MD Unavailable Unavailable Licha Corona MD Unavailable Unavailable Licha Corona MD Unavailable Unavailable Licha Corona MD Unavailable Unavailable Licha Corona MD Unavailable Unavailable Licha Corona MD Unavailable Unavailable Licha Corona MD Unavailable Unavailable Licha Corona MD Unavailable Unavailable Licha Corona MD Unavailable Unavailable Licha Corona MD Unavailable Unavailable Licha Corona MD Unavailable Unavailable Licha Corona MD Unavailable Unavailable Licha Corona MD Unavailable Unavailable Dominik PRASAD MD Unavailable Unavailable Dominik PRASAD MD Unavailable Unavailable Dominik PRASAD MD Unavailable Unavailable Dominik PRASAD MD Unavailable Unavailable Dominik PRASAD MD Unavailable Unavailable Dominik PRASAD MD Unavailable Unavailable Dominik PRASAD MD Unavailable Unavailable Dominik PRASAD MD Unavailable Unavailable Dominik PRASAD MD Unavailable Unavailable Dominik PRASAD MD Unavailable Unavailable Dominik PRASAD MD Unavailable Unavailable Dominik PRASAD MD Unavailable Unavailable Dominik PRASAD MD Unavailable Unavailable Dominik PRASAD MD Unavailable Unavailable Dominik PRASAD MD Unavailable Unavailable Dominik PRASAD MD Unavailable Unavailable Dominik PRASAD MD Unavailable Unavailable Dominik PRASAD MD Unavailable Unavailable Dominik PRASAD MD Unavailable Unavailable Dominik PRASAD MD Unavailable Unavailable Dominik PRASAD MD Unavailable Unavailable OSMAR H VICTOR MANUEL CHOUDHARY Unavailable Unavailable OSMARDominik MD Unavailable Unavailable Dominik PRASAD MD Unavailable Unavailable OSMAR H VICTOR MANUEL MD Unavailable Unavailable OSMAR H VICTOR MANUEL MD Unavailable Unavailable OSMAR H VICTOR MANUEL MD Unavailable Unavailable OSMAR H VICTOR MANUEL MD Unavailable Unavailable OSMAR H VICTOR MANUEL MD Unavailable Unavailable OSMAR, H VICTOR MANUEL MD Unavailable Unavailable OSMAR, H VICTOR MANUEL MD Unavailable Unavailable OSMAR H VICTOR MANUEL MD Unavailable Unavailable OSMAR, H VICTOR MANUEL MD Unavailable Unavailable OSMAR, H VICTOR MANUEL MD Unavailable Unavailable OSMAR, H VICTOR MANUEL MD Unavailable Unavailable OSMAR, H VICTOR MANUEL MD Unavailable Unavailable OSMAR, H VICTOR MANUEL MD Unavailable Unavailable OSMAR H VICTOR MANUEL MD Unavailable Unavailable OSMAR, H VICTOR MANUEL MD Unavailable Unavailable OSMAR, H VICTOR MANUEL MD Unavailable Unavailable OSMAR H VICTOR MANUEL MD Unavailable Unavailable OSMAR, H VICTOR MANUEL MD Unavailable Unavailable OSMAR, H VICTOR MANUEL MD Unavailable Unavailable OSMAR H VICTOR MANUEL MD Unavailable Unavailable OSMAR, H VICTOR MANUEL MD Unavailable Unavailable OSMAR H VICTOR MANUEL MD Unavailable Unavailable OSMAR H VICTOR MANUEL MD Unavailable Unavailable OSMAR H VICTOR MANUEL MD Unavailable Unavailable OSMAR H VICTOR MANUEL MD Unavailable Unavailable Dominik PRASAD MD Unavailable Unavailable OSMAR H VICTOR MANUEL CHOUDHARY Unavailable Unavailable OSMAR H VICTOR MANUEL CHOUDHARY Unavailable Unavailable Dominik PRASAD MD Unavailable Unavailable OSMAR H VICTOR MANUEL CHOUDHARY Unavailable Unavailable Dominik PRASAD MD Unavailable Unavailable Dominik PRASAD MD Unavailable Unavailable Dominik PRASAD MD Unavailable Unavailable Dominik PRASAD MD Unavailable Unavailable Dominik PRASAD MD Unavailable Unavailable OSMAR H VICTOR MANUEL CHOUDHARY Unavailable Unavailable Dominik PRASAD MD Unavailable Unavailable Dominik PRASAD MD Unavailable Unavailable Dominik PRASAD MD Unavailable Unavailable Dominik PRASAD MD Unavailable Unavailable Dominik PRASAD MD Unavailable Unavailable Dominik PRASAD MD Unavailable Unavailable Dominik PRASAD MD Unavailable Unavailable Dominik PRASAD MD Unavailable Unavailable OSMAR H VICTOR MANUEL CHOUDHARY Unavailable Unavailable OSMAR H VICTOR MANUEL CHOUDHARY Unavailable Unavailable Dominik PRASAD MD Unavailable Unavailable OSMAR H VICTOR MANUEL CHOUDHARY Unavailable Unavailable Dominik PRASAD MD Unavailable Unavailable Dominik PRASAD MD Unavailable Unavailable OSMAR H VICTOR MANUEL CHOUDHARY Unavailable Unavailable Dominik PRASAD MD Unavailable Unavailable Rochlele Hernadez MD Unavailable Unavailable Rochelle Hernadez MD Unavailable Unavailable Rochelle Hernadez MD Unavailable Unavailable Rochelle Hernadez MD Unavailable Unavailable Rochelle Hernadez MD Unavailable Unavailable Rochelle Hernadez MD Unavailable Unavailable Rochelle Hernadez MD Unavailable Unavailable Rochelle Hernadez MD Unavailable Unavailable Rochelle Hernadez MD Unavailable Unavailable Rochelle Hernadez MD Unavailable Unavailable Rochelle Hernadez MD Unavailable Unavailable Satya, E Carolina MD Unavailable Unavailable Satya, E Carolina MD Unavailable Unavailable Satya, E Carolina MD Unavailable Unavailable Satya, E Carolina MD Unavailable Unavailable Satya, E Carolina MD Unavailable Unavailable Satya, E Carolina MD Unavailable Unavailable Satya, E Carolina MD Unavailable Unavailable Satya, E Carolina MD Unavailable Unavailable Satya, E Carolina MD Unavailable Unavailable Satya, E Carolina MD Unavailable Unavailable Satya, E Carolina MD Unavailable Unavailable Satya, E Carolina MD Unavailable Unavailable Satya, E Carolina MD Unavailable Unavailable Satya, E Carolina MD Unavailable Unavailable Satya, E Carolina MD Unavailable Unavailable Satya, E Carolina MD Unavailable Unavailable Satya, E Carolina MD Unavailable Unavailable Satya, E Carolina MD Unavailable Unavailable Satya, E Carolina MD Unavailable Unavailable Satya, E Carolina MD Unavailable Unavailable Satya, E Carolina MD Unavailable Unavailable Satya, E Carolina MD Unavailable Unavailable Satya, E Carolina MD Unavailable Unavailable Satya, E Carolina MD Unavailable Unavailable Satya, E Carolina MD Unavailable Unavailable Satya, E Carolina MD Unavailable Unavailable Satya, E Carolina MD Unavailable Unavailable Satya, E Carolina MD Unavailable Unavailable Satya, E Carolina MD Unavailable Unavailable Satya, E Carolina MD Unavailable Unavailable Satya, E Carolina MD Unavailable Unavailable Satya, E Carolina MD Unavailable Unavailable Satya, E Carolina MD Unavailable Unavailable Satya, E Carolina MD Unavailable Unavailable Satya, E Carolina MD Unavailable Unavailable Satya, E Carolina MD Unavailable Unavailable Satya, E Carolina MD Unavailable Unavailable Satya, E Carolina MD Unavailable Unavailable Satya, E Carolina MD Unavailable Unavailable Satya, E Carolina MD Unavailable Unavailable Satya, E Carolina MD Unavailable Unavailable Satya, E Carolina MD Unavailable Unavailable Satya, E Carolina MD Unavailable Unavailable Leake, Danitza CALENDER WIND UP HELPER Unavailable Unavailable Leake, Danitza CALENDER WIND UP HELPER Unavailable Unavailable Leake, Danitza CALENDER WIND UP HELPER Unavailable Unavailable Leake, Danitza CALENDER WIND UP HELPER Unavailable Unavailable Leake, Danitza CALENDER WIND UP HELPER Unavailable Unavailable Leake, Danitza CALENDER WIND UP HELPER Unavailable Unavailable Leake, Danitza CALENDER WIND UP HELPER Unavailable Unavailable Leake, Danitza CALENDER WIND UP HELPER Unavailable Unavailable Leake, Danitza CALENDER WIND UP HELPER Unavailable Unavailable Leake, Danitza CALENDER WIND UP HELPER Unavailable Unavailable Leake, Danitza CALENDER WIND UP HELPER Unavailable Unavailable Leake, Danitza CALENDER WIND UP HELPER Unavailable Unavailable Leake, Danitza CALENDER WIND UP HELPER Unavailable Unavailable Leake, Danitza CALENDER WIND UP HELPER Unavailable Unavailable Leake, Danitza CALENDER WIND UP HELPER Unavailable Unavailable Leake, Danitza CALENDER WIND UP HELPER Unavailable Unavailable Leake, Danitza CALENDER WIND UP HELPER Unavailable Unavailable Leake, Danitza CALENDER WIND UP HELPER Unavailable Unavailable Leake, Danitza CALENDER WIND UP HELPER Unavailable Unavailable Leake, Danitza CALENDER WIND UP HELPER Unavailable Unavailable Leake, Danitza CALENDER WIND UP HELPER Unavailable Unavailable Leake, Danitza CALENDER WIND UP HELPER Unavailable Unavailable Leake, Danitza CALENDER WIND UP HELPER Unavailable Unavailable Leake, Danitza CALENDER WIND UP HELPER Unavailable Unavailable Leake, Danitza CALENDER WIND UP HELPER Unavailable Unavailable Leake, Danitza CALENDER WIND UP HELPER Unavailable Unavailable Leake, Danitza CALENDER WIND UP HELPER Unavailable Unavailable Leake, Danitza CALENDER WIND UP HELPER Unavailable Unavailable Leake, Danitza CALENDER WIND UP HELPER Unavailable Unavailable Leake, Danitza CALENDER WIND UP HELPER Unavailable Unavailable Leake, Danitza CALENDER WIND UP HELPER Unavailable Unavailable Leake, Danitza CALENDER WIND UP HELPER Unavailable Unavailable Leake, Danitza CALENDER WIND UP HELPER Unavailable Unavailable Leake, Danitza CALENDER WIND UP HELPER Unavailable Unavailable Leake, Danitza CALENDER WIND UP HELPER Unavailable Unavailable Leake, Danitza CALENDER WIND UP HELPER Unavailable Unavailable DRAZEK, I JOHNNA PA Unavailable Unavailable DRAZEK, I JOHNNA PA Unavailable Unavailable DRAZEK, I JOHNNA PA Unavailable Unavailable DRAZEK, I JOHNNA PA Unavailable Unavailable DRAZEK, I JOHNNA PA Unavailable Unavailable DRAZEK, I JOHNNA PA Unavailable Unavailable DRAZEK, I JOHNNA PA Unavailable Unavailable DRAZEK, I JOHNNA PA Unavailable Unavailable DRAZEK, I JOHNNA PA Unavailable Unavailable DRAZEK, I JOHNNA PA Unavailable Unavailable DRAZEK, I JOHNNA PA Unavailable Unavailable DRAZEK, I JOHNNA PA Unavailable Unavailable DRAZEK, I JOHNNA PA Unavailable Unavailable DRAZEK, I JOHNNA PA Unavailable Unavailable DRAZEK, I JOHNNA PA Unavailable Unavailable DRAZEK, I JOHNNA PA Unavailable Unavailable DRAZEK, I JOHNNA PA Unavailable Unavailable DRAZEK, I JOHNNA PA Unavailable Unavailable DRAZEK, I JOHNNA PA Unavailable Unavailable DRAZEK, I JOHNNA PA Unavailable Unavailable DRAZEK, I JOHNNA PA Unavailable Unavailable DRAZEK, I JOHNNA PA Unavailable Unavailable DRAZEK, I JOHNNA PA Unavailable Unavailable DRAZEK, I JOHNNA PA Unavailable Unavailable DRAZEK, I JOHNNA PA Unavailable Unavailable DRAZEK, I JOHNNA PA Unavailable Unavailable DRAZEK, I JOHNNA PA Unavailable Unavailable DRAZEK, I JOHNNA PA Unavailable Unavailable DRAZEK, I JOHNNA PA Unavailable Unavailable DRAZEK, I JOHNNA PA Unavailable Unavailable Larson, L Anjana PA Unavailable Unavailable Larson, L Anjana PA Unavailable Unavailable Larson, L Anjana PA Unavailable Unavailable Larson, L Anjana PA Unavailable Unavailable Larson, L Anjana PA Unavailable Unavailable Larson, L Anjana PA Unavailable Unavailable Larson, L Anjana PA Unavailable Unavailable Larson, L Anjana PA Unavailable Unavailable Larson, L Anjana PA Unavailable Unavailable Larson, L Anjana PA Unavailable Unavailable Larson, L Anjana PA Unavailable Unavailable Larson, L Anjana PA Unavailable Unavailable Larson, L Anjana PA Unavailable Unavailable Larson, L Anjana PA Unavailable Unavailable Larson, L Anjana PA Unavailable Unavailable Larson, L Anjana PA Unavailable Unavailable Larson, L Anjana PA Unavailable Unavailable Larson, L Anjana PA Unavailable Unavailable Larson, L Anjana PA Unavailable Unavailable Larson, L Anjana PA Unavailable Unavailable Larson, L Anjana PA Unavailable Unavailable Larson, L Anjana PA Unavailable Unavailable Larson, L Anjana PA Unavailable Unavailable Larson, L Anjana PA Unavailable Unavailable Larson, L Anjana PA Unavailable Unavailable Larson, L Anjana PA Unavailable Unavailable Larson, L Anjana PA Unavailable Unavailable Larson, L Anjana PA Unavailable Unavailable Larson, L Anjana PA Unavailable Unavailable Larson, L Anjana PA Unavailable Unavailable Larson, L Anjana PA Unavailable Unavailable Larson, L Anjana PA Unavailable Unavailable Larson, L Anjana PA Unavailable Unavailable Larson, L Anjana PA Unavailable Unavailable Larson, L Anjana PA Unavailable Unavailable Larson, L Anjana PA Unavailable Unavailable Larson, L Anjana PA Unavailable Unavailable Larson, L Anjana PA Unavailable Unavailable Larson, L Anjana PA Unavailable Unavailable IvoryIsma serra MD Unavailable Unavailable IvoryIsma serra MD Unavailable Unavailable IvoryIsma burgess MD Unavailable Unavailable IvoryIsma burgess MD Unavailable Unavailable IvoryIsma MD Unavailable Unavailable IvoryIsma MD Unavailable Unavailable IvoryIsma MD Unavailable Unavailable IvoryIsma MD Unavailable Unavailable IvoryIsma MD Unavailable Unavailable IvoryIsma MD Unavailable Unavailable IvoryIsma burgess MD Unavailable Unavailable IvoryIsma burgess MD Unavailable Unavailable Isma Ivory MD Unavailable Unavailable Isma Ivory MD Unavailable Unavailable Isma Ivory MD Unavailable Unavailable Isma Ivory MD Unavailable Unavailable Satya, E Carolina MD Unavailable Unavailable Satya, E Carolina MD Unavailable Unavailable Satya, E Carolina MD Unavailable Unavailable Satya, E Carolina MD Unavailable Unavailable Satya, E Carolina MD Unavailable Unavailable Satya, E Carolina MD Unavailable Unavailable Satya, E Carolina MD Unavailable Unavailable Satya, E Carolina MD Unavailable Unavailable Satya, E Carolina MD Unavailable Unavailable Satya, E Carolina MD Unavailable Unavailable Satya, E Carolina MD Unavailable Unavailable Sayta, E Carolina MD Unavailable Unavailable Satya, E Carolina MD Unavailable Unavailable Satya, E Carolina MD Unavailable Unavailable Satya, E Carolina MD Unavailable Unavailable Satya, E Carolina MD Unavailable Unavailable Satya, E Carolina MD Unavailable Unavailable Satya, E Carolina MD Unavailable Unavailable Satya, E Carolina MD Unavailable Unavailable Satya, E Carolina MD Unavailable Unavailable Satya, E Carolina MD Unavailable Unavailable Satya, E Carolina MD Unavailable Unavailable Satya, E Carolina MD Unavailable Unavailable Satya, E Carolina MD Unavailable Unavailable Satya, E Carolina MD Unavailable Unavailable Satya, E Carolina MD Unavailable Unavailable Satya, E Carolina MD Unavailable Unavailable Satya, E Carolina MD Unavailable Unavailable Satya, E Carolina MD Unavailable Unavailable Satya, E Carolina MD Unavailable Unavailable Satya, E Carolina MD Unavailable Unavailable Satya, E Carolina MD Unavailable Unavailable Satya, E Carolina MD Unavailable Unavailable Satya, E Carolina MD Unavailable Unavailable Satya, E Carolina MD Unavailable Unavailable Satya, E Carolina MD Unavailable Unavailable Satya, E Carolina MD Unavailable Unavailable Satya, E Carolina MD Unavailable Unavailable Satya, E Carolina MD Unavailable Unavailable Satya, E Carolina MD Unavailable Unavailable Satya, E Carolina MD Unavailable Unavailable Satya, E Carolina MD Unavailable Unavailable Satya, E Carolina MD Unavailable Unavailable Satya, E Carolina MD Unavailable Unavailable Satya, E Carolina MD Unavailable Unavailable Satya, E Carolina MD Unavailable Unavailable Satya, E Carolina MD Unavailable Unavailable Satya, E Carolina MD Unavailable Unavailable Satya, E Carolina MD Unavailable Unavailable Satya, E Carolina MD Unavailable Unavailable Satya, E Carolina MD Unavailable Unavailable Satya, E Carolina MD Unavailable Unavailable Satya, E Carolina MD Unavailable Unavailable Satya, E Carolina MD Unavailable Unavailable Re-disclosure Warning The records that you are about to access may contain information from federally-assisted alcohol or drug abuse programs. If such information is present, then the following federally mandated warning applies: This information has been disclosed to you from records protected by federal confidentiality rules (42 CFR part 2). The federal rules prohibit you from making any further disclosure of this information unless further disclosure is expressly permitted by the written consent of the person to whom it pertains or as otherwise permitted by 42 CFR part 2. A general authorization for the release of medical or other information is NOT sufficient for this purpose. The Federal rules restrict any use of the information to criminally investigate or prosecute any alcohol or drug abuse patient.The records that you are about to access may contain highly sensitive health information, the redisclosure of which is protected by Article 27-F of the [facility] Public Health law. If you continue you may have access to information: Regarding HIV / AIDS; Provided by facilities licensed or operated by the [facility] Office of Mental Health; or Provided by the [facility] Office for People With Developmental Disabilities. If such information is present, then the following [facility] mandated warning applies: This information has been disclosed to you from confidential records which are protected by state law. State law prohibits you from making any further disclosure of this information without the specific written consent of the person to whom it pertains, or as otherwise permitted by law. Any unauthorized further disclosure in violation of state law may result in a fine or detention sentence or both. A general authorization for the release of medical or other information is NOT sufficient authorization for further disc losure. Allergies and Adverse Reactions Type Description Substance Reaction Status Data Source(s ) Allergy to substance No Known Allergies No known allergies (situation ) [facility]) Allergy to substance No Known Allergies No known allergies (situation ) [facility]) Allergy to substance No Known Allergies No known allergies (situation ) [facility]) Family History Family Member Name Family Member Gender Family Member Status Date o f Status Description Data Source(s) Unknown Unknown Problem [facility] ([facility]) Unknown Male Problem MEDENT ([facility]) Unknown Unknown Encounters Encounter Providers Location Date Indications Data Source(s ) Ayah Clark MD: [address] [place] [id number], Ph. Attender: Ayah Clark [facility] 06/24/2021 12:00:00 AM EST MARCIA ([facility]) Ayah Clark MD: [address] [place] [address], Ph. Attender: Ayah Clark [facility] 06/24/2021 12:00:00 AM EST MARCIA ([facility]) Victor Manuel Concepcion MD: [address] [place] [phone], Ph. Attender: Victor Manuel Concepcion MD [facility] 06/21/2021 12:00:00 AM EDT MARCIA ([facility]) Victor Manuel Concepcion MD: [address] [place] [phone], Ph. Attender: Victor Manuel Concepcion MD [facility] 06/21/2021 12:00:00 AM EDT [facility]ARC[facility] ([facility]) Attender: KO AMEZCUA MD ([place]) 08:21:11 PM EDT [facility] Attender: KO AMEZCUA MD ([place]) 08:21:11 PM EDT [facility] Admitter: VICTOR MANUEL PRASAD MDReferrer: VICTOR MANUEL PORTER MD 06/17/2021 12:00:00 AM EDT Other specified abnormal findings of blood chemistry [facility] Other specified abnormal findings of blo od chemistry Outpatient Attender: RONNIE ORDAZ MDReferrer: KO AMEZCUA MD ([place]) [id number] 06/07/2021 12:00:00 AM EDT - 06/07/2021 11:36:28 AM EDT [facility] Outpatient Referrer: KO AMEZCUA MD ([place]) [id number]-[id number] T 06/07/2021 12:00:00 AM EDT - 06/07/2021 09:49:06 AM EDT [facility] Victor Manuel Concepcion MD: [address] [place] [address], Ph. Attender: Victor Manuel Concepcion MD [facility] 05/31/2021 12:00:00 AM EDT [facility] ([facility]) Victor Manuel Concepcion MD: [address] [place] [address], Ph. Attender: Victor Manuel Concepcion MD [facility] 05/31/2021 12:00:00 AM EDT MARCIA ([facility]) Victor Manuel Concepcion MD: [address] [place] [address], Ph. Attender: Victor Manuel Concepcion MD [facility] 05/31/2021 12:00:00 AM EDT MARCIA ([facility]) Victor Manuel Concepcion MD: [address] [place] [address], Ph. Attender: Victor Manuel Concepcion MD [facility] 05/31/2021 12:00:00 AM EDT MARCIA ([facility]) Outpatient Attender: Isma Ivory MDAt tender: RONNIE ORDAZ MDAdmitter: RONNIE ORDAZ MD [id number] 05/24/2021 10:45:12 AM EDT - 06/12/2021 12:56:00 PM EDT [facility] Patient discharged. Attender: KO URRUTIA) MDReferrer: Jame Landa RPA-C 05/17/2021 08:21:10 PM EDT [facility] Attender: KO AMEZCUA ([place]) MDReferrer: Jame Landa RPA-C 05/17/2021 08:21:10 PM EDT [facility] Outpatient Attender: Claribel Martinez [facility] Main Office 05/08/2021 10:15:00 AM EDT MEDENT ([facility]) Victor Manuel Concepcion MD: [address] [place] [address], Ph. Attender: Victor Manuel Concepcion MD [facility] 05/01/2021 12:00:00 AM EDT MARCIA ([facility]) Victor Manuel Concepcion MD: [address] [place] [address], Ph. Attender: Victor Manuel Concepcion MD [facility] 05/01/2021 12:00:00 AM EDT MARCIA ([facility]) Victor Manuel Concepcion MD: [address] [place] [address], Ph. Attender: Victor Manuel Concepcion MD [facility] 05/01/2021 12:00:00 AM EDT MARCIA ([facility]) Victor Manuel Concepcion MD: [address] [place] [address], Ph. Attender: Victor Manuel Concepcion MD [facility] 05/01/2021 12:00:00 AM EDT MARCIA ([facility]) Victor Manuel Concepcion MD: [address] [place] [address], Ph. Attender: Victor Manuel Concepcion MD [facility] 05/01/2021 12:00:00 AM EDT MARCIA ([facility]) Outpatient SJP.CT-SJP.SYR 04/25/2021 09:10:56 AM EDT [facility] Victor Manuel Concepcion MD: [address] [place] [address], Ph. Attender: Victor Manuel Concepcion MD [facility] 04/24/2021 12:00:00 AM EDT MARCIA ([facility]) Victor Manuel Concepcion MD: [address] [place] [address], Ph. Attender: Victor Manuel Concepcion MD [facility] 04/24/2021 12:00:00 AM EDT MARCIA ([facility]) Victor Manuel Concepcion MD: [address] [place] [address], Ph. Attender: Victor Manuel Concepcion MD [facility] 04/24/2021 12:00:00 AM EDT MARCIA ([facility]) Victor Manuel Concepcion MD: [address] [place] [address], Ph. Attender: Victor Manuel Concepcion MD [facility] 04/24/2021 12:00:00 AM EDT MARCIA ([facility]) Victor Manuel Concepcion MD: [address] [place] [address], Ph. Attender: Victor Manuel Concepcion MD [facility] 04/24/2021 12:00:00 AM EDT MARCIA ([facility]) Victor Manuel Concepcion MD: [address] [place] [phone], Ph. Attender: Victor Manuel Concepcion MD [place] [facility] 04/24/2021 12:00:00 AM EDT MARCIA ([facility]) Attender: KO URRUTIA) MDReferrer: D eidre Cordell RPA-C 04/23/2021 08:21:09 PM EDT [facility] Attender: KO URRUTIA) MDReferrer: D eidre Cordell RPA-C 04/23/2021 08:21:09 PM EDT [facility] Attender: KO URRUTIA) MDReferrer: D eidre Cordell RPA-C 04/23/2021 08:21:09 PM EDT [facility] Attender: KO AMEZCUA ([place]) MDReferrer: D eidre Cordell RPA-C 04/23/2021 08:21:09 PM EDT [facility] Attender: KO AMEZCUA MD ([place]) 08:21:09 PM EDT [facility] Attender: KO AMEZCUA MD ([place]) 08:21:09 PM EDT [facility] Attender: KO AMEZCUA MD ([place]) 1 08:21:09 PM EDT [facility] Attender: KO AMEZCUA MD ([place]) 08:21:09 PM EDT [facility] Attender: KO AMEZCUA MD ([place]) 08:21:09 PM EDT [facility] Attender: KO AMEZCUA MD ([place]) 08:21:09 PM EDT [facility] Attender: KO AMEZCUA MD ([place]) 08:21:09 PM EDT [facility] Attender: KO AMEZCUA MD ([place]) 1 08:21:09 PM EDT [facility] Attender: KO AMEZCUA MD ([place]) 08:21:08 PM EDT [facility] Attender: KO AMEZCUA MD ([place]) 08:21:08 PM EDT [facility] Office Visit Attender: JOHNNA LASSITER Physical Therapy 2020 05:15:00 PM EDT [facility] ([facility]) Attender: KO AMEZCUA MD ([place]) 08:21:08 PM EDT [facility] Attender: KO AMEZCUA MD ([place]) 08:21:08 PM EDT [facility] Attender: KO AMEZCUA ([place]) MDReferrer: Tere PRASAD MD 03/22/2021 08:21:08 PM EDT [facility] Attender: KO AMEZCUA ([place]) MDReferrer: Tere PRASAD MD 03/22/2021 08:21:08 PM EDT [facility] Office Visit Attender: JOHNNA LASSITER Physical Therapy 2020 05:30:00 PM EDT MED[facility] ([facility]) Outpatient Attender: Anjana ENRIQUEDIANE-SJP.DIANE 01/2021 01:51:04 PM EDT - 03/22/2021 03:56:46 PM EDT [facility] Outpatient CT-BARONP.SYR 03/13/2021 11:31:20 AM EDT [facility] Office Visit Attender: JOHNNA LASSITER Physical Therapy 2020 05:15:00 PM EDT MEDENT ([facility]) Outpatient Attender: Axel Pitts MDAdmitter: Axel ag MD [id number] 03/11/2021 08:11:00 AM EDT - 03/11/2021 04:30:00 PM EDT [facility] Patient discharged. Office Visit Attender: JOHNNA LASSITER Physical Therapy 2020 08:45:00 AM EDT [facility] ([facility]) Outpatient Attender: Anjana CAMPA.DIANE-SJP.DIANE 08/2020 07:38:23 AM EDT - 02/14/2021 08:54:18 AM EDT [facility] Outpatient Attender: Yenifer Brantley/Shauna/Jaden/Silvio ndl 02/13/2021 02:30:00 PM EDT [facility] ([facility] ) Outpatient Referrer: Licha CAMPA.CT-SJP.SYR 01/16 02:17:02 PM EDT [facility] Victor Manuel Concepcion MD: [address] [place] [phone], Ph. Attender: Victor Manuel Concepcion MD [facility] 01/31/2021 12:00:00 AM EDT MARCIA ([facility]) Victor Manuel Concepcion MD: [address] [place] [phone], Ph. Attender: Victor Manuel Concepcion MD [facility] 01/31/2021 12:00:00 AM EDT MARCIA ([facility]) Victor Manuel Concepcion MD: [address] [place] [phone], Ph. Attender: Victor Manuel Concepcion MD [facility] 01/31/2021 12:00:00 AM EDT MARCIA ([facility]) Victor Manuel Concepcion MD: [address] [place] [phone], Ph. Attender: Victor Manuel Concepcion MD [facility] 01/31/2021 12:00:00 AM EDT MARCIA ([facility]) Victor Manuel Concepcion MD: [address] [place] [address], Ph. Attender: Victor Manuel Concepcion MD [facility] 01/31/2021 12:00:00 AM EDT MARCIA ([facility]) Victor Manuel Concepcion MD: [address] [place] [address], Ph. Attender: Victor Manuel Concepcion MD [facility] 01/31/2021 12:00:00 AM EDT MARCIA ([facility]) Victor Manuel Concepcion MD: [address] [place] [address], Ph. Attender: Victor Manuel Concepcion MD [facility] 01/31/2021 12:00:00 AM EDT MARCIA ([facility]) OFFICE OUTPATIENT VISIT 15 MINUTES Attender: JOHNNA SHAH PA Phys ical Therapy 01/25/2021 11:30:00 AM EDT MEDENT ([facility]) Victor Manuel Concepcion MD: [address] [place] [address], Ph. Attender: Victor Manuel Concepcino MD [facility] 01/24/2021 12:00:00 AM EDT MARCIA ([facility]) Victor Manuel Concepcion MD: [address] [place] [address], Ph. Attender: Victor Manuel Concepcion MD [facility] 01/24/2021 12:00:00 AM EDT MARCIA ([facility]) Victor Manuel Concepcion MD: [address] [place] [address], Ph. Attender: Victor Manuel Concepcion MD [facility] 01/24/2021 12:00:00 AM EDT MARCIA ([facility]) Victor Manuel Concepcion MD: [address] [place] [address], Ph. Attender: Victor Manuel Concepcion MD [facility] 01/24/2021 12:00:00 AM EDT MARCIA ([facility]) Victor Manuel Concepcion MD: [address] [place] [address], Ph. Attender: Victor Manuel Concepcion MD [facility] 01/24/2021 12:00:00 AM EDT MARCIA ([facility]) Victor Manuel Concepcion MD: [address] [place] [address], Ph. Attender: Victor Manuel Concepcion MD [facility] 01/24/2021 12:00:00 AM EDT MARCIA ([facility]) Victor Manuel Concepcion MD: [address] [place] [phone], Ph. Attender: Victor Manuel Concepcion MD [facility] 01/24/2021 12:00:00 AM EDT MARCIA ([facility]) Victor Manuel Concepcion MD: [address] [place] [phone], Ph. Attender: Victor Manuel Concepcion MD [facility] 01/24/2021 12:00:00 AM EDT MARCIA ([facility]) Outpatient Attender: ANGIE orta 01/21/2021 03:05:00 PM EDT [facility] ([facility] Outpatient KIMBERLY-LOKESH 01/17/2021 10:29:04 AM EDT [facility] Outpatient KIMBERLY-LOKESH.DIANE 01/17/2021 09:34:15 AM EDT [facility] Outpatient Attender: Anjana HARRIS-LOKESH.DIANE 10/2020 12:00:00 AM EDT - 01/17/2021 09:58:24 AM EDT [facility] Victor Manuel Concepcion MD: [address] [place] [address], Ph. Attender: Victor Manuel Concepcion MD [facility] 01/11/2021 12:00:00 AM EDT MARCIA ([facility]) Victor Manuel Concepcion MD: [address] [place] [address], Ph. Attender: Victor Manuel Concepcion MD [facility] 01/11/2021 12:00:00 AM EDT MARCIA ([facility]) Victor Manuel Concepcion MD: [address] [place] [address], Ph. Attender: Victor Manuel Concepcion MD [facility] 01/11/2021 12:00:00 AM EDT MARCIA ([facility]) Victor Manuel Concepcion MD: [address] [place] [address], Ph. Attender: Victor Manuel Concepcion MD [facility] 01/11/2021 12:00:00 AM EDT MARCIA ([facility]) Victor Manuel Concepcion MD: [address] [place] [address], Ph. Attender: Victor Manuel Concepcion MD [facility] 01/11/2021 12:00:00 AM EDT MARCIA ([facility]) Victor Manuel Concepcion MD: [address] [place] [address], Ph. Attender: Victor Manuel Concepcion MD [facility] 01/11/2021 12:00:00 AM EDT MARCIA ([facility]) Victor Manuel Concepcion MD: [address] [place] [address], Ph. Attender: Victor Manuel Concepcion MD [facility] 01/11/2021 12:00:00 AM EDT MARCIA ([facility]) Victor Manuel Concepcion MD: [address] [place] [address], Ph. Attender: Victor Manuel Concepcion MD [facility] 01/11/2021 12:00:00 AM EDT MARCIA ([facility]) Victor Manuel Concepcion MD: [address] [place] [address], Ph. Attender: Victor Manuel Concepcion MD [facility] 01/11/2021 12:00:00 AM EDT MARCIA ([facility]) Outpatient Attender: ANGIE orta 12/06/2020 03:05:00 PM EDT MEDENT ([facility]) Victor Manuel Concepcion MD: [address] [place] [address], Ph. Attender: Victor Manuel Concepcion MD [facility] 11/30/2020 12:00:00 AM EDT MARCIA ([facility]) Victor Manuel Concepcion MD: [address] [place] [address], Ph. Attender: Victor Manuel Concepcion MD [facility] 11/30/2020 12:00:00 AM EDT MARCIA ([facility]) Victor Manuel Concepcion MD: [address] [place] [address], Ph. Attender: Victor Manuel Concepcion MD [facility] 11/30/2020 12:00:00 AM EDT MARCIA ([facility]) Victor Manuel Concepcion MD: [address] [place] [address], Ph. Attender: Victor Manuel Concepcion MD [facility] 11/30/2020 12:00:00 AM EDT MARCIA ([facility]) Victor Manuel Concepcion MD: [address] [place] [address], Ph. Attender: Victor Manuel Concepcion MD [facility] 11/30/2020 12:00:00 AM EDT MARCIA ([facility]) Victor Manuel Concepcion MD: [address] [place] [address], Ph. Attender: Victor Manuel Concepcion MD [facility] 11/30/2020 12:00:00 AM EDT MARCIA ([facility]) Victor Manuel Concepcion MD: [address] [place] [address], Ph. Attender: Victor Manuel Concepcion MD [facility] 11/30/2020 12:00:00 AM EDT MARCIA ([facility]) Victor Manuel Concepcion MD: [address] [place] [address], Ph. Attender: Victor Manuel Concepcion MD [facility] 11/30/2020 12:00:00 AM EDT MARCIA ([facility]) Victor Manuel Concepcion MD: [address] [place] [address], Ph. Attender: Victor Manuel Concepcion MD [facility] 11/30/2020 12:00:00 AM EDT MARCIA ([facility]) Victor Manuel Concepcion MD: [address] [place] [address], Ph. Attender: Victor Manuel Concepcion MD [facility] 11/30/2020 12:00:00 AM EDT MARCIA ([facility]) Outpatient Attender: Anjana LILLY 12/2020 12:00:00 AM [facility] - 09/21/2020 02:04:20 PM [facility] Outpatient Attender: Anjana GUILLAUMESJP.DIANE 10/2020 12:00:00 AM EST - 09/19/2020 09:54:08 AM EST [facility] Outpatient SJP.CT-SJP.SYR 09/03/2020 08:40 :13 AM EST - 09/08/2020 10:29:57 AM EST [facility] Outpatient SJP.DIANE-SJP.DIANE 08/30/2020 12:00:00 AM EST [facility] Outpatient SJP.DIANE-SJP.DIANE 07/24/2020 12:00:00 AM EST [facility] Outpatient Referrer: Anjana ENRIQUEDIANE-SJP.DIANE 09/2019 12:00:00 AM [facility] Outpatient Attender: Anjana ENRIQUEDIANE-SJP.DIANE 12:00:00 AM EDT - 06/15/2020 09:15:33 AM EDT [facility] Outpatient<td ID="encounterTypeDescripti onID0">followup</td><td>Carolina Hernadez MD</td><td>[facility], [facility]</td><td>06/06/2020</td><td>11:16AM</td><td>11:44AM</td><td><content ID="encounterDiagnosisID0-0">Atrial Fibrillation</content>, <content ID="encounterDiagnosisID0-1">Essential Hypertension</content>, <content ID="encounterDiagnosisID0-2">Diabetes Mellitus Poorly Controlled</content>, <content ID="encounterDiagnosisID0-3">Urge Incontinence of Urine</content>, <content ID="encounterDiagnosisID0-4">Vitamin D Deficiency</content>, <content ID="encounterDiagnosisID0-5">Nonorganic Sleep Apnea Obstructive</content>, <content ID="encounterDiagnosisID0-6">Assessment of Cardiac Devices Pacemaker Present</content>, <content ID="encounterDiagnosisID0-7">Hyperlipoproteinemia Mixed</content>, <content ID="encounterDiagnosisID0-8">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</content>, <content ID="encounterDiagnosisID0-9">Major Depression, Recurrent, Moderate Episode</content></td> Attender: Carolina Hernadez MD [facility], [facility] 06/06/2020 11:16:00 AM EDT - 06/06/2020 11:44:00 AM ED T Hyperlipoproteinemia MixedUrge Incontinence of UrineDiabetes Mellitus Poorly ControlledMajor Depression, Recurrent, Moderate Episode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Assessment of Cardiac Devices Pacemaker PresentNonorganic Sleep Apnea ObstructiveVitamin D DeficiencyEssential HypertensionAtrial Fibrillation [place] ([facility]) Hyperlipoproteinemia Mixed Urge Incontinence of Urine Diabetes Mellitus Poorly Controlled Major Depression, Recurrent, Moderate Ep isode Atherosclerosis Coronary Artery with Ang magen Pectoris with Documented Spasm Assessment of Cardiac Devices Pacemaker Present Nonorganic Sleep Apnea Obstructive Vitamin D Deficiency Essential Hypertension Atrial Fibrillation Outpatient SJP.CT-SJP.SYR 05/24/2020 10:23:57 AM EDT [facility] Unknown [address] [facility], [facility] [id number] 05/24/2020 12:00:00 AM EDT eCW1 ([facility]) Outpatient Attender: Carolina Hernadez MD 05/23/2020 03:36:00 PM EDT E55.9 [facility] E55.9 <td ID="encounterTypeDescriptionID2">[facility]</td><td>Carolina Hernadez MD</td><td>[facility], P</td><td>05/23/2020</td><td>12:49PM</td><td>1:56PM</td><td><content ID="encounterDiagnosisID2-0">Atrial Fibrillation</content>, <content ID="encounterDiagnosisID2-1">Essential Hypertension</content>, <content ID="encounterDiagnosisID2-2">Diabetes Mellitus Poorly Controlled</content>, <content ID="encounterDiagnosisID2-3">Urge Incontinence of Urine</content>, <content ID="encounterDiagnosisID2-4">Vitamin D Deficiency</content>, <content ID="encounterDiagnosisID2-5">Nonorganic Sleep Apnea Obstructive</content>, <content ID="encounterDiagnosisID2-6">Assessment of Cardiac Devices Pacemaker Present</content>, <content ID="encounterDiagnosisID2-7">Hyperlipoproteinemia Mixed</content>, <content ID="encounterDiagnosisID2-8">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</content>, <content ID="encounterDiagnosisID2-9">Major Depression, Recurrent, Moderate Episode</content></td>Outpatient Attender: Carolina Hernadez MD [facility], [facility] 05/23/2020 12:49:00 PM EDT - 05/23/2020 01:56:00 PM ED T Hyperlipoproteinemia MixedUrge Incontinence of UrineDiabetes Mellitus Poorly ControlledHyperlipoproteinemia MixedUrge Incontinence of UrineDiabetes Mellitus Poorly ControlledHyperlipoproteinemia MixedUrge Incontinence of UrineDiabetes Mellitus Poorly ControlledMajor Depression, Recurrent, Moderate Episode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Assessment of Cardiac Devices Pacemaker PresentNonorganic Sleep Apnea ObstructiveVitamin D DeficiencyEssential HypertensionAtrial FibrillationMajor Depression, Recurrent, Moderate Episode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Assessment of Cardiac Devices Pacemaker PresentNonorganic Sleep Apnea ObstructiveVitamin D DeficiencyEssential HypertensionAtrial FibrillationMajor Depression, Recurrent, Moderate Episode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Assessment of Cardiac Devices Pacemaker PresentNonorganic Sleep Apnea ObstructiveVitamin D DeficiencyEssential HypertensionAtrial Fibrillation [place] ([facility]) Hyperlipoproteinemia Mixed Urge Incontinence of Urine Diabetes Mellitus Poorly Controlled Hyperlipoproteinemia Mixed Urge Incontinence of Urine Diabetes Mellitus Poorly Controlled Hyperlipoproteinemia Mixed Urge Incontinence of Urine Diabetes Mellitus Poorly Controlled Major Depression, Recurrent, Moderate Ep isode Atherosclerosis Coronary Artery with Ang magen Pectoris with Documented Spasm Assessment of Cardiac Devices Pacemaker Present Nonorganic Sleep Apnea Obstructive Vitamin D Deficiency Essential Hypertension Atrial Fibrillation Major Depression, Recurrent, Moderate Ep isode Atherosclerosis Coronary Artery with Ang magen Pectoris with Documented Spasm Assessment of Cardiac Devices Pacemaker Present Nonorganic Sleep Apnea Obstructive Vitamin D Deficiency Essential Hypertension Atrial Fibrillation Major Depression, Recurrent, Moderate Ep isode Atherosclerosis Coronary Artery with Ang magen Pectoris with Documented Spasm Assessment of Cardiac Devices Pacemaker Present Nonorganic Sleep Apnea Obstructive Vitamin D Deficiency Essential Hypertension Atrial Fibrillation Outpatient<td ID="encounterTypeDescripti onID1"> Annual Wellness SUBSEQUENT visi t(> 1yr since prev.</td><td>Carolina Hernadez MD</td><td>[facility], [facility]</td><td>05/23/2020</td><td> 12:49PM</td><td>1:56PM</td><td><content ID="encounterDiagnosisID1-0">Routine History and Physical 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)</content>, <content ID="encounterDiagnosisID1-1">Tobacco Use</content></td> Attender: Carolina Hernadez MD [facility], [facility] 05/23/2020 12:49:00 P M EDT - 05/23/2020 01:56:00 PM EDT Tobacco UseRoutine History and Physical 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)Tobacco UseRoutine History and Physical 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) [place] ([facility]) Tobacco Use Routine History and Physical Senior Citi rosa (65-80 Yrs) Tobacco Use Routine History and Physical Senior C[place] rosa (65-80 Yrs) Immunizations Vaccine Date Status Description Data Source(s) influenza, high-dose, quadrivalent 05/31/2021 01:49:00 PM EDT co mpleted 10.7 mL [place] ([facility]) influenza, high-dose, quadrivalent 05/31/2021 01:49:00 PM EDT co mpleted 10.7 mL [place] ([facility]) COVID-19, mRNA, LNP-S, PF, 100 mcg/0.5 mL dose 12/11/2020 12 :00:00 AM EDT completed 12/11/2020 [place] ([facility]) COVID-19, mRNA, LNP-S, PF, 100 mcg/0.5 mL dose 12/11/2020 12 :00:00 AM EDT completed 12/11/2020 [place] ([facility]) COVID-19, mRNA, LNP-S, PF, 100 mcg/0.5 mL dose 12/11/2020 12 :00:00 AM EDT completed 12/11/2020 [place] ([facility]) COVID-19, mRNA, LNP-S, PF, 100 mcg/0.5 mL dose 12/11/2020 12 :00:00 AM EDT completed 12/11/2020 [place] ([facility]) COVID-19, mRNA, LNP-S, PF, 100 mcg/0.5 mL dose 12/11/2020 12 :00:00 AM EDT completed 12/11/2020 [place] ([facility]) COVID-19, mRNA, LNP-S, PF, 100 mcg/0.5 mL dose 12/11/2020 12 :00:00 AM EDT completed 12/11/2020 [place] ([facility]) COVID-19, mRNA, LNP-S, PF, 100 mcg/0.5 mL dose 12/11/2020 12 :00:00 AM EDT completed 12/11/2020 [facility]) 09/28/2020 12:00:00 AM EST completed <td I D="[id number]">Covid-19 (Moderna)</td><td>09/28/2020, 08/31/2020</td><td></td> [facility] COVID-19 VACCINE Moderna 09/28/2020 12:00:00 AM EST completed [facility] Vaccine Series Complete: YESThis Data wa s Submitted to [facility] Via [employer]. 08/31/2020 12:00:00 AM EST completed <td I D="[id number]">Covid-19 (Moderna)</td><td>09/28/2020, 08/31/2020</td><td></td> [facility] COVID-19 VACCINE Moderna 08/31/2020 12:00:00 AM EST completed [employer] Vaccine Series Complete: NOThis Data was Submitted to [facility] Via [employer]an[employer]. Medications Medication Brand Name Start Date Product Form Dose Route Admi nistrative Instructions Pharmacy Instructions Status Indications Reaction Description Data Source(s) 2 ML Midazolam 1 MG/ML Injection midazolam (VERSED) in jection midazolam (VERSED) injection 06/12/2021 10:13:45 AM EDT Intravenous com pleted Intravenous, Code/trauma/sedation medication, Starting on Thu06/12/21 at [facility] Medication administered onsite fentaNYL Citrate (PF) (SUBLIMAZE) injection [id number] 06/12/2021 10:13:42 AM EDT Intravenous completed In travenous, Code/trauma/sedation medication, Starting on Thu06/12/21 at [facility] Medication administered onsite normal saline flush 0.9 % injection 3 mL [id number] 06/12/2021 09:00:00 AM EDT 3 mL Intravenous active 3 mL , Intravenous, Every 8 hours (scheduled), First dose on Thu06/12/21 at 0900, Admission - Sign & Hold
flush per protocol, D/C Main IV fluid if appropriate
[facility] Medication administered onsite dextrose 5 % and sodium chloride 0.45 % infusion [id number] 0 06/12/2021 09:00:00 AM EDT 30 mL/h Intravenous active at 30 mL/hr, 30 mL/hr, Intravenous, Continuous, Starting on Thu06/12/21 at 0900, Admission - Sign & Hold [facility] Medication administered onsite Acetaminophen 325 MG Oral Tablet acetaminophen (TYLENO L) 325 MG tablet 650 mg acetaminophen (TYLENOL) 325 MG tablet 650 mg 06/12/2021 08:21:12 AM EDT 650 mg Oral active 650 mg, Or al, Every 4 hours PRN, mild pain (1-3), Starting on Thu06/12/21 at 0821, Admission - Sign & Hold
"Maximum dose of acetaminophen is 4,000 mg from all sources in 24 hours."
[facility] Medication administered onsite apixaban 5 MG Oral Tablet Apixaban (Eliquis) 5 MG TABS tablet Apixaban (Eliquis) 5 MG TABS tablet 03/13/2021 12:00:00 AM EDT 5 mg Oral a ctive Take 1 tablet (5 mg total) by mouth 2 (two) times a day [facility] Losartan Potassium 25 MG Oral Tablet losartan (COZAAR) 25 MG tablet losartan (COZAAR) 25 MG tablet 03/13/2021 12:00:00 AM EDT aborted Essential hypertension TAKE ONE TABLET BY MOUTH @8AM [facility] Essential hypertension 24 HR Metformin hydrochloride 500 MG Ext ended Release Oral Tablet metFORMIN (GLUCOPHATE-XR) 500 MG 24 hr tablet metFORMIN (GLUCOPHATE-XR) 500 MG 24 hr tablet 03/13/2021 12:00:00 AM EDT 2000 mg Oral active Take 4 tablets (2,000 mg total) by mouth daily [facility] sodium chloride 0.9% (NS) infusion [id number] 03/11/2021 04:00:00 P M EDT Intravenous active at 100 mL/hr, Intravenous, Continuous, Starting on Thu03/11/21 at 1600, For 2 hours, Post-op [facility] Medication administered onsite iopamidol (ISOVUE-370) 76 % [id number] 03/11/2021 02:23:17 PM EDT active As needed, Starting on Thu03/11/21 at 1423, Intra-Proc edure [facility] Medication administered onsite 1 ML heparin sodium, porcine 1000 UNT/ML Injection hep humaira (porcine) injection heparin (porcine) injection 03/11/2021 02:13:37 PM EDT active As needed, Starting on Thu03/11/21 at 1413, Intra-Procedure [facility] Medication administered onsite 4 ML Verapamil hydrochloride 2.5 MG/ML Injection verap sweta (ISOPTIN) injection verapamil (ISOPTIN) injection 03/11/2021 02:13:21 PM EDT active As needed, Starting on Thu03/11/21 at 1413, Intra-Procedure [facility] Medication administered onsite lidocaine 1 % injection [id number] 03/11/2021 02:12:08 PM EDT active As needed, Starting on Thu at 1412, Intra-Procedure [facility] Medication administered onsite 2 ML Midazolam 1 MG/ML Injection midazolam (VERSED) in jection midazolam (VERSED) injection 03/11/2021 02:11:54 PM EDT active As needed, Starting on Thu03/11/21 at 1411, Intra-Procedure [facility] Medication administered onsite fentaNYL Citrate (PF) (SUBLIMAZE) injection [id number] 03/11/2021 02:11:36 PM EDT active As neede d, Starting on Thu03/11/21 at 1411, Intra-Procedure [facility] Medication administered onsite normal saline flush 0.9 % injection 3 mL [id number] 03/11/2021 09:00:00 AM EDT 3 mL Intravenous active 3 mL , Intravenous, Every 8 hours (scheduled), First dose on Thu03/11/21 at 0900, Pre-op
Rapid push positive pressure flushing shall be performed with a 10 cc normal saline syringe to check the PATENCY of a PIV site prior to any infusion therapy initiation unless resistance is met.
[facility] Medication administered onsite normal saline flush 0.9 % injection 3 mL [id number] 03/11/2021 09:00:00 AM EDT 3 mL Intravenous active 3 mL , Intravenous, Every 8 hours (scheduled), First dose on Thu03/11/21 at 0900, Pre-op
Rapid push positive pressure flushing shall be performed with a 10 cc normal saline syringe to check the PATENCY of a PIV site prior to any infusion therapy initiation unless resistance is met.
[facility] Medication administered onsite normal saline flush 0.9 % injection 3 mL [id number] 03/11/2021 09:00:00 AM EDT 3 mL Intravenous active 3 mL , Intravenous, PROTOCOL, First dose on Thu03/11/21 at 0900, Pre-op
flush per protocol, D/C Main IV fluid if appropriate
[facility] Medication administered onsite Aspirin 325 MG Oral Tablet aspirin tablet 325 mg aspirin tab let 325 mg 03/11/2021 09:00:00 AM EDT 325 mg Oral completed 325 mg, Oral, Once, On Thu03/11/21 at 0900, For 1 dose, Pre-op
Give if scheduled for cardiac or peripheral angioplasty/stent or carotid stenting. Administer AM dose prior to procedure if NOT taken at home. Max of 1 dose per day.
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
Start two hours prior to scheduled start time
[facility] Medication administered onsite 2 ML Sodium Hyaluronate 10 MG/ML Prefilled Syringe [Euflexxa ] Euflexxa 03/05/2021 12:00:00 AM EDT active [facility] ([facility]) clopidogrel 75 MG Oral Tablet clopidogrel (PLAVIX) 75 MG tablet clopidogrel (PLAVIX) 75 MG tablet 02/14/2021 12:00:00 AM EDT 300 mg Oral active Coronary angioplasty status Take 4 tablets (300 mg tot al) by mouth once for 1 dose Take all four (4) tablets the night before cardiac catheterization. [facility] Coronary angioplasty status Digoxin 0.125 MG Oral Tablet digoxin (LANOXIN) 125 MCG tablet digoxin (LANOXIN) 125 MCG tablet 01/17/2021 12:00:00 AM EDT 125 ug Oral aborted Atrial fibrillation Take 1 tablet (125 mcg total ) by mouth See Admin Instructions Take 4 tabs today then one tab once daily. [facility] Atrial fibrillation Losartan Potassium 25 MG Oral Tablet losartan (COZAAR) 25 MG tablet losartan (COZAAR) 25 MG tablet 12/20/2020 12:00:00 AM EDT aborted Essential hypertension TAKE ONE TABLET BY MOUTH @8AM [facility] Essential hypertension Losartan Potassium 25 MG Oral Tablet losartan (COZAAR) 25 MG tablet losartan (COZAAR) 25 MG tablet 07/19/2020 12:00:00 AM EST 25 mg Oral active Essential hypertension Take 1 tablet (25 mg total) by mouth daily [facility] Essential hypertension FLUAD QUADRIVALENT 0.5 ML PRSY [id number] 06/12/2020 12:00:00 AM EDT aborted ADMINISTER as DIRECTED [facility] tramadol hydrochloride 50 MG Oral Tablet traMADol (ULT DEX) 50 MG tablet traMADol (ULTRAM) 50 MG tablet 05/24/2020 12:00:00 AM EDT aborted as needed [facility] 24 HR Fesoterodine Fumarate 4 MG Extende d Release Oral Tablet [Toviaz] TOVIAZ 4 MG TB24 TOVIAZ 4 MG TB24 05/23/2020 12:00:00 AM EDT 4 mg Oral active Take 4 mg by mouth nightly [facility] 24 HR Fesoterodine Fumarate 4 MG Extende d Release Oral Tablet [Toviaz] Toviaz 4 MG Oral Tablet Extended Release 24 Hour Toviaz 4 MG Oral Tablet Extended Release 24 Hour 05/23/2020 12:00:00 AM EDT active 24 HR fesoterodine fumarate 4 MG Extended Release Oral Tablet [Toviaz] [facility]) tramadol hydrochloride 50 MG Oral Tablet traMADol HCl 50 MG Oral Tablet traMADol HCl 50 MG Oral Tablet 05/23/2020 12:00:00 AM EDT active tramadol hydrochloride 50 MG Oral Tablet [facility]) Glipizide 5 MG Oral Tablet glipiZIDE 5 MG Oral Tablet glipiZIDE 5 MG Oral Tablet 05/21/2020 12:00:00 AM EDT 1 active glipizide 5 MG Oral Tablet [facility]) 24 HR Metformin hydrochloride 500 MG Ext ended Release Oral Tablet metFORMIN (GLUCOPHATE-XR) 500 MG 24 hr tablet metFORMIN (GLUCOPHATE-XR) 500 MG 24 hr tablet 04/29/2020 12:00:00 AM EDT 4 {tbl} Oral aborted Take 4 tablets by mouth daily [facility] Digoxin 0.125 MG Oral Tablet Digoxin 125 MCG Oral Tabl et Digoxin 125 MCG Oral Tablet 04/23/2020 12:00:00 AM EDT aborted digoxin 0.125 MG Oral Tablet [place] ([facility]) irbesartan 150 MG Oral Tablet Irbesartan 150 MG Oral T ablet Irbesartan 150 MG Oral Tablet 01/26/2020 12:00:00 AM EDT aborte d irbesartan 150 MG Oral Tablet [place] ([facility]) Simvastatin 20 MG Oral Tablet Simvastatin 20 MG Oral Tablet 12/29/2019 12:00:00 AM EDT aborted simvastatin 20 M G Oral Tablet [facility]) 24 HR mirabegron 50 MG Extended Release Oral Tablet [Myrbetriq] Myrbetriq 50 MG Oral Tablet Extended Release 24 Hour Myrbetriq 50 MG Oral Tablet Extended Release 24 Hour 12/29/2019 12:00:00 AM EDT ab orted 24 HR mirabegron 50 MG Extended Release Oral Tablet [Myrbetriq] [facility]) 24 HR Metformin hydrochloride 500 MG Ext ended Release Oral Tablet metFORMIN HCl ER 500 MG Oral Tablet Extended Release 24 Hour metFORMIN HCl ER 500 MG Oral Tablet Extended Release 24 Hour 10/28/2019 12:00:00 AM EDT active 24 HR metformin hydrochloride 500 MG Extended Release Oral Tablet [facility] ([facility]) GE100 Blood Glucose Test In Vitro Strip GE100 Blood Glucose Test In Vitro Strip 09/29/2019 12:00:00 AM EST active GE100 Blood Glucose Test [facility]) Lancets 30G Miscellaneous Lancets 30G Miscellaneous 09/29/2019 1 2:00:00 AM EST active Lancets 30G [facility] ([facility]) apixaban 5 MG Oral Tablet [Eliquis] Eliquis 5 MG Oral Tablet Eliquis 5 MG Oral Tablet 09/05/2019 12:00:00 AM EST 1 active apixaban 5 MG Oral Tablet [Eliquis] [facility] ([facility]) 7 ACTUAT umeclidinium 0.0625 MG/ACTUAT D ry Powder Inhaler [Incruse] INCRUSE ELLIPTA 62.5 MCG/INH AEPB INCRUSE ELLIPTA 62.5 MCG/INH AEPB 08/11/2019 12:00:00 AM EST aborted [facility] valsartan 80 MG Oral Tablet Valsartan 80MG Oral Tablet Valsartan 80MG Oral Tablet 06/07/2019 12:00:00 AM EDT 1 aborted valsartan 80 MG Oral Tablet [facility] ([facility]) empagliflozin 10 MG Oral Tablet Empagliflozin (JARDIAN CE) 10 MG TABS Empagliflozin (JARDIANCE) 10 MG TABS 04/21/2019 12:00:00 AM EDT 10 mg Oral aborted Take 10 mg by mouth daily [facility] apixaban 5 MG Oral Tablet Apixaban (ELIQUIS) 5 MG TABS tablet Apixaban (ELIQUIS) 5 MG TABS tablet 01/31/2017 12:00:00 AM EDT 5 mg Oral aborted Take 1 tablet (5 mg total) by mouth 2 (two) times a day [facility] Metformin hydrochloride 1000 MG Oral Tab let metFORMIN (GLUCOPHAGE) 1000 MG tablet metFORMIN (GLUCOPHAGE) 1000 MG tablet 01/31/2017 12:00:00 AM EDT 1000 mg Oral aborted Take 1 tab let (1,000 mg total) by mouth 2 (two) times a day with meals [facility] fluticasone propionate 50 mcg/actuation nasal spray,suspension INSTILL TWO SPRAYS IN EACH NOSTRIL ONCE DAILY [id number] com pleted fluticasone propionate 0.05 MG/ACTUAT Metered Dose Nasal [place] ([facility]) tramadol hydrochloride 50 MG Oral Tablet tramadol 50 mg tablet TAKE ONE TABLET BY MOUTH ONCE DAILY NEEDED FOR PAIN, MAX DAILY DOSE ONE TABLET tramadol 50 mg tablet TAKE ONE TABLET BY MOUTH ONCE DAILY NEEDED FOR PAIN, MAX DAILY DOSE ONE TABLET completed tramadol hy drochloride 50 MG Oral Tablet [place] ([facility]) 24 HR metoprolol succinate 200 MG Extend ed Release Oral Tablet metoprolol succinate ER 200 mg tablet,extended release 24 hr metoprolol succinate ER 200 mg tablet,extended release 24 hr complet ed 24 HR metoprolol succinate 200 MG Extended Release Oral Tablet [place] ([facility]) irbesartan 150 MG Oral Tablet irbesartan 150 mg tablet TAKE ONE TABLET BY MOUTH @8AM irbesartan 150 mg tablet TAKE ONE TABLET BY MOUTH @8AM completed irbesartan 150 MG Oral Tablet AT [facility] ([facility]) Cephalexin 500 MG Oral Capsule cephalexi n 500 mg capsule TAKE ONE CAPSULE BY MOUTH EVERY TWELVE HOURS FOR 7 DAYS cephalexin 500 mg capsule TAKE ONE CAPSU LE BY MOUTH EVERY TWELVE HOURS FOR 7 DAYS completed cephalexin 500 MG Oral Capsule [place] ([facility]) fluticasone propionate 50 mcg/actuation nasal spray,suspension INSTILL TWO SPRAYS IN EACH NOSTRIL ONCE DAILY [id number] com pleted fluticasone propionate 0.05 MG/ACTUAT Metered Dose Nasal [place] ([facility]) 24 HR mirabegron 50 MG Extended Release Oral Tablet [Myrbetriq] Myrbetriq 50 mg tablet,extended release TAKE ONE TABLET BY MOUTH @8AM Myrbetriq 50 mg tablet,extended release TAKE ONE TABLET BY MOUTH @8AM completed 24 HR mirabegron 50 MG Extended Release Oral Tablet [Myrbetriq] [place] ([facility]) Simvastatin 20 MG Oral Tablet simvastati n 20 mg tablet TAKE ONE TABLET BY MOUTH @8PM simvastatin 20 mg tablet TAKE ONE TABLET BY MOUTH @8PM completed simvastatin 20 MG Oral Tablet AT [facility]) ferrous sulfate 325 MG Oral Tablet ferrous sulfate 325 (65 FE) MG tablet ferrous sulfate 325 (65 FE) MG tablet 325 mg Oral aborted Take 325 mg by mouth daily with breakfast [facility] Cephalexin 500 MG Oral Capsule cephalexi n 500 mg capsule TAKE ONE CAPSULE BY MOUTH EVERY TWELVE HOURS FOR 7 DAYS cephalexin 500 mg capsule TAKE ONE CAPSU LE BY MOUTH EVERY TWELVE HOURS FOR 7 DAYS completed cephalexin 500 MG Oral Capsule [place] ([facility]) 24 HR metoprolol succinate 200 MG Extend ed Release Oral Tablet metoprolol succinate ER 200 mg tablet,extended release 24 hr metoprolol succinate ER 200 mg tablet,extended release 24 hr complet ed 24 HR metoprolol succinate 200 MG Extended Release Oral Tablet [place] ([facility]) irbesartan 150 MG Oral Tablet irbesartan 150 mg tablet TAKE ONE TABLET BY MOUTH @8AM irbesartan 150 mg tablet TAKE ONE TABLET BY MOUTH @8AM completed irbesartan 150 MG Oral Tablet AT [facility] ([facility]) fluticasone propionate 50 mcg/actuation nasal spray,suspension INSTILL TWO SPRAYS IN EACH NOSTRIL ONCE DAILY [id number] com pleted fluticasone propionate 0.05 MG/ACTUAT Metered Dose Nasal [place] ([facility]) tramadol hydrochloride 50 MG Oral Tablet tramadol 50 mg tablet TAKE ONE TABLET BY MOUTH ONCE DAILY NEEDED FOR PAIN, MAX DAILY DOSE ONE TABLET tramadol 50 mg tablet TAKE ONE TABLET BY MOUTH ONCE DAILY NEEDED FOR PAIN, MAX DAILY DOSE ONE TABLET completed tramadol hy drochloride 50 MG Oral Tablet [place] ([facility]) 24 HR mirabegron 50 MG Extended Release Oral Tablet [Myrbetriq] Myrbetriq 50 mg tablet,extended release TAKE ONE TABLET BY MOUTH @8AM Myrbetriq 50 mg tablet,extended release TAKE ONE TABLET BY MOUTH @8AM completed 24 HR mirabegron 50 MG Extended Release Oral Tablet [Myrbetriq] [place] ([facility]) Digoxin 0.125 MG Oral Tablet digoxin 125 mcg (0.125 mg) tablet TAKE ONE TABLET BY MOUTH @8PM digoxin 125 mcg (0.125 mg) tablet TAKE ONE TABLET BY MOUTH @ 8PM completed digoxin 0.125 MG Oral Tablet [place] ([facility]) Cephalexin 500 MG Oral Capsule cephalexi n 500 mg capsule TAKE ONE CAPSULE BY MOUTH EVERY TWELVE HOURS FOR 7 DAYS cephalexin 500 mg capsule TAKE ONE CAPSU LE BY MOUTH EVERY TWELVE HOURS FOR 7 DAYS completed cephalexin 500 MG Oral Capsule [place] ([facility]) irbesartan 150 MG Oral Tablet irbesartan 150 mg tablet TAKE ONE TABLET BY MOUTH @8AM irbesartan 150 mg tablet TAKE ONE TABLET BY MOUTH @8AM completed irbesartan 150 MG Oral Tablet AT [facility]) tramadol hydrochloride 50 MG Oral Tablet tramadol 50 mg tablet TAKE ONE TABLET BY MOUTH ONCE DAILY NEEDED FOR PAIN, MAX DAILY DOSE ONE TABLET tramadol 50 mg tablet TAKE ONE TABLET BY MOUTH ONCE DAILY NEEDED FOR PAIN, MAX DAILY DOSE ONE TABLET completed tramadol hy drochloride 50 MG Oral Tablet [place] ([facility]) irbesartan 150 MG Oral Tablet irbesartan 150 mg tablet TAKE ONE TABLET BY MOUTH @8AM irbesartan 150 mg tablet TAKE ONE TABLET BY MOUTH @8AM completed irbesartan 150 MG Oral Tablet AT [facility] ([facility]) Simvastatin 20 MG Oral Tablet simvastati n 20 mg tablet TAKE ONE TABLET BY MOUTH @8PM simvastatin 20 mg tablet TAKE ONE TABLET BY MOUTH @8PM completed simvastatin 20 MG Oral Tablet AT [facility] ([facility]) Cephalexin 500 MG Oral Capsule cephalexi n 500 mg capsule TAKE ONE CAPSULE BY MOUTH EVERY TWELVE HOURS FOR 7 DAYS cephalexin 500 mg capsule TAKE ONE CAPSU LE BY MOUTH EVERY TWELVE HOURS FOR 7 DAYS completed cephalexin 500 MG Oral Capsule [place] ([facility]) Loratadine 10 MG Oral Capsule loratadine 10 mg capsule Take by oral route. loratadine 10 mg capsule Take by oral route. completed loratadine 10 MG Oral Capsule [place] ([facility]) 24 HR mirabegron 50 MG Extended Release Oral Tablet [Myrbetriq] Myrbetriq 50 mg tablet,extended release TAKE ONE TABLET BY MOUTH @8AM Myrbetriq 50 mg tablet,extended release TAKE ONE TABLET BY MOUTH @8AM completed 24 HR mirabegron 50 MG Extended Release Oral Tablet [Myrbetriq] [place] ([facility]) fluoxetine 20 mg tablet Take 1 tablet every day by oral route. [id number] 1 completed PMDD fluoxetine 20 MG Oral T ablet [place] ([facility]) fluticasone propionate 50 mcg/actuation nasal spray,suspension INSTILL TWO SPRAYS IN EACH NOSTRIL ONCE DAILY [id number] com pleted fluticasone propionate 0.05 MG/ACTUAT Metered Dose Nasal [place] ([facility]) Fluoxetine 40 MG Oral Capsule fluoxetine 40 mg capsule fluox etine 40 mg capsule completed fluoxetine 40 MG Oral Capsule [place] ([facility]) Loratadine 10 MG Oral Capsule loratadine 10 mg capsule Take by oral route. loratadine 10 mg capsule Take by oral route. completed loratadine 10 MG Oral Capsule [place] ([facility]) Simvastatin 20 MG Oral Tablet simvastati n 20 mg tablet TAKE ONE TABLET BY MOUTH @8PM simvastatin 20 mg tablet TAKE ONE TABLET BY MOUTH @8PM completed simvastatin 20 MG Oral Tablet AT [facility]) Digoxin 0.125 MG Oral Tablet digoxin 125 mcg (0.125 mg) tablet TAKE ONE TABLET BY MOUTH @8PM digoxin 125 mcg (0.125 mg) tablet TAKE ONE TABLET BY MOUTH @ 8PM completed digoxin 0.125 MG Oral Tablet [place] ([facility]) fluticasone propionate 50 mcg/actuation nasal spray,suspension INSTILL TWO SPRAYS IN EACH NOSTRIL ONCE DAILY [id number] com pleted fluticasone propionate 0.05 MG/ACTUAT Metered Dose Nasal [place] [facility]) Fluoxetine 40 MG Oral Capsule fluoxetine 40 mg capsule fluox etine 40 mg capsule completed fluoxetine 40 MG Oral Capsule [place] ([facility]) Fluoxetine 40 MG Oral Capsule fluoxetine 40 mg capsule TAKE ONE CAPSULE BY MOUTH @8AM fluoxetine 40 mg capsule TAKE ONE CAPSULE BY MOUTH @8AM completed fluoxetine 40 MG Oral Capsule AT [facility]) Cephalexin 500 MG Oral Capsule cephalexi n 500 mg capsule TAKE ONE CAPSULE BY MOUTH EVERY TWELVE HOURS FOR 7 DAYS cephalexin 500 mg capsule TAKE ONE CAPSU LE BY MOUTH EVERY TWELVE HOURS FOR 7 DAYS completed cephalexin 500 MG Oral Capsule [facility]) empagliflozin 10 MG Oral Tablet [Jardian ce] Jardiance 10 mg tablet Take 1 tablet every day by oral route. Jardiance 10 mg tablet Take 1 tablet tami ry day by oral route. 1 completed empagliflozin 10 MG Oral Tablet [Jardiance] [facility]) POLYETHYLENE GLYCOL 3350 59 MG/ML / Pota ssium Chloride 0.01 MEQ/ML / Sodium Bicarbonate 0.02 MEQ/ML / Sodium Chloride 0.025 MEQ/ML / sodium sulfate 0.04 MEQ/ML Oral Solution [Gaviltye-G] GaviLyte-G 236 gram-22.74 gram-6.74 gram-5.86 gram oral solution GaviLyte-G 236 gram-22.74 gram-6.74 gram -5.86 gram oral solution completed polye thylene glycol 3350 818380 MG / potassium chloride 2970 MG / sodium bicarbonate 6740 MG / sodium chloride 5860 MG / sodium sulfate 09707 MG Powder for Oral Solution [Gavilyte-G] [facility]) empagliflozin 10 MG Oral Tablet [Jardian ce] Jardiance 10 mg tablet Take 1 tablet every day by oral route. Jardiance 10 mg tablet Take 1 tablet tami ry day by oral route. 1 completed empagliflozin 10 MG Oral Tablet [Jardiance] [place] ([facility]) Cephalexin 500 MG Oral Capsule cephalexi n 500 mg capsule TAKE ONE CAPSULE BY MOUTH EVERY TWELVE HOURS FOR 7 DAYS cephalexin 500 mg capsule TAKE ONE CAPSU LE BY MOUTH EVERY TWELVE HOURS FOR 7 DAYS completed cephalexin 500 MG Oral Capsule [place] ([facility]) Cephalexin 500 MG Oral Capsule cephalexi n 500 mg capsule TAKE ONE CAPSULE BY MOUTH EVERY TWELVE HOURS FOR 7 DAYS cephalexin 500 mg capsule TAKE ONE CAPSU LE BY MOUTH EVERY TWELVE HOURS FOR 7 DAYS completed cephalexin 500 MG Oral Capsule [place] ([facility]) tramadol hydrochloride 50 MG Oral Tablet tramadol 50 mg tablet TAKE ONE TABLET BY MOUTH ONCE DAILY NEEDED FOR PAIN, MAX DAILY DOSE ONE TABLET tramadol 50 mg tablet TAKE ONE TABLET BY MOUTH ONCE DAILY NEEDED FOR PAIN, MAX DAILY DOSE ONE TABLET completed tramadol hy drochloride 50 MG Oral Tablet [facility]) 24 HR metoprolol succinate 200 MG Extend ed Release Oral Tablet metoprolol succinate ER 200 mg tablet,extended release 24 hr metoprolol succinate ER 200 mg tablet,extended release 24 hr complet ed 24 HR metoprolol succinate 200 MG Extended Release Oral Tablet [facility]) empagliflozin 10 MG Oral Tablet [Jardian ce] Jardiance 10 mg tablet Take 1 tablet every day by oral route. Jardiance 10 mg tablet Take 1 tablet tami day by oral route. 1 completed empagliflozin 10 MG [facility] POLYETHYLENE GLYCOL 3350 59 MG/ML / Pota ssium Chloride 0.01 MEQ/ML / Sodium Bicarbonate 0.02 MEQ/ML / Sodium Chloride 0.025 MEQ/ML / sodium sulfate 0.04 MEQ/ML Oral Solution [Gaviltye-G] GaviLyte-G 236 gram-22.74 gram-6.74 gram-5.86 gram oral solution GaviLyte-G 236 gram-22.74 gram-6.74 gram -5.86 gram oral solution completed polye thylene glycol 3350 289527 MG / potassium chloride 2970 MG / sodium bicarbonate 6740 MG / sodium chloride 5860 MG / sodium sulfate 01652 MG Powder for Oral Solution [Gavilyte-G] [place] ([facility]) 24 HR mirabegron 50 MG Extended Release Oral Tablet [Myrbetriq] Myrbetriq 50 mg tablet,extended release TAKE ONE TABLET BY MOUTH @8AM Myrbetriq 50 mg tablet,extended release TAKE ONE TABLET BY MOUTH @8AM completed 24 HR mirabegron 50 MG Extended Release Oral Tablet [Myrbetriq] [place] ([facility]) 24 HR mirabegron 50 MG Extended Release Oral Tablet [Myrbetriq] Myrbetriq 50 mg tablet,extended release TAKE ONE TABLET BY MOUTH @8AM Myrbetriq 50 mg tablet,extended release TAKE ONE TABLET BY MOUTH @8AM completed 24 HR mirabegron 50 MG Extended Release Oral Tablet [Myrbetriq] [place] ([facility]) Cephalexin 500 MG Oral Capsule cephalexi n 500 mg capsule TAKE ONE CAPSULE BY MOUTH EVERY TWELVE HOURS FOR 7 DAYS cephalexin 500 mg capsule TAKE ONE CAPSU LE BY MOUTH EVERY TWELVE HOURS FOR 7 DAYS completed cephalexin 500 MG Oral Capsule [facility]) Fluoxetine 20 MG Oral Capsule fluoxetine 20 mg capsule fluox etine 20 mg capsule completed fluoxetine 20 MG Oral Capsule [place] ([facility]) 24 HR metoprolol succinate 200 MG Extend ed Release Oral Tablet metoprolol succinate ER 200 mg tablet,extended release 24 hr metoprolol succinate ER 200 mg tablet,extended release 24 hr complet ed 24 HR metoprolol succinate 200 MG Extended Release Oral Tablet [place] ([facility]) 24 HR mirabegron 50 MG Extended Release Oral Tablet [Myrbetriq] Myrbetriq 50 mg tablet,extended release TAKE ONE TABLET BY MOUTH @8AM Myrbetriq 50 mg tablet,extended release TAKE ONE TABLET BY MOUTH @8AM completed 24 HR mirabegron 50 MG Extended Release Oral Tablet [Myrbetriq] [place] ([facility]) empagliflozin 10 MG Oral Tablet [Jardian ce] Jardiance 10 mg tablet Take 1 tablet every day by oral route. Jardiance 10 mg tablet Take 1 tablet tami ry day by oral route. 1 completed empagliflozin 10 MG Oral Tablet [Jardiance] [place] ([facility]) Fluoxetine 20 MG Oral Capsule fluoxetine 20 mg capsule fluox etine 20 mg capsule completed fluoxetine 20 MG Oral Capsule [place] ([facility]) tramadol hydrochloride 50 MG Oral Tablet tramadol 50 mg tablet TAKE ONE TABLET BY MOUTH ONCE DAILY NEEDED FOR PAIN, MAX DAILY DOSE ONE TABLET tramadol 50 mg tablet TAKE ONE TABLET BY MOUTH ONCE DAILY NEEDED FOR PAIN, MAX DAILY DOSE ONE TABLET completed tramadol hy drochloride 50 MG Oral Tablet [place] ([facility]) fluticasone propionate 50 mcg/actuation nasal spray,suspension INSTILL TWO SPRAYS IN EACH NOSTRIL ONCE DAILY [id number] com pleted fluticasone propionate 0.05 MG/ACTUAT Metered Dose Nasal [place] ([facility]) empagliflozin 10 MG Oral Tablet [Jardian ce] Jardiance 10 mg tablet Take 1 tablet every day by oral route. Jardiance 10 mg tablet Take 1 tablet tami day by oral route. 1 completed empagliflozin 10 MG Oral Tablet [Jardiance] [facility]) irbesartan 150 MG Oral Tablet irbesartan 150 mg tablet TAKE ONE TABLET BY MOUTH @8AM irbesartan 150 mg tablet TAKE ONE TABLET BY MOUTH @8AM completed irbesartan 150 MG Oral Tablet AT [facility]) tramadol hydrochloride 50 MG Oral Tablet tramadol 50 mg tablet TAKE ONE TABLET BY MOUTH ONCE DAILY NEEDED FOR PAIN, MAX DAILY DOSE ONE TABLET tramadol 50 mg tablet TAKE ONE TABLET BY MOUTH ONCE DAILY NEEDED FOR PAIN, MAX DAILY DOSE ONE TABLET completed tramadol hy drochloride 50 MG Oral Tablet [place] ([facility]) 24 HR metoprolol succinate 200 MG Extend ed Release Oral Tablet metoprolol succinate ER 200 mg tablet,extended release 24 hr metoprolol succinate ER 200 mg tablet,extended release 24 hr complet ed 24 HR metoprolol succinate 200 MG Extended Release Oral Tablet [place] ([facility]) empagliflozin 10 MG Oral Tablet [Jardian ce] Jardiance 10 mg tablet Take 1 tablet every day by oral route. Jardiance 10 mg tablet Take 1 tablet tami day by oral route. 1 completed empagliflozin 10 MG Oral Tablet [Jardiance] [place] ([facility]) fluoxetine 20 mg tablet Take 1 tablet every day by oral route. [id number] 1 completed PMDD fluoxetine 20 MG Oral T ablet [facility]) 24 HR mirabegron 50 MG Extended Release Oral Tablet [Myrbetriq] Myrbetriq 50 mg tablet,extended release TAKE ONE TABLET BY MOUTH @8AM Myrbetriq 50 mg tablet,extended release TAKE ONE TABLET BY MOUTH @8AM completed 24 HR mirabegron 50 MG Extended Release Oral Tablet [Myrbetriq] [place] ([facility]) Fluoxetine 40 MG Oral Capsule fluoxetine 40 mg capsule TAKE ONE CAPSULE BY MOUTH @8AM fluoxetine 40 mg capsule TAKE ONE CAPSULE BY MOUTH @8AM completed fluoxetine 40 MG Oral Capsule AT [facility]) tramadol hydrochloride 50 MG Oral Tablet tramadol 50 mg tablet TAKE ONE TABLET BY MOUTH ONCE DAILY NEEDED FOR PAIN, MAX DAILY DOSE ONE TABLET tramadol 50 mg tablet TAKE ONE TABLET BY MOUTH ONCE DAILY NEEDED FOR PAIN, MAX DAILY DOSE ONE TABLET completed tramadol hy drochloride 50 MG Oral Tablet [place] ([facility]) fluoxetine 20 mg tablet Take 1 tablet every day by oral route. [id number] 1 completed PMDD fluoxetine 20 MG Oral T ablet [facility]) Fluoxetine 20 MG Oral Capsule fluoxetine 20 mg capsule fluox etine 20 mg capsule completed fluoxetine 20 MG Oral Capsule [place] ([facility]) Fluoxetine 20 MG Oral Capsule fluoxetine 20 mg capsule fluox etine 20 mg capsule completed fluoxetine 20 MG Oral Capsule [place] ([facility]) tramadol hydrochloride 50 MG Oral Tablet tramadol 50 mg tablet TAKE ONE TABLET BY MOUTH ONCE DAILY NEEDED FOR PAIN, MAX DAILY DOSE ONE TABLET tramadol 50 mg tablet TAKE ONE TABLET BY MOUTH ONCE DAILY NEEDED FOR PAIN, MAX DAILY DOSE ONE TABLET completed tramadol hy drochloride 50 MG Oral Tablet [place] ([facility]) 24 HR mirabegron 50 MG Extended Release Oral Tablet [Myrbetriq] Myrbetriq 50 mg tablet,extended release TAKE ONE TABLET BY MOUTH @8AM Myrbetriq 50 mg tablet,extended release TAKE ONE TABLET BY MOUTH @8AM completed 24 HR mirabegron 50 MG Extended Release Oral Tablet [Myrbetriq] [place] ([facility]) tramadol hydrochloride 50 MG Oral Tablet tramadol 50 mg tablet TAKE ONE TABLET BY MOUTH ONCE DAILY NEEDED FOR PAIN, MAX DAILY DOSE ONE TABLET tramadol 50 mg tablet TAKE ONE TABLET BY MOUTH ONCE DAILY NEEDED FOR PAIN, MAX DAILY DOSE ONE TABLET completed tramadol hy drochloride 50 MG Oral Tablet [place] ([facility]) irbesartan 150 MG Oral Tablet irbesartan 150 mg tablet TAKE ONE TABLET BY MOUTH @8AM irbesartan 150 mg tablet TAKE ONE TABLET BY MOUTH @8AM completed irbesartan 150 MG Oral Tablet AT [facility]) Simvastatin 20 MG Oral Tablet simvastati n 20 mg tablet TAKE ONE TABLET BY MOUTH @8PM simvastatin 20 mg tablet TAKE ONE TABLET BY MOUTH @8PM completed simvastatin 20 MG Oral Tablet AT [facility]) 24 HR mirabegron 50 MG Extended Release Oral Tablet [Myrbetriq] Myrbetriq 50 mg tablet,extended release TAKE ONE TABLET BY MOUTH @8AM Myrbetriq 50 mg tablet,extended release TAKE ONE TABLET BY MOUTH @8AM completed 24 HR mirabegron 50 MG Extended Release Oral Tablet [Myrbetriq] [facility]) fluticasone propionate 50 mcg/actuation nasal spray,suspension INSTILL TWO SPRAYS IN EACH NOSTRIL ONCE DAILY [id number] com pleted fluticasone propionate 0.05 MG/ACTUAT Metered Dose Nasal [place] [facility]) irbesartan 150 MG Oral Tablet irbesartan 150 mg tablet TAKE ONE TABLET BY MOUTH @8AM irbesartan 150 mg tablet TAKE ONE TABLET BY MOUTH @8AM completed irbesartan 150 MG Oral Tablet AT [facility]) Digoxin 0.125 MG Oral Tablet digoxin (LANOXIN) 125 MCG tablet digoxin (LANOXIN) 125 MCG tablet 125 ug Oral aborted Take 125 mcg by mouth daily [facility] Glipizide 5 MG Oral Tablet glipiZIDE (GLUCOTROL) 5 MG tablet glipiZIDE (GLUCOTROL) 5 MG tablet 5 mg Oral aborted Take 5 mg by mouth 2 (two) times a day before meals [facility] Vitamin B 12 0.5 MG Oral Tablet vitamin B-12 (CYANOCOB ALAMIN) 500 MCG tablet vitamin B-12 (CYANOCOBALAMIN) 500 MCG tablet 1000 ug Oral aborted Take 1,000 mcg by mouth daily [facility] Fluoxetine 20 MG Oral Capsule fluoxetine 20 mg capsule fluox etine 20 mg capsule completed fluoxetine 20 MG Oral Capsule [facility]) empagliflozin 10 MG Oral Tablet [Jardian ce] Jardiance 10 mg tablet Take 1 tablet every day by oral route. Jardiance 10 mg tablet Take 1 tablet tami day by oral route. 1 completed empagliflozin 10 MG Oral Tablet [Jardiance] [place] ([facility]) irbesartan 150 MG Oral Tablet irbesartan 150 mg tablet TAKE ONE TABLET BY MOUTH @8AM irbesartan 150 mg tablet TAKE ONE TABLET BY MOUTH @8AM completed irbesartan 150 MG Oral Tablet AT [facility] ([facility]) tramadol hydrochloride 50 MG Oral Tablet tramadol 50 mg tablet TAKE ONE TABLET BY MOUTH ONCE DAILY NEEDED FOR PAIN, MAX DAILY DOSE ONE TABLET tramadol 50 mg tablet TAKE ONE TABLET BY MOUTH ONCE DAILY NEEDED FOR PAIN, MAX DAILY DOSE ONE TABLET completed tramadol hy drochloride 50 MG Oral Tablet [place] ([facility]) Cholecalciferol 2000 UNT Oral Tablet [place] lecalciferol (VITAMIN D3) 2000 UNITS TABS Cholecalciferol (VITAMIN D3) 2000 UNITS TABS 2000 mg Ora l aborted Take 2,000 mg by mouth daily [facility] Omeprazole 40 MG Delayed Release Oral Ca psule omeprazole (PRILOSEC) 40 MG capsule omeprazole (PRILOSEC) 40 MG capsule 40 mg Oral aborted Take 40 mg by mouth as needed [facility] Simvastatin 20 MG Oral Tablet simvastatin (ZOCOR) 20 M G tablet simvastatin (ZOCOR) 20 MG tablet 20 mg Oral aborted [place] e 20 mg by mouth nightly [facility] Simvastatin 20 MG Oral Tablet simvastati n 20 mg tablet TAKE ONE TABLET BY MOUTH @8PM simvastatin 20 mg tablet TAKE ONE TABLET BY MOUTH @8PM completed simvastatin 20 MG Oral Tablet AT [facility] ([facility]) Fluoxetine 20 MG Oral Capsule fluoxetine 20 mg capsule fluox etine 20 mg capsule completed fluoxetine 20 MG Oral Capsule [place] ([facility]) Cephalexin 500 MG Oral Capsule cephalexi n 500 mg capsule TAKE ONE CAPSULE BY MOUTH EVERY TWELVE HOURS FOR 7 DAYS cephalexin 500 mg capsule TAKE ONE CAPSU LE BY MOUTH EVERY TWELVE HOURS FOR 7 DAYS completed cephalexin 500 MG Oral Capsule [facility]) fluoxetine 20 mg tablet Take 1 tablet every day by oral route. [id number] 1 completed PMDD fluoxetine 20 MG Oral T ablet [place] ([facility]) fluticasone propionate 50 mcg/actuation nasal spray,suspension INSTILL TWO SPRAYS IN EACH NOSTRIL ONCE DAILY [id number] com pleted fluticasone propionate 0.05 MG/ACTUAT Metered Dose Nasal [place] ([facility]) irbesartan 150 MG Oral Tablet irbesartan 150 mg tablet TAKE ONE TABLET BY MOUTH @8AM irbesartan 150 mg tablet TAKE ONE TABLET BY MOUTH @8AM completed irbesartan 150 MG Oral Tablet AT [facility]) Glipizide 5 MG Oral Tablet glipizide 5 mg tablet glipizide 5 mg tablet completed glipizide 5 MG Oral Table t [place] ([facility]) empagliflozin 10 MG Oral Tablet [Jardian ce] Jardiance 10 mg tablet Take 1 tablet every day by oral route. Jardiance 10 mg tablet Take 1 tablet tami ry day by oral route. 1 completed empagliflozin 10 MG Oral Tablet [Jardiance] [place] ([facility]) empagliflozin 10 MG Oral Tablet [Jardian ce] Jardiance 10 mg tablet Take 1 tablet every day by oral route. Jardiance 10 mg tablet Take 1 tablet tami ry day by oral route. 1 completed empagliflozin 10 MG Oral Tablet [Jardiance] [place] ([facility]) fluticasone propionate 50 mcg/actuation nasal spray,suspension INSTILL TWO SPRAYS IN EACH NOSTRIL ONCE DAILY [id number] com pleted fluticasone propionate 0.05 MG/ACTUAT Metered Dose Nasal [place] ([facility]) empagliflozin 10 MG Oral Tablet [Jardian ce] Jardiance 10 mg tablet Take 1 tablet every day by oral route. Jardiance 10 mg tablet Take 1 tablet tami ry day by oral route. 1 completed empagliflozin 10 MG Oral Tablet [Jardiance] [place] ([facility]) 24 HR mirabegron 50 MG Extended Release Oral Tablet [Myrbetriq] Myrbetriq 50 mg tablet,extended release TAKE ONE TABLET BY MOUTH @8AM Myrbetriq 50 mg tablet,extended release TAKE ONE TABLET BY MOUTH @8AM completed 24 HR mirabegron 50 MG Extended Release Oral Tablet [Myrbetriq] [facility]) irbesartan 150 MG Oral Tablet irbesartan 150 mg tablet TAKE ONE TABLET BY MOUTH @8AM irbesartan 150 mg tablet TAKE ONE TABLET BY MOUTH @8AM completed irbesartan 150 MG Oral Tablet AT [place] ([facility]) fluoxetine 20 mg tablet Take 1 tablet every day by oral route. [id number] 1 completed PMDD fluoxetine 20 MG Oral T ablet [place] ([facility]) fluoxetine 20 mg tablet Take 1 tablet every day by oral route. 484040 1 completed PMDD fluoxetine 20 MG Oral T ablet [place] ([facility]) Cephalexin 500 MG Oral Capsule cephalexi n 500 mg capsule TAKE ONE CAPSULE BY MOUTH EVERY TWELVE HOURS FOR 7 DAYS cephalexin 500 mg capsule TAKE ONE CAPSU LE BY MOUTH EVERY TWELVE HOURS FOR 7 DAYS completed cephalexin 500 MG Oral Capsule [place] ([facility]) fluticasone propionate 50 mcg/actuation nasal spray,suspension INSTILL TWO SPRAYS IN EACH NOSTRIL ONCE DAILY 174994 com pleted fluticasone propionate 0.05 MG/ACTUAT Metered Dose Nasal [place] ([facility]) Fluoxetine 20 MG Oral Capsule fluoxetine 20 mg capsule fluox etine 20 mg capsule completed fluoxetine 20 MG Oral Capsule [place] ([facility]) Fluoxetine 40 MG Oral Capsule fluoxetine 40 mg capsule fluox etine 40 mg capsule completed fluoxetine 40 MG Oral Capsule [place] ([facility]) fluoxetine 20 mg tablet Take 1 tablet every day by oral route. 539205 1 completed PMDD fluoxetine 20 MG Oral T ablet [place] ([facility]) fluticasone (FLONASE) 50 MCG/ACT nasal spray [id number] 1 {spray} Nasal aborted 1 spray into each nostril da [facility] Insurance Providers Payer name Policy type / Coverage type Policy ID Covered green party ID Covered green party's relationship to uribe Policy Uribe Plan Information BCBS HASMUKH GREEN DIV [id number] SP [id number] BC HASMUKH GREEN DIV [id number] SP [id number] Medicare C [id number] SELF [id number] Medicare Part B [facility] [id number] MEDICARE A [id number] Self [id number] MEDICARE [id number] [place] [id number] ASSIGNED MEDICARE (81) [id number] 1 [id number] MEDICARE [id number] [id number] MEDICARE [id number] [place] [id number] [place] [facility] C [id number] SELF [id number] [place] [id number] Self [id number] A Medicare Part B [facility] [id number] 0 [id number] EXCELLUS BCBS [id number] xxxxxxxxxxxx [id number] EXCELLUS BCBS [id number] [place] YLS [id number] [place] Primary [id number] Self [id number] [facility] [id number] Self [id number] [place] Primary [id number] Self [id number] [facility] [id number] Self [id number] [facility] [id number] Self 1 [id number] [place] Primary [id number] Self [id number] [place] Primary [id number] Self 4 [id number] [facility] [id number] Self [id number] [place] UNAVAILABLE [id number] UNAVAI LABLE Medicare Part B [facility] [id number] [place] [facility] Insurance [id number] 0 [id number] [address] [place] UNAVAILABLE [id number] UNAVAI LABLE [place] Plan F [id number] SELF [id number] EMPIRE PLAN [facility] [id number] Self [id number] INSURANCE COVID-19 COVID [place] C OVID INSURANCE COVID-19 [id number] xOVID [id number] BCBS E[place]IRE [place] UNAVAILABLE UNAVAILABLE ANSI-Medicare Part B [id number] ANSI-Commercial [id number] ANSI-Commercial [id number] ANSI-Medicare Part B [id number] [employer] Other 0 [id number] Self 0 Medicare Part B [facility] Other 0 [id number] Self 0 ANSI-Medicare Part B [id number] ANSI-Commercial [id number] [employer] Other 0 [id number] Self 0 Medicare Part B [facility] [place] [facility] [place] Other 0 [id number] Self 0 ANSI-Commercial [id number] ANSI-Medicare Part B [id number] [facility] [id number] S [id number] MEDICARE C [id number] S [id number] [facility] [id number] [employer] Other 0 [id number] Self 0 Medicare Part B [facility] Other 0 [id number] Self 0 ANSI-Commercial [id number] ANSI-Medicare Part B [id number] [facility] Part B [id number] Self [id number] Medicare Natl Gov't Servi Medicare Primary [id number] Self [id number] ANSI-Commercial [id number] ANSI-Medicare Part B [id number] [employer] Other 0 [id number] Self 0 Medicare Part B [facility] Other 0 [id number] Self 0 [employer] Other 0 [id number] Self 0 Medicare Part B [facility] Other 0 [id number] Self 0 ANSI-Medicare Part B [id number] ANSI-Commercial [id number] ANSI-Commercial [id number] ANSI-Medicare Part B [id number] ANSI-Medicare Part B [id number] ANSI-Commercial [id number] ANSI-Medicare Part B [id number] ANSI-Commercial [id number] ANSI-Medicare Part B [id number] ANSI-Commercial [id number] ANSI-Medicare Part B [id number] ANSI-Commercial [id number] [facility] [id number] SP [id number] MEDICARE [id number] SP [id number] A ANSI-Commercial [id number] ANSI-Medicare Part B [id number] ANSI-Medicare Part B [id number] ANSI-Commercial [id number] ANSI-Commercial [id number] ANSI-Medicare Part B [id number] ANSI-Medicare Part B [id number] ANSI-Commercial [id number] ANSI-Medicare Part B [id number] ANSI-Commercial [id number] ANSI-Medicare Part B [id number] ANSI-Commercial [id number] ANSI-Medicare Part B [id number] ANSI-Commercial [id number] EMPIRE NON-NEIC (321) [id number] 1 [id number] [facility] [place] Medigap Part B [id number] Self [id number] Medicare Natl Gov't Servi Medicare Primary [id number] Self [id number] MEDICARE PI SEBASTIÁN BRYANT BS PI PI [facility] O [id number] S [id number] MEDICARE C [id number] S [id number] A [facility] Medigap Part B [id number] Self MEDICARE [id number] SP [id number] A [id number] BCBS E[place]IRE [place] DIV [id number] SP [id number] MEDICARE [id number] SP [id number] UNITED HEALTHCARE [id number] SP [id number] UNITED HE[employer]CARE [id number] SP [id number] [employer] Other 0 [id number] Self 0 Medicare Part B of [facility] Other 0 [id number] Self 0 [employer] Other 0 [id number] Self 0 Medicare Part B of [facility] Other 0 [id number] Self 0 [employer] Other 0 [id number] Self 0 Medicare Part B of [facility] Other 0 [id number] Self 0 [employer] Other 0 [id number] Self 0 Medicare Part B of [facility] Other 0 [id number] Self 0 [employer] Other 0 [id number] Self 0 Medicare Part B of [facility] Other 0 [id number] Self 0 [employer] Other 0 [id number] Self 0 Medicare Part B of [facility] Other 0 [id number] Self 0 [employer] Other 0 [id number] Self 0 Medicare Part B of [facility] Other 0 [id number] Self 0 [employer] Other 0 [id number] Self 0 Medicare Part B of [facility] Other 0 [id number] Self 0 [employer] Other 0 [id number] Self 0 Medicare Part B of [facility] Other 0 [id number] Self 0 [employer] Other 0 [id number] Self 0 Medicare Part B of [facility] Other 0 [id number] Self 0 [employer] Other 0 [id number] Self 0 Medicare Part B of [facility] Other 0 [id number] Self 0 [employer] Other 0 [id number] Self 0 Medicare Part B of [facility] Other 0 [id number] Self 0 [employer] Other 0 [id number] Self 0 Medicare Part B [facility] Other 0 [id number] Self 0 Problems, Conditions, and Diagnoses Code Display Name Description Problem Type Effective Dates Data Source(s) R79.89 Other specified abnormal findings of blo od chemistry Other specified abnormal findings of blood chemistry Diagnosis 06/17/2021 12:06:00 PM EDT [facility] R94.5 Abnormal results of liver function studi es Abnormal results of liver function studi Diagnosis 06/12/2021 08:08:00 AM EDT [facility] D50.9 Iron deficiency anemia, unspecified Iron deficie ncy anemia, unspecified Diagnosis 06/07/2021 10:21:39 AM EDT [facility] R79.89 Other specified abnormal findings of blo od chemistry Other specified abnormal findings of blo Diagnosis 06/07/2021 10:21:39 AM EDT [facility] R74.8 Abnormal levels of other serum enzymes A bnormal levels of other serum enzymes Diagnosis 06/07/2021 10:21:39 AM EDT [facility] U07.1 COVID-19 COVID-19 Diagnosis 06/07/2021 09:48:57 AM ED T [facility] Z95.0 Presence of cardiac pacemaker Presence of cardiac pace maker Diagnosis 03/22/2021 01:51:04 PM EDT [facility] Z98.61 Coronary angioplasty status Coronary angioplasty statu s Diagnosis 03/22/2021 01:51:04 PM EDT [facility] G47.33 Obstructive sleep apnea (adult) (pediatr ic) Obstructive sleep apnea (adult) (pediatr Diagnosis 03/22/2021 01:51:04 PM EDT [facility] R06.02 Shortness of breath Shortness of breath Diagnosis 0 03/22/2021 01:51:04 PM EDT [facility] D69.6 Thrombocytopenia, unspecified Thrombocytopenia, unspec ified Diagnosis 03/22/2021 01:51:04 PM EDT [facility] E11.51 Type 2 diabetes mellitus wit h diabetic peripheral angiopathy without gangrene Type 2 diabetes mellitus with diabetic p Diagnosis 03/22/2021 01:51:04 PM EDT [facility] I48.91 Unspecified atrial fibrillation Unspecified atri al fibrillation Diagnosis 03/22/2021 01:51:04 PM EDT [facility] I10 Essential (primary) hypertension Essential (primary) h ypertension Diagnosis 03/11/2021 08:11:00 AM EDT [facility] E78.2 Mixed hyperlipidemia Mixed hyperlipidemia Diagnosis 01/17/2021 08:05:51 AM EDT [facility] K74.60 Unspecified cirrhosis of liver Unspecified cirrhosis o f liver Diagnosis 01/17/2021 08:05:51 AM EDT [facility] [id number] Cardiac pacemaker in situ Cardiac Pacemaker in Situ Pr oblem 06/24/2021 12:00:00 AM EST [facility] ([facility]) [id number] Coronary arteriosclerosis Coronary Arteriosclerosis Pr oblem 06/24/2021 12:00:00 AM EST [facility] ([facility]) [id number] Obstructive sleep apnea syndrome Obstructive Sle ep Apnea Syndrome Problem 06/24/2021 12:00:00 AM EST [facility] ([facility]) [id number] Cardiac pacemaker in situ Cardiac Pacemaker in Situ Pr oblem 06/24/2021 12:00:00 AM EST [facility] ([facility]) 89372629 Coronary arteriosclerosis Coronary Arteriosclerosis Pr oblem 06/24/2021 12:00:00 AM EST [facility] ([facility]) [id number] Obstructive sleep apnea syndrome Obstructive Sle ep Apnea Syndrome Problem 06/24/2021 12:00:00 AM EST [facility] ([facility]) I25.10 Coronary artery disease invo lving northway coronary artery of northway heart without angina pectoris Coronary artery disease involving northway coronary artery of northway heart without angina pectoris [id number] 03/11/2021 12:00:00 AM EDT [facility] D69.6 Thrombocytopenia Thrombocytopenia [id number] 02/14/2021 12 :00:00 AM EDT [facility] [id number] Lower abdominal pain Lower Abdominal Pain Problem 01/11/2021 12:00:00 AM EDT [facility] ([facility]) [id number] Lower abdominal pain Lower Abdominal Pain Problem 01/11/2021 12:00:00 AM EDT [facility] ([facility]) [id number] Lower abdominal pain Lower Abdominal Pain Problem 01/11/2021 12:00:00 AM EDT [facility] ([facility]) 87954088 Lower abdominal pain Lower Abdominal Pain Problem 01/11/2021 12:00:00 AM EDT [facility] ([facility]) 80223245 Lower abdominal pain Lower Abdominal Pain Problem 01/11/2021 12:00:00 AM EDT [facility] ([facility]) 57789314 Lower abdominal pain Lower Abdominal Pain Problem 01/11/2021 12:00:00 AM EDT [facility] ([facility]) [id number] Lower abdominal pain Lower Abdominal Pain Problem 01/11/2021 12:00:00 AM EDT [facility] ([facility]) 02333389 Lower abdominal pain Lower Abdominal Pain Problem 01/11/2021 12:00:00 AM EDT [facility] ([facility]) 37719522 Lower abdominal pain Lower Abdominal Pain Problem 01/11/2021 12:00:00 AM EDT [facility] ([facility]) [id number] Gastroesophageal reflux disease without esophagitis Gastroesophageal Reflux Disease without Esophagitis Problem 11/30/2020 12:00:00 AM ED T [facility] ([facility]) 931002439 Chronic atrial fibrillation Chronic Atrial Fibrillatio n Problem 11/30/2020 12:00:00 AM EDT [facility] ([facility]) [id number] Mixed anxiety and depressive disorder Mi xed Anxiety and Depressive Disorder Problem 11/30/2020 12:00:00 AM EDT [facility] ([facility]) 568042764 Body mass index 30+ - obesity Body Mass Index 30+ - Ob esity Problem 11/30/2020 12:00:00 AM EDT [facility] ([facility]) 46301878 Diabetes mellitus Diabetes Mellitus Problem 11/30/2020 12:00:00 AM EDT [facility] ([facility]) 538164203 Gastroesophageal reflux disease without esophagitis Gastroesophageal Reflux Disease without Esophagitis Problem 11/30/2020 12:00:00 AM ED T [facility] ([facility]) 140260624 Chronic atrial fibrillation Chronic Atrial Fibrillatio n Problem 11/30/2020 12:00:00 AM EDT [facility] ([facility]) 035945105 Mixed anxiety and depressive disorder Mi xed Anxiety and Depressive Disorder Problem 11/30/2020 12:00:00 AM EDT [facility] ([facility]) 405967734 Body mass index 30+ - obesity Body Mass Index 30+ - Ob esity Problem 11/30/2020 12:00:00 AM EDT [facility] ([facility]) 01760488 Diabetes mellitus Diabetes Mellitus Problem 11/30/2020 12:00:00 AM EDT [facility] ([facility]) 946389485 Gastroesophageal reflux disease without esophagitis Gastroesophageal Reflux Disease without Esophagitis Problem 11/30/2020 12:00:00 AM ED T [facility] ([facility]) 870888878 Chronic atrial fibrillation Chronic Atrial Fibrillatio n Problem 11/30/2020 12:00:00 AM EDT [facility] ([facility]) 217659446 Mixed anxiety and depressive disorder Mi xed Anxiety and Depressive Disorder Problem 11/30/2020 12:00:00 AM EDT [facility] ([facility]) 665961987 Body mass index 30+ - obesity Body Mass Index 30+ - Ob esity Problem 11/30/2020 12:00:00 AM EDT [facility] ([facility]) 11638289 Diabetes mellitus Diabetes Mellitus Problem 11/30/2020 12:00:00 AM EDT [facility] ([facility]) 768251969 Gastroesophageal reflux disease without esophagitis Gastroesophageal Reflux Disease without Esophagitis Problem 11/30/2020 12:00:00 AM ED T [facility] ([facility]) 062142197 Chronic atrial fibrillation Chronic Atrial Fibrillatio n Problem 11/30/2020 12:00:00 AM EDT [facility] ([facility]) 490622227 Mixed anxiety and depressive disorder Mi xed Anxiety and Depressive Disorder Problem 11/30/2020 12:00:00 AM EDT [facility] ([facility]) 958285751 Body mass index 30+ - obesity Body Mass Index 30+ - Ob esity Problem 11/30/2020 12:00:00 AM EDT [facility] ([facility]) 48462358 Diabetes mellitus Diabetes Mellitus Problem 11/30/2020 12:00:00 AM EDT [facility] ([facility]) 871952620 Gastroesophageal reflux disease without esophagitis Gastroesophageal Reflux Disease without Esophagitis Problem 11/30/2020 12:00:00 AM ED T [facility] ([facility]) 124512289 Chronic atrial fibrillation Chronic Atrial Fibrillatio n Problem 11/30/2020 12:00:00 AM EDT [facility] ([facility]) 239508683 Mixed anxiety and depressive disorder Mi xed Anxiety and Depressive Disorder Problem 11/30/2020 12:00:00 AM EDT [facility] ([facility]) 402633214 Body mass index 30+ - obesity Body Mass Index 30+ - Ob esity Problem 11/30/2020 12:00:00 AM EDT [facility] ([facility]) 18282276 Diabetes mellitus Diabetes Mellitus Problem 11/30/2020 12:00:00 AM EDT [facility] ([facility]) 077831136 Gastroesophageal reflux disease without esophagitis Gastroesophageal Reflux Disease without Esophagitis Problem 11/30/2020 12:00:00 AM ED T [facility] ([facility]) 100337837 Chronic atrial fibrillation Chronic Atrial Fibrillatio n Problem 11/30/2020 12:00:00 AM EDT [facility] ([facility]) 045997549 Mixed anxiety and depressive disorder Mi xed Anxiety and Depressive Disorder Problem 11/30/2020 12:00:00 AM EDT [facility] ([facility]) 372523628 Body mass index 30+ - obesity Body Mass Index 30+ - Ob esity Problem 11/30/2020 12:00:00 AM EDT [facility] ([facility]) 43002276 Diabetes mellitus Diabetes Mellitus Problem 11/30/2020 12:00:00 AM EDT [facility] ([facility]) 090509075 Gastroesophageal reflux disease without esophagitis Gastroesophageal Reflux Disease without Esophagitis Problem 11/30/2020 12:00:00 AM ED T [facility] ([facility]) 451226058 Chronic atrial fibrillation Chronic Atrial Fibrillatio n Problem 11/30/2020 12:00:00 AM EDT [facility] ([facility]) 313912883 Mixed anxiety and depressive disorder Mi xed Anxiety and Depressive Disorder Problem 11/30/2020 12:00:00 AM EDT [facility] ([facility]) 372184532 Body mass index 30+ - obesity Body Mass Index 30+ - Ob esity Problem 11/30/2020 12:00:00 AM EDT [facility] ([facility]) 99186848 Diabetes mellitus Diabetes Mellitus Problem 11/30/2020 12:00:00 AM EDT [facility] ([facility]) 545956526 Gastroesophageal reflux disease without esophagitis Gastroesophageal Reflux Disease without Esophagitis Problem 11/30/2020 12:00:00 AM ED T [facility] ([facility]) 999005672 Chronic atrial fibrillation Chronic Atrial Fibrillatio n Problem 11/30/2020 12:00:00 AM EDT [facility] ([facility]) 561436723 Mixed anxiety and depressive disorder Mi xed Anxiety and Depressive Disorder Problem 11/30/2020 12:00:00 AM EDT [facility] ([facility]) 319036400 Body mass index 30+ - obesity Body Mass Index 30+ - Ob esity Problem 11/30/2020 12:00:00 AM EDT [facility] ([facility]) 21468725 Diabetes mellitus Diabetes Mellitus Problem 11/30/2020 12:00:00 AM EDT [facility] ([facility]) 235732465 Gastroesophageal reflux disease without esophagitis Gastroesophageal Reflux Disease without Esophagitis Problem 11/30/2020 12:00:00 AM ED T [facility] ([facility]) 659411373 Chronic atrial fibrillation Chronic Atrial Fibrillatio n Problem 11/30/2020 12:00:00 AM EDT [facility] ([facility]) 569429840 Mixed anxiety and depressive disorder Mi xed Anxiety and Depressive Disorder Problem 11/30/2020 12:00:00 AM EDT [facility] ([facility]) 366592638 Body mass index 30+ - obesity Body Mass Index 30+ - Ob esity Problem 11/30/2020 12:00:00 AM EDT [facility] ([facility]) 76883991 Diabetes mellitus Diabetes Mellitus Problem 11/30/2020 12:00:00 AM EDT [facility]) 722470003 Gastroesophageal reflux disease without esophagitis Gastroesophageal Reflux Disease without Esophagitis Problem 11/30/2020 12:00:00 AM ED T [facility]) 696949698 Chronic atrial fibrillation Chronic Atrial Fibrillatio n Problem 11/30/2020 12:00:00 AM EDT [facility] ([facility]) 675425946 Mixed anxiety and depressive disorder Mi xed Anxiety and Depressive Disorder Problem 11/30/2020 12:00:00 AM EDT [facility]) 003952087 Body mass index 30+ - obesity Body Mass Index 30+ - Ob esity Problem 11/30/2020 12:00:00 AM EDT [place] ([facility]) 73051483 Diabetes mellitus Diabetes Mellitus Problem 11/30/2020 12:00:00 AM EDT [facility]) G47.33 MAURIZIO (obstructive sleep apnea) MAURIZIO (obstructive sleep a pnea) [id number] 06/15/2020 12:00:00 AM EDT [facility] Surgeries/Procedures Procedure Description Date Indications Data Source(s) US GUIDANCE NEEDLE PLACEMENT RS&I <td>US GUIDED LIVER BIOPSY</td><td>Routine</td><td>06/12/2021 10:50 AM EDT</td><td> Abnormal levels of other serum enzymes Abnormal results of liver function studies Iron deficiency anemia, unspecified</td><td> </td> 06/12/2021 10:50:49 AM EDT Iron deficiency anemia, unspecifiedAbnor mal results of liver function studiesAbnormal levels of other serum enzymes [facility] Iron deficiency anemia, unspecified Abnormal results of liver function studi es Abnormal levels of other serum enzymes THROMBOPLASTIN TIME PARTIAL PLASMA/WHOLE BLOOD <td>APTT</td><td>Routine</td><td>06/07/2021 11:00 AM EDT</td><td> Elevated serum GGT level Elevated LFTs Iron deficiency anemia, unspecified iron deficiency anemia type</td><td> </td> 06/07/2021 11:00:00 AM EDT Iron deficiency anemia, unspecified iron deficiency anemia typeElevated LFTsElevated serum GGT level [facility] Iron deficiency anemia, unspecified iron deficiency anemia type Elevated LFTs Elevated serum GGT level PROTHROMBIN TIME <td>PROTIME-INR</td><td>Rout ine</td><td>06/07/2021 11:00 AM EDT</td><td> Elevated serum GGT level Elevated LFTs Iron deficiency anemia, unspecified iron deficiency anemia type</td><td> </td> 06/07/2021 11:00:00 AM EDT Iron deficiency anemia, unspecified iron deficiency anemia typeElevated LFTsElevated serum GGT level [facility] Iron deficiency anemia, unspecified iron deficiency anemia type Elevated LFTs Elevated serum GGT level BLOOD COUNT COMPLETE AUTO&AUTO DIFRNTL WBC COUNT <td>C BC AND DIFFERENTIAL</td><td>Routine</td><td>06/07/2021 11:00 AM EDT</td><td> Elevated serum GGT level Elevated LFTs Iron deficiency anemia, unspecified iron deficiency anemia type</td><td> </td> 06/07/2021 11:00:00 AM EDT Iron deficiency anemia, unspecified iron deficiency anemia typeElevated LFTsElevated serum GGT level [facility] Iron deficiency anemia, unspecified iron deficiency anemia type Elevated LFTs Elevated serum GGT level BASIC METABOLIC PANEL CALCIUM TOTAL <td>BASIC METABOLI C PANEL</td><td>Routine</td><td>06/07/2021 11:00 AM EDT</td><td> Elevated serum GGT level Elevated LFTs Iron deficiency anemia, unspecified iron deficiency anemia type</td><td> </td> 06/07/2021 11:00:00 AM EDT Iron deficiency anemia, unspecified iron deficiency anemia typeElevated LFTsElevated serum GGT level [facility] Iron deficiency anemia, unspecified iron deficiency anemia type Elevated LFTs Elevated serum GGT level Shave Biopsy Of Skin, Single Lesion 05/08/2021 12:00:0 0 AM EDT [facility] ([facility]) Each Separate/Additional Lesion 05/08/2021 12:00:00 AM EDT [facility] ([facility]) OFFICE OUTPATIENT VISIT 25 MINUTES 05/08/2021 12:00:00 AM EDT [facility] ([facility]) ARTHROCENTESIS ASPIR&/INJECTION MAJOR JT/BURSA 021 12:00:00 AM EDT [facility] ([facility]) ECG ROUTINE ECG W/LEAST 12 LDS W/I&R <td>POCT AMB EKG</td><td>Routine</td><td>03/23/2021 1:08 PM EDT</td><td> Atrial fibrillation</td><td> </td> 03/23/2021 01:08:00 PM EDT Atrial fibrillation [facility] Atrial fibrillation ARTHROCENTESIS ASPIR&/INJECTION MAJOR JT/BURSA 021 12:00:00 AM EDT [facility] ([facility]) ARTHROCENTESIS ASPIR&/INJECTION MAJOR JT/BURSA 021 12:00:00 AM EDT [facility] ([facility]) CARDIAC CATHETERIZATION <td>CARDIAC CATHETERIZATION</td><td>Routine</td><td>03/11/2021 2:21 PM EDT</td><td> Atrial fibrillation Coronary angioplasty status Cardiac pacemaker in situ Shortness of breath Essential hypertension Type 2 diabetes mellitus with peripheral vascular disease Thrombocytopenia MAURIZIO (obstructive sleep apnea)</td><td> </td> 03/11/2021 02:21:22 PM EDT [facility]IZ[facility] (obstructive sleep apnea)Thrombocyto peniaType 2 diabetes mellitus with peripheral vascular diseaseEssential hypertensionShortness of breathCardiac pacemaker in situCoronary angioplasty statusAtrial fibrillation [facility] MAURIZIO (obstructive sleep apnea) Thrombocytopenia Type 2 diabetes mellitus with peripheral vascular disease Essential hypertension Shortness of breath Cardiac pacemaker in situ Coronary angioplasty status Atrial fibrillation ECG ROUTINE ECG W/LEAST 12 LDS TRCG ONLY W/O I&R <td>E CG 12- LEAD</td><td>Routine</td><td>03/11/2021 8:19 AM EDT</td><td></td><td></td> 03/11/2021 08:19:02 AM EDT [facility] ARTHROCENTESIS ASPIR&/INJECTION MAJOR JT/BURSA 021 12:00:00 AM EDT [facility] ([facility] ) ECG ROUTINE ECG W/LEAST 12 LDS W/I&R <td>POCT AMB EKG</td><td>Routine</td><td>02/14/2021 8:11 AM EDT</td><td> Atrial fibrillation</td><td> </td> 02/14/2021 08:11:00 AM EDT Atrial fibrillation [facility] Atrial fibrillation OFFICE OUTPATIENT VISIT 25 MINUTES 02/13/2021 12:00:00 AM EDT [facility] ([facility]) OFFICE OUTPATIENT VISIT 15 MINUTES 01/25/2021 12:00:00 AM EDT [facility] ([facility] ) Remove Impact Cerumen Irrigati 01/21/2021 12:00:00 AM EDT [facility] ([facility]) ECG ROUTINE ECG W/LEAST 12 LDS W/I&R <td>POCT AMB EKG</td><td>Routine</td><td>01/17/2021 9:34 AM EDT</td><td> Atrial fibrillation</td><td> </td> 01/17/2021 09:34:00 AM EDT Atrial fibrillation [facility] Atrial fibrillation ARTHROCENTESIS ASPIR&/INJECTION MAJOR JT/BURSA 020 12:00:00 AM EST [facility] ([facility] ) RADIOLOGIC EXAM KNEE COMPLETE 4/MORE VIEWS 07/24/2020 12:00:00 AM EST [facility] ([facility]) RADIOLOGIC EXAM KNEE COMPLETE 4/MORE VIEWS 07/24/2020 12:00:00 AM EST [facility] ([facility]) ECG ROUTINE ECG W/LEAST 12 LDS W/I&R <td>POCT AMB EKG</td><td>Routine</td><td>06/15/2020 9:28 AM EDT</td><td> Atrial fibrillation</td><td> </td> 06/15/2020 01:28:00 PM EDT Atrial fibrillation [facility] Atrial fibrillation Venipuncture (routine) Venipuncture (routine) 05/23/2020 12:00:00 A M [facility] ([facility]) HgbA1C HgbA1C 05/23/2020 12:00:00 AM EDT [facility] ([facility]) CREATININE OTHER SOURCE Creatinine: URINE 05/23/2020 12:00:00 AM ED Critical access hospital) Mircro Alb urine Mircro Alb urine 05/23/2020 12:00:00 AM [facility] ([facility]) CMP-Complete Metabolic Profile CMP-Complete Metabolic Profil e 05/23/2020 12:00:00 AM [facility] Fasting Lipid Profile Fasting Lipid Profile 05/23/2020 12:00:00 AM [facility]) Annual wellness visit, includes a person alized prevention plan of service (pps), subsequent visit - subseq't annual wellness exam(1 yr after Initial) 05/23/2020 12:00:00 AM [facility]) Annual depression screening, 15 minutes MC-Annual depression screening- 15 min. 05/23/2020 12:00:00 AM [facility] ([facility]) Annual depression screening, 15 minutes MC-Annual depression screening- 15 min. 05/23/2020 12:00:00 AM [facility]) Annual wellness visit, includes a person alized prevention plan of service (pps), subsequent visit MC- subseq't annual wellness exam(1 yr after Initial) 05/23/2020 12:00:00 AM [facility]) Results ID Date Data Source [id number] 06/21/2021 01:24:00 PM EDT [facility] ([facility]) Name Value Range Interpretation Code Description Data Hillary rce(s) Supporting Document(s) sars-cov-2 negative negative Sars-cov-2 [place] ([facility]) ID Date Data Source [id number] 06/21/2021 01:22:00 PM EDT [facility] Name Value Range Interpretation Code Description Data Hillary rce(s) Supporting Document(s) SARS coronavirus 2 RdRp gene [Presence] in Respiratory specimen by BRITANY with probe detection Not detected [facility] This lab was ordered by [facility] and reported by [facility]. ID Date Data Source [id number] 06/19/2021 11:36:00 AM EDT [facility] Surgical Pathology ReportName: IRMA RAO ILLIPMRN: [id number] Number: [id number] Date: 06/17/2021 00:00Received Date: 06/17/2021 12:10Physician(s): KO AMEZCUA MD SPIZUOCO, PATRICIASpecimen(s) ReceivedA: Slides received for consultation, [facility] in [place], [id number], DZClinical HistoryElevated LFTs. Second opinion.DiagnosisCONSULTATION ON OUTSIDE SLIDES [id number], 06/12/2021:LIVER, LEFT, CORE BIOPSY: MODERATELY ACTIVE STEATOHEPATITIS WITH FOCALBRIDGING FIBROSIS. GRADE 2 OF 3, STAGE 3 OF 4 (BRUNT SCHEME). Electronically Signed By Catrachito Sage M.D., Attending Pa [email or web address]/3/2021 11:36:33 Gross DescriptionReceived from [facility] in [place], [place] are 3 H and E stainedslides and 4 specially stained slides labeled [id number] with thecorresponding pathology report. Also received are clinical notes./jrsMicroscopic DescriptionSections show liver parenchyma with mild (5 to 10%) macrovesicularsteatosis, noticeable ballooned hepatocytes, and mild lobularinflammation. Portal tracts show patchy mild chronic inflammation andbile ductular reaction. There is no evidence of ductopenia or bile ductdamage. Significant interface activity is not seen. PAS-D highlightsrare macrophages around portal tracts. Trichrome and reticulum stainsshow perisinusoidal fibrosis and focal bridging fibrosis. There is arelatively large area of nodularity that raises consideration fortransition to cirrhosis, however it is not entirely diagnostic. Ironstain is negative. The findings are compatible with partially burnt-outsteatohepatitis (nonalcoholic or alcoholic; clinical correlation isrecommended). While most of the changes are favored to be related tosteatohepatitis, there is moderate sinusoidal dilatation, and thereforevascular outflow disease should be considered clinically. Thank you forsending this case in consultation. Dr. Fan has given me the casebecause of my interest in liver pathology.This report may include one or more immunohistochemical stain results thatuse analyte specific reagents. All positive and negative controls havebeen reviewed by the attending pathologist and are satisfactory. The testswere developed and their performance characteristics determined by [facility] Pathology department. They have not been cleared or approved by the USFood and Drug Administration. The FDA has determined that such clearanceor approval is not necessary. Name Value Range Interpretation Code Description Data Hillary rce(s) Supporting Document(s) ID Date Data Source [id number] 06/20/2021 12:00:06 PM EDT [facility] [place], [place] [address]Tel# Surgical Pathology ReportPatient Name: EDWIN RAO: 4Accession #:[id number](s) ReceivedA: Left lobe liver tissueClinical Diagnosis and HistoryElevated LFT's, abnormal serum enzymesProcedures/AddendaAddendum Date Ordered: 06/20/2021 Status: Signed Out Date Complete: 06/20/2021 By: Arcelia Benjamin Date Reported: 06/20/2021 Addendum DiagnosisFINAL DIAGNOSISLIVER, LEFT, CORE BIOPSY: MODERATELY ACTIVE STEATOHEPATITIS WITH FOCAL BRIDGING FIBROSIS. GRADE 2 OF 3, STAGE 3 OF 4 (BRUNT SCHEME).Addendum CommentSlides are reviewed by Dr. Catrachito Sage at [facility] ([id number]). He states sections show liver parenchyma withmild (5 to 10%) macrovesicular steatosis, noticeable balloonedhepatocytes, and mild lobular inflammation. Portal tracts show patchymild chronic inflammation and bile ductular reaction. There is noevidence of ductopenia or bile duct damage. Significant interfaceactivity is not seen. PAS-D highlights rare macrophages around portaltracts. Trichrome and reticulum stains show perisinusoidal fibrosis andfocal bridging fibrosis. There is a relatively large areas of nodularitythat raises consideration for transition to cirrhosis, however, it is notentirely diagnostic. Iron stain is negative. The findings are compatiblewith partially burnt-out steatohepatitis (nonalcoholic or alcoholic;clinical correlation is recommended). While most of the changes arefavored to be related to steatohepatitis, there is moderate sinusoidaldilatation, and therefore vascular outflow disease should be consideredclinically. Kala Villavicencio M.D.DIAGNOSISPRELIMINARY DIAGNOSIS LIVER, LEFT, CORE BIOPSY: PATCHY PORTAL AND PARENCHYMAL INFLAMMATION WITH DEGENERATING HEPATOCYTES AND PERICELLULAR AND FOCAL BRIDGING FIBROSIS; SEECOMMENTSFINAL DIAGNOSIS PENDING OUTSIDE CO NSULTATIONCommentsAccording to the hospital information system and [facility], the patient has a history of coronaryartery disease, melanoma, diabetes, hyperlipidemia, fatigue, atrialfibrillation, and pacemaker insertion. He takes Eliquis. He deniesdrinking alcohol but his father did from cirrhosis of unknownetiology. The patient was recently found to have an elevated GGT level of112. In April 2021, his AST, ALT, bilirubin, and alkaline phosphatasewere normal. His ferritin was low at 9. His hepatitis serology wasnegative. An ultrasound in January 2021 showed cirrhotic features of theliver. The Lowerator Operator suspects the liver changes may be burnt outNASH. Sections show a congested liver with mild sinusoidal dilatation and focalmild steatosis. In addition, there is patchy portal and parenchymalinflammation composed of predominantly lymphocytes with scatteredneutrophils and eosinophils. The limiting plate is focally disrupted andseveral hepatocytes show balloon cell degenerative change. The bile ductsappear intact. PAS stain demonstrates focal PAS positive phagocytizeddebris but no alpha 1 antitrypsin inclusions. An iron stain is ne gative. Trichrome stain reveals pericellular and focal bridging fibrosis. Areticulin stain shows focal nodularity suggestive of early cirrhosis. Overall the changes are felt to be consistent steatohepatitis with focalbridging fibrosis and possible early cirrhosis. Final diagnosis ispending outside consultation. Gross DescriptionReceived in formalin labeled "left lobe liver tissue" are three rich-redcylindrical fragments of tissue measuring 2.0 cm in length each. Entirelysubmitted as A1. Liver biopsy protocol. jgllmr/pms Reported: 06/14/2021 08:34Electronically Signed Out By Kala Villavicencio M.D. [facility] [place] [id number] component performed at [facility], [facility], [address] [place] [address], [id number].Reported at [facility], [address] [place] [address], [id number]. This report may includeimmunohistochemical or in-situ hybridization results. Testing wasdeveloped and the performance characteristics determined by [employer] as required by CLIA '88. The FDA hasdetermined that approval for specific use is not necessary for clinicaluse. The quality of Hematoxylin and Eosin stains and as applicable, forall immunohistochemical and/or special stains, including positive andnegative controls, were reviewed and considered appropriate.ICD codes R74.8 R94.5CPT codesA: 07824X, 23329J, 35981X, 05074Q, 68601K Name Value Range Interpretation Code Description Data Hillary rce(s) Supporting Document(s) ID Date Data Source [id number] 06/12/2021 12:11:13 PM EDT [address] [id number] Name: EDWIN CHENGB: 1945Sex: MOrdering Provider: KO Torres Prov: KO Scott Provider: Procedure Performed: / US GUIDED LIVER BIOPSYExam Date: 06/12/2021 10:50MRN: [id number] Number: [id number] Class: OutpatientAccount #: [id number] for Exam: Abnormal levels of other serum enzymesTechnique: Real time sonographic images were obtained.Comparison: NoneFindings: This is a 75-year-old male with a history of abnormal LFTs. A liver biopsy has been requested. Informed consent was obtained. Potential complications of the procedure include but are not limited to: bleeding, infection, injury to adjacent blood vessels or organs and medication reaction. Ultrasound is used to scan the and to localize a safe site for performing the biopsy. The overlying skin is marked, prepped and draped in the usual sterile fashion. Sterile barrier technique was utilized throughout the procedure. Moderate sedation was administered. Local anesthesia was obtained with 1% lidocaine. Under ultrasound guidance with image documentation, a 17-gauge introducer was advanced into the liver. An 18-gauge biopsy needle was advanced through the introducer and 3 core samples of liver tissue were obtained. The introducer was removed. There were no immediate complications noted. A dressing was applied. The patient tolerated the procedure well. The procedure was performed by Santana Sierra PA-C under the direct supervision of Dr. Darling. During the procedure the patient received 23 minutes of moderate sedation services. During the procedure the patient received Versed one mg IV and fentanyl 50 mcg IV. There was an interventional radiology registered nurse present in the room to assist in the monitoring of the patient's level of consciousness and physiologic status.Impression: Ultrasound guided liver biopsy under moderate sedation as described above.Report electronically approved by: MAIKOL Hyman On 06/12/2021 11:44 AMThe procedure described above was performed under my supervision and I agree with this reportReport electronically signed by: TEN DARLING On 06/12/2021 12:11 PMWorkstation ID: [id number] Name Value Range Interpretation Code Description Data Hillary rce(s) Supporting Document(s) ID Date Data Source [id number] 06/12/2021 11:46:39 AM EDT [facility] NT INFORMATIONPatient MRN Name Date of Age Gend*PT [id number] Edwin Rao 1945 75 years M [facility] Location Admission Date/Time Visit ID Attending ProviderCV-24 06/12/21 0808 --- Ronnie Ordaz MD([id number]) EPI ID CSN Admitting Provider [id number] Ronnie Ordaz MD([id number]) Attestation signed by Ten Darling MD at 06/12/2021 11:46 AMProcedure performed under my supervision, I agree with above report.Ten Darling MD 06/12/2021 11:46 AMDepartment of Interventional Radiology ---------Brief Operative/Invasive Procedure NotePhillip H WhiteDATE OF : 1945MRN # [id number] DATE: 06/12/2021ROVIDER:MIAKOL Driver 06/12/2021 11:38 AMASSISTANCE(S): NonePROCEDURE:U/S guided liver biopsyPRE-PROCE DURE DIAGNOSIS:Abnormal LFTPOST PROCEDURE DIAGNOSIS:Abnormal LFTANESTHESIA TYPE:moderate and local - 1% lidocaine (10cc)DRAINS:noneSPECIMENS:3 core samples sent to lab for analysisESTIMATED BLOOD LOSS: MinimalGRAFTS OR IMPLANTS:noneFINDINGS: Consistent with operative diagnosisCOMPLICATIONS: noneSee dictated BRITTANI Dailyepartment of Interventional Radiology Name Value Range Interpretation Code Description Data Hillary rce(s) Supporting Document(s) ID Date Data Source [id number] 06/12/2021 09:39:38 AM EDT [facility] NT INFORMATIONPatient MRN Name Date of Age Gend*PT [id number] Edwin Rao 1945 75 years M [facility] Location Admission Date/Time Visit ID Attending ProviderCV-24 06/12/21 0808 --- Ronnie Ordaz MD([id number]) EPI ID CSN Admitting Provider [id number] Ronnie Ordaz MD([id number])Patient here for a liver biopsy. Questions and concerns answered. H&P reviewedfrom 06/07/21. Patient examined. No changes to H&P at this time. Last dose ofEliquis was 2 days ago. Name Value Range Interpretation Code Description Data Hillary rce(s) Supporting Document(s) ID Date Data Source [id number] 06/12/2021 08:12:26 AM EDT [facility] NT INFORMATIONPatient MRN Name Date of Age Gend*PT [id number] Edwin Rao 1945 75 years M [facility] Location Admission Date/Time Visit ID Attending ProviderCV-20 06/12/21 08 --- Ronnie Ordaz MD([id number]) EPI ID CSN Admitting Provider [id number] Ronnie Ordaz MD([id number]) Name Value Range Interpretation Code Description Data Hillary rce(s) Supporting Document(s) ID Date Data Source [id number] 06/07/2021 11:47:50 AM EDT [facility] NT INFORMATIONPatient MRN Name Date of Age Gend*PT [id number] Edwin Rao 1945 75 years M [facility] Location Admission Date/Time Visit ID Attending Provider --- --- --- Ronnie Ordaz MD([id number]) EPI ID CSN Admitting Provider [id number] ---INTERVENTIONAL RADIOLOGY AND OUT PATIENT HISTORY PHYSICALName: Edwin Rao : 1945 Sex: male Care Provider: ALEX MoranIAGNOSIS: Iron deficiency anemia, abnormal levels of other serum enzymesTREATMENT/PROCEDURE: Ultrasound-guided liver biopsy on 10/27/2021HISTORY OF PRESENT ILLNESS: Mr. Rao is a 75 years old white male with historyof history of CAD, stenting, melanoma, diabetes, hypertension, hyperlipidemia,atrial fibrillation, and pacemaker insertion who was recently found to haveelevated LFTs. Abdominal ultrasound dated 02/05/2021 showed cirrhotic feature ofthe liver. Patient denies any nausea, vomiting, unwanted we ight loss, change inbowel or bladder, or abdominal pain. Patient was evaluated bygastroenterologist. He is now scheduled to undergo liver biopsy for furtherevaluation and treatment.PAST MEDICAL HISTORY:Past Medical History:Diagnosis Date Abdominal US 02/05/20[address] ([facility]) Suggesting cirrhotic features needs to be correlated clinically. Abnormal levels of other serum enzymes Arthritis Cancer 2011 melanoma Cardiac catheterization 01/29/2017 LV EF 55%. Chronic occlusion of Jenn with collaterals from the left. Unable torecanalize. Borderline disease of LAD. Cardiac catheterization 11/2010 [facility], . PCI to RCA for 1v CAD. Cardiac catheterization 03/11/2021 ([facility], Dr. Pitts) Stable CAD with occluded RCA and collaterals from theleft. Borderline disease in the LAD unchanged from piror. Chest CT 03/2016 [place], [place]. Mild emphysema, small pulmonary nodules, suggestive of livercirrhosis. Coronary artery disease Dr. Corona Diabetes mellitus Echocardiogram 05/11/2015 Mild LVH, EF 60%. G1DD. No valvular disease. Unable to estimate CVP,probably normal PAP. Echocardiogram 05/15/2015 Mild LVH with normal LV size and systolic function. Grade 1 diastolicdysfunction. No significant valvular disease. Unable to estimate CVP butprobably normal PAP. Echocardiogram 06/21/2013 LV EF 50%, mildly dilated aortic root (4.0cm), no significant valvular disease ETT 01/11/2015 7 METs, 5.5minutes. Probably positive for ischemia - exercise induced chestdiscomfort, no associated ST-T abnormalities. Hyperlipidemia Hypertension CHERYL (iron deficiency anemia) MAURIZIO (obstructive sleep apnea) On CPAP Pacemaker 09/2004 [facility] Paroxysmal atrial fibrillation PFT's 10/23/2014 FVC 72%, FEV1 68%. FEV1/FVC 95%. Small airways dysfunction with air trapping.Comparable to most recent priors Pharmacologic SPECT 07/2016 LV EF 50%, partially reversible basal inferior defect, LVH, dilated RV. Regadenoson SPECT 07/18/2020 No regadenoson induced chest discomfort, ST-T abnormalities or significantarrhythmias. LVEF 56%, septal wall motion abnormality likely related tointermittent ventricular pacing. RV appears dilated. Normal perfusionPAST SURGICAL HISTORY:Past Surgical History:Procedure Laterality Date CARDIAC CATHETERIZATION N/A 03/11/2021 Procedure: Left heart cath; Surgeon: Axel Pitts MD; Laterality: N/A; CARDIAC CATHETERIZATION N/A 03/11/2021 Procedure: Coronary angiography; Surgeon: Axel Pitts MD; Laterality:N/A; CARDIAC PACEMAKER PLACEMENT N/A 10/27/2014 Procedure: REPLACE PACEMAKER GENERATOR ; Surgeon: Kurt Remy MD;Location: [facility] [place]; Service: Pacemakers; Laterality: N/A; COLONOSCOPY CORONARY STENT PLACEMENT INGUINAL HERNIA REPAIR Right PANENDOSCOPY SKIN BIOPSY TONSILLECTOMYALLERGIES: No Known Drug AllergiesMEDICATIONS:Prior to Admission medicationsMedication Sig Start Date End Date Taking? Authorizing Provideralbuterol (PROVENTIL HFA;VENTOLIN HFA) 108 (90 Base) MCG/ACT inhaler Inhale 2puffs every 4 (four) hours as needed for wheezing Historical Provider, MDApixaban (Eliquis) 5 MG TABS tablet Take 1 tablet (5 mg total) by mouth 2 (two)times a day 03/13/21 Axel Ptits MDascorbic acid (VITAMIN C) 500 MG tablet Take 500 mg by mouth daily HistoricalProvider, MDaspirin 81 MG chewable tablet Chew 81 mg daily Historical Provider, MDatorvastatin (LIPITOR) 20 MG tablet Take 20 mg by mouth nightly HistoricalProvider, MDdigoxin (LANOXIN) 125 MCG tablet Take 125 mcg by mouth nightly HistoricalProviMD paulEmpagliflozin (Jardiance) 25 MG TABS Take 25 mg by mouth daily HistoricalProviMD paulFLUoxetine (PROzac) 40 MG capsule Take 40 mg by mouth daily 01/20/17 HistoricalProviMD paullosartan (COZAAR) 25 MG tablet TAKE ONE TABLET BY MOUTH @8AMPatient taking differently: Take 25 mg by mouth daily 03/13/21 Leobardo CastilloetFORMIN (GLUCOPHATE-XR) 500 MG 24 hr tablet Take 4 tablets (2,000 mg total) bymouth daily 03/13/21 Sabinoad El-Khally, MDmetoprolol succinate (TOPROL-XL) 100 MG 24 hr tablet Take 100 mg by mouth daily08/15/19 Historical Provider, Kaylietroglycerin (NITROSTAT) 0.[address] 0.4 mg under the tongue every 5(five) minutes as needed for chest pain Historical Provider, José Manuelertraline (ZOLOFT) 25 MG tablet Take 25 mg by mouth daily HistoricalProvider, TOVIAZ 4 MG TB24 Take 4 mg by mouth nightly 05/23/20 Historical Provider, FLUCHRA QUADRIVALENT 0.5 ML PRSY ADMINISTER as DIRECTED 06/12/20 06/07/21Historical Provider, glipiZIDE (GLUCOTROL) 5 MG tablet Take 5 mg by mouth 2 (two) times a day beforemeals 06/07/21 Historical Provider, AMANDASE ELLIPTA 62.5 MCG/INH AEPB 08/11/19 06/07/21 Historical Provider, vitamin B-12 (CYANOCOBALAMIN) 500 MCG tablet Take 1,000 mcg by mouth daily06/07/21 Historical Provider, MIAHEVIEW OF SYSTEMS:Respiratory: Denies any shortness of breath, cough, yellow sputum production orwheezing.Cardiovascular: Denies any chest pain, pressure or tightness. Denies anyparoxysmal nocturnal dyspnea or orthopnea.GI: Denies nausea, vomiting, diarrhea, constipation or melena.Neurologic: Denies any numbness, tingling, tremors or syncope.Vascular: Denies any edema. Denies claudication.BP 123/73 (BP Location: Left upper arm, Patient Position: Sitting) | Pulse 82| Temp 96.3 F (Temporal) | Ht 1.791 m (5' 10.5") | Wt 94.1 kg (207 lb 8 oz)| SpO2 95% | BMI 29.35 kg/m PHYSICAL EXAM:Airway - IMental and Neurological Status: [id number]: Clear to auscultation. No wheezes, rhonchi or crackles.HEART: Rate rhythm regular. S1, S2. No murmur, rub or gallop. Left chest wallpacemaker intact.ABDOMEN: Bowel sounds positive times four. Soft, non tender. No reboundtenderness. No hepatosplenomegaly. Negative CVAT.EXTREMITIES: Pulses are symmetrical. No edema.NECK : No carotid bruit xgddntyihnq69/22/2021 11:42 AMPdain Corneliusikari, SENIOR LEAD JAVA DEVELOPER* Name Value Range Interpretation Code Description Data [facility] Supporting Document(s) ID Date Data Source [id number] 06/07/2021 04:46:57 PM EDT [facility] Name Value Range Interpretation Code Description Data [facility] rce(s) Supporting Document(s) WBC 3.1 10*3/uL (4.1-11.0) L [facility] [place] RBC 4.17 10*6/uL (4.60-6.10) L [facility] HGB 11.3 g/dL (13.5-18.0) L [facility] HCT 36.0 % (41.0-53.0) L [facility] MCV 86.3 fL (80.0-95.0) [facility] MCH 27.0 pg (27.0-32.0) [facility] MCHC 31.3 g/dL (32.0-36.0) L [facility] RDW 25.3 % (10.5-14.5) H [facility] PLT 68 10*3/uL (150-450) L [facility] PLATELET COUNT VERIFIED BY TECH MPV 9.4 fL (7.1-10.7) [facility] NEUT % 84.0 % (35.0-75.0) H [facility] LYMPH % 12.0 % (16.0-52.0) L [facility] MONO % 3.0 % (0.0-8.0) [facility] EOS % 1.0 % (0.0-5.0) [facility] NEUT # 2.6 10*3/uL (1.8-7.7) [facility] LYMPH # 0.4 10*3/uL (1.2-4.8) L [facility] MONO # 0.1 10*3/uL (0.0-0.8) [facility] Eosinophils [#/volume] in Blood by Automated count 0.0 10*3/uL (0.0-0 .5) [facility] ANISO 2+ [facility] POIK 1+ [facility] POLY 1+ [facility] OVALO 1+ [facility] ID Date Data Source [id number] 06/07/2021 03:35:39 PM EDT [facility] Name Value Range Interpretation Code Description Data Hillary rce(s) Supporting Document(s) SODIUM 141 mmol/L (136-145) [facility] POTASSIUM 4.4 mmol/L (3.6-5.2) [facility] CHLORIDE 108 mmol/L (100-108) [facility] CO2 25 mmol/L (22-31) [facility] ANION GAP 8 mmol/L (7-16) [facility] UREA NITROGEN 25 mg/dL (7-24) H [facility] CREATININE 1.20 mg/dL (0.80-1.30) [facility] BUN/CREAT RATIO 20.8 RATIO (10.0-20.0) H [facility] GLUCOSE 164 mg/dL (70-99) H [facility] CALCIUM 8.4 mg/dL (8.4-10.2) [facility] GFR 59 ml/min/1.73m2 (>59) L [facility] GFR ( AMER) >60 ml/min/1.73m2 (>59) [facility] GFR INTERPRETATION [facility] --NORMAL KIDNEY FUNCTION OR MILD DISEASE - GFR >OR= 60CHRONIC KIDNEY DISEASE - GFR 15 - 59RENAL FAILURE - GFR <15 Est. GFR calculation based on the MDRDstudy equation, which assumes a steadystate for creatinine. Est. GFR should notbe used for medication dosing. ID Date Data Source [id number] 06/07/2021 03:24:08 PM EDT [facility] Name Value Range Interpretation Code Description Data Hillary rce(s) Supporting Document(s) APTT 27.8 s (22.0-34.3) [facility] ID Date Data Source [id number] 06/07/2021 03:24:08 PM EDT [facility] Name Value Range Interpretation Code Description Data Hillary rce(s) Supporting Document(s) PT 12.1 s (9.2-11.9) H [facility] INR 1.14 [facility] SUGGESTED THERAPEUTIC RANGES USING INR F ORSTABILIZED ANTICOAGULATED PATIENTS:STANDARD DOSE THERAPY INR 2.0-3.0 DVT, PE, PREVENT DVT OR EMBOLISMHIGH DOSE THERAPY INR 2.5-3.5 PREVENT EMBOLISM FROM MECHANICAL HEART VALVE ID Date Data Source [id number] 06/08/2021 08:52:29 AM EDT [facility] Name Value Range Interpretation Code Description Data Hillary rce(s) Supporting Document(s) SPECIMEN DESCRIPTION [facility] COVID 19 RESULT (NDET) [facility] NEGATIVE COVID-19 RESULTS DONOT PRECLUDE COVID-2019 INFECTION ANDSHOULD NOT BE USED THE SOLE BASISFOR PATIENT MANAGEMENT DECISIONS. COMMENT [facility] THE [place] FDA HAS MADE THIS TEST AVAILABL EUNDER AN EMERGENCY USE AUTHORIZATION(EUA) FOR THE DETECTION AND/OR DIAGNOSISOF THE VIRUS THAT CAUSES COVID-19.THIS ASSAY AMPLIFIES AND DETECTS TARGETDNA USING CASTING AND CURING OPERATOR- MEDIATEDAMPLIFICATIONTESTING PERFORMED ON [facility] FIRST TEST [facility] EMPLOYED IN HLTHCARE [facility] SYMPTOMATIC [facility] Arun Webster DATE OF SYMPT ONSET [facility] HOSPITALIZED [facility] ICU [facility] CONGREGATE CARE SET [facility] ID Date Data Source [id number] 06/07/2021 09:35:00 AM EDT [facility] Name Value Range Interpretation Code Description Data Hillary rce(s) Supporting Document(s) SARS coronavirus 2 RNA [Presence] in Res piratory specimen by BRITANY with probe detection NOT [facility] This lab was reported by [facility]. ID Date Data Source [id number] 05/17/2021 01:00:00 PM EDT [facility] Name Value Range Interpretation Code Description Data Hillary rce(s) Supporting Document(s) Follow Up [facility] NIAVWe5bPnASXkSrZYNfOmeDQHrxFIxcAKMvS9W9NWbqBp7PVSpubrQbOCAlXq7+CXFiUB3rqe7tONRr gMy [file] vice president safety+lPBY/5mUAl99cxNra86hSHJI830QE3Wo6AK49aY ttH6Kp8aD0jhBISEpB/JyaGxtumkXFcpH/S6/ojl50rzEVgmtQ+eGrmVkMx4wuXRJyhKYprIhgzlulW6 gYIczOr6MOD4KEL0Iwhtz5FXTudM+bggiNZZhp8ICZaSnpG9qn6bgFgTA0ux9Xi1pqny97WfvjE5Bynt rhDvpVjct9D9UyBLCIaO/+UemYrWbs4DYkkvI+2Fm2 fVeQJ+odkr0yo8vH3q8Wfa7dVYy/J+vJeLh4J8eEaeE2dis2IXnSwwp+DvzN1skP8mOteH4UKs6ru87C z2TPuFR5PFyzh97cUZobv4bSRxbIrs4E7QRGEbksZj5TlWdbSqUBN2MDU9thjn5FVs28nd284p3TcP50 uiT1Ynmi0kH4o4SnIlT/OV0bEp1xUfdtoblU5otthv jWJWbvn0wVMQ6OA41L8egM+2AxU5x/9H+E5gpj0X4lIvq3/y3DHSCtmZ8sDbP3/LpRcVlejZEsMFjDSy fS1mmiXwzvrs7P5qE7WF1EtE5s366qkvq13HVzFE2KxD821XXGVf+Edilma/qW033kED7h7hWUMFuFFUA+ [file] upWyZmdwl0v/I/Shape Brick Molder/Aov3CEPQyVsJMaJzgkkuEEFvzPCPMfE57Pgu3Z4h6XvOCvRBbVlg7+7GclJmkSr [file] WFBahZ1AOMiZfnB5x5uj6B7fpXIFWBwPft4LrO5wKD3Nydy7QIOk5+V4hHlJ+9d450qJvTdY2kj6p+SENIOR LEAD JAVA DEVELOPER [file] y///care home+fVL8sYhP70lT26mDy5yb89e7OJqii1fadLWNn6PM6uEw7JK7JnddgoH/FSNq+wRHGvvqHxza [file] Puncher [file] fQy6+4/0+viGYeU/OfqE8+jXnX/W89kf/3RJKU+R+a/9D8h+Y/SENIOR LEAD JAVA DEVELOPER+h+d+S5v+S9gmhUkHOjis5g7P5y1 [file] pQbD+2myyiBFadr5oFnOMKNpvPfRvG/Real Estate Leasing Agent/UCu56J+sv+7CqBLeb3LV8g2QeMWB63scpzLMvq0Bp950Yg hSFQ8c6VE6w4kyKG60A3wZaDOSr4L+cpzoR4Vi/Asj FGhevjprUEacT8g9dqsB85/4ANKI/L7LGydJ3NIndnlsF6Cao2ldwdJhBhr4/YTv0Jxh9lZlTwoexKls 9vRqzC1Y3i9bxY39JZ057rhcX20VxQUScR+HEr8W4+h7OGJTGzLftzYDpBQUojol1tiUDxgU5hwWQe3C NUvH2r13a9Qc/aOXrxFqNNjHnLdBfiznNXFxHyUOtQ yXnPNoosUJGHUd2spJDiWsSwQnkePlV+MLH27pfGC8yxZO41xoJuz0VSV61Cq1qiszFFQhflqT4+UFkh z9X+g7JVHu3iaw4MbQZQGB8uWKuxkPewLKIwPjWFE4sj9BxQcEYoZ2CQkXYt3gqgaPvGXZ7Q0Ihrh/95 4accP8l6Zpq27iu7N895x06q75o3h16o0Tz/QzsGLR [file] GRBcgbGV+XPLpv35lxpyXdQ2+supervisor lead burning+WSppuZ/6FU7x0 [file] jdYuBHHI8ll/GHDkROQXXIwhH9moFo9IfauwhNVoXbv/LcEjVfK7+id7YP/SsHAMe/monkey keeper/AJyjD+yorb 6/zJNSQqdm0mpOSkoVDWouAjTr39hVN+1wiYuYiBsN NoYEeK5mUQWW3mYY09yu4S4af0AVf13hi3S3ZGIX+caz9a1Zf1Wg1hL2Lwe0XA9DjHOVXyjf30/36EFl i0KJKah5P6xcHGTI2unPnu0/7mtBiTCxDbs9V9dfFZ8FRAQ+HbBgb9wnD0sGve8TPlt2Z6w/7XUhQrLd mvMOy7PATXGp3eF8NKFsSjtACAIYVvxazxN/gakGcx wItBx9XCZEysKGuhKpHUEls7k6byhONQQqNy601X4pDJDpp0yagoEi2PWszGqWzRFlDOl77V/CQIpQzP /RB0S08ApBD6mTM8g4Ae6CDquhe+mRFeuiM1W0q5d0qpa9l+0QqoWD7+ufLVOHsMg4pDxbO1jBCAO/ qkTSp+Vxegjfbc4LGZ0DoBT2rHDrbg3XBUXSBmcRde qojpRuJr5cIEWMaWlheNeHHlBAjyIReyyK5gVbO5Zuq9JS1LwjNvmhS6+ccOxblZJ8PmvjNe9brjVDdq mhtmXkpy0B6lvI4f395/k1rMJ/cNDKj50UtR7TeE8Y68rrmcdpqpvxODlsF+Oe5rgPgSXeM4TLn+ZbtB NNCL5KHhanxFOicgeIgtOX75plVCbGUr41ueGdqNh7 o2NPIk45lk7AV8+muUVHWtnr6BNp1Tu/HSBYi3Boy9y6h8/tQyfhrmQZnDWQU/0U+O/tS9uUP2hg6/IN 5e+5kK8c5qYZUecePc6+K2N+k9YvN3EXZDV4guAL37sNB1NUOaSBI+sf1hL/S4OtIT390N2YMYxr2XWM bn7wM4LDjegbrIA/EohMbzHSg7kgD1hzWbB5rGvjJM 2mh0/dbpZ8i9cKwiRU3GJ+A/R57JPM0co6YPD6RZa8FF/1Z1Lzl9F8mrEqwU64QcVkEsQTluhzUZP78+ HQs7EdqD2BGjym9rfpOvZxJWcpbsMM7H3PUYsocBof+aOj7HrJlXifzFMoo9Ngk2aJP4G4Xh6ntvys3I To9LUTcvt22FcCCSpLcGCvkntQ2h5h+9EnvB/AiAxk 7ewZm7nQAFDkvQqe13KpHblxo7LGyAAJO3O83Db1M54FBeJgm91WELhazDbUsOX9gPvTiGUG24bCfEat Shane+ZZh4B9N7YcMTpX4wJZT3iJzNwO1rvVAHXzTqg5av4/Jox/9QvJmoq/6ey0FCK3DExupxJrBsE871v [file] LNG0KPAwBOkm8tegCSFvgDTJXzvOs159Sbe1yNLM1fWUNiIZ7ErhFp/vice president safety+jYIjLEpY1vw+wAe2D1n7q5 ld3hC/zv0rlu1P+CHPztoYEBi5tiK57XkTx9DpjKDI hZ7oDBp65aDyZbIqudbrC9NNmOynxyjSouLHEn+qev9InSAQ55lavj5qwKq+qwehqaGV/b/O4YN9EyHV 2RGndjE7l2LvKDIffFtMG1wz4gvk+kxo0VLC9GeUCU281+nw8PemvlSFnLF0fynv+qxQvCCZPi7iMMia Whi5o7m0jI95Ab1p/q23zB+TXPTg7Wcv0iBzEDu6x7 ItvVJ/5NsXs8shLwiNxKzh0zTDTi8fPZ0FWZQwFbqVk8Xhk/d3beo7XZioK+BnoV8up04A3WcEQZBadJ 7LU0IBUVpdRMi0F274aZG6hoPGeypI4PlH1Pd5HKKD1Pro/vJTF/fuSEAr/OKri9nVnP5DR208Gi/3cX QdZlUCl6sKSMNDKVoQ+t8mJaL7KcgcbNAo6G6JkCQ8 rvL9ScftBQtN+Cp8aKnSJg/2sgiupx6ieI4MId/1SXzNvZYJ5K9L6xZr+cb7H7EAgWOacTgg+TTZoQ1O jzA5pcadg4FCtSAT3VT2kKwBCdHR9hjoGzcomhGBKlqyG/XCkvxjN2JropT9ree7UiHRifb3luZ0flOE J9dcWPoYlGp4Vi3MiCTdc+1TM0XEDsRAe+752ktHTH qwRiA23+28NioYu0PJgFpQOM9/hw1/cfJV00YTgY/9aPWbW+K/t+rXeeZjT+ursahPXqNHj65i0H8F5n v6nvgm0y6H4rTXuDynC5PLTMOLtR2+ZUVGKsHGgNrzySZUH8DZXlfnpVZSCL2G2oCvMyNMPpiPMo/z63 hbOW4598T021H16mO86GEPTi2CG9048wa29aDQPfHg [file] HQSTAoaVJZB2XLTHCTQiMmLEOfSTXVR9IN5hX7Bic4 GxFIFjBGRnUF3unqAyERNgIn4RyRbbOBE0X5W5qWKcM7cZIZQnOxOyVAY9WTQkSm5ccZZrFZ1KXpxjZ4 BgYBBgYASSXGDSAkx+QGHTzAJoP1Na9pbKVp+VxC9gXYRC9h1L9U5Xf0jDED/ELFT4VRKxHaYVjHaHzE [id number] ID Date Data Source [id number] 05/08/2021 10:35:00 AM EDT [facility] ([facility]) Name Value Range Interpretation Code Description Data Hillary rce(s) Supporting Document(s) Laboratory test finding (navigational concept) Laboratory test result [facility] ([facility]) A. Excise with CO 11/13 B. No further treatment necessary C. LN2 any remaining D. Excise with CO 11/13 Laboratory test finding (navigational concept) Laboratory test result [facility] ([facility]) A. Excise with CO 11/13 B. No further treatment necessary C. LN2 any remaining D. Excise with CO 11/13 ID Date Data Source [id number] 05/08/2021 10:35:00 AM EDT [facility] Name Value Range Interpretation Code Description Data Hillary rce(s) Supporting Document(s) Laboratory test finding (navigational concept) Laboratory test result [facility] ([facility]) ID Date Data Source [id number] 04/26/2021 08:28:00 AM EDT MARCIA ([facility]) Name Value Range Interpretation Code Description Data Hillary rce(s) Supporting Document(s) alpha fetoprotein tumor quant 2.1 NG/mL <8.1 Alpha Fetoprotein Tumor Quant [facility]) ID Date Data Source [id number] 04/26/2021 08:28:00 AM EDT [facility]) Name Value Range Interpretation Code Description Data Hillary rce(s) Supporting Document(s) ferritin 9 NG/mL 26-388 Below low [facility] Date Data Source [id number] 04/26/2021 08:28:00 AM EDT [facility]) Name Value Range Interpretation Code Description Data Hillary rce(s) Supporting Document(s) thyroid stimulating hormone 0.941 uIU/mL 0.358-3.740 Thyroid Stimulating Hormone [facility]) ID Date Data Source [id number] 04/26/2021 08:28:00 AM EDT [facility]) Name Value Range Interpretation Code Description Data Hillary rce(s) Supporting Document(s) hepatitis A antibody IgM negative negative Hepatitis a Antibody IgM [facility]) ID Date Data Source [id number] 04/26/2021 08:28:00 AM EDT [facility]) Name Value Range Interpretation Code Description Data Hillary rce(s) Supporting Document(s) hepatitis B surface antigen negative negative Hepatiti s B Surface Antigen [place] ([facility]) hepatitis B surface antibody negative positive Hepatit is B Surface Antibody [place] ([facility]) hepatitis B core antibody IgM negative negative Hepati tis B Core Antibody IgM [facility]) ID Date Data Source [id number] 04/26/2021 08:28:00 AM EDT [facility]) Name Value Range Interpretation Code Description Data Hillary rce(s) Supporting Document(s) albumin % 53.5 % 55.8-66.1 Below low normal Albumin % MARCIA ( [facility]) shrdh-3-cxetrksb % 4.0 % 2.9-4.9 Ufldi-6-Txarbxax % [place] ([facility]) efbu-7-elklrznvh % 7.4 % 4.7-7.2 Above high normal Beta-1-Charles bulins % [place] ([facility]) sqiwj-6-dlvdamhkv % 10.0 % 7.1-11.8 Oxtcx-0-Ggbsvrco s % [place] ([facility]) gamma globulin % 19.6 % 11.1-18.8 Above high normal Gamma Globul in % [place] ([facility]) hcyk-0-tcxvwggyb % 5.6 % 3.2-6.5 Pcwp-3-Chtzlzoea % [place] ([facility]) giott-6-rplgsbuct 0.27 gm/dL 0.17-0.41 Jxtni-4-Uygulgxzr [place] ([facility]) albumin 3.64 gm/dL 3.29-5.55 Albumin [place] ([facility]) ftkns-3-icqmoymts 0.68 gm/dL 0.42-0.99 Hphwe-2-Kkrygyqhr [place] ([facility]) wmsu-1-avfycjrzy 0.37 gm/dL 0.19-0.55 Pocv-1-Axktfpjqd AT [facility] ([facility]) fero-2-meycrgszm 0.50 gm/dL 0.28-0.60 Ijja-8-Uqvfvkriu AT [facility] ([facility]) spep interpretation see comment Spep Interpreta tion [place] ([facility]) total protein 6.8 gm/dL 6.4-8.2 Total Protein [place] ( [facility]) gamma globulins 1.33 gm/dL 0.65-1.58 Gamma Globulins ATHE NA ([facility]) spep pathologist review rev'd by Hector ramirez Spe p Pathologist Review [place] ([facility]) ID Date Data Source [id number] 04/26/2021 08:28:00 AM EDT [place] ([facility]) Name Value Range Interpretation Code Description Data Hillary rce(s) Supporting Document(s) total iron binding capacity 372 ug/dL 250-450 Total Ir on Binding Capacity [place] ([facility]) iron (fe) 26 ug/dL 65-175 Below low normal Iron (Fe) [place] ( [facility]) percent saturation 7.0 % 19.7-50.0 Below low normal Percent Sat uration [place] ([facility]) ID Date Data Source [id number] 04/26/2021 08:28:00 AM EDT MARCIA ([facility]) Name Value Range Interpretation Code Description Data Hillary rce(s) Supporting Document(s) AST/SGOT 25 U/L 7-37 AST/SGOT [facility] ([facility]) ALT/SGPT 23 U/L 12-78 ALT/SGPT [place] ([facility]) alkaline phosphatase 59 U/L 45-117 Alkaline Phosph atase [place] ([facility]) bilirubin,total 0.6 mg/dL 0.2-1.0 Bilirubin,total ATHE ([facility]) bilirubin,direct 0.2 mg/dL 0.0-0.2 Bilirubin,direct AT [place] ([facility]) albumin 3.2 gm/dL 3.2-5.2 Albumin [facility] ([facility]) total protein 6.8 gm/dL 6.4-8.2 Total Protein [place] ( [facility]) albumin/globulin ratio Albumin/globu elan Ratio [place] ([facility]) ID Date Data Source [id number] 04/26/2021 08:28:00 AM EDT [facility] ([facility]) Name Value Range Interpretation Code Description Data Hillary rce(s) Supporting Document(s) hepatitis C virus rylan index < 0.0 <0.8 Hepatiti s C Virus Rylan Index [place] ([facility]) ID Date Data Source [id number] 04/26/2021 08:28:00 AM EDT [facility]) Name Value Range Interpretation Code Description Data Hillary rce(s) Supporting Document(s) fibrosis score 0.00-0.21 Above high normal Fibrosis Score [place] ([facility]) steatosis score 0.00-0.30 Above high normal Steatosis Sco re [place] ([facility]) fibrosis stage F3-F4 . Fibrosis Stage [place] ([facility]) cordero score 0.25 Above high normal Cordero Score [place] ([facility]) steatosis grade . Steatosis Grade ATHE NA ([facility]) cordero grade . Cordero Grade [facility] ([facility]) height 72 [in_i] . Height [place] ([facility]) weight 210 [lb_av] . Weight [place] ([facility]) alpha 2-macroglobulins,qn 281 mg/dL 110-276 Above high norm al Alpha 2-Macroglobulins,qn [place] ([facility]) haptoglobin 105 mg/dL 34-355 Haptoglobin [place] ([facility]) apolipoprotein A-1 91 mg/dL 101-178 Below low normal Apolipoprot ein a-1 [place] ([facility]) bilirubin, total 0.3 mg/dL 0.0-1.2 Bilirubin, Total AT [facility]) GGT 86 IU/L 0-65 Above high normal Ggt [place] ([facility]) ALT (SGPT) p5p 19 IU/L 0-55 ALT (SGPT) P5P [place] ([facility]) AST (SGOT) p5p 27 IU/L 0-40 AST (SGOT) P5P [place] ([facility]) cholesterol total 126 mg/dL 100-199 Cholesterol Total [place] ([facility]) glucose, serum 162 mg/dL 65-99 Above high normal Glucose, Serum [place] ([facility]) triglycerides 159 mg/dL 0-149 Above high normal Triglycerides A [place] ([facility]) interpretations . Interpretations ATHE NA ([facility]) fibrosis scoring . Fibrosis Scoring AT [facility]) cordero scoring . Cordero Scoring [place] ([facility]) steatosis grading . Steatosis Grading [place] ([facility]) limitations . Limitations [place] ([facility]) comment . Comment [place] [facility]) ID Date Data Source [id number] 04/26/2021 08:28:00 AM EDT [facility]) Name Value Range Interpretation Code Description Data Hillary rce(s) Supporting Document(s) anti-mitochondrial antibody <20.0 0.0-20.0 Anti-[facility]rial [facility]ody [facility] ID Date Data Source [id number] 04/26/2021 08:28:00 AM EDT [facility]) Name Value Range Interpretation Code Description Data Hillary rce(s) Supporting Document(s) ceruloplasmin 24.6 mg/dL 16.0-31.0 Ceruloplasmin [facility]) ID Date Data Source [id number] 04/26/2021 08:28:00 AM EDT [facility]) Name Value Range Interpretation Code Description Data Hillary rce(s) Supporting Document(s) hepatitis A IgG total positive negative Abnormal ( applies to non-numeric results) Hepatitis a IgG Total [facility] n[facility]) ID Date Data Source [id number] 04/26/2021 08:28:00 AM EDT [facility]) Name Value Range Interpretation Code Description Data Hillary rce(s) Supporting Document(s) liver-kidney microsomal rylan <20.1 0.0-20.0 Liver-ki dney Microsomal Rylan [facility] ID Date Data Source [id number] 04/26/2021 08:28:00 AM EDT [facility]) Name Value Range Interpretation Code Description Data Hillary rce(s) Supporting Document(s) tissue transglutaminase IgA <2 0-3 Tissue T ransglutaminase IgA [facility] ID Date Data Source [id number] 04/26/2021 08:28:00 AM EDT [place] ([facility]) Name Value Range Interpretation Code Description Data Hillary rce(s) Supporting Document(s) antinuclear antibodies direct negative negative Antinu clear Antibodies Direct [facility]) ID Date Data Source [id number] 04/26/2021 08:28:00 AM EDT [facility]) Name Value Range Interpretation Code Description Data Hillary rce(s) Supporting Document(s) alpha 1 antitrypsin 126 mg/dL 101-187 Alpha 1 Antitryp sin [facility]) ID Date Data Source [id number] 04/26/2021 08:28:00 AM EDT [facility]) Name Value Range Interpretation Code Description Data Hillary rce(s) Supporting Document(s) anti-smooth muscle antibody 10 units 0-19 Anti-smo oth Muscle Antibody [place] ([facility]) ID Date Data Source [id number] 04/26/2021 08:28:00 AM EDT [facility]) Name Value Range Interpretation Code Description Data Hillary rce(s) Supporting Document(s) total 25(oh) vitamin D 72.1 NG/mL 30.0-100.0 Total 25(Oh) Vitamin D [facility]) ID Date Data Source [id number] 04/26/2021 08:28:00 AM EDT [facility]) Name Value Range Interpretation Code Description Data Hillary rce(s) Supporting Document(s) gamma glutamyltranspeptidase 113 U/L 15-85 Above high n ormal Gamma Glutamyltranspeptidase [facility]) ID Date Data Source [id number] 04/26/2021 08:28:00 AM EDT [facility] Name Value Range Interpretation Code Description Data Hillary rce(s) Supporting Document(s) prothrombin time 16.2 seconds 12.7-14.5 Above high normal Prothrombi n Time [place] ([facility]) INR Inr [facility] ([facility]) partial thromboplastin time 33.7 seconds 25.9-37.0 Partial Thromboplastin Time [place] ([facility]) ID Date Data Source [id number] 04/26/2021 08:28:00 AM EDT [facility] Name Value Range Interpretation Code Description Data Hillary rce(s) Supporting Document(s) alpha fetoprotein tumor quant 2.1 NG/mL <8.1 Alpha Fetoprotein Tumor Quant [facility]) ID Date Data Source [id number] 04/26/2021 08:28:00 AM EDT [facility]) Name Value Range Interpretation Code Description Data Hillary rce(s) Supporting Document(s) ferritin 9 NG/mL 26-388 Below low normal Ferritin [facility]) ID Date Data Source [id number] 04/26/2021 08:28:00 AM EDT [facility]) Name Value Range Interpretation Code Description Data Hillary rce(s) Supporting Document(s) thyroid stimulating hormone 0.941 uIU/mL 0.358-3.740 Thyroid Stimulating Hormone [facility] ID Date Data Source [id number] 04/26/2021 08:28:00 AM EDT [facility]) Name Value Range Interpretation Code Description Data Hillary rce(s) Supporting Document(s) hepatitis A antibody IgM negative negative Hepatitis a Antibody IgM [facility]) ID Date Data Source [id number] 04/26/2021 08:28:00 AM EDT [facility]) Name Value Range Interpretation Code Description Data Hillary rce(s) Supporting Document(s) hepatitis B surface antigen negative negative Hepatiti s B Surface Antigen [place] ([facility]) hepatitis B core antibody IgM negative negative Hepati tis B Core Antibody IgM [place] ([facility]) hepatitis B surface antibody negative positive Hepatit is B Surface Antibody [place] ([facility]) ID Date Data Source [id number] 04/26/2021 08:28:00 AM EDT [facility]) Name Value Range Interpretation Code Description Data Hillary rce(s) Supporting Document(s) albumin % 53.5 % 55.8-66.1 Below low normal Albumin % [facility]) hwbgg-5-zszolystp % 10.0 % 7.1-11.8 Tncwr-2-Jelsbsar s % [place] ([facility]) nddyi-2-wwrrgmeq % 4.0 % 2.9-4.9 Hzmbm-1-Ygzdarjd % [facility]) bbcq-5-nmgyruvrc % 7.4 % 4.7-7.2 Above high normal Beta-1-Charles bulins % [facility]) gamma globulin % 19.6 % 11.1-18.8 Above high normal Gamma Globul in % [facility]) wnck-6-frckinclj % 5.6 % 3.2-6.5 Pshj-8-Qllizakrj % [facility]) jfuhs-9-phavzxgcm 0.68 gm/dL 0.42-0.99 Ynbrq-8-Wchsjqbhr [facility]) albumin 3.64 gm/dL 3.29-5.55 Albumin [facility]) esbzf-0-ararimrvs 0.27 gm/dL 0.17-0.41 Zgdqm-8-Snupnffkp [facility]) gamma globulins 1.33 gm/dL 0.65-1.58 Gamma Globulins AT[facility] ([facility]) zskf-9-vwwyjmexd 0.37 gm/dL 0.19-0.55 Cwtn-7-Adtcgxnuo AT [facility] ([facility]) hsih-8-vaxsegxvi 0.50 gm/dL 0.28-0.60 Dnii-0-Gbozpakpa AT [facility] ([facility]) spep pathologist review rev'd by Hector Joiner p Pathologist Review [place] ([facility]) spep interpretation see comment Spep Interpreta tion [place] ([facility]) total protein 6.8 gm/dL 6.4-8.2 Total Protein [place] ( [facility]) ID Date Data Source [id number] 04/26/2021 08:28:00 AM EDT [place] ([facility]) Name Value Range Interpretation Code Description Data Hillary rce(s) Supporting Document(s) total iron binding capacity 372 ug/dL 250-450 Total Ir on Binding Capacity [place] ([facility]) iron (fe) 26 ug/dL 65-175 Below low normal Iron (Fe) [place] ( [facility]) percent saturation 7.0 % 19.7-50.0 Below low normal Percent Sat uration [place] ([facility]) ID Date Data Source [id number] 04/26/2021 08:28:00 AM EDT [place] ([facility]) Name Value Range Interpretation Code Description Data Hillary rce(s) Supporting Document(s) AST/SGOT 25 U/L 7-37 AST/SGOT [place] ([facility]) alkaline phosphatase 59 U/L 45-117 Alkaline Phosph atase [place] ([facility]) bilirubin,total 0.6 mg/dL 0.2-1.0 Bilirubin,total ATHE ([facility]) ALT/SGPT 23 U/L 12-78 ALT/SGPT [place] ([facility]) bilirubin,direct 0.2 mg/dL 0.0-0.2 Bilirubin,direct AT [place] ([facility]) total protein 6.8 gm/dL 6.4-8.2 Total Protein [place] ( [facility]) albumin/globulin ratio Albumin/globu elan Ratio [place] ([facility]) albumin 3.2 gm/dL 3.2-5.2 Albumin [place] ([facility]) ID Date Data Source [id number] 04/26/2021 08:28:00 AM EDT [place] ([facility]) Name Value Range Interpretation Code Description Data Hillary rce(s) Supporting Document(s) hepatitis C virus rylan index < 0.0 <0.8 Hepatiti s C Virus Rylan Index [place] ([facility]) ID Date Data Source [id number] 04/26/2021 08:28:00 AM EDT [place] ([facility]) Name Value Range Interpretation Code Description Data Hillary rce(s) Supporting Document(s) fibrosis score 0.00-0.21 Above high normal Fibrosis Score [place] ([facility]) steatosis score 0.00-0.30 Above high normal Steatosis Sco re [place] ([facility]) fibrosis stage F3-F4 . Fibrosis Stage [place] ([facility]) cordero score 0.25 Above high normal Cordero Score [place] ([facility]) steatosis grade . Steatosis Grade ATHE NA ([facility]) height 72 [in_i] . Height [place] ([facility]) cordero grade . Cordero Grade [place] ([facility]) alpha 2-macroglobulins,qn 281 mg/dL 110-276 Above high norm al Alpha 2-Macroglobulins,qn [place] ([facility]) haptoglobin 105 mg/dL 34-355 Haptoglobin [place] ([facility]) weight 210 [lb_av] . Weight [place] ([facility]) apolipoprotein A-1 91 mg/dL 101-178 Below low normal Apolipoprot ein a-1 [place] [facility]) bilirubin, total 0.3 mg/dL 0.0-1.2 Bilirubin, Total AT [facility]) GGT 86 IU/L 0-65 Above high normal Ggt [place] ([facility]) ALT (SGPT) p5p 19 IU/L 0-55 ALT (SGPT) P5P [place] ([facility]) AST (SGOT) p5p 27 IU/L 0-40 AST (SGOT) P5P [place] ([facility]) cholesterol total 126 mg/dL 100-199 Cholesterol Total [place] ([facility]) triglycerides 159 mg/dL 0-149 Above high normal Triglycerides A THEN ([facility]) glucose, serum 162 mg/dL 65-99 Above high normal Glucose, Serum [place] ([facility]) fibrosis scoring . Fibrosis Scoring AT [facility]) interpretations . Interpretations AT[facility] ([facility]) steatosis grading . Steatosis Grading [place] ([facility]) cordero scoring . Cordero Scoring [place] ([facility]) limitations . Limitations [place] ([facility]) comment . Comment [place] ([facility]) ID Date Data Source [id number] 04/26/2021 08:28:00 AM EDT [facility]) Name Value Range Interpretation Code Description Data Hillary rce(s) Supporting Document(s) anti-mitochondrial antibody <20.0 0.0-20.0 Anti-haylee ochondrial Antibody [facility]) ID Date Data Source [id number] 04/26/2021 08:28:00 AM EDT [facility]) Name Value Range Interpretation Code Description Data Hillary rce(s) Supporting Document(s) ceruloplasmin 24.6 mg/dL 16.0-31.0 Ceruloplasmin [facility]) ID Date Data Source [id number] 04/26/2021 08:28:00 AM EDT [facility]) Name Value Range Interpretation Code Description Data Hillary rce(s) Supporting Document(s) hepatitis A IgG total positive negative Abnormal ( applies to non-numeric results) Hepatitis a IgG Total [place] ([facility] n[facility]) ID Date Data Source [id number] 04/26/2021 08:28:00 AM EDT [facility]) Name Value Range Interpretation Code Description Data Hillary rce(s) Supporting Document(s) liver-kidney microsomal rylan <20.1 0.0-20.0 Liver-ki dney Microsomal Rylan [facility]) ID Date Data Source [id number] 04/26/2021 08:28:00 AM EDT [facility]) Name Value Range Interpretation Code Description Data Hillary rce(s) Supporting Document(s) tissue transglutaminase IgA <2 0-3 Tissue T ransglutaminase IgA [facility]) ID Date Data Source [id number] 04/26/2021 08:28:00 AM EDT [facility]) Name Value Range Interpretation Code Description Data Hillary rce(s) Supporting Document(s) antinuclear antibodies direct negative negative Antinu clear Antibodies Direct [facility]) ID Date Data Source [id number] 04/26/2021 08:28:00 AM EDT [facility]) Name Value Range Interpretation Code Description Data Hillary rce(s) Supporting Document(s) alpha 1 antitrypsin 126 mg/dL 101-187 Alpha 1 Antitryp sin [facility]) ID Date Data Source [id number] 04/26/2021 08:28:00 AM EDT [facility]) Name Value Range Interpretation Code Description Data Hillary rce(s) Supporting Document(s) anti-smooth muscle antibody 10 units 0-19 Anti-smo oth Muscle Antibody [place] ([facility]) ID Date Data Source [id number] 04/26/2021 08:28:00 AM EDT [facility] Name Value Range Interpretation Code Description Data Hillary rce(s) Supporting Document(s) total 25(oh) vitamin D 72.1 NG/mL 30.0-100.0 Total 25(Oh) Vitamin D [facility]) ID Date Data Source [id number] 04/26/2021 08:28:00 AM EDT [facility]) Name Value Range Interpretation Code Description Data Hillary rce(s) Supporting Document(s) gamma glutamyltranspeptidase 113 U/L 15-85 Above high n ormal Gamma Glutamyltranspeptidase [facility]) ID Date Data Source [id number] 04/26/2021 08:28:00 AM EDT [facility]) Name Value Range Interpretation Code Description Data Hillary rce(s) Supporting Document(s) prothrombin time 16.2 seconds 12.7-14.5 Above high normal Pro[facility]rombi n [facility] INR Inr [place] ([facility]) partial thromboplastin time 33.7 seconds 25.9-37.0 Partial Thromboplastin Time [place] ([facility]) ID Date Data Source [id number] 04/26/2021 08:28:00 AM EDT [facility]) Name Value Range Interpretation Code Description Data Hillary rce(s) Supporting Document(s) alpha fetoprotein tumor quant 2.1 NG/mL <8.1 Alpha Fetoprotein Tumor Quant [facility]) ID Date Data Source [id number] 04/26/2021 08:28:00 AM EDT [facility]) Name Value Range Interpretation Code Description Data Hillary rce(s) Supporting Document(s) ferritin 9 NG/mL 26-388 Below low normal Ferritin [facility] [facility]) ID Date Data Source [id number] 04/26/2021 08:28:00 AM EDT [facility]) Name Value Range Interpretation Code Description Data Hillary rce(s) Supporting Document(s) thyroid stimulating hormone 0.941 uIU/mL 0.358-3.740 Thyroid Stimulating Hormone [facility]) ID Date Data Source [id number] 04/26/2021 08:28:00 AM EDT [facility]) Name Value Range Interpretation Code Description Data Hillary rce(s) Supporting Document(s) hepatitis A antibody IgM negative negative Hepatitis a Antibody IgM [facility]) ID Date Data Source [id number] 04/26/2021 08:28:00 AM EDT [facility]) Name Value Range Interpretation Code Description Data Hillary rce(s) Supporting Document(s) hepatitis B surface antibody negative positive Hepatit is B Surface Antibody [facility]) hepatitis B surface antigen negative negative Hepatiti s B Surface Antigen [facility]) hepatitis B core antibody IgM negative negative Hepati tis B Core Antibody IgM [facility]) ID Date Data Source [id number] 04/26/2021 08:28:00 AM EDT [facility]) Name Value Range Interpretation Code Description Data Hillary rce(s) Supporting Document(s) albumin % 53.5 % 55.8-66.1 Below low normal Albumin % [facility]) ovqea-6-dfzpjidzc % 10.0 % 7.1-11.8 Khipe-5-Zsxomjnf s % [place] ([facility]) txkhv-5-netapdfo % 4.0 % 2.9-4.9 Ubfwq-5-Vyajfbee % [place] ([facility]) lmyn-6-mnjbqqmur % 5.6 % 3.2-6.5 Zefs-8-Coowgciuw % [place] ([facility]) cvkd-2-dmcnnrwoa % 7.4 % 4.7-7.2 Above high normal Beta-1-Charles bulins % [place] ([facility]) aovqz-6-xpbgppbmz 0.27 gm/dL 0.17-0.41 Nticn-9-Vdtxaigfb [place] ([facility]) gamma globulin % 19.6 % 11.1-18.8 Above high normal Gamma Globul in % [place] ([facility]) albumin 3.64 gm/dL 3.29-5.55 Albumin [place] ([facility]) varnw-9-jezigjwia 0.68 gm/dL 0.42-0.99 Lmkvg-7-Rittersxc [place] ([facility]) pqfr-9-slgbhttct 0.37 gm/dL 0.19-0.55 Ycyg-1-Svmraezsc AT [facility] ([facility]) obas-8-gtfkljnjv 0.50 gm/dL 0.28-0.60 Dnob-7-Tjpuwopfj AT [facility] ([facility]) total protein 6.8 gm/dL 6.4-8.2 Total Protein [place] ( [facility]) gamma globulins 1.33 gm/dL 0.65-1.58 Gamma Globulins [facility] ([facility]) spep pathologist review rev'd by Hector ramirez Spe p Pathologist Review [place] ([facility]) spep interpretation see comment Spep Interpreta tion [place] ([facility]) ID Date Data Source [id number] 04/26/2021 08:28:00 AM EDT [place] ([facility]) Name Value Range Interpretation Code Description Data Hillary rce(s) Supporting Document(s) percent saturation 7.0 % 19.7-50.0 Below low normal Percent Sat uration [place] ([facility]) iron (fe) 26 ug/dL 65-175 Below low normal Iron (Fe) [place] ( [facility]) total iron binding capacity 372 ug/dL 250-450 Total Ir on Binding Capacity [place] ([facility]) ID Date Data Source [id number] 04/26/2021 08:28:00 AM EDT [place] ([facility]) Name Value Range Interpretation Code Description Data Hillary rce(s) Supporting Document(s) AST/SGOT 25 U/L 7-37 AST/SGOT [place] ([facility]) ALT/SGPT 23 U/L 12-78 ALT/SGPT [place] ([facility]) alkaline phosphatase 59 U/L 45-117 Alkaline Phosph atase [place] ([facility]) bilirubin,direct 0.2 mg/dL 0.0-0.2 Bilirubin,direct AT [place] ([facility]) bilirubin,total 0.6 mg/dL 0.2-1.0 Bilirubin,total AT[place] ([facility]) total protein 6.8 gm/dL 6.4-8.2 Total Protein [place] ( [facility]) albumin 3.2 gm/dL 3.2-5.2 Albumin [place] ([facility]) albumin/globulin ratio Albumin/globu elan Ratio [place] ([facility]) ID Date Data Source [id number] 04/26/2021 08:28:00 AM EDT [place] ([facility]) Name Value Range Interpretation Code Description Data Hillary rce(s) Supporting Document(s) hepatitis C virus rylan index < 0.0 <0.8 Hepatiti s C Virus Rylan Index [place] ([facility]) ID Date Data Source [id number] 04/26/2021 08:28:00 AM EDT [place] ([facility]) Name Value Range Interpretation Code Description Data Hillary rce(s) Supporting Document(s) fibrosis score 0.00-0.21 Above high normal Fibrosis Score [place] ([facility]) fibrosis stage F3-F4 . Fibrosis Stage [place] ([facility]) steatosis score 0.00-0.30 Above high normal Steatosis Sco re [place] ([facility]) steatosis grade . Steatosis Grade AT[place] NA ([facility]) cordero score 0.25 Above high normal Cordero Score [place] ([facility]) cordero grade . Cordero Grade [place] ([facility]) height 72 [in_i] . Height [place] ([facility]) haptoglobin 105 mg/dL 34-355 Haptoglobin [place] ([facility]) weight 210 [lb_av] . Weight [place] ([facility]) alpha 2-macroglobulins,qn 281 mg/dL 110-276 Above high norm al Alpha 2-Macroglobulins,qn [place] ([facility]) bilirubin, total 0.3 mg/dL 0.0-1.2 Bilirubin, Total AT [facility]) apolipoprotein A-1 91 mg/dL 101-178 Below low normal Apolipoprot ein a-1 [place] ([facility]) GGT 86 IU/L 0-65 Above high normal Ggt [place] ([facility]) ALT (SGPT) p5p 19 IU/L 0-55 ALT (SGPT) P5P [place] ([facility]) AST (SGOT) p5p 27 IU/L 0-40 AST (SGOT) P5P [place] ([facility]) cholesterol total 126 mg/dL 100-199 Cholesterol Total [place] ([facility]) triglycerides 159 mg/dL 0-149 Above high normal Triglycerides A [facility] ([facility]) glucose, serum 162 mg/dL 65-99 Above high normal Glucose, Serum [place] ([facility]) interpretations . Interpretations AT[place] NA ([facility]) steatosis grading . Steatosis Grading [place] ([facility]) fibrosis scoring . Fibrosis Scoring AT [facility]) limitations . Limitations [place] ([facility]) cordero scoring . Cordero Scoring [place] ([facility]) comment . Comment [place] ([facility]) ID Date Data Source [id number] 04/26/2021 08:28:00 AM EDT [place] ([facility]) Name Value Range Interpretation Code Description Data Hillary rce(s) Supporting Document(s) anti-mitochondrial antibody <20.0 0.0-20.0 Anti-haylee ochondrial Antibody [place] ([facility]) ID Date Data Source [id number] 04/26/2021 08:28:00 AM EDT [facility]) Name Value Range Interpretation Code Description Data Hillary rce(s) Supporting Document(s) ceruloplasmin 24.6 mg/dL 16.0-31.0 Ceruloplasmin [facility]) ID Date Data Source [id number] 04/26/2021 08:28:00 AM EDT [facility]) Name Value Range Interpretation Code Description Data Hillary rce(s) Supporting Document(s) hepatitis A IgG total positive negative Abnormal ( applies to non-numeric results) Hepatitis a IgG Total [place] ([facility]) ID Date Data Source [id number] 04/26/2021 08:28:00 AM EDT [facility]) Name Value Range Interpretation Code Description Data Hillary rce(s) Supporting Document(s) liver-kidney microsomal rylan <20.1 0.0-20.0 Liver-ki dney Microsomal Rylan [facility]) ID Date Data Source [id number] 04/26/2021 08:28:00 AM EDT [facility]) Name Value Range Interpretation Code Description Data Hillary rce(s) Supporting Document(s) tissue transglutaminase IgA <2 0-3 Tissue T ransglutaminase IgA [facility]) ID Date Data Source [id number] 04/26/2021 08:28:00 AM EDT [facility]) Name Value Range Interpretation Code Description Data Hillary rce(s) Supporting Document(s) antinuclear antibodies direct negative negative Antinu clear Antibodies Direct [place] ([facility]) ID Date Data Source [id number] 04/26/2021 08:28:00 AM EDT [facility]) Name Value Range Interpretation Code Description Data Hillary rce(s) Supporting Document(s) alpha 1 antitrypsin 126 mg/dL 101-187 Alpha 1 Antitryp sin [facility]) ID Date Data Source [id number] 04/26/2021 08:28:00 AM EDT [facility]) Name Value Range Interpretation Code Description Data Hillary rce(s) Supporting Document(s) anti-smooth muscle antibody 10 units 0-19 Anti-smo oth Muscle Antibody [facility]) ID Date Data Source [id number] 04/26/2021 08:28:00 AM EDT [facility]) Name Value Range Interpretation Code Description Data Hillary rce(s) Supporting Document(s) total 25(oh) vitamin D 72.1 NG/mL 30.0-100.0 Total 25(Oh) Vitamin D [facility]) ID Date Data Source [id number] 04/26/2021 08:28:00 AM EDT [facility]) Name Value Range Interpretation Code Description Data Hillary rce(s) Supporting Document(s) gamma glutamyltranspeptidase 113 U/L 15-85 Above high n ormal Gamma Glutamyltranspeptidase [facility]) ID Date Data Source [id number] 04/26/2021 08:28:00 AM EDT [facility]) Name Value Range Interpretation Code Description Data Hillary rce(s) Supporting Document(s) prothrombin time 16.2 seconds 12.7-14.5 Above high normal Prothrombi n Time [place] ([facility]) partial thromboplastin time 33.7 seconds 25.9-37.0 Partial Thromboplastin Time [place] ([facility]) INR Inr [place] ([facility]) ID Date Data Source [id number] 04/26/2021 08:28:00 AM EDT [place] ([facility]) Name Value Range Interpretation Code Description Data Hillary rce(s) Supporting Document(s) alpha fetoprotein tumor quant 2.1 NG/mL <8.1 Alpha Fetoprotein Tumor Quant [place] ([facility]) ID Date Data Source [id number] 04/26/2021 08:28:00 AM EDT [place] ([facility]) Name Value Range Interpretation Code Description Data Hillary rce(s) Supporting Document(s) ferritin 9 NG/mL 26-388 Below low normal Ferritin [place] ( [facility]) ID Date Data Source [id number] 04/26/2021 08:28:00 AM EDT [facility]) Name Value Range Interpretation Code Description Data Hillary rce(s) Supporting Document(s) thyroid stimulating hormone 0.941 uIU/mL 0.358-3.740 Thyroid Stimulating Hormone [place] ([facility]) ID Date Data Source [id number] 04/26/2021 08:28:00 AM EDT [place] ([facility]) Name Value Range Interpretation Code Description Data Hillary rce(s) Supporting Document(s) hepatitis A antibody IgM negative negative Hepatitis a Antibody IgM [facility]) ID Date Data Source [id number] 04/26/2021 08:28:00 AM EDT [facility]) Name Value Range Interpretation Code Description Data Hillary rce(s) Supporting Document(s) hepatitis B surface antigen negative negative Hepatiti s B Surface Antigen [place] ([facility]) hepatitis B surface antibody negative positive Hepatit is B Surface Antibody [place] ([facility]) hepatitis B core antibody IgM negative negative Hepati tis B Core Antibody IgM [place] ([facility]) ID Date Data Source [id number] 04/26/2021 08:28:00 AM EDT [place] ([facility]) Name Value Range Interpretation Code Description Data Hillary rce(s) Supporting Document(s) albumin % 53.5 % 55.8-66.1 Below low normal Albumin % [place] ( [facility]) wngek-9-tqntyfhgk % 10.0 % 7.1-11.8 Clspx-3-Olulrftw s % [place] ([facility]) jnhtn-2-vyllmcff % 4.0 % 2.9-4.9 Vykus-8-Ndnasayv % [facility]) udti-8-zoqlobdzn % 5.6 % 3.2-6.5 Voeq-4-Bodxkgyhf % [facility]) gamma globulin % 19.6 % 11.1-18.8 Above high normal Gamma Globul in % [facility]) cgyx-4-qysecdzqh % 7.4 % 4.7-7.2 Above high normal Beta-1-Charles bulins % [place] ([facility]) albumin 3.64 gm/dL 3.29-5.55 Albumin [facility]) uubya-5-yqimixcel 0.27 gm/dL 0.17-0.41 Ddnnv-9-Orwmzkxxp [facility]) ajwnh-8-rhmsfywxn 0.68 gm/dL 0.42-0.99 Cbaqd-6-Duazmbbcg [facility]) qfgn-0-wwxsxpefb 0.50 gm/dL 0.28-0.60 Epij-4-Dldvthsmx AT [facility]) iqyk-0-lnddbfgxf 0.37 gm/dL 0.19-0.55 Qocu-5-Avpqmxxui AT [facility]) gamma globulins 1.33 gm/dL 0.65-1.58 Gamma Globulins AT[facility] NA ([facility]) spep interpretation see comment Spep Interpreta tion [place] ([facility]) total protein 6.8 gm/dL 6.4-8.2 Total Protein [place] ( [facility]) spep pathologist review rev'd by Hector ramirez Spe p Pathologist Review [place] ([facility]) ID Date Data Source [id number] 04/26/2021 08:28:00 AM EDT [place] ([facility]) Name Value Range Interpretation Code Description Data Hillary rce(s) Supporting Document(s) iron (fe) 26 ug/dL 65-175 Below low normal Iron (Fe) [place] ( [facility]) total iron binding capacity 372 ug/dL 250-450 Total Ir on Binding Capacity [place] ([facility]) percent saturation 7.0 % 19.7-50.0 Below low normal Percent Sat uration [place] ([facility]) ID Date Data Source [id number] 04/26/2021 08:28:00 AM EDT [place] ([facility]) Name Value Range Interpretation Code Description Data Hillary rce(s) Supporting Document(s) AST/SGOT 25 U/L 7-37 AST/SGOT [place] ([facility]) ALT/SGPT 23 U/L 12-78 ALT/SGPT [place] ([facility]) bilirubin,total 0.6 mg/dL 0.2-1.0 Bilirubin,total AT[facility] NA ([facility]) bilirubin,direct 0.2 mg/dL 0.0-0.2 Bilirubin,direct AT [place] ([facility]) alkaline phosphatase 59 U/L 45-117 Alkaline Phosph atase [place] ([facility]) total protein 6.8 gm/dL 6.4-8.2 Total Protein [place] ( [facility]) albumin 3.2 gm/dL 3.2-5.2 Albumin [place] ([facility]) albumin/globulin ratio Albumin/globu elan Ratio [place] [facility]) ID Date Data Source [id number] 04/26/2021 08:28:00 AM EDT [place] ([facility]) Name Value Range Interpretation Code Description Data Hillary rce(s) Supporting Document(s) hepatitis C virus rylan index < 0.0 <0.8 Hepatiti s C Virus Rylan Index [place] ([facility]) ID Date Data Source [id number] 04/26/2021 08:28:00 AM EDT [place] ([facility]) Name Value Range Interpretation Code Description Data Hillary rce(s) Supporting Document(s) fibrosis score 0.00-0.21 Above high normal Fibrosis Score [place] ([facility]) fibrosis stage F3-F4 . Fibrosis Stage [place] ([facility]) steatosis score 0.00-0.30 Above high normal Steatosis Sco re [place] ([facility]) cordero score 0.25 Above high normal Cordero Score [place] ([facility]) steatosis grade . Steatosis Grade AT[facility] NA ([facility]) cordero grade . Cordero Grade [place] ([facility]) height 72 [in_i] . Height [place] ([facility]) weight 210 [lb_av] . Weight [place] ([facility]) alpha 2-macroglobulins,qn 281 mg/dL 110-276 Above high norm al Alpha 2-Macroglobulins,qn [place] ([facility]) haptoglobin 105 mg/dL 34-355 Haptoglobin [place] ([facility]) bilirubin, total 0.3 mg/dL 0.0-1.2 Bilirubin, Total AT [place] [facility]) apolipoprotein A-1 91 mg/dL 101-178 Below low normal Apolipoprot ein a-1 [place] ([facility]) ALT (SGPT) p5p 19 IU/L 0-55 ALT (SGPT) P5P [place] ([facility]) GGT 86 IU/L 0-65 Above high normal Ggt [place] ([facility]) AST (SGOT) p5p 27 IU/L 0-40 AST (SGOT) P5P [place] ([facility]) cholesterol total 126 mg/dL 100-199 Cholesterol Total [place] ([facility]) glucose, serum 162 mg/dL 65-99 Above high normal Glucose, Serum [place] ([facility]) triglycerides 159 mg/dL 0-149 Above high normal Triglycerides A [place] ([facility]) interpretations . Interpretations [place] ([facility]) fibrosis scoring . Fibrosis Scoring AT [facility]) steatosis grading . Steatosis Grading [place] ([facility]) cordero scoring . Cordero Scoring [place] ([facility]) limitations . Limitations [place] ([facility]) comment . Comment [place] ([facility]) ID Date Data Source [id number] 04/26/2021 08:28:00 AM EDT [facility]) Name Value Range Interpretation Code Description Data Hillary rce(s) Supporting Document(s) anti-mitochondrial antibody <20.0 0.0-20.0 Anti-haylee ochondrial Antibody [facility]) ID Date Data Source [id number] 04/26/2021 08:28:00 AM EDT [facility]) Name Value Range Interpretation Code Description Data Hillary rce(s) Supporting Document(s) ceruloplasmin 24.6 mg/dL 16.0-31.0 Ceruloplasmin [facility]) ID Date Data Source [id number] 04/26/2021 08:28:00 AM EDT [facility]) Name Value Range Interpretation Code Description Data Hillary rce(s) Supporting Document(s) hepatitis A IgG total positive negative Abnormal ( applies to non-numeric results) Hepatitis a IgG Total [facility] nter) ID Date Data Source [id number] 04/26/2021 08:28:00 AM EDT [facility]) Name Value Range Interpretation Code Description Data Hillary rce(s) Supporting Document(s) liver-kidney microsomal rylan <20.1 0.0-20.0 Liver-ki dney Microsomal Rylan [facility]) ID Date Data Source [id number] 04/26/2021 08:28:00 AM EDT [facility]) Name Value Range Interpretation Code Description Data Hillary rce(s) Supporting Document(s) tissue transglutaminase IgA <2 0-3 Tissue T ransglutaminase IgA [facility]) ID Date Data Source [id number] 04/26/2021 08:28:00 AM EDT [facility]) Name Value Range Interpretation Code Description Data Hillary rce(s) Supporting Document(s) antinuclear antibodies direct negative negative Antinu clear Antibodies Direct [facility]) ID Date Data Source [id number] 04/26/2021 08:28:00 AM EDT [facility]) Name Value Range Interpretation Code Description Data Hillary rce(s) Supporting Document(s) alpha 1 antitrypsin 126 mg/dL 101-187 Alpha 1 Antitryp sin [facility]) ID Date Data Source [id number] 04/26/2021 08:28:00 AM EDT [facility]) Name Value Range Interpretation Code Description Data Hillary rce(s) Supporting Document(s) anti-smooth muscle antibody 10 units 0-19 Anti-smo oth Muscle Antibody [facility]) ID Date Data Source [id number] 04/26/2021 08:28:00 AM EDT [facility]) Name Value Range Interpretation Code Description Data Hillary rce(s) Supporting Document(s) total 25(oh) vitamin D 72.1 NG/mL 30.0-100.0 Total 25(Oh) Vitamin D [place] ([facility]) ID Date Data Source [id number] 04/26/2021 08:28:00 AM EDT [facility] Name Value Range Interpretation Code Description Data Hillary rce(s) Supporting Document(s) gamma glutamyltranspeptidase 113 U/L 15-85 Above high n ormal Gamma Glutamyltranspeptidase [facility]) ID Date Data Source [id number] 04/26/2021 08:28:00 AM EDT [facility]) Name Value Range Interpretation Code Description Data Hillary rce(s) Supporting Document(s) prothrombin time 16.2 seconds 12.7-14.5 Above high normal Prothrombi n Time [place] ([facility]) INR Inr [place] ([facility]) partial thromboplastin time 33.7 seconds 25.9-37.0 Partial Thromboplastin Time [place] ([facility]) ID Date Data Source [id number] 04/26/2021 08:28:00 AM EDT [facility]) Name Value Range Interpretation Code Description Data Hillary rce(s) Supporting Document(s) alpha fetoprotein tumor quant 2.1 NG/mL <8.1 Alpha Fetoprotein Tumor Quant [facility]) ID Date Data Source [id number] 04/26/2021 08:28:00 AM EDT [facility]) Name Value Range Interpretation Code Description Data Hillary rce(s) Supporting Document(s) ferritin 9 NG/mL 26-388 Below low normal Ferritin [facility]) ID Date Data Source [id number] 04/26/2021 08:28:00 AM EDT [facility]) Name Value Range Interpretation Code Description Data Hillary rce(s) Supporting Document(s) thyroid stimulating hormone 0.941 uIU/mL 0.358-3.740 Thyroid Stimulating Hormone [place] ([facility]) ID Date Data Source [id number] 04/26/2021 08:28:00 AM EDT [place] ([facility]) Name Value Range Interpretation Code Description Data Hillary rce(s) Supporting Document(s) hepatitis A antibody IgM negative negative Hepatitis a Antibody IgM [facility]) ID Date Data Source [id number] 04/26/2021 08:28:00 AM EDT [facility]) Name Value Range Interpretation Code Description Data Hillary rce(s) Supporting Document(s) hepatitis B surface antigen negative negative Hepatiti s B Surface Antigen [facility]) hepatitis B surface antibody negative positive Hepatit is B Surface Antibody [facility]) hepatitis B core antibody IgM negative negative Hepati tis B Core Antibody IgM [facility]) ID Date Data Source [id number] 04/26/2021 08:28:00 AM EDT [facility]) Name Value Range Interpretation Code Description Data Hillary rce(s) Supporting Document(s) xljda-6-hcncznyz % 4.0 % 2.9-4.9 Hfirm-3-Pezdenuc % [facility]) albumin % 53.5 % 55.8-66.1 Below low normal Albumin % [facility]) vdpo-0-ibvxvlmiq % 7.4 % 4.7-7.2 Above high normal Beta-1-Charles bulins % [place] ([facility]) fmzg-6-mgcldbccu % 5.6 % 3.2-6.5 Wldm-5-Aomrpvzhm % [facility]) yvcfp-7-zbzixtxdu % 10.0 % 7.1-11.8 Hhydl-7-Qculnriq s % [place] ([facility]) fwhwn-9-ftxfkiiab 0.27 gm/dL 0.17-0.41 Cwbwb-7-Xmyyxctvp [place] ([facility]) gamma globulin % 19.6 % 11.1-18.8 Above high normal Gamma Globul in % [place] ([facility]) albumin 3.64 gm/dL 3.29-5.55 Albumin [place] ([facility]) ctny-9-jgcgkufye 0.37 gm/dL 0.19-0.55 Magp-8-Oqromugfz AT [facility] ([facility]) jdulx-0-dzkylpklz 0.68 gm/dL 0.42-0.99 Bgesr-3-Nhhutqngj [place] ([facility]) ozxw-5-swbpotecy 0.50 gm/dL 0.28-0.60 Magx-5-Vkgaimxqx AT [facility] ([facility]) gamma globulins 1.33 gm/dL 0.65-1.58 Gamma Globulins [facility] total protein 6.8 gm/dL 6.4-8.2 Total Protein [place] ( [facility]) spep pathologist review rev'd by Hector ramirez Spe p Pathologist Review [place] ([facility]) spep interpretation see comment Spep Interpreta tion [place] ([facility]) ID Date Data Source [id number] 04/26/2021 08:28:00 AM EDT [place] ([facility]) Name Value Range Interpretation Code Description Data Hillary rce(s) Supporting Document(s) iron (fe) 26 ug/dL 65-175 Below low normal Iron (Fe) [place] ( [facility]) total iron binding capacity 372 ug/dL 250-450 Total Ir on Binding Capacity [place] ([facility]) percent saturation 7.0 % 19.7-50.0 Below low normal Percent Sat uration [place] ([facility]) ID Date Data Source [id number] 04/26/2021 08:28:00 AM EDT [place] ([facility]) Name Value Range Interpretation Code Description Data Hillary rce(s) Supporting Document(s) AST/SGOT 25 U/L 7-37 AST/SGOT [place] ([facility]) alkaline phosphatase 59 U/L 45-117 Alkaline Phosph atase [place] ([facility]) ALT/SGPT 23 U/L 12-78 ALT/SGPT [place] ([facility]) bilirubin,total 0.6 mg/dL 0.2-1.0 Bilirubin,total ATHE NA ([facility]) total protein 6.8 gm/dL 6.4-8.2 Total Protein [place] ( [facility]) bilirubin,direct 0.2 mg/dL 0.0-0.2 Bilirubin,direct AT [place] ([facility]) albumin 3.2 gm/dL 3.2-5.2 Albumin [place] ([facility]) albumin/globulin ratio Albumin/globu elan Ratio [place] ([facility]) ID Date Data Source [id number] 04/26/2021 08:28:00 AM EDT [place] ([facility]) Name Value Range Interpretation Code Description Data Hillary rce(s) Supporting Document(s) hepatitis C virus rylan index < 0.0 <0.8 Hepatiti s C Virus Rylan Index [place] ([facility]) ID Date Data Source [id number] 04/26/2021 08:28:00 AM EDT [place] ([facility]) Name Value Range Interpretation Code Description Data Hillary rce(s) Supporting Document(s) fibrosis score 0.00-0.21 Above high normal Fibrosis Score [place] ([facility]) fibrosis stage F3-F4 . Fibrosis Stage [place] ([facility]) steatosis score 0.00-0.30 Above high normal Steatosis Sco re [place] ([facility]) steatosis grade . Steatosis Grade ATHE NA ([facility]) cordero grade . Cordero Grade [place] ([facility]) cordero score 0.25 Above high normal Cordero Score [place] ([facility]) weight 210 [lb_av] . Weight [place] ([facility]) alpha 2-macroglobulins,qn 281 mg/dL 110-276 Above high norm al Alpha 2-Macroglobulins,qn [place] ([facility]) height 72 [in_i] . Height [place] ([facility]) bilirubin, total 0.3 mg/dL 0.0-1.2 Bilirubin, Total AT [facility] ([facility]) haptoglobin 105 mg/dL 34-355 Haptoglobin [place] ([facility]) apolipoprotein A-1 91 mg/dL 101-178 Below low normal Apolipoprot ein a-1 [place] ([facility]) AST (SGOT) p5p 27 IU/L 0-40 AST (SGOT) P5P [place] ([facility]) GGT 86 IU/L 0-65 Above high normal Ggt [place] ([facility]) ALT (SGPT) p5p 19 IU/L 0-55 ALT (SGPT) P5P [place] ([facility]) glucose, serum 162 mg/dL 65-99 Above high normal Glucose, Serum [place] ([facility]) triglycerides 159 mg/dL 0-149 Above high normal Triglycerides A [facility] ([facility]) cholesterol total 126 mg/dL 100-199 Cholesterol Total [place] ([facility]) interpretations . Interpretations ATHE ([facility]) fibrosis scoring . Fibrosis Scoring AT [facility]) cordero scoring . Cordreo Scoring [place] ([facility]) limitations . Limitations [place] ([facility]) steatosis grading . Steatosis Grading [place] ([facility]) comment . Comment [place] ([facility]) ID Date Data Source [id number] 04/26/2021 08:28:00 AM EDT [place] ([facility]) Name Value Range Interpretation Code Description Data Hillary rce(s) Supporting Document(s) anti-mitochondrial antibody <20.0 0.0-20.0 Anti-haylee ochondrial Antibody [place] ([facility]) ID Date Data Source [id number] 04/26/2021 08:28:00 AM EDT [place] ([facility]) Name Value Range Interpretation Code Description Data Hillary rce(s) Supporting Document(s) ceruloplasmin 24.6 mg/dL 16.0-31.0 Ceruloplasmin [place] ( [facility]) ID Date Data Source [id number] 04/26/2021 08:28:00 AM EDT [place] ([facility]) Name Value Range Interpretation Code Description Data Hillary rce(s) Supporting Document(s) hepatitis A IgG total positive negative Abnormal ( applies to non-numeric results) Hepatitis a IgG Total [place] ([facility]) ID Date Data Source [id number] 04/26/2021 08:28:00 AM EDT [facility]) Name Value Range Interpretation Code Description Data Hillary rce(s) Supporting Document(s) liver-kidney microsomal rylan <20.1 0.0-20.0 Liver-ki dney Microsomal Rylan [place] ([facility]) ID Date Data Source [id number] 04/26/2021 08:28:00 AM EDT [facility]) Name Value Range Interpretation Code Description Data Hillary rce(s) Supporting Document(s) tissue transglutaminase IgA <2 0-3 Tissue T ransglutaminase IgA [place] ([facility]) ID Date Data Source [id number] 04/26/2021 08:28:00 AM EDT [facility]) Name Value Range Interpretation Code Description Data Hillary rce(s) Supporting Document(s) antinuclear antibodies direct negative negative Antinu clear Antibodies Direct [facility]) ID Date Data Source [id number] 04/26/2021 08:28:00 AM EDT [facility]) Name Value Range Interpretation Code Description Data Hillary rce(s) Supporting Document(s) alpha 1 antitrypsin 126 mg/dL 101-187 Alpha 1 Antitryp sin [place] ([facility]) ID Date Data Source [id number] 04/26/2021 08:28:00 AM EDT [place] ([facility]) Name Value Range Interpretation Code Description Data Hillary rce(s) Supporting Document(s) anti-smooth muscle antibody 10 units 0-19 Anti-smo oth Muscle Antibody [place] ([facility]) ID Date Data Source [id number] 04/26/2021 08:28:00 AM EDT [facility]) Name Value Range Interpretation Code Description Data Hillary rce(s) Supporting Document(s) total 25(oh) vitamin D 72.1 NG/mL 30.0-100.0 Total 25(Oh) Vitamin D [facility]) ID Date Data Source [id number] 04/26/2021 08:28:00 AM EDT [facility]) Name Value Range Interpretation Code Description Data Hillary rce(s) Supporting Document(s) gamma glutamyltranspeptidase 113 U/L 15-85 Above high n ormal Gamma Glutamyltranspeptidase [facility]) ID Date Data Source [id number] 04/26/2021 08:28:00 AM EDT [facility]) Name Value Range Interpretation Code Description Data Hillary rce(s) Supporting Document(s) prothrombin time 16.2 seconds 12.7-14.5 Above high normal Prothrombi n Time [place] ([facility]) INR Inr [place] ([facility]) partial thromboplastin time 33.7 seconds 25.9-37.0 Partial Thromboplastin Time [place] ([facility]) ID Date Data Source [id number] 04/24/2021 12:00:00 AM EDT [facility]) Name Value Range Interpretation Code Description Data Hillary rce(s) Supporting Document(s) Hemoglobin A1c/Hemoglobin.total in Blood 7.0 %_of_total_HGB <5.7 Above high normal Hemoglobin a1C [facility]) ID Date Data Source [id number] 04/24/2021 12:00:00 AM EDT [facility]) Name Value Range Interpretation Code Description Data Hillary rce(s) Supporting Document(s) Thyrotropin [Units/volume] in Serum or Plasma 0.79 mIU/L 0.40-4.50 Tsh [facility]) ID Date Data Source [id number] 04/24/2021 12:00:00 AM EDT [facility]) Name Value Range Interpretation Code Description Data Hillary rce(s) Supporting Document(s) Microalbumin [Mass/volume] in Urine 0.7 mg/dL see note: Albumin, Urine [facility]) Service comment Dex [place] ([facility]) ID Date Data Source [id number] 04/24/2021 12:00:00 AM EDT [facility]) Name Value Range Interpretation Code Description Data Hillary rce(s) Supporting Document(s) Urea nitrogen [Mass/volume] in Serum or Plasma 29 mg/dL 7-25 Above high normal Urea Nitrogen (BUN) [place] ([facility]) Glucose [Mass/volume] in Serum or Plasma 163 mg/dL 65-99 Above high normal Glucose [place] ([facility]) Creatinine [Mass/volume] in Serum or Plasma 1.10 mg/dL 0.70-1.18 Creatinine [place] ([facility]) Glomerular filtration rate/1.73 sq M.pre dicted among non-blacks [Volume Rate/Area] in Serum, Plasma or Blood by Creatinine-based formula (CKD-EPI) 64 mL/min/1.73m2 > or = 60 eGFR Non-afr. [place] ([facility]) Glomerular filtration rate/1.73 sq M.pre dicted among blacks [Volume Rate/Area] in Serum, Plasma or Blood by Creatinine-based formula (CKD-EPI) 75 mL/min/1.73m2 > or = 60 eGFR [place] ([facility]) Urea nitrogen/Creatinine [Mass Ratio] in Serum or Plasma 26 (yumi c) 6-22 Above high normal BUN/creatinine Ratio [place] ([facility] ter) Chloride [Moles/volume] in Serum or Plasma 105 mmol/L 98-110 Chloride [place] ([facility]) Sodium [Moles/volume] in Serum or Plasma 140 mmol/L 135-146 [facility]odium [facility] Potassium [Moles/volume] in Serum or Plasma 4.3 mmol/L 3.5-5.3 Potassium [place] ([facility]) Protein [Mass/volume] in Serum or Plasma 6.7 g/dL 6.1-8.1 Protein, Total [facility] Calcium [Mass/volume] in Serum or Plasma 9.0 mg/dL 8.6-10.3 Calcium [place] ([facility]) Carbon dioxide, total [Moles/volume] in Serum or Plasma 24 mmol/L 20-32 Carbon Dioxide [place] ([facility]) Albumin [Mass/volume] in Serum or Plasma 3.7 g/dL 3.6-5.1 Albumin [facility]) Globulin [Mass/volume] in Serum by calculation 3.0 g/dL_(calc) 1.9- 3.7 Globulin [facility]) Bilirubin.total [Mass/volume] in Serum or Plasma 0.7 mg/dL 0.2-1 .2 Bilirubin, Total [facility]) Albumin/Globulin [Mass Ratio] in Serum or Plasma 1.2 (calc) 1.0-2 .5 Albumin/globulin Ratio [place] ([facility]) Alkaline phosphatase [Enzymatic activity/volume] in Serum or Plasma 55 U/L 35-144 [facility]kaline [facility]atase [facility] Aspartate aminotransferase [Enzymatic activity/volume] in Serum or Plasma 22 U/L 10-35 Ast [place] ([facility]) Alanine aminotransferase [Enzymatic activity/volume] in Seru m or Plasma 15 U/L 9-46 Alt [place] ([facility]) ID Date Data Source [id number] 04/24/2021 12:00:00 AM EDT [place] ([facility]) Name Value Range Interpretation Code Description Data Hillary rce(s) Supporting Document(s) Cholesterol in HDL [Mass/volume] in Serum or Plasma 25 mg/dL > or = 40 Below low normal HDL Cholesterol [place] ([facility]) Cholesterol [Mass/volume] in Serum or Plasma 124 mg/dL <200 Cholesterol, Total [place] ([facility]) Triglyceride [Mass/volume] in Serum or Plasma 148 mg/dL <150 Triglycerides [place] ([facility]) Cholesterol.total/Cholesterol in HDL [Mass Ratio] in Serum o r Plasma 5.0 calc <5.0 Above high normal Chol/hdlc Ratio [place] ([facility]) Cholesterol in LDL [Mass/volume] in Serum or Plasma by calculation 76 mg/dL_(calc) <100 LDL-cholesterol [place] ([facility]) Lipoprotein.beta.subparticle [Moles/volume] in Serum or Plas ma 1171 nmol/L <1138 Above high normal LDL Particle Number [place] ([facility]) Cholesterol non HDL [Mass/volume] in Serum or Plasma 99 mg/dL_(calc ) <130 Non HDL Cholesterol [place] ([facility]) Lipoprotein.alpha.subparticle.large [Moles/volume] in Serum or Plasma 3402 nmol/L >6729 Below low normal HDL Large [place] ([facility]) Lipoprotein.beta.subparticle.small [Moles/volume] in Serum o r Plasma 347 nmol/L <142 Above high normal LDL Small [place] ([facility]) Lipoprotein.alpha 3 [Moles/volume] in Serum 223 nmol/L <215 Above high normal LDL Medium [place] ([facility]) Apolipoprotein B [Mass/volume] in Serum or Plasma 77 mg/dL Apolipoprotein B [place] ([facility]) Lipoprotein.beta.subparticle [Entitic length] in Serum or Pl asma 210.9 angstrom >222.9 Below low normal LDL Peak Size [place] ([facility]) Cholesterol in LDL real size pattern [Identifier] in Serum or Pl asma B A Abnormal (applies to non-numeric results) LDL Pattern [place] ([facility]) Lipoprotein a [Moles/volume] in Serum or Plasma 18 nmol/L <75 Lipoprotein (a) [place] ([facility]) ID Date Data Source [id number] 04/24/2021 12:00:00 AM EDT [facility]) Name Value Range Interpretation Code Description Data Hillary rce(s) Supporting Document(s) Hemoglobin A1c/Hemoglobin.total in Blood 7.0 %_of_total_HGB <5.7 Above high normal Hemoglobin a1C [place] ([facility]) ID Date Data Source [id number] 04/24/2021 12:00:00 AM EDT [facility]) Name Value Range Interpretation Code Description Data Hillary rce(s) Supporting Document(s) Thyrotropin [Units/volume] in Serum or Plasma 0.79 mIU/L 0.40-4.50 Tsh [place] ([facility]) ID Date Data Source [id number] 04/24/2021 12:00:00 AM EDT [facility]) Name Value Range Interpretation Code Description Data Hillary rce(s) Supporting Document(s) Microalbumin [Mass/volume] in Urine 0.7 mg/dL see note: Albumin, Urine [place] ([facility]) Service comment Dex [facility]) ID Date Data Source [id number] 04/24/2021 12:00:00 AM EDT [facility]) Name Value Range Interpretation Code Description Data Hillary rce(s) Supporting Document(s) Glucose [Mass/volume] in Serum or Plasma 163 mg/dL 65-99 Above high normal Glucose [place] ([facility]) Creatinine [Mass/volume] in Serum or Plasma 1.10 mg/dL 0.70-1.18 Creatinine [place] ([facility]) Urea nitrogen [Mass/volume] in Serum or Plasma 29 mg/dL 7-25 Above high normal Urea Nitrogen (BUN) [place] ([facility]) Glomerular filtration rate/1.73 sq M.pre dicted among blacks [Volume Rate/Area] in Serum, Plasma or Blood by Creatinine-based formula (CKD-EPI) 75 mL/min/1.73m2 > or = 60 eGFR [place] ([facility]) Glomerular filtration rate/1.73 sq M.pre dicted among non-blacks [Volume Rate/Area] in Serum, Plasma or Blood by Creatinine-based formula (CKD-EPI) 64 mL/min/1.73m2 > or = 60 eGFR Non-afr. [place] ([facility]) Urea nitrogen/Creatinine [Mass Ratio] in Serum or Plasma 26 (yumi c) 6-22 Above high normal BUN/creatinine Ratio [place] ([facility]) Sodium [Moles/volume] in Serum or Plasma 140 mmol/L 135-146 Sodium [place] ([facility]) Chloride [Moles/volume] in Serum or Plasma 105 mmol/L 98-110 Chloride [place] ([facility]) Potassium [Moles/volume] in Serum or Plasma 4.3 mmol/L 3.5-5.3 Potassium [place] ([facility]) Carbon dioxide, total [Moles/volume] in Serum or Plasma 24 mmol/L 20-32 Carbon Dioxide [place] ([facility]) Calcium [Mass/volume] in Serum or Plasma 9.0 mg/dL 8.6-10.3 Calcium [place] ([facility]) Albumin [Mass/volume] in Serum or Plasma 3.7 g/dL 3.6-5.1 Albumin [place] ([facility]) Protein [Mass/volume] in Serum or Plasma 6.7 g/dL 6.1-8.1 Protein, Total [facility] Globulin [Mass/volume] in Serum by calculation 3.0 g/dL_(calc) 1.9- 3.7 Globulin [place] ([facility]) Alkaline phosphatase [Enzymatic activity/volume] in Serum or Plasma 55 U/L 35-144 Alkaline Phosphatase [place] ([facility]) Aspartate aminotransferase [Enzymatic activity/volume] in Serum or Plasma 22 U/L 10-35 Ast [place] ([facility]) Bilirubin.total [Mass/volume] in Serum or Plasma 0.7 mg/dL 0.2-1 .2 Bilirubin, Total [place] ([facility]) Albumin/Globulin [Mass Ratio] in Serum or Plasma 1.2 (calc) 1.0-2 .5 Albumin/globulin Ratio [place] ([facility]) Alanine aminotransferase [Enzymatic activity/volume] in Seru m or Plasma 15 U/L 9-46 Alt [place] ([facility]) ID Date Data Source [id number] 04/24/2021 12:00:00 AM EDT [place] ([facility]) Name Value Range Interpretation Code Description Data Hillary rce(s) Supporting Document(s) Cholesterol in HDL [Mass/volume] in Serum or Plasma 25 mg/dL > or = 40 Below low normal HDL Cholesterol [place] ([facility]) Triglyceride [Mass/volume] in Serum or Plasma 148 mg/dL <150 Triglycerides [place] ([facility]) Cholesterol [Mass/volume] in Serum or Plasma 124 mg/dL <200 Cholesterol, Total [place] ([facility]) Cholesterol.total/Cholesterol in HDL [Mass Ratio] in Serum o r Plasma 5.0 calc <5.0 Above high normal Chol/hdlc Ratio [place] ([facility]) Cholesterol non HDL [Mass/volume] in Serum or Plasma 99 mg/dL_(calc ) <130 Non HDL Cholesterol [place] ([facility]) Cholesterol in LDL [Mass/volume] in Serum or Plasma by calculation 76 mg/dL_(calc) <100 LDL-cholesterol [place] ([facility]) Lipoprotein.beta.subparticle [Moles/volume] in Serum or Plas ma 1171 nmol/L <1138 Above high normal LDL Particle Number [place] ([facility]) Lipoprotein.alpha 3 [Moles/volume] in Serum 223 nmol/L <215 Above high normal LDL Medium [place] ([facility]) Lipoprotein.beta.subparticle.small [Moles/volume] in Serum o r Plasma 347 nmol/L <142 Above high normal LDL Small [place] ([facility]) Lipoprotein.beta.subparticle [Entitic length] in Serum or Pl asma 210.9 angstrom >222.9 Below low normal LDL Peak Size [place] ([facility]) Apolipoprotein B [Mass/volume] in Serum or Plasma 77 mg/dL Apolipoprotein B [place] ([facility]) Cholesterol in LDL real size pattern [Identifier] in Serum or Pl asma B A Abnormal (applies to non-numeric results) LDL Pattern [place] ([facility]) Lipoprotein.alpha.subparticle.large [Moles/volume] in Serum or Plasma 3402 nmol/L >6729 Below low normal HDL Large [place] ([facility]) Lipoprotein a [Moles/volume] in Serum or Plasma 18 nmol/L <75 Lipoprotein (a) [place] ([facility]) ID Date Data Source [id number] 04/24/2021 12:00:00 AM EDT [place] ([facility]) Name Value Range Interpretation Code Description Data Hillary rce(s) Supporting Document(s) Hemoglobin A1c/Hemoglobin.total in Blood 7.0 %_of_total_HGB <5.7 Above high normal Hemoglobin a1C [place] ([facility]) ID Date Data Source [id number] 04/24/2021 12:00:00 AM EDT [facility]) Name Value Range Interpretation Code Description Data Hillary rce(s) Supporting Document(s) Thyrotropin [Units/volume] in Serum or Plasma 0.79 mIU/L 0.40-4.50 Tsh [facility] ID Date Data Source [id number] 04/24/2021 12:00:00 AM EDT [place] ([facility]) Name Value Range Interpretation Code Description Data Hillary rce(s) Supporting Document(s) Service comment Dex [place] ([facility]) Microalbumin [Mass/volume] in Urine 0.7 mg/dL see note: Albumin, Urine [place] ([facility]) ID Date Data Source [id number] 04/24/2021 12:00:00 AM EDT [place] ([facility]) Name Value Range Interpretation Code Description Data Hillary rce(s) Supporting Document(s) Urea nitrogen [Mass/volume] in Serum or Plasma 29 mg/dL 7-25 Above high normal Urea Nitrogen (BUN) [place] ([facility]) Glucose [Mass/volume] in Serum or Plasma 163 mg/dL 65-99 Above high normal Glucose [place] ([facility]) Creatinine [Mass/volume] in Serum or Plasma 1.10 mg/dL 0.70-1.18 Creatinine [facility] Glomerular filtration rate/1.73 sq M.pre dicted among non-blacks [Volume Rate/Area] in Serum, Plasma or Blood by Creatinine-based formula (CKD-EPI) 64 mL/min/1.73m2 > or = 60 eGFR Non-afr. [place] ([facility]) Glomerular filtration rate/1.73 sq M.pre dicted among blacks [Volume Rate/Area] in Serum, Plasma or Blood by Creatinine-based formula (CKD-EPI) 75 mL/min/1.73m2 > or = 60 eGFR [place] ([facility]) Urea nitrogen/Creatinine [Mass Ratio] in Serum or Plasma 26 (yumi c) 6-22 Above high normal BUN/creatinine Ratio [place] ([facility]) Potassium [Moles/volume] in Serum or Plasma 4.3 mmol/L 3.5-5.3 Potassium [place] ([facility]) Sodium [Moles/volume] in Serum or Plasma 140 mmol/L 135-146 Sodium [facility] Chloride [Moles/volume] in Serum or Plasma 105 mmol/L 98-110 Chloride [facility] Carbon dioxide, total [Moles/volume] in Serum or Plasma 24 mmol/L 20-32 Carbon Dioxide [place] ([facility]) Calcium [Mass/volume] in Serum or Plasma 9.0 mg/dL 8.6-10.3 Calcium [place] ([facility]) Albumin [Mass/volume] in Serum or Plasma 3.7 g/dL 3.6-5.1 Albumin [place] [facility] System) Protein [Mass/volume] in Serum or Plasma 6.7 g/dL 6.1-8.1 Protein, Total [facility]) Bilirubin.total [Mass/volume] in Serum or Plasma 0.7 mg/dL 0.2-1 .2 Bilirubin, Total [place] ([facility]) Globulin [Mass/volume] in Serum by calculation 3.0 g/dL_(calc) 1.9- 3.7 Globulin [place] ([facility]) Alkaline phosphatase [Enzymatic activity/volume] in Serum or Plasma 55 U/L 35-144 Alkaline Phosphatase [place] ([facility]) Albumin/Globulin [Mass Ratio] in Serum or Plasma 1.2 (calc) 1.0-2 .5 Albumin/globulin Ratio [place] ([facility]) Alanine aminotransferase [Enzymatic activity/volume] in Seru m or Plasma 15 U/L 9-46 Alt [place] ([facility]) Aspartate aminotransferase [Enzymatic activity/volume] in Serum or Plasma 22 U/L 10-35 Ast [place] ([facility]) ID Date Data Source [id number] 04/24/2021 12:00:00 AM EDT [place] ([facility]) Name Value Range Interpretation Code Description Data Hillary rce(s) Supporting Document(s) Cholesterol in HDL [Mass/volume] in Serum or Plasma 25 mg/dL > or = 40 Below low normal HDL Cholesterol [place] ([facility]) Cholesterol [Mass/volume] in Serum or Plasma 124 mg/dL <200 Cholesterol, Total [facility]) Cholesterol in LDL [Mass/volume] in Serum or Plasma by calculation 76 mg/dL_(calc) <100 LDL-cholesterol [place] ([facility]) Triglyceride [Mass/volume] in Serum or Plasma 148 mg/dL <150 Triglycerides [place] ([facility]) Cholesterol.total/Cholesterol in HDL [Mass Ratio] in Serum o r Plasma 5.0 calc <5.0 Above high normal Chol/hdlc Ratio [place] ([facility]) Lipoprotein.beta.subparticle [Moles/volume] in Serum or Plas ma 1171 nmol/L <1138 Above high normal LDL Particle Number [place] ([facility]) Lipoprotein.beta.subparticle.small [Moles/volume] in Serum o r Plasma 347 nmol/L <142 Above high normal LDL Small [place] ([facility]) Cholesterol non HDL [Mass/volume] in Serum or Plasma 99 mg/dL_(calc ) <130 Non HDL Cholesterol [place] ([facility]) Lipoprotein.alpha 3 [Moles/volume] in Serum 223 nmol/L <215 Above high normal LDL Medium [place] ([facility]) Cholesterol in LDL real size pattern [Identifier] in Serum or Pl asma B A Abnormal (applies to non-numeric results) LDL Pattern [place] ([facility]) Lipoprotein.alpha.subparticle.large [Moles/volume] in Serum or Plasma 3402 nmol/L >6729 Below low normal HDL Large [place] ([facility]) Apolipoprotein B [Mass/volume] in Serum or Plasma 77 mg/dL Apolipoprotein B [place] ([facility]) Lipoprotein a [Moles/volume] in Serum or Plasma 18 nmol/L <75 Lipoprotein (a) [place] ([facility]) Lipoprotein.beta.subparticle [Entitic length] in Serum or Pl asma 210.9 angstrom >222.9 Below low normal LDL [facility] ID Date Data Source [id number] 04/24/2021 12:00:00 AM EDT [facility]) Name Value Range Interpretation Code Description Data Hillary rce(s) Supporting Document(s) Hemoglobin A1c/Hemoglobin.total in Blood 7.0 %_of_total_HGB <5.7 Above high normal Hemoglobin a1C [place] ([facility]) ID Date Data Source [id number] 04/24/2021 12:00:00 AM EDT [facility]) Name Value Range Interpretation Code Description Data Hillary rce(s) Supporting Document(s) Thyrotropin [Units/volume] in Serum or Plasma 0.79 mIU/L 0.40-4.50 Tsh [facility]) ID Date Data Source [id number] 04/24/2021 12:00:00 AM EDT [facility]) Name Value Range Interpretation Code Description Data Hillary rce(s) Supporting Document(s) Service comment Dex [place] ([facility]) Microalbumin [Mass/volume] in Urine 0.7 mg/dL see note: Albumin, Urine [facility]) ID Date Data Source [id number] 04/24/2021 12:00:00 AM EDT [facility]) Name Value Range Interpretation Code Description Data Hillary rce(s) Supporting Document(s) Glucose [Mass/volume] in Serum or Plasma 163 mg/dL 65-99 Above high normal Glucose [place] ([facility]) Urea nitrogen [Mass/volume] in Serum or Plasma 29 mg/dL 7-25 Above high normal Urea Nitrogen (BUN) [facility]) Creatinine [Mass/volume] in Serum or Plasma 1.10 mg/dL 0.70-1.18 Creatinine [place] ([facility]) Glomerular filtration rate/1.73 sq M.pre dicted among non-blacks [Volume Rate/Area] in Serum, Plasma or Blood by Creatinine-based formula (CKD-EPI) 64 mL/min/1.73m2 > or = 60 eGFR Non-afr. [place] ([facility]) Glomerular filtration rate/1.73 sq M.pre dicted among blacks [Volume Rate/Area] in Serum, Plasma or Blood by Creatinine-based formula (CKD-EPI) 75 mL/min/1.73m2 > or = 60 eGFR [place] ([facility]) Potassium [Moles/volume] in Serum or Plasma 4.3 mmol/L 3.5-5.3 Potassium [place] ([facility]) Sodium [Moles/volume] in Serum or Plasma 140 mmol/L 135-146 Sodium [place] ([facility]) Urea nitrogen/Creatinine [Mass Ratio] in Serum or Plasma 26 (yumi c) 6-22 Above high normal BUN/creatinine Ratio [place] ([facility]) Chloride [Moles/volume] in Serum or Plasma 105 mmol/L 98-110 Chloride [place] ([facility]) Calcium [Mass/volume] in Serum or Plasma 9.0 mg/dL 8.6-10.3 Calcium [place] ([facility]) Protein [Mass/volume] in Serum or Plasma 6.7 g/dL 6.1-8.1 Protein, Total [place] ([facility]) Carbon dioxide, total [Moles/volume] in Serum or Plasma 24 mmol/L 20-32 Carbon Dioxide [place] ([facility]) Globulin [Mass/volume] in Serum by calculation 3.0 g/dL_(calc) 1.9- 3.7 Globulin [place] ([facility]) Albumin/Globulin [Mass Ratio] in Serum or Plasma 1.2 (calc) 1.0-2 .5 Albumin/globulin Ratio [place] ([facility]) Bilirubin.total [Mass/volume] in Serum or Plasma 0.7 mg/dL 0.2-1 .2 Bilirubin, Total [place] ([facility]) Albumin [Mass/volume] in Serum or Plasma 3.7 g/dL 3.6-5.1 Albumin [place] ([facility]) Aspartate aminotransferase [Enzymatic activity/volume] in Serum or Plasma 22 U/L 10-35 Ast [place] ([facility]) Alkaline phosphatase [Enzymatic activity/volume] in Serum or Plasma 55 U/L 35-144 Alkaline Phosphatase [place] ([facility]) Alanine aminotransferase [Enzymatic activity/volume] in Seru m or Plasma 15 U/L 9-46 Alt [place] ([facility]) ID Date Data Source [id number] 04/24/2021 12:00:00 AM EDT [place] ([facility]) Name Value Range Interpretation Code Description Data Hillary rce(s) Supporting Document(s) Cholesterol [Mass/volume] in Serum or Plasma 124 mg/dL <200 Cholesterol, Total [place] ([facility]) Triglyceride [Mass/volume] in Serum or Plasma 148 mg/dL <150 Triglycerides [place] ([facility]) Cholesterol in HDL [Mass/volume] in Serum or Plasma 25 mg/dL > or = 40 Below low normal HDL Cholesterol [place] ([facility]) Cholesterol non HDL [Mass/volume] in Serum or Plasma 99 mg/dL_(calc ) <130 Non HDL Cholesterol [place] ([facility]) Cholesterol in LDL [Mass/volume] in Serum or Plasma by calculation 76 mg/dL_(calc) <100 LDL-cholesterol [place] ([facility]) Cholesterol.total/Cholesterol in HDL [Mass Ratio] in Serum o r Plasma 5.0 calc <5.0 Above high normal Chol/hdlc Ratio [place] ([facility]) Lipoprotein.beta.subparticle.small [Moles/volume] in Serum o r Plasma 347 nmol/L <142 Above high normal LDL Small [place] ([facility]) Lipoprotein.beta.subparticle [Moles/volume] in Serum or Plas ma 1171 nmol/L <1138 Above high normal LDL Particle Number [place] ([facility]) Lipoprotein.beta.subparticle [Entitic length] in Serum or Pl asma 210.9 angstrom >222.9 Below low normal LDL Peak Size [place] ([facility]) Lipoprotein.alpha.subparticle.large [Moles/volume] in Serum or Plasma 3402 nmol/L >6729 Below low normal HDL Large [place] ([facility]) Lipoprotein.alpha 3 [Moles/volume] in Serum 223 nmol/L <215 Above high normal LDL Medium [place] ([facility]) Cholesterol in LDL real size pattern [Identifier] in Serum or Pl asma B A Abnormal (applies to non-numeric results) LDL Pattern [place] ([facility]) Lipoprotein a [Moles/volume] in Serum or Plasma 18 nmol/L <75 Lipoprotein (a) [place] ([facility]) Apolipoprotein B [Mass/volume] in Serum or Plasma 77 mg/dL Apolipoprotein B [place] ([facility]) ID Date Data Source [id number] 04/24/2021 12:00:00 AM EDT [place] ([facility]) Name Value Range Interpretation Code Description Data Hillary rce(s) Supporting Document(s) Hemoglobin A1c/Hemoglobin.total in Blood 7.0 %_of_total_HGB <5.7 Above high normal Hemoglobin a1C [place] ([facility]) ID Date Data Source [id number] 04/23/2021 09:15:00 AM EDT [facility] Name Value Range Interpretation Code Description Data Hillary rce(s) Supporting Document(s) Follow Up [facility] IPMUPf0eMtUUNnAxLCPcFhcDHOduXZteQZXlZ4K0TSnrLu5HDTunkhVbXUVdNu1+WCIqHC6dcu1aMBQx gMy [file] Real Estate Leasing Agent/VodEL5cDUcxh8gksayUf3x2On7csGbvGmq1aQ1usu/uq6mmFSVDzP4JzjGJvS74nr//B4QKdmxCfI [file] [id number]/JJTHRd7OYUpzUBNp0ac1T8r6g9wdvz58sQ8XSA6IlnOzQFjp8d1/João gJpnN95QAme8EDI10l0tNm6zt9k9WXqUcJLpMrcANEJuTDuH4c1vvCp4CY5ALza8nFST1aXdFEo7DkKI 5Cs8PKBK0ip2c0giLsCFnNEwPIlPHyC5fM3n+3tArd mZFLlG0zKvvnHRwTyaqStDL20XND4BfRkrmu73+13HiYz8jpk9h/d3q+MvdSeyNcPs0FA76uR/kRXxqp yg+Y7Pe0ZLnIwMoLcEpCemL7m6mmJLoAMihLWJhCxQN50jnmcA2ZlalOb4kxU9S6CCV89nHNLJdP/t+d yOtfk80hUjsxhiEbtyi+OCWPnfnC4muig/8waxtsa1 [file] SEMICONDUCTOR PROCESSING TECHNICIAN+O7M2BxkiN5bINrNA0QGyfMjK7eE88pCbdseQoTqr+5zJ2fLkn4XaD8vlT20jDvdGWLDlxYls1gAjc [file] smtv8hSEdzvW34KPI78l1X6nofto43byC/xU7l46QVxjJ752lUZRSakKjAG6hEO8qN0i49EdM4654/Shape Brick Molder [file] DoFiCUHVv1hZOys4u4COslpdc6/7h2Ys88LAMLq3j5SmYouG63Rr8ZWmsc6xqhSjr+director sales and trade marketing+obyW6Ys6y7 [file] wJwDdtTnCNi2E0g7g+mental health program manager/+zuB/k7Bhrkr30Jrj++e [file] nld7WwXJMp9qQ+KdYMn3Lt2cHqbv7Pi/XB3iyhiDtGBOtJaIG/restaurant operations manager+wzlO+ui2qZ88VxcYXm3e+38bHf JVzkl1VPUPQVhutP/dHc4ehZ5MjsHP2snBmEOCiUn9 B3fOu45g4tR/fjvDaYkFSM++ioLs7yaQZNsRgO1avxF+FvXDLPtJt3bbDaPzPC6344MKvmNESb1C/SOS ShMm5tsGWSWWmU4BkDKiRKrCDWN/QqJ75BkMo8+beYJnaAVd6rv9IHokmIT0UcC4GxJTII5chvoAgz/A TjJ2R3KiOTkvMw0f8vZdwcA68wt8Lhak1TfdKME+nS yO/ENe4U/VoP0QgiQHrAZGwV2TesBC/6/9D5CgXnyZ2FmYRxs+uS7OdKyFQvwmqBOjhriTrM8d3xxY5H MiEePsEUiHKozd6Ah9lw+PL5UZjrb/I20xxbAaNFovPg1ZhEen1cAnX7gW4+bRKBWHsW+OjVc4ASn4WZ TlCx9LE6LjYvLmfq/ppVs+Kelsey/g4PCUm3lmPedOiu3 [file] wWIXdguLbeoRdtyFbe0wuzr01UL1tz2AjicsxWaeHlzO26FA5DX5nDLJM0ZZru+ZACK+IR0icOWzD3b4T e5KymoawfQtZnMaNa6XltdudZsZx1dCbKCxylWGLhoRH1jus3b5Nh8FDYd7HUAOkRCIcrII2SzTzSzLJ Gq0qZBj15H29t2abEavUAzLd1l2U7rPq7g41o6GbqP UPBNhv92zPMFU33/Zwzzvmzkv1XHcZRJRVrc3Vbug2hrwvDBPNRhg6KbpRRKhZtkCPHrw+FgkWDgwcaT 6udATi41hSztkykVOgkD4BZULHDTHJdTkr6bZmrUi5VT3gBx/UmKGdkr4LwUofIKVHRHGVcG0qKVPyU6 QAIwo0Ky+RRoYUF5p66/5Ehjl0Z0xJ9WufJHXDokTU WuR83WRnQqnepvZnKlK7c/vbxCQ6JEBjjz8h1yGaWf56/gwwH98R094anB1mdogS+qTKuwM327hKdiSg VKEsHiGoaeLpswjuxVuHmbkXKms6y/JONlXVyanFPxl0719Dzb/irkj7FkTr1Ge6U3TW5KA8GMGw/fVt XLzDoFH8cmfOgz6IGNRto9rXTklbbTZN3AOVSizclo hA04c61YJ47k9CShOuW+B1eqfs22dAHTRaMoK9ap7YW/t6c2AzkFvz2hwrpwSenvWMd+i8xemufLSJx2 HZsydQ2v1uFDY+jh4yK5hzM2YmIGHVyDakR+1MyYD7DqL5e+22GAXiSUb28o+cZf4doGHIBW4PP8pOs1 yRr1K/tkbSqvaCAig1JF6l3lsfRW9K1DJ3xC6+oMq4 fourth officer//Ti7ZjyaNgjZVA5U56Y6LRXh32qigcbqm57i23acXTiO2Mqxk0D3Zjig2Omo1knWqyLh5p5Jh6Rc [file] DEZKUPjrSTssqoKheUDvVG7CJtAsKG0bpm7RTbJ4VEX1vMQfHd8WZUc6UFB9YFriZMFAKe== ID Date Data Source [id number] 03/11/2021 02:28:37 PM EDT [facility] Name Value Range Interpretation Code Description Data Hillary rce(s) Supporting Document(s) &PDF [facility] MUBYRg5rSgIUQnSj69/WFEhbXRMey5AmNVopLOn0VGnaJYHzS3OfbNucHBbZTHHFKWQHSJfOXKRcQCVa yKE [file] AgICAgICAgICAgICAgICAgICAgICAgICAgICAgICAgICAgICAgICAgICAgICAgICAgICAgICAgICAgIC AgICAgICAgICAgICAgDQogICAgICAgICAgICAgICAg ICAgICAgICAgICAgICAgICAgICAgICAgICAgICAgICAgICAgICAgICAgICAgICAgICAgICAgICAgICAg ICAgICAgICAgICAgICAgICAgICAgICAgDQogICAgICAgICAgICAgICAgICAgICAgICAgICAgICAgICAg ICAgICAgICAgICAgICAgICAgICAgICAgICAgICAgIC AgICAgICAgICAgICAgICAgICAgICAgICAgICAgICAgICAgDQogICAgICAgICAgICAgICAgICAgICAgIC AgICAgICAgICAgICAgICAgICAgICAgICAgICAgICAgICAgICAgICAgICAgICAgICAgICAgICAgICAgIC AgICAgICAgICAgICAgICAgDQogICAgICAgICAgICAg ICAgICAgICAgICAgICAgICAgICAgICAgICAgICAgICAgICAgICAgICAgICAgICAgICAgICAgICAgICAg ICAgICAgICAgICAgICAgICAgICAgICAgICAgDQogICAgICAgICAgICAgICAgICAgICAgICAgICAgICAg ICAgICAgICAgICAgICAgICAgICAgICAgICAgICAgIC AgICAgICAgICAgICAgICAgICAgICAgICAgICAgICAgICAgICAgDQogICAgICAgICAgICAgICAgICAgIC AgICAgICAgICAgICAgICAgICAgICAgICAgICAgICAgICAgICAgICAgICAgICAgICAgICAgICAgICAgIC AgICAgICAgICAgICAgICAgICAgDQogICAgICAgICAg ICAgICAgICAgICAgICAgICAgICAgICAgICAgICAgICAgICAgICAgICAgICAgICAgICAgICAgICAgICAg ICAgICAgICAgICAgICAgICAgICAgICAgICAgICAgDQogICAgICAgICAgICAgICAgICAgICAgICAgICAg ICAgICAgICAgICAgICAgICAgICAgICAgICAgICAgIC AgICAgICAgICAgICAgICAgICAgICAgICAgICAgICAgICAgICAgICAgDQogICAgICAgICAgICAgICAgIC AgICAgICAgICAgICAgICAgICAgICAgICAgICAgICAgICAgICAgICAgICAgICAgICAgICAgICAgICAgIC BuOQHxUSNlWEJsPZZnMWEhMUYbUEVlIJx6L0gjQGYi ZVTrKT4sBBq1Am9+ZMoGGlUxTOH5ooArfY7CEE6dz9ZcDKpiHVUjl6IgUYm2EN4EFQOvNKnaBY0JFJwx db7HZREyDPOrwVWVt7jqOfLwYKW9WVAgSextML9SCECqV8kyopLuBYWpXPBATFsrFKYEYQxgEQVCKHYf GKGzKpRiDpEqDKOzHZ5CYSPkJ809fgHyHK5ZNu3GMq MzCI0fag0IYfXrCJBiFuoJCva8SWbzWG9SmUHctROaNzPzNVNIZbPvU1key9ItJxyuJXAFJJpqNO0Hx5 VudCAxDQo+Ye9AHR3kg5DoTZfxIzOmPY3jos9FNOtJKqYxW9NpiGboATwdcKbqupHwGE2UJAHpXERbdK FfMHkiOUQKOB6DDFkcGNR8HZhqtaTlbUKeXZcdGK4X YXJlbnQgMjYgMCBSDQo+Tg3ORX1ez5EgBNaqXUOqBO1oue9GITvPJgWmB7R0wVUcL9C0QIwdIu4GWXNf SRCeAcUyDDVQPPvyDK7TWG7qxwE5YA8NsVIpURYxYFJszCJzKTi0E65wtTVuTWyeTU5FSLV+Demar+Pg0K JZWbTGGtOPUlPyJsDUQPSjVdV9IvH1ILb1XzX4VxHX 47hYypqkBhPAwqXD5MEB8tACZhIBFYJP1ApRHmcG9upkGoPwMgQJRELmZcZ05acOVhSGIoKHF9COVhYw 1XGVJvN9UqnqFefFqosuNiDXWkUNPGCN0DYUcpkuIcfMXxpDdqQC23tKouNM9HZy6GJaBtOV8svx7HwQ OePg5GTUDpRP0WBMBtKSAfQQGdXQV2MSDhMpTwLYha JOGzHUQeUCN5ZWLvKRFkFG1TSpDoQLWmFVI5NBYqJFJiVJCjap9ILVJoRZW7WXA2EkLxBSLhTJFuLDuj QKTzSHVeNSftATIcEIAcZI4NMrLrGPAiHIEbOUncNAErYIRktu8TLUMkHYHfToO0RrVsOSKwVJYmODew UWJgGEY6EOQ8WYCgGDGuUQ9QUpWcRFAoJOWvKrPeFT WbVOJspn7IXFSqJINtZfwlVJLfQXRuQJIrAUdqKNSlUVX7DEO8UEPfBNZtWV6YQyDdAEKaRCskImbwTG AqOYVdvw2TNPRhPRMdPVY2VFWeXEQzUCWbIZvhHLPdQNH0NGJ0YMZcMICfKW8GCqNySMZuWGEgJJKoEF AvZCGmql4KTFBvMIPlFVHlRsMoLYOzVCOoFAykJLBs AFXyDgE5TKHaKVXtCK0LIwEaPCMhDWRiFKAxZARcZNNqcm8MYLYjIIPhCpR2LBRkFUHqCTUlJOorEZHv MVCrROGlQLVoGIQhBT8NYgEdSKYjLFA1CQYxGNQqJFRymx0QTGPdMCKkLiN6ZHAtMCJvICFjIUhbMAMw DFP7MpOiFGUuZKLmOP9TTqBnQIEwEzt5KWWjQDGgZP Xvia8BGLUhVHA5TgU0APKsVDHjIWMkUNxgFCMwFXRpAXGsFHZaEBXrKZ3AGgPfQOBeMGWgQCNyQVEtJE Wkfp8TMDIlWJM3LOI2AbQcVDPkGXTrDXqxTSFjZSK7CKj3AXBgTLBiEA3SFyHqDLauFQZMRdf2UKamB2 h6QDAvZP4ZF0Imy9RzNeeuVZDUFTujLX9hctFmIQOm Qd2MZ0vIUhvoQVUbOKAwKXFvPYBzAAz3DqE8DBHyNVA2RyWzOZAeSy4yXMRvNmP7ETS3IaZvMUAmUBik NYO2XWShLzJgMKGuI5NbBpKjDQ5YXv5BMzR5VVR4mBWpEe2EFZX2AaISJaWrNP3DFWf= ID Date Data Source [id number] 03/11/2021 09:35:57 AM EDT [facility] Name Value Range Interpretation Code Description Data Hillary rce(s) Supporting Document(s) EKG [facility] LHJFSk8zTlHDGkIpp5JjTbAkBUXlYE6drdf7O9N5pGGgZ7GumONfk4muV4TcM2JuWYPsBCMRYR8CpPYq jb2 [file] Acoustics Teacher+IHnrHtMikUIXGUFHdgzSpZig7tsOVzN3o96X1NJMQhCPRu9rqChiUYTMNB7NIgGJL7lNp2EIezoS VohGgRkbwCPsNTcSLST6N+zndC6LdjWpUKCKCUv7ORVuNfHCDlRJfGwq7KQJoWPSc99B1OGbJNnCh/Ge wws9okISq19xypbGYv4lLRQYKLg9XedpEdBKDNi+g6 0mP6iN7ZnvHHS6GoQWzSWFsAGs3WTXWuxHbl6R1hN8JlPmSdOD1QGESTb1LNLDr0d5J5X5tK2lmxLkeN hEqbs0PDsSDUIPszBfWUIvePrXyOoTUVMDHEVrTuBkzPZ38BtD3XIIPWGSnTCymMRKGbR1Yc55RayEHi k8SZSkTS1DVL1KxzqZ4mjDSVdpuk8NBJj6WHFIZ4SG xUqlYvnDUAfAv1ZGLX8TN+BGNxJUYOzZL3LZYIwrCTpNbZJkVHkS3QNNEtPXewHCEFri3okM2jqnZxUS vTQEhDKzBOcLK8UuFJCBKFj2zYmVQziU9SgTXzS2Who2kUYfGXo0FHXDbFjrNAr7dCshWhN4k2NgvgNl pu6EdzCcTFPxAjSF59LbgNpmo4UIytd3Of2XRnYvaI d69blNNCYGTnTE4LU164HwubxNDn4cCidWlkUsTAdJMrBrz4MysRmnUPpM2Q1X2gu3CS/WIL1bg/Tay [file] CQSeIflVQp8Ms4WlitI4dkQpKrM3ZVw6BcPzPB0A ID Date Data Source [id number] 02/19/2021 02:40:00 AM EDT [facility] FASTING: UNKNOWNReceived: 02/15/2021 at 03:34:00 QPT: [facility], [address], [address] [place], [address], Pierre Connell MD Received: 02/15/2021 at 03:34:00 QPT : [facility], [address], [address] [place], [address], Pierre Connell MD Received: 02/15/2021 at 03:34:00 AMD : [facility], [address], [place], [address], Darwin Mays M.D.,PhD Received: 02/15/2021 at 03:34:00 QPT : [facility], [address], [address] [place] [address], [phone], Pierre Connell MD Name Value Range Interpretation Code Description Data Hillary rce(s) Supporting Document(s) Glucose [Mass/volume] in Serum or Plasma 172 mg/dL 65-99 Above high normal [facility] Fasting reference intervalFor someone without known diabetes, a glucosevalue >125 mg/dL indicates that they may havediabetes and this should be confirmed with afollow-up test. Urea nitrogen [Mass/volume] in Serum or Plasma 23 mg/dL 7 -25 Normal (applies to non-numeric results) [facility] Creatinine [Mass/volume] in Serum or Plasma 1.08 mg/dL 0.70 -1.18 Normal (applies to non-numeric results) [facility] For patients >49 years of age, the refer ence limitfor Creatinine is approximately 13% higher for peopleidentified as -[place]. eGFR NON-AFR. ERITREAN 66 mL/min/1.73m2 > OR = 60 Normal ( applies to non-numeric results) [facility] eGFR 76 mL/min/1.73m2 > OR = 60 Normal (a pplies to non-numeric results) [facility] Urea nitrogen/Creatinine [Mass Ratio] in Serum or Plasma NOT APPLICABLE (calc) 6-22 [facility] Sodium [Moles/volume] in Serum or Plasma 140 mmol/L 135-146 Normal (applies to non-numeric results) [facility] Potassium [Moles/volume] in Serum or Plasma 4.8 mmol/L 3.5- 5.3 Normal (applies to non-numeric results) [facility] Chloride [Moles/volume] in Serum or Plasma 106 mmol/L 98-11 0 Normal (applies to non-numeric results) [facility] Carbon dioxide, total [Moles/volume] in Serum or Plasma 22 mmol/ L 20-32 Normal (applies to non-numeric results) [facility] Calcium [Mass/volume] in Serum or Plasma 9.1 mg/dL 8.6-10. 3 Normal (applies to non-numeric results) [facility] ID Date Data Source [id number] 02/19/2021 02:40:00 AM EDT [facility] FASTING: UNKNOWNReceived: 02/15/2021 at 03:34:00 QPT: [facility], [address], [address] [place] [address], [phone], Pierre Connell MD Received: 02/15/2021 at 03:34:00 QPT : [facility], [address], [address] [place] [address], [phone], Pierre Connell MD Received: 02/15/2021 at 03:34:00 AMD : [facility], [address], [place], [phone], Darwin Mays M.D.,PhD Received: 02/15/2021 at 03:34:00 QPT : [facility], [address], [address] [place] [address], [phone], Pierre Connell MD Name Value Range Interpretation Code Description Data Hillary rce(s) Supporting Document(s) Leukocytes [#/volume] in Blood by Automated count 5.1 Thousand/u L 3.8-10.8 Normal (applies to non-numeric results) [facility] Erythrocytes [#/volume] in Blood by Automated count 4.12 Million /uL 4.20-5.80 Below low normal [facility] Hemoglobin [Mass/volume] in Blood 12.4 g/dL 13.2-17.1 Below low nor mal [facility] Hematocrit [Volume Fraction] of Blood by Automated count 38.7 % 38.5-50.0 Normal (applies to non-numeric results) [facility] Erythrocyte mean corpuscular volume [Entitic volume] by Auto mated count 93.9 fL 80.0-100.0 Normal (applies to non-numeric results) [facility] Erythrocyte mean corpuscular hemoglobin [Entitic mass] by Automated count 30.1 pg 27.0-33.0 Normal (applies to non-numeric results) [facility] Erythrocyte mean corpuscular hemoglobin concentration [Mass/volume] by Automated count 32.0 g/dL 32.0-36.0 Normal (applies to non-numeric results) [facility] Erythrocyte distribution width [Ratio] by Automated count 13.6 % 11.0-15.0 Normal (applies to non-numeric results) [facility] Platelets [#/volume] in Blood by Automated count 84 Thousand/uL 140-400 Below low normal [facility] Platelet mean volume [Entitic volume] in Blood by Bull 11. 2 fL 7.5-12.5 Normal (applies to non-numeric results) [facility] Neutrophils [#/volume] in Blood by Automated count 3794 cells/uL 0191-5315 Normal (applies to non-numeric results) [facility] Lymphocytes [#/volume] in Blood by Automated count 428 cells/uL 850-3900 Below low normal [facility] Monocytes [#/volume] in Blood by Automated count 428 cells/uL 200-950 Normal (applies to non-numeric results) [facility] Eosinophils [#/volume] in Blood by Automated count 418 cells/uL 15-500 Normal (applies to non-numeric results) [facility] Basophils [#/volume] in Blood by Automated count 31 cells/uL 0-200 Normal (applies to non-numeric results) [facility] Neutrophils/100 leukocytes in Blood by Automated count 74.4 % 38-80 Normal (applies to non-numeric results) [facility] Lymphocytes/100 leukocytes in Blood by Automated count 8.4 % 15-49 Below low normal [facility] Monocytes/100 leukocytes in Blood by Automated count 8.4 % 0-13 Normal (applies to non-numeric results) [facility] Eosinophils/100 leukocytes in Blood by Automated count 8.2 % 0-8 Above high normal [facility] Basophils/100 leukocytes in Blood by Automated count 0.6 % 0-2 Normal (applies to non-numeric results) [facility] Service comment Review of peripheral smear confirms automated results . [facility] ID Date Data Source [id number] 02/19/2021 02:40:00 AM EDT [facility] tics FASTING: UNKNOWNReceived: 02/15/2021 at 03:34:00 QPT: [facility], [address], [address] [place], [phone], Pierre Connell MD Received: 02/15/2021 at 03:34:00 QPT : [facility], [address], [address] [place], [phone], Pierre Connell MD Received: 02/15/2021 at 03:34:00 AMD : [facility], [address], [place], [phone], Darwin Mays M.D.,PhD Received: 02/15/2021 at 03:34:00 QPT : [facility], [address], [address] [place], [phone], Pierre Connell MD Name Value Range Interpretation Code Description Data Hillary rce(s) Supporting Document(s) Natriuretic peptide.B prohormone N-Terminal [Mass/volu me] in Serum or Plasma 278 pg/mL Above high normal [facility] For Heart Failure (HF) diagnosis, refere nce ranges inpatients with dyspnea are based on Devon SINGH, Et al.Am [facility]. 2018;71:9710-4391.18-49 years:<= 300 pg/mL Normal, HF unlikely>= 450 pg/mL High probability of HF50-75 years:<= 300 pg/mL Normal, HF unlikely>= 900 pg/mL High probability of HF>75 years:<= 300 pg/mL Normal, HF unlikely>= 1800 pg/mL High probability of HFFor patients with coronary heart disease, the optimalrisk category cut points for incident HF or CVD (<253 pg/mL men, <372 pg/mL women) are based onDelphine T, et al. J Am Tawanda Cardiol. 2007:50:205-14.For patients with existing HF, the optimal riskcategory cut point for HF progression (<300 pg/mL) isbased on Elly RODRÍGUEZ, et al. Clin Biochem. 2010;43:1405-10.For additional information, please refer tohttp://education.OpSource/faq/CQU499(This link is being provided for informational/educational purposes only.) ID Date Data Source [id number] 02/19/2021 02:40:00 AM EDT [facility] tics FASTING: UNKNOWNReceived: 02/15/2021 at 03:34:00 QPT: [facility], [address], [address] [place] [address], [phone], Pierre Connell MD Received: 02/15/2021 at 03:34:00 QPT : [facility], [address], [address] [place] [address], [phone], Pierre Connell MD Received: 02/15/2021 at 03:34:00 AMD : [facility], [address], [place], [phone], Darwin Mays M.D.,PhD Received: 02/15/2021 at 03:34:00 QPT : [facility], [address], [address] [place] [address], [phone], Pierre Connell MD Name Value Range Interpretation Code Description Data Hillary rce(s) Supporting Document(s) Digoxin [Mass/volume] in Serum or Plasma 0.7 mcg/L 0.8-2.0 Below low normal [facility] Anti-Digoxin (Digibind(R)) in serum/ plasma ofpatients under toxicity therapy may interferewith the digoxin immunoassay. ID Date Data Source [id number] 01/24/2021 08:14:00 AM EDT [place] ([facility]) Name Value Range Interpretation Code Description Data Hillary rce(s) Supporting Document(s) Hemoglobin A1c/Hemoglobin.total in Blood 6.5 %_of_total_HGB <5.7 Above high normal Hemoglobin a1C [place] ([facility]) ID Date Data Source [id number] 01/24/2021 08:14:00 AM EDT [place] ([facility]) Name Value Range Interpretation Code Description Data Hillary rce(s) Supporting Document(s) Urea nitrogen [Mass/volume] in Serum or Plasma 25 mg/dL 7-25 Urea Nitrogen (BUN) [place] ([facility]) Glucose [Mass/volume] in Serum or Plasma 151 mg/dL 65-99 Above high normal Glucose [place] ([facility]) Creatinine [Mass/volume] in Serum or Plasma 1.06 mg/dL 0.70-1.18 Creatinine [place] ([facility]) Glomerular filtration rate/1.73 sq M.pre dicted among blacks [Volume Rate/Area] in Serum, Plasma or Blood by Creatinine-based formula (CKD-EPI) 78 mL/min/1.73m2 > or = 60 eGFR [place] ([facility]) Glomerular filtration rate/1.73 sq M.pre dicted among non-blacks [Volume Rate/Area] in Serum, Plasma or Blood by Creatinine-based formula (CKD-EPI) 67 mL/min/1.73m2 > or = 60 eGFR Non-afr. [place] ([facility]) Sodium [Moles/volume] in Serum or Plasma 140 mmol/L 135-146 Sodium [place] ([facility]) Urea nitrogen/Creatinine [Mass Ratio] in Serum or Plasma not applic able 6-22 BUN/creatinine Ratio [place] ([facility]) Calcium [Mass/volume] in Serum or Plasma 9.1 mg/dL 8.6-10.3 Calcium [place] ([facility]) Potassium [Moles/volume] in Serum or Plasma 4.4 mmol/L 3.5-5.3 Potassium [place] ([facility]) Chloride [Moles/volume] in Serum or Plasma 105 mmol/L 98-110 Chloride [place] ([facility]) Carbon dioxide, total [Moles/volume] in Serum or Plasma 29 mmol/L 20-32 [facility] Dioxide [facility] Bilirubin.total [Mass/volume] in Serum or Plasma 0.5 mg/dL 0.2-1 .2 Bilirubin, Total [place] ([facility]) Protein [Mass/volume] in Serum or Plasma 6.7 g/dL 6.1-8.1 Protein, Total [place] ([facility]) Globulin [Mass/volume] in Serum by calculation 3.0 g/dL_(calc) 1.9- 3.7 Globulin [place] ([facility]) Albumin/Globulin [Mass Ratio] in Serum or Plasma 1.2 (calc) 1.0-2 .5 Albumin/globulin Ratio [place] ([facility]) Albumin [Mass/volume] in Serum or Plasma 3.7 g/dL 3.6-5.1 Albumin [place] ([facility]) Alkaline phosphatase [Enzymatic activity/volume] in Serum or Plasma 70 U/L 35-144 Alkaline Phosphatase [place] ([facility]) Aspartate aminotransferase [Enzymatic activity/volume] in Serum or Plasma 21 U/L 10-35 Ast [place] ([facility]) Alanine aminotransferase [Enzymatic activity/volume] in Seru m or Plasma 14 U/L 9-46 Alt [place] ([facility]) ID Date Data Source [id number] 01/24/2021 08:14:00 AM EDT [place] ([facility]) Name Value Range Interpretation Code Description Data Hillary rce(s) Supporting Document(s) Triiodothyronine resin uptake (T3RU) in Serum or Plasma 31 % 22 -35 T3 Uptake [place] ([facility]) Thyrotropin [Units/volume] in Serum or Plasma 1.18 mIU/L 0.40-4.50 Tsh [place] ([facility]) Thyroxine (T4) free index in Serum or Plasma by calculation 1.4-3.8 Free T4 Index (T7) [place] ([facility]) Thyroxine (T4) [Mass/volume] in Serum or Plasma 5.2 mcg/dL 4.9-10 .5 T4 (Thyroxine), [facility] ID Date Data Source [id number] 01/24/2021 08:14:00 AM EDT [place] ([facility]) Name Value Range Interpretation Code Description Data Hillary rce(s) Supporting Document(s) Triglyceride [Mass/volume] in Serum or Plasma 160 mg/dL <150 Above high normal Triglycerides [place] ([facility]) Cholesterol [Mass/volume] in Serum or Plasma 119 mg/dL <200 Cholesterol, Total [place] ([facility]) Cholesterol in HDL [Mass/volume] in Serum or Plasma 24 mg/dL > or = 40 Below low normal HDL Cholesterol [place] ([facility]) Cholesterol in LDL [Mass/volume] in Serum or Plasma by calculation 71 mg/dL_(calc) LDL-cholesterol [place] ([facility]) Cholesterol non HDL [Mass/volume] in Serum or Plasma 95 mg/dL_(calc ) <130 Non HDL Cholesterol [place] ([facility]) Cholesterol.total/Cholesterol in HDL [Mass Ratio] in Serum o r Plasma 5.0 (calc) <5.0 Above high normal Chol/hdlc Ratio [place] ([facility]) ID Date Data Source [id number] 01/24/2021 08:14:00 AM EDT [place] ([facility]) Name Value Range Interpretation Code Description Data Hillary rce(s) Supporting Document(s) Hemoglobin A1c/Hemoglobin.total in Blood 6.5 %_of_total_HGB <5.7 Above high normal Hemoglobin a1C [place] ([facility]) ID Date Data Source [id number] 01/24/2021 08:14:00 AM EDT [facility]) Name Value Range Interpretation Code Description Data Hillary rce(s) Supporting Document(s) Urea nitrogen [Mass/volume] in Serum or Plasma 25 mg/dL 7-25 Urea Nitrogen (BUN) [place] ([facility]) Creatinine [Mass/volume] in Serum or Plasma 1.06 mg/dL 0.70-1.18 Creatinine [place] ([facility]) Glucose [Mass/volume] in Serum or Plasma 151 mg/dL 65-99 Above high normal Glucose [place] ([facility]) Urea nitrogen/Creatinine [Mass Ratio] in Serum or Plasma not applic able 6-22 BUN/creatinine Ratio [place] ([facility]) Sodium [Moles/volume] in Serum or Plasma 140 mmol/L 135-146 Sodium [place] ([facility]) Glomerular filtration rate/1.73 sq M.pre dicted among blacks [Volume Rate/Area] in Serum, Plasma or Blood by Creatinine-based formula (CKD-EPI) 78 mL/min/1.73m2 > or = 60 eGFR [place] ([facility]) Glomerular filtration rate/1.73 sq M.pre dicted among non-blacks [Volume Rate/Area] in Serum, Plasma or Blood by Creatinine-based formula (CKD-EPI) 67 mL/min/1.73m2 > or = 60 eGFR Non-afr. [place] ([facility]) Calcium [Mass/volume] in Serum or Plasma 9.1 mg/dL 8.6-10.3 Calcium [place] ([facility]) Potassium [Moles/volume] in Serum or Plasma 4.4 mmol/L 3.5-5.3 Potassium [place] ([facility]) Carbon dioxide, total [Moles/volume] in Serum or Plasma 29 mmol/L 20-32 Carbon Dioxide [place] ([facility]) Chloride [Moles/volume] in Serum or Plasma 105 mmol/L 98-110 Chloride [place] ([facility]) Protein [Mass/volume] in Serum or Plasma 6.7 g/dL 6.1-8.1 Protein, Total [place] ([facility]) Albumin [Mass/volume] in Serum or Plasma 3.7 g/dL 3.6-5.1 Albumin [place] ([facility]) Globulin [Mass/volume] in Serum by calculation 3.0 g/dL_(calc) 1.9- 3.7 Globulin [place] ([facility]) Aspartate aminotransferase [Enzymatic activity/volume] in Serum or Plasma 21 U/L 10-35 Ast [place] ([facility]) Alanine aminotransferase [Enzymatic activity/volume] in Seru m or Plasma 14 U/L 9-46 Alt [place] ([facility]) Alkaline phosphatase [Enzymatic activity/volume] in Serum or Plasma 70 U/L 35-144 Alkaline Phosphatase [place] ([facility]) Bilirubin.total [Mass/volume] in Serum or Plasma 0.5 mg/dL 0.2-1 .2 Bilirubin, Total [place] ([facility]) Albumin/Globulin [Mass Ratio] in Serum or Plasma 1.2 (calc) 1.0-2 .5 Albumin/globulin Ratio [place] ([facility]) ID Date Data Source [id number] 01/24/2021 08:14:00 AM EDT [facility]) Name Value Range Interpretation Code Description Data Hillary rce(s) Supporting Document(s) Thyroxine (T4) free index in Serum or Plasma by calculation 1.4-3.8 Free T4 Index (T7) [place] ([facility]) Triiodothyronine resin uptake (T3RU) in Serum or Plasma 31 % 22 -35 T3 Uptake [place] ([facility]) Thyroxine (T4) [Mass/volume] in Serum or Plasma 5.2 mcg/dL 4.9-10 .5 T4 (Thyroxine), Total [facility]) Thyrotropin [Units/volume] in Serum or Plasma 1.18 mIU/L 0.40-4.50 Tsh [place] ([facility]) ID Date Data Source [id number] 01/24/2021 08:14:00 AM EDT [facility]) Name Value Range Interpretation Code Description Data Hillary rce(s) Supporting Document(s) Triglyceride [Mass/volume] in Serum or Plasma 160 mg/dL <150 Above high normal Triglycerides [place] ([facility]) Cholesterol [Mass/volume] in Serum or Plasma 119 mg/dL <200 Cholesterol, Total [place] ([facility]) Cholesterol.total/Cholesterol in HDL [Mass Ratio] in Serum o r Plasma 5.0 (calc) <5.0 Above high normal Chol/hdlc Ratio [place] ([facility]) Cholesterol in HDL [Mass/volume] in Serum or Plasma 24 mg/dL > or = 40 Below low normal HDL Cholesterol [place] ([facility]) Cholesterol in LDL [Mass/volume] in Serum or Plasma by calculation 71 mg/dL_(calc) LDL-cholesterol [place] ([facility]) Cholesterol non HDL [Mass/volume] in Serum or Plasma 95 mg/dL_(calc ) <130 Non HDL Cholesterol [place] ([facility]) ID Date Data Source [id number] 01/24/2021 08:14:00 AM EDT [facility] Name Value Range Interpretation Code Description Data Hillary rce(s) Supporting Document(s) Hemoglobin A1c/Hemoglobin.total in Blood 6.5 %_of_total_HGB <5.7 Above high normal Hemoglobin a1C [place] ([facility]) ID Date Data Source [id number] 01/24/2021 08:14:00 AM EDT [place] ([facility]) Name Value Range Interpretation Code Description Data Hillary rce(s) Supporting Document(s) Urea nitrogen [Mass/volume] in Serum or Plasma 25 mg/dL 7-25 Urea Nitrogen (BUN) [place] ([facility]) Glucose [Mass/volume] in Serum or Plasma 151 mg/dL 65-99 Above high normal Glucose [place] ([facility]) Glomerular filtration rate/1.73 sq M.pre dicted among blacks [Volume Rate/Area] in Serum, Plasma or Blood by Creatinine-based formula (CKD-EPI) 78 mL/min/1.73m2 > or = 60 eGFR [place] ([facility]) Sodium [Moles/volume] in Serum or Plasma 140 mmol/L 135-146 Sodium [place] ([facility]) Glomerular filtration rate/1.73 sq M.pre dicted among non-blacks [Volume Rate/Area] in Serum, Plasma or Blood by Creatinine-based formula (CKD-EPI) 67 mL/min/1.73m2 > or = 60 eGFR Non-afr. [place] ([facility]) Creatinine [Mass/volume] in Serum or Plasma 1.06 mg/dL 0.70-1.18 Creatinine [place] ([facility]) Urea nitrogen/Creatinine [Mass Ratio] in Serum or Plasma not applic able 6-22 BUN/creatinine Ratio [place] ([facility]) Potassium [Moles/volume] in Serum or Plasma 4.4 mmol/L 3.5-5.3 Potassium [place] ([facility]) Chloride [Moles/volume] in Serum or Plasma 105 mmol/L 98-110 Chloride [place] ([facility]) Carbon dioxide, total [Moles/volume] in Serum or Plasma 29 mmol/L 20-32 Carbon Dioxide [place] ([facility]) Protein [Mass/volume] in Serum or Plasma 6.7 g/dL 6.1-8.1 Protein, Total [facility] Calcium [Mass/volume] in Serum or Plasma 9.1 mg/dL 8.6-10.3 Calcium [place] ([facility]) Albumin [Mass/volume] in Serum or Plasma 3.7 g/dL 3.6-5.1 Albumin [place] ([facility]) Globulin [Mass/volume] in Serum by calculation 3.0 g/dL_(calc) 1.9- 3.7 Globulin [place] ([facility]) Albumin/Globulin [Mass Ratio] in Serum or Plasma 1.2 (calc) 1.0-2 .5 Albumin/globulin Ratio [place] ([facility]) Bilirubin.total [Mass/volume] in Serum or Plasma 0.5 mg/dL 0.2-1 .2 Bilirubin, Total [place] ([facility]) Alkaline phosphatase [Enzymatic activity/volume] in Serum or Plasma 70 U/L 35-144 Alkaline Phosphatase [place] ([facility]) Aspartate aminotransferase [Enzymatic activity/volume] in Serum or Plasma 21 U/L 10-35 Ast [place] ([facility]) Alanine aminotransferase [Enzymatic activity/volume] in Seru m or Plasma 14 U/L 9-46 Alt [place] ([facility]) ID Date Data Source [id number] 01/24/2021 08:14:00 AM EDT [place] ([facility]) Name Value Range Interpretation Code Description Data Hillary rce(s) Supporting Document(s) Thyroxine (T4) [Mass/volume] in Serum or Plasma 5.2 mcg/dL 4.9-10 .5 T4 (Thyroxine), Total [place] ([facility]) Thyrotropin [Units/volume] in Serum or Plasma 1.18 mIU/L 0.40-4.50 Tsh [place] ([facility]) Triiodothyronine resin uptake (T3RU) in Serum or Plasma 31 % 22 -35 T3 Uptake [place] ([facility]) Thyroxine (T4) free index in Serum or Plasma by calculation 1.4-3.8 Free T4 Index (T7) [facility]) ID Date Data Source [id number] 01/24/2021 08:14:00 AM EDT [place] ([facility]) Name Value Range Interpretation Code Description Data Hillary rce(s) Supporting Document(s) Triglyceride [Mass/volume] in Serum or Plasma 160 mg/dL <150 Above high normal Triglycerides [place] ([facility]) Cholesterol in HDL [Mass/volume] in Serum or Plasma 24 mg/dL > or = 40 Below low normal HDL Cholesterol [place] ([facility]) Cholesterol.total/Cholesterol in HDL [Mass Ratio] in Serum o r Plasma 5.0 (calc) <5.0 Above high normal Chol/hdlc Ratio [place] ([facility]) Cholesterol in LDL [Mass/volume] in Serum or Plasma by calculation 71 mg/dL_(calc) LDL-cholesterol [place] ([facility]) Cholesterol [Mass/volume] in Serum or Plasma 119 mg/dL <200 Cholesterol, Total [facility] Cholesterol non HDL [Mass/volume] in Serum or Plasma 95 mg/dL_(calc ) <130 Non HDL Cholesterol [place] ([facility]) ID Date Data Source [id number] 01/24/2021 08:14:00 AM EDT [facility]) Name Value Range Interpretation Code Description Data Hillary rce(s) Supporting Document(s) Hemoglobin A1c/Hemoglobin.total in Blood 6.5 %_of_total_HGB <5.7 Above high normal Hemoglobin a1C [place] ([facility]) ID Date Data Source [id number] 01/24/2021 08:14:00 AM EDT [place] ([facility]) Name Value Range Interpretation Code Description Data Hillary rce(s) Supporting Document(s) Glucose [Mass/volume] in Serum or Plasma 151 mg/dL 65-99 Above high normal Glucose [place] ([facility]) Urea nitrogen/Creatinine [Mass Ratio] in Serum or Plasma not applic able 6-22 BUN/creatinine Ratio [place] ([facility]) Glomerular filtration rate/1.73 sq M.pre dicted among blacks [Volume Rate/Area] in Serum, Plasma or Blood by Creatinine-based formula (CKD-EPI) 78 mL/min/1.73m2 > or = 60 eGFR [place] ([facility]) Creatinine [Mass/volume] in Serum or Plasma 1.06 mg/dL 0.70-1.18 Creatinine [place] ([facility]) Urea nitrogen [Mass/volume] in Serum or Plasma 25 mg/dL 7-25 Urea Nitrogen (BUN) [facility] Glomerular filtration rate/1.73 sq M.pre dicted among non-blacks [Volume Rate/Area] in Serum, Plasma or Blood by Creatinine-based formula (CKD-EPI) 67 mL/min/1.73m2 > or = 60 eGFR Non-afr. [place] ([facility]) Potassium [Moles/volume] in Serum or Plasma 4.4 mmol/L 3.5-5.3 Potassium [place] ([facility]) Chloride [Moles/volume] in Serum or Plasma 105 mmol/L 98-110 Chloride [place] ([facility]) Sodium [Moles/volume] in Serum or Plasma 140 mmol/L 135-146 Sodium [facility] Carbon dioxide, total [Moles/volume] in Serum or Plasma 29 mmol/L 20-32 Carbon Dioxide [place] ([facility]) Calcium [Mass/volume] in Serum or Plasma 9.1 mg/dL 8.6-10.3 Calcium [place] ([facility]) Protein [Mass/volume] in Serum or Plasma 6.7 g/dL 6.1-8.1 Protein, Total [place] ([facility]) Globulin [Mass/volume] in Serum by calculation 3.0 g/dL_(calc) 1.9- 3.7 Globulin [place] ([facility]) Albumin/Globulin [Mass Ratio] in Serum or Plasma 1.2 (calc) 1.0-2 .5 Albumin/globulin Ratio [place] ([facility]) Albumin [Mass/volume] in Serum or Plasma 3.7 g/dL 3.6-5.1 Albumin [place] ([facility]) Aspartate aminotransferase [Enzymatic activity/volume] in Serum or Plasma 21 U/L 10-35 Ast [place] ([facility]) Alkaline phosphatase [Enzymatic activity/volume] in Serum or Plasma 70 U/L 35-144 Alkaline Phosphatase [place] ([facility]) Alanine aminotransferase [Enzymatic activity/volume] in Seru m or Plasma 14 U/L 9-46 Alt [place] ([facility]) Bilirubin.total [Mass/volume] in Serum or Plasma 0.5 mg/dL 0.2-1 .2 Bilirubin, Total [place] ([facility]) ID Date Data Source [id number] 01/24/2021 08:14:00 AM EDT [place] ([facility]) Name Value Range Interpretation Code Description Data Hillary rce(s) Supporting Document(s) Thyroxine (T4) [Mass/volume] in Serum or Plasma 5.2 mcg/dL 4.9-10 .5 T4 (Thyroxine), Total [facility]) Triiodothyronine resin uptake (T3RU) in Serum or Plasma 31 % 22 -35 T3 Uptake [facility]) Thyroxine (T4) free index in Serum or Plasma by calculation 1.4-3.8 Free T4 Index (T7) [facility]) Thyrotropin [Units/volume] in Serum or Plasma 1.18 mIU/L 0.40-4.50 Tsh [place] ([facility]) ID Date Data Source [id number] 01/24/2021 08:14:00 AM EDT [facility] Name Value Range Interpretation Code Description Data Hillary rce(s) Supporting Document(s) Triglyceride [Mass/volume] in Serum or Plasma 160 mg/dL <150 Above high normal Triglycerides [place] ([facility]) Cholesterol in LDL [Mass/volume] in Serum or Plasma by calculation 71 mg/dL_(calc) LDL-cholesterol [place] ([facility]) Cholesterol [Mass/volume] in Serum or Plasma 119 mg/dL <200 Cholesterol, Total [place] ([facility]) Cholesterol in HDL [Mass/volume] in Serum or Plasma 24 mg/dL > or = 40 Below low normal HDL Cholesterol [place] ([facility]) Cholesterol.total/Cholesterol in HDL [Mass Ratio] in Serum o r Plasma 5.0 (calc) <5.0 Above high normal Chol/hdlc Ratio [place] ([facility]) Cholesterol non HDL [Mass/volume] in Serum or Plasma 95 mg/dL_(calc ) <130 Non HDL Cholesterol [place] ([facility]) ID Date Data Source [id number] 01/24/2021 08:14:00 AM EDT [facility] Name Value Range Interpretation Code Description Data Hillary rce(s) Supporting Document(s) Hemoglobin A1c/Hemoglobin.total in Blood 6.5 %_of_total_HGB <5.7 Above high normal Hemoglobin a1C [place] ([facility]) ID Date Data Source [id number] 01/24/2021 08:14:00 AM EDT [facility]) Name Value Range Interpretation Code Description Data Hillary rce(s) Supporting Document(s) Glucose [Mass/volume] in Serum or Plasma 151 mg/dL 65-99 Above high normal Glucose [place] ([facility]) Urea nitrogen [Mass/volume] in Serum or Plasma 25 mg/dL 7-25 Urea Nitrogen (BUN) [place] ([facility]) Glomerular filtration rate/1.73 sq M.pre dicted among blacks [Volume Rate/Area] in Serum, Plasma or Blood by Creatinine-based formula (CKD-EPI) 78 mL/min/1.73m2 > or = 60 eGFR [place] ([facility]) Glomerular filtration rate/1.73 sq M.pre dicted among non-blacks [Volume Rate/Area] in Serum, Plasma or Blood by Creatinine-based formula (CKD-EPI) 67 mL/min/1.73m2 > or = 60 eGFR Non-afr. [place] ([facility]) Creatinine [Mass/volume] in Serum or Plasma 1.06 mg/dL 0.70-1.18 Creatinine [place] ([facility]) Urea nitrogen/Creatinine [Mass Ratio] in Serum or Plasma not applic able 6-22 BUN/creatinine Ratio [place] ([facility]) Chloride [Moles/volume] in Serum or Plasma 105 mmol/L 98-110 Chloride [facility]) Carbon dioxide, total [Moles/volume] in Serum or Plasma 29 mmol/L 20-32 Carbon Dioxide [place] ([facility]) Sodium [Moles/volume] in Serum or Plasma 140 mmol/L 135-146 Sodium [place] ([facility]) Potassium [Moles/volume] in Serum or Plasma 4.4 mmol/L 3.5-5.3 Potassium [place] ([facility]) Albumin [Mass/volume] in Serum or Plasma 3.7 g/dL 3.6-5.1 Albumin [facility]) Calcium [Mass/volume] in Serum or Plasma 9.1 mg/dL 8.6-10.3 Calcium [facility]) Globulin [Mass/volume] in Serum by calculation 3.0 g/dL_(calc) 1.9- 3.7 Globulin [facility]) Protein [Mass/volume] in Serum or Plasma 6.7 g/dL 6.1-8.1 Protein, Total [facility]) Bilirubin.total [Mass/volume] in Serum or Plasma 0.5 mg/dL 0.2-1 .2 Bilirubin, Total [place] ([facility]) Albumin/Globulin [Mass Ratio] in Serum or Plasma 1.2 (calc) 1.0-2 .5 Albumin/globulin Ratio [place] ([facility]) Aspartate aminotransferase [Enzymatic activity/volume] in Serum or Plasma 21 U/L 10-35 Ast [place] ([facility]) Alanine aminotransferase [Enzymatic activity/volume] in Seru m or Plasma 14 U/L 9-46 Alt MARCIA ([facility]) Alkaline phosphatase [Enzymatic activity/volume] in Serum or Plasma 70 U/L 35-144 Alkaline Phosphatase MARCIA ([facility]) ID Date Data Source [id number] 01/24/2021 08:14:00 AM EDT [facility]) Name Value Range Interpretation Code Description Data Hillary rce(s) Supporting Document(s) Triiodothyronine resin uptake (T3RU) in Serum or Plasma 31 % 22 -35 T3 Uptake MARCIA ([facility]) Thyroxine (T4) [Mass/volume] in Serum or Plasma 5.2 mcg/dL 4.9-10 .5 T4 (Thyroxine), Total MARCIA ([facility]) Thyroxine (T4) free index in Serum or Plasma by calculation 1.4-3.8 Free T4 Index (T7) MARCIA ([facility]) Thyrotropin [Units/volume] in Serum or Plasma 1.18 mIU/L 0.40-4.50 Tsh [place] ([facility]) ID Date Data Source [id number] 01/24/2021 08:14:00 AM EDT [facility]) Name Value Range Interpretation Code Description Data Hillary rce(s) Supporting Document(s) Triglyceride [Mass/volume] in Serum or Plasma 160 mg/dL <150 Above high normal Triglycerides MARCIA ([facility]) Cholesterol [Mass/volume] in Serum or Plasma 119 mg/dL <200 Cholesterol, Total MARCIA ([facility]) Cholesterol in HDL [Mass/volume] in Serum or Plasma 24 mg/dL > or = 40 Below low normal HDL Cholesterol MARCIA ([facility]) Cholesterol.total/Cholesterol in HDL [Mass Ratio] in Serum o r Plasma 5.0 (calc) <5.0 Above high normal Chol/hdlc Ratio MARCIA ([facility]) Cholesterol in LDL [Mass/volume] in Serum or Plasma by calculation 71 mg/dL_(calc) LDL-cholesterol MARCIA ([facility]) Cholesterol non HDL [Mass/volume] in Serum or Plasma 95 mg/dL_(calc ) <130 Non HDL Cholesterol MARCIA ([facility]) ID Date Data Source [id number] 01/24/2021 08:14:00 AM EDT [facility]) Name Value Range Interpretation Code Description Data Hillary rce(s) Supporting Document(s) Hemoglobin A1c/Hemoglobin.total in Blood 6.5 %_of_total_HGB <5.7 Above high normal Hemoglobin a1C [facility]) ID Date Data Source [id number] 01/24/2021 08:14:00 AM EDT [facility]) Name Value Range Interpretation Code Description Data Hillary rce(s) Supporting Document(s) Urea nitrogen [Mass/volume] in Serum or Plasma 25 mg/dL 7-25 Urea Nitrogen (BUN) [place] ([facility]) Creatinine [Mass/volume] in Serum or Plasma 1.06 mg/dL 0.70-1.18 Creatinine [place] ([facility]) Glucose [Mass/volume] in Serum or Plasma 151 mg/dL 65-99 Above high normal Glucose MARCIA ([facility]) Glomerular filtration rate/1.73 sq M.pre dicted among non-blacks [Volume Rate/Area] in Serum, Plasma or Blood by Creatinine-based formula (CKD-EPI) 67 mL/min/1.73m2 > or = 60 eGFR Non-afr. [place] MARCIA ([facility]) Glomerular filtration rate/1.73 sq M.pre dicted among blacks [Volume Rate/Area] in Serum, Plasma or Blood by Creatinine-based formula (CKD-EPI) 78 mL/min/1.73m2 > or = 60 eGFR MARCIA ([facility]) Urea nitrogen/Creatinine [Mass Ratio] in Serum or Plasma not applic able 6-22 BUN/creatinine Ratio MARCIA ([facility]) Sodium [Moles/volume] in Serum or Plasma 140 mmol/L 135-146 Sodium MARCIA ([facility]) Potassium [Moles/volume] in Serum or Plasma 4.4 mmol/L 3.5-5.3 Potassium MARCIA ([facility]) Chloride [Moles/volume] in Serum or Plasma 105 mmol/L 98-110 Chloride MARCIA ([facility]) Calcium [Mass/volume] in Serum or Plasma 9.1 mg/dL 8.6-10.3 Calcium [place] ([facility]) Carbon dioxide, total [Moles/volume] in Serum or Plasma 29 mmol/L 20-32 Carbon Dioxide MARCIA ([facility]) Protein [Mass/volume] in Serum or Plasma 6.7 g/dL 6.1-8.1 Protein, Total MARCIA ([facility]) Albumin [Mass/volume] in Serum or Plasma 3.7 g/dL 3.6-5.1 Albumin [place] ([facility]) Globulin [Mass/volume] in Serum by calculation 3.0 g/dL_(calc) 1.9- 3.7 Globulin [place] ([facility]) Alanine aminotransferase [Enzymatic activity/volume] in Seru m or Plasma 14 U/L 9-46 Alt MARCIA ([facility]) Aspartate aminotransferase [Enzymatic activity/volume] in Serum or Plasma 21 U/L 10-35 Ast MARCIA ([facility]) Albumin/Globulin [Mass Ratio] in Serum or Plasma 1.2 (calc) 1.0-2 .5 Albumin/globulin Ratio MARCIA ([facility]) Alkaline phosphatase [Enzymatic activity/volume] in Serum or Plasma 70 U/L 35-144 Alkaline Phosphatase MARCIA ([facility]) Bilirubin.total [Mass/volume] in Serum or Plasma 0.5 mg/dL 0.2-1 .2 Bilirubin, Total [place] ([facility]) ID Date Data Source [id number] 01/24/2021 08:14:00 AM [facility] Name Value Range Interpretation Code Description Data Hillary rce(s) Supporting Document(s) Triiodothyronine resin uptake (T3RU) in Serum or Plasma 31 % 22 -35 T3 Uptake MARCIA ([facility]) Thyroxine (T4) free index in Serum or Plasma by calculation 1.4-3.8 Free T4 Index (T7) MARCIA ([facility]) Thyrotropin [Units/volume] in Serum or Plasma 1.18 mIU/L 0.40-4.50 Tsh MARCIA ([facility]) Thyroxine (T4) [Mass/volume] in Serum or Plasma 5.2 mcg/dL 4.9-10 .5 T4 (Thyroxine), [facility] ID Date Data Source [id number] 01/24/2021 08:14:00 AM EDT [facility]) Name Value Range Interpretation Code Description Data Hillary rce(s) Supporting Document(s) Cholesterol in HDL [Mass/volume] in Serum or Plasma 24 mg/dL > or = 40 Below low normal HDL Cholesterol MARCIA ([facility]) Cholesterol [Mass/volume] in Serum or Plasma 119 mg/dL <200 Cholesterol, Total MARCIA ([facility]) Triglyceride [Mass/volume] in Serum or Plasma 160 mg/dL <150 Above high normal Triglycerides MARCIA ([facility]) Cholesterol.total/Cholesterol in HDL [Mass Ratio] in Serum o r Plasma 5.0 (calc) <5.0 Above high normal Chol/hdlc Ratio MARCIA ([facility]) Cholesterol in LDL [Mass/volume] in Serum or Plasma by calculation 71 mg/dL_(calc) LDL-cholesterol MARCIA ([facility]) Cholesterol non HDL [Mass/volume] in Serum or Plasma 95 mg/dL_(calc ) <130 Non HDL Cholesterol MARCIA ([facility]) ID Date Data Source [id number] 01/24/2021 08:14:00 AM EDT [facility]) Name Value Range Interpretation Code Description Data Hillary rce(s) Supporting Document(s) Hemoglobin A1c/Hemoglobin.total in Blood 6.5 %_of_total_HGB <5.7 Above high normal Hemoglobin a1C MARCIA ([facility]) ID Date Data Source [id number] 01/24/2021 08:14:00 AM EDT MARCIA ([facility]) Name Value Range Interpretation Code Description Data Hillary rce(s) Supporting Document(s) Glucose [Mass/volume] in Serum or Plasma 151 mg/dL 65-99 Above high normal Glucose MARCIA ([facility]) Urea nitrogen [Mass/volume] in Serum or Plasma 25 mg/dL 7-25 Urea Nitrogen (BUN) MARCIA ([facility]) Glomerular filtration rate/1.73 sq M.pre dicted among non-blacks [Volume Rate/Area] in Serum, Plasma or Blood by Creatinine-based formula (CKD-EPI) 67 mL/min/1.73m2 > or = 60 eGFR Non-afr. [place] MARCIA ([facility]) Creatinine [Mass/volume] in Serum or Plasma 1.06 mg/dL 0.70-1.18 Creatinine MARCIA ([facility]) Glomerular filtration rate/1.73 sq M.pre dicted among blacks [Volume Rate/Area] in Serum, Plasma or Blood by Creatinine-based formula (CKD-EPI) 78 mL/min/1.73m2 > or = 60 eGFR MARCIA ([facility]) Sodium [Moles/volume] in Serum or Plasma 140 mmol/L 135-146 Sodium MARCIA ([facility]) Urea nitrogen/Creatinine [Mass Ratio] in Serum or Plasma not applic able 6-22 BUN/creatinine Ratio MARCIA ([facility]) Potassium [Moles/volume] in Serum or Plasma 4.4 mmol/L 3.5-5.3 Potassium MARCIA ([facility]) Chloride [Moles/volume] in Serum or Plasma 105 mmol/L 98-110 Chloride MARCIA ([facility]) Protein [Mass/volume] in Serum or Plasma 6.7 g/dL 6.1-8.1 Protein, Total MARCIA ([facility]) Carbon dioxide, total [Moles/volume] in Serum or Plasma 29 mmol/L 20-32 Carbon Dioxide MARCIA ([facility]) Calcium [Mass/volume] in Serum or Plasma 9.1 mg/dL 8.6-10.3 Calcium [place] ([facility]) Bilirubin.total [Mass/volume] in Serum or Plasma 0.5 mg/dL 0.2-1 .2 Bilirubin, Total MARCIA ([facility]) Albumin/Globulin [Mass Ratio] in Serum or Plasma 1.2 (calc) 1.0-2 .5 Albumin/globulin Ratio MARCIA ([facility]) Albumin [Mass/volume] in Serum or Plasma 3.7 g/dL 3.6-5.1 Albumin [place] ([facility]) Globulin [Mass/volume] in Serum by calculation 3.0 g/dL_(calc) 1.9- 3.7 Globulin [place] ([facility]) Aspartate aminotransferase [Enzymatic activity/volume] in Serum or Plasma 21 U/L 10-35 Ast MARCIA ([facility]) Alanine aminotransferase [Enzymatic activity/volume] in Seru m or Plasma 14 U/L 9-46 Alt MARCIA ([facility]) Alkaline phosphatase [Enzymatic activity/volume] in Serum or Plasma 70 U/L 35-144 Alkaline Phosphatase [place] ([facility]) ID Date Data Source [id number] 01/24/2021 08:14:00 AM EDT [place] ([facility]) Name Value Range Interpretation Code Description Data Hillary rce(s) Supporting Document(s) Triiodothyronine resin uptake (T3RU) in Serum or Plasma 31 % 22 -35 T3 Uptake [place]ARCIA ([facility]) Thyroxine (T4) free index in Serum or Plasma by calculation 1.4-3.8 Free T4 Index (T7) [place] ([facility]) Thyroxine (T4) [Mass/volume] in Serum or Plasma 5.2 mcg/dL 4.9-10 .5 T4 ([facility]ine), [facility] Thyrotropin [Units/volume] in Serum or Plasma 1.18 mIU/L 0.40-4.50 Tsh [place] ([facility]) ID Date Data Source [id number] 01/24/2021 08:14:00 AM EDT [facility] Name Value Range Interpretation Code Description Data Hillary rce(s) Supporting Document(s) Triglyceride [Mass/volume] in Serum or Plasma 160 mg/dL <150 Above high normal Triglycerides MARCIA ([facility]) Cholesterol [Mass/volume] in Serum or Plasma 119 mg/dL <200 Cholesterol, Total MARCIA ([facility]) Cholesterol in HDL [Mass/volume] in Serum or Plasma 24 mg/dL > or = 40 Below low normal HDL Cholesterol MARCIA ([facility]) Cholesterol.total/Cholesterol in HDL [Mass Ratio] in Serum o r Plasma 5.0 (calc) <5.0 Above high normal Chol/hdlc Ratio MARCIA ([facility]) Cholesterol non HDL [Mass/volume] in Serum or Plasma 95 mg/dL_(calc ) <130 Non HDL Cholesterol MARCIA ([facility]) Cholesterol in LDL [Mass/volume] in Serum or Plasma by calculation 71 mg/dL_(calc) LDL-cholesterol MARCIA ([facility]) ID Date Data Source [id number] 01/24/2021 08:14:00 AM EDT [facility]) Name Value Range Interpretation Code Description Data Hillary rce(s) Supporting Document(s) Hemoglobin A1c/Hemoglobin.total in Blood 6.5 %_of_total_HGB <5.7 Above high normal Hemoglobin a1C MARCIA ([facility]) ID Date Data Source [id number] 01/24/2021 08:14:00 AM EDT [facility]) Name Value Range Interpretation Code Description Data Hillary rce(s) Supporting Document(s) Glucose [Mass/volume] in Serum or Plasma 151 mg/dL 65-99 Above high normal Glucose MARCIA ([facility]) Glomerular filtration rate/1.73 sq M.pre dicted among blacks [Volume Rate/Area] in Serum, Plasma or Blood by Creatinine-based formula (CKD-EPI) 78 mL/min/1.73m2 > or = 60 eGFR MARCIA ([facility]) Glomerular filtration rate/1.73 sq M.pre dicted among non-blacks [Volume Rate/Area] in Serum, Plasma or Blood by Creatinine-based formula (CKD-EPI) 67 mL/min/1.73m2 > or = 60 eGFR Non-afr. [place] MARCIA ([facility]) Urea nitrogen [Mass/volume] in Serum or Plasma 25 mg/dL 7-25 Urea Nitrogen (BUN) [facility] Urea nitrogen/Creatinine [Mass Ratio] in Serum or Plasma not applic able 6-22 BUN/creatinine Ratio [facility]) Creatinine [Mass/volume] in Serum or Plasma 1.06 mg/dL 0.70-1.18 Creatinine [facility]) Chloride [Moles/volume] in Serum or Plasma 105 mmol/L 98-110 Chloride [place] ([facility]) Sodium [Moles/volume] in Serum or Plasma 140 mmol/L 135-146 Sodium [facility]) Potassium [Moles/volume] in Serum or Plasma 4.4 mmol/L 3.5-5.3 Potassium [facility]) Carbon dioxide, total [Moles/volume] in Serum or Plasma 29 mmol/L 20-32 Carbon Dioxide [facility]) Globulin [Mass/volume] in Serum by calculation 3.0 g/dL_(calc) 1.9- 3.7 Globulin [facility]) Albumin [Mass/volume] in Serum or Plasma 3.7 g/dL 3.6-5.1 Albumin [facility]) Protein [Mass/volume] in Serum or Plasma 6.7 g/dL 6.1-8.1 Protein, Total [facility] Calcium [Mass/volume] in Serum or Plasma 9.1 mg/dL 8.6-10.3 Calcium [facility]) Alanine aminotransferase [Enzymatic activity/volume] in Seru m or Plasma 14 U/L 9-46 Alt MARCIA ([facility]) Alkaline phosphatase [Enzymatic activity/volume] in Serum or Plasma 70 U/L 35-144 Alkaline Phosphatase [place] ([facility]) Bilirubin.total [Mass/volume] in Serum or Plasma 0.5 mg/dL 0.2-1 .2 Bilirubin, Total [place] ([facility]) Aspartate aminotransferase [Enzymatic activity/volume] in Serum or Plasma 21 U/L 10-35 Ast [place] ([facility]) Albumin/Globulin [Mass Ratio] in Serum or Plasma 1.2 (calc) 1.0-2 .5 Albumin/globulin Ratio [place] ([facility]) ID Date Data Source [id number] 01/24/2021 08:14:00 AM EDT [facility]) Name Value Range Interpretation Code Description Data Hillary rce(s) Supporting Document(s) Triiodothyronine resin uptake (T3RU) in Serum or Plasma 31 % 22 -35 T3 Uptake [place] ([facility]) Thyroxine (T4) [Mass/volume] in Serum or Plasma 5.2 mcg/dL 4.9-10 .5 T4 (Thyroxine), Total [place] ([facility]) Thyroxine (T4) free index in Serum or Plasma by calculation 1.4-3.8 Free T4 Index (T7) [place] ([facility]) Thyrotropin [Units/volume] in Serum or Plasma 1.18 mIU/L 0.40-4.50 Tsh [place] ([facility]) ID Date Data Source [id number] 01/24/2021 08:14:00 AM EDT [facility]) Name Value Range Interpretation Code Description Data Hillary rce(s) Supporting Document(s) Cholesterol [Mass/volume] in Serum or Plasma 119 mg/dL <200 Cholesterol, Total [place] ([facility]) Triglyceride [Mass/volume] in Serum or Plasma 160 mg/dL <150 Above high normal Triglycerides [place] ([facility]) Cholesterol in LDL [Mass/volume] in Serum or Plasma by calculation 71 mg/dL_(calc) LDL-cholesterol [place] ([facility]) Cholesterol in HDL [Mass/volume] in Serum or Plasma 24 mg/dL > or = 40 Below low normal HDL Cholesterol [place] ([facility]) Cholesterol.total/Cholesterol in HDL [Mass Ratio] in Serum o r Plasma 5.0 (calc) <5.0 Above high normal Chol/hdlc Ratio [place] ([facility]) Cholesterol non HDL [Mass/volume] in Serum or Plasma 95 mg/dL_(calc ) <130 Non HDL Cholesterol [place] ([facility]) ID Date Data Source [id number] 01/17/2021 10:27:18 AM EDT [facility] Name Value Range Interpretation Code Description Data Hillary rce(s) Supporting Document(s) &PDF [facility] [id number]/YZNzhXMJuf3XvWLwsTNj5MCycNDPrF3RvbOqsZZrMQLJWXZHQGKzILKHzGELi oRX [file] AgICAgICAgICAgICAgICAgICAgICAgICAgICAgICAg SFHnHNOeGBKiNBZqXDXvBFGqJEAtIDUwIWHwXNErNENqQCDwNJRtCORnKWYsITOnXPMeMP1YKPXnKZKx ICAgICAgICAgICAgICAgICAgICAgICAgICAgICAgICAgICAgICAgICAgICAgICAgICAgICAgICAgICAg ICAgICAgICAgICAgICAgICAgICAgICAgICAgICAgIC DbLV0XKWHiWYVpYORkRQLdUADyWJUzRIOdREKyBNOdPHFgNQVcRQEbOFZvRJFiDTVeYWVbAITaMMJePU IsCLJeEEYpKAIvEWArAMYkFFVuEKDxZFHyRQLqHJGnJTJhGKEvEMAbPFWrWZ6LWXKyQLSaSBYmPAJzSP AgICAgICAgICAgICAgICAgICAgICAgICAgICAgICAg DYGrYTNqEZSgXXSyCKHvOAWtSGZeWSOnIIAvNFTeSAWsNDDsOSZrJSWyJYWnIRJwRLHqBUFrUN9LFBDp ICAgICAgICAgICAgICAgICAgICAgICAgICAgICAgICAgICAgICAgICAgICAgICAgICAgICAgICAgICAg ICAgICAgICAgICAgICAgICAgICAgICAgICAgICAgIC FjXBGsQK4YKCYhWKYuDWDdFZHvGFTwUVKzNIEoLNOfYZWzRCPtWLGdLWOpSSMyTMTyYSAqHLUvCHMvUC AtMKLlHJVfNPQfXDIfMDFeVKRvWQVaXSTtZWLaFHKcNLMtQMHmUTLaHVAlJKYyOL8SIWGlNZNzNLEyOX AgICAgICAgICAgICAgICAgICAgICAgICAgICAgICAg WBKhWGPnDUHfMVNsDJSzQCGgKJVqHGGcFTTmJAIbZXClMZIuAOVrSBWiUTQvDZPaCZSpFMMxZJJzHL7A ICAgICAgICAgICAgICAgICAgICAgICAgICAgICAgICAgICAgICAgICAgICAgICAgICAgICAgICAgICAg ICAgICAgICAgICAgICAgICAgICAgICAgICAgICAgIC PcOOSkSDEcXQ2MWZPbIRFiTZZkZIXcDFYbTTOzGEZrZHNaFCDqHZStLHTbWTKlOZMxDZKmTQNwFTTnXF PdILRcNWWaIZGrEQBlSGLkODNvNBTdACCrJYIcKAAgGCZgYKSnFBYtFCLlERCoMBNeGE7API99qPOsg6 N2VYAxOK2lfew/Wj6SKAkvjkUjbWAqSG1GUcUgRX6v ek8UVeSaJQ3gab2VRIdEKmTsF9R3yFRtFQNuYADRSkRqV78eNTfwDw08EWryZBOzUnMiBNs7Aa0DCnDx A5noSPRcIrY9UVLsDuTvTRixGJ7Wq3LdhHOoZHd+Jr1RFV5ry6TyTBbxTWHoHX9fyc3FNPeCTcPlN9C9 hQIhG1B1HEasGy8KODAuMQLkIbnsCZALEHxqNG6JCR 4egbP9NE0CaEZmOFGdELQmbNIpLNb3J83ooIWoMCqfHE6XWYL+Demar+Ke2ZYPPrGUNjCRMlIfBgCYQYCi EfL55wyOQyQNQcGYCzOKLbPx1YDCFeS2HmwzNtbKwchwQkJHQiESHURI3EFSixgiYpnWCmpFmgEG11eB enOA7LMs8POyXzGA1ldx6ApMWrRk8AFKBoQu0ZWSJa PGIgNAWlJKD5CQVtAjMqLWfzMQNfSUGtJRT2VXZgMTVdQB3PBvSiXGEhPHIpYahjXFSqFHXbiy3PKGXj QZSqSab5VWEkHLPiTHPaJJrnBMAiFEAzUIlvXCJtTIMgBM3HIuQbHOPiAKFoHIFgRMXhYVMmvp7MDJDf VGIaDmOmFIPqKQLyNEVqKLttNHZwUDK0ONE2HZRsOQ GjCP0RSsYjHFWoOUJhMbBhLVIqJPOvhw2KCQLgRKPbGJU5GCBfGMWtVHAmNMtcLQAiMTZ0RPJoVNNaWN XmLN3VNbRlUGJlLPA2HNUsYXZvDTMsez2LSKFvFEGxPHe3TCMkADCyPNHuBZtvFDDaXBBnZcC2XWZxYS YoPC5PTvYvXTKlOEPjZuEkYGSyRKBfcd2QUTDsSQQo LMI8TrOkKJSyXNKwTNljSNDjUWZdQAT9WBCoCEWyDX5ITqBrFWQqUZT9BgNzDKQdGOAsou3DBHUmWKZt JgRqIGHsXMNxDVBpBJufXTOxATNkMujrCLLwLXPhKN2PZdXaFGRqHZO3TgPuTLReNUOcuu0OETCnOLJl IbxkPXTjZUMkVMOeWJctCZDaPMX3NRnbNQFnRQThBZ 7SSlEhFWPkJAJbKmHrKQXwGZDebt6XTFYsGKZoSXX9WFNdNYRpHUUkSSkyJTWkBUY4JRX6YNNoSNRyMJ 1AJiXhJFAiJNUhByfsGSXsBBKxlv3BNIEvVQLxKJN1DGQxTILkQOYcVFqlTBAxBDE2VdK2JOFgNDTiGF 3VStCuWZDkNDTrMFVdECTgAIWvaj5WPXNqBZXsBhB6 VLVvIDHqMMZjNSfsHOWaOYT9CKi5XKPrUGIgUF4ONqAvTQodDRPCVsl9WDazK9b8VBXmOz9BY5Igx5Jc FuAbYPTBSZgzRD4osgWeFNBgDc8EQ9gLPro0Cpb5OKU4VMAaCpLgLzEuGZbvYcy5VHFvLUi6LDKrGD6x QCk3KBDbSSttCYHcNJK2QACxXqHrJFUmCXClVbuyTo YoHvOrEM5ZWm9ZLuG9SUI4vYMeHr0UFXfyLlBSTrOgLV8WNBs= ID Date Data Source [id number] 07/25/2020 04:59:48 PM EST [facility] Name Value Range Interpretation Code Description Data Hillary rce(s) Supporting Document(s) TSH,ULTRASENSITIVE @ 1.440 mIU/L (0.360-4.170) [facility] ID Date Data Source [id number] 07/25/2020 04:59:48 PM EST [facility] Name Value Range Interpretation Code Description Data Hillary rce(s) Supporting Document(s) SODIUM 141 mmol/L (136-145) [facility] POTASSIUM 4.4 mmol/L (3.6-5.2) [facility] CHLORIDE 105 mmol/L (100-108) [facility] CO2 24 mmol/L (22-31) [facility] ANION GAP 12 mmol/L (7-16) [facility] UREA NITROGEN 33 mg/dL (7-24) H [facility] CREATININE 1.18 mg/dL (0.80-1.30) [facility] BUN/CREAT RATIO 28.0 RATIO (10.0-20.0) H [facility] GLUCOSE 226 mg/dL (70-99) H [facility] CALCIUM 8.9 mg/dL (8.4-10.2) [facility] GFR >60 ml/min/1.73m2 (>59) [facility] GFR ( AMER) >60 ml/min/1.73m2 (>59) [facility] GFR INTERPRETATION [facility] --NORMAL KIDNEY FUNCTION OR MILD DISEASE - GFR >OR= 60CHRONIC KIDNEY DISEASE - GFR 15 - 59RENAL FAILURE - GFR <15 Est. GFR calculation based on the MDRDstudy equation, which assumes a steadystate for creatinine. Est. GFR should notbe used for medication dosing. ID Date Data Source [id number] 05/25/2020 08:26:00 AM EDT [facility] Name Value Range Interpretation Code Description Data Hillary rce(s) Supporting Document(s) 25-Hydroxyvitamin D2+25-Hydroxyvitamin D3 [Mass/volume ] in Serum or Plasma 85 ng/mL 30-100 [facility] Vitamin D Status 25-OH Vitamin D :Deficiency: <20 ng/mLInsufficiency: 20 - 29 ng/mLOptimal: > or = 30 ng/mLFor 25-OH Vitamin D testing on patients onD2-supplementation and patients for whom quantitationof D2 and D3 fractions is required, the QuestAssureD(TM)25- [place] VIT D, (D2,D3), LC/MS/MS is recommended: ordercode 73582 (patients >2yrs).See Note 1Note 1For additional information, please refer [email or web address](This link is being provided for informational/educational purposes only.)THIS TEST WAS PERFORMED AT:[facility] [id number] CONNELL MD ID Date Data Source [id number] 05/23/2020 10:44:00 AM [facility]) Name Value Range Interpretation Code Description Data Hillary rce(s) Supporting Document(s) Hemoglobin A1c/Hemoglobin.total in Blood 6.7 na Above high normal Hgba1c [facility]) Note: Responsible Observer: KM ID Date Data Source [id number] 05/23/2020 10:44:00 AM [facility]) Name Value Range Interpretation Code Description Data Hillary rce(s) Supporting Document(s) HDL 30 mg/dl Below low normal HDL [place]AHUL[place] ([facility]) Note: Responsible Observer: KM Cholesterol [Moles/volume] in Pericardial fluid 142 mg/dl Cholesterol [facility]) Note: Responsible Observer: KM Dir. LDL 86 mg/dl Dir. LDL KAHUL[place] ([facility]) Note: Responsible Observer: KM Triglycerides 185 mg/dl Above high normal Triglycerides G [facility] ([facility]) Note: Responsible Observer: KM ID Date Data Source [id number] 05/23/2020 10:44:00 AM [facility] ([facility]) Name Value Range Interpretation Code Description Data Hillary rce(s) Supporting Document(s) Albumin [Mass/volume] in Blood by Bromocresol purple ( BCP) dye binding method 3.9 g/dl Albumin [place]CH[place]KA ([facility]) Note: Responsible Observer: KM Alkaline Phos 72 IU/L Alkaline Phos [place] ([facility]) Note: Responsible Observer: KM ALT 20 IU/L ALT [place] ([facility]) Note: Responsible Observer: KM AST 25 IU/L AST FRANCHESKA ([facility]) Note: Responsible Observer: KM Urea nitrogen [Moles/volume] in Blood 25 mg/dl Abo ve high normal Urea Nitrogen KAHULUI ([facility]) Note: Responsible Observer: KM Chloride [Moles/volume] in Serum, Plasma or Blood 102 mmol/L Chloride KAHULUI ([facility]) Note: Responsible Observer: KM Calcium [Moles/volume] in Urine collected for unspecified durati on 9.7 mg/dl Calcium KAHULUI ([facility]) Note: Responsible Observer: KM Creatinine [Moles/volume] in Vitreous fluid 1 mg/dl Creatinine KAHULUI ([facility]) Note: Responsible Observer: KM CO2 25 mmol/L CO2 KAHULUI [facility] [facility]) Note: Responsible Observer: KM EGFR - AfricanAm > 60 N/A EGFR - AfricanAm [facility] ([facility]) Note: Responsible Observer: KM EGFR - Non AF AM > 60 N/A EGFR - Non AF AM [facility] ([facility]) Note: Responsible Observer: KM Potassium [Mass/volume] in Blood 4.4 mmol/L Pot assium KAHULUI ([facility]) Note: Responsible Observer: KM Glucose [Mass/volume] in Urine collected for unspecified duratio n 187 mg/dl Above high normal Glucose KAHULUI ([facility]) Note: Responsible Observer: KM Sodium [Moles/volume] in Serum, Plasma or Blood 138 mmol/L Sodium KAHULUI ([facility]) Note: Responsible Observer: KM Total Bilirubin 0.7 mg/dl Total Bilirubin [facility]) Note: Responsible Observer: KM Total Protein 6.3 g/dl Total Protein KAHULUI ([facility]) Note: Responsible Observer: KM ID Date Data Source [id number] 05/23/2020 10:44:00 AM EDT KAHULUI ([facility]) Name Value Range Interpretation Code Description Data Hillary rce(s) Supporting Document(s) ACR 15.7 ug/mg ACR KAHULUI ([facility]) Note: Responsible Observer: KM Micro alb 14.2 mg/L Micro alb KAHULUI ([facility]) Note: Responsible Observer: KM Urine Creat 90.6 mg/dl Urine Creat KAHULUI ([facility]) Note: Responsible Observer: KM ID Date Data Source [id number] 05/23/2020 10:44:00 AM [facility] ([facility]) Name Value Range Interpretation Code Description Data Hillary rce(s) Supporting Document(s) Reported Physicians See Note Reported Physici ans KAHULUI ([facility]) Note: Reported Physicians:Ordering: Carolina MirzaAttending: Carolina Hernadez ID Date Data Source [id number] 05/23/2020 10:44:00 AM [facility] ([facility]) Name Value Range Interpretation Code Description Data [facility] rce(s) Supporting Document(s) 25-Hydroxyvitamin D2+25-Hydroxyvitamin D3 [Mass/volume ] in Serum or Plasma 85 NanoGramsPerMilliLiter_[Mass_Concentration_Units] 25(OH)D2+25(OH)D3 SerPl-mCnc KAHULUI ([facility]) Note: Vitamin D Status 25-OH Vit mclean D:Deficiency: <20 ng/mLInsufficiency: 20 - 29 ng/mLOptimal: > or = 30 ng/mLFor 25-OH Vitamin D testing on patients onD2-supplementation and patients for whom quantitationof D2 and D3 fractions is required, the QuestAssureD(TM)25-OH VIT D, (D2,D3), LC/MS/MS is recommended: ordercode 45410 (patients >2yrs).See Note 1Note 1For additional information, please refer tohttp://education.[employer].Valcon/faq/AZY990(This link is being provided for informational/educational purposes only.)THIS TEST WAS PERFORMED AT:[facility] [employer] [facility] [id number] CARLSONesponsible Observer: Vitamin D 25-OH Vitamin D 25-Hydroxy [id number] [phone] ([facility]) Procedure Social History Code Duration Value Status Description Data Source(s ) Alcohol intake 06/12/2021 12:00:00 AM EDT Ex-drinker (finding) comp leted Ex- drinker (finding) [facility] Alcohol intake 06/07/2021 12:00:00 AM EDT Ex-drinker (finding) comp leted Ex- drinker (finding) [facility] Alcohol intake 03/23/2021 12:00:00 AM EDT Current non-d brad of alcohol (finding) completed Current non-drinker of alcohol (finding) [facility] Alcohol intake 02/14/2021 12:00:00 AM EDT Current non-d brad of alcohol (finding) completed Current non-drinker of alcohol (finding) [facility] Smoking 02/13/2021 12:00:00 AM EDT Patient has never smoked co mpleted Patient has never smoked MEDENT ([facility], ) Smoking 01/21/2021 12:00:00 AM EDT Patient has never smoked co mpleted Patient has never smoked MEDENT ([facility], [facility]) Alcohol intake 01/17/2021 12:00:00 AM EDT Current non-d brad of alcohol (finding) completed Current non-drinker of alcohol (finding) [facility] Alcohol intake 07/19/2020 12:00:00 AM EST No completed [facility] Smoking 07/19/2020 12:00:00 AM EST Never smoker completed Never s moker [facility] Alcohol intake 06/15/2020 12:00:00 AM EDT No completed [facility] Smoking 06/15/2020 12:00:00 AM EDT Never smoker completed Never s moker [facility] Vital Signs ID Date Data Source UNK Name Value Range Interpretation Code Description Data Source(s) Diastolic blood pressure 72 mm[Hg] 72 mm[Hg] MARCIA ([facility]) Body height 72 [in_i] 72 [in_i] MARCIA ([facility]) Body mass index (BMI) [Ratio] 28.4 kg/m2 28.4 k g/m2 MARCIA ([facility]) Systolic blood pressure 126 mm[Hg] 126 mm[Hg] A JUAN AA ([facility]) Body weight 3350 [oz_av] 3350 [oz_av] MARCAI ([facility]) Diastolic blood pressure 72 mm[Hg] 72 mm[Hg] MARCIA ([facility]) Body height 72 [in_i] 72 [in_i] MARCIA ([facility]) Body mass index (BMI) [Ratio] 28.4 kg/m2 28.4 k g/m2 MARCIA ([facility]) Systolic blood pressure 126 mm[Hg] 126 mm[Hg] A MEGAN ([facility]) Body weight 3350 [oz_av] 3350 [oz_av] MARCIA ([facility]) Heart rate 81 /min 81 /min [facility] Body temperature 36.28 Keiko 36.28 Keiko [facility] Respiratory rate 18 /min 18 /min [facility] Oxygen saturation in Arterial blood by Pulse oximetry 96 % 96 % [facility] Diastolic blood pressure 78 mm[Hg] 78 mm[Hg] [facility] Systolic blood pressure 129 mm[Hg] 129 mm[Hg] [facility] Body height 180.3 cm 180.3 cm [facility] Body weight 92.08 kg 92.08 kg [facility] Body mass index (BMI) [Ratio] 28.31 kg/m2 28.31 kg/m2 [facility] Systolic blood pressure 123 mm[Hg] 123 mm[Hg] [facility] Diastolic blood pressure 73 mm[Hg] 73 mm[Hg] [facility] Heart rate 82 /min 82 /min [facility] Oxygen saturation in Arterial blood by Pulse oximetry 95 % 95 % [facility] Body temperature 35.72 Keiko 35.72 Keiko [facility] Body height 179.1 cm 179.1 cm [facility] Body weight 94.121 kg 94.121 kg [facility] Body mass index (BMI) [Ratio] 29.35 kg/m2 29.35 kg/m2 [facility] Diastolic blood pressure 74 mm[Hg] 74 mm[Hg] MARCIA ([facility]) Body height 72 [in_i] 72 [in_i] MARCIA ([facility]) Body mass index (BMI) [Ratio] 27.9 kg/m2 27.9 k g/m2 MARCIA ([facility]) Systolic blood pressure 107 mm[Hg] 107 mm[Hg] [facility] Body weight 3296 [oz_av] 3296 [oz_av] MARCIA ([facility]) Diastolic blood pressure 74 mm[Hg] 74 mm[Hg] MARCIA ([facility]) Body height 72 [in_i] 72 [in_i] MARCIA ([facility]) Body mass index (BMI) [Ratio] 27.9 kg/m2 27.9 k g/m2 MARCIA ([facility]) Systolic blood pressure 107 mm[Hg] 107 mm[Hg] A [facility] ([facility]) Body weight 3296 [oz_av] 3296 [oz_av] MARCIA ([facility]) Diastolic blood pressure 74 mm[Hg] 74 mm[Hg] MARCIA ([facility]) Body height 72 [in_i] 72 [in_i] MARCIA ([facility]) Body mass index (BMI) [Ratio] 27.9 kg/m2 27.9 k g/m2 MARCIA ([facility]) Systolic blood pressure 107 mm[Hg] 107 mm[Hg] A THENA ([facility]) Body weight 3296 [oz_av] 3296 [oz_av] MARCIA ([facility]) Diastolic blood pressure 74 mm[Hg] 74 mm[Hg] MARCIA ([facility]) Body height 72 [in_i] 72 [in_i] MARCIA ([facility]) Body mass index (BMI) [Ratio] 27.9 kg/m2 27.9 k g/m2 MARCIA ([facility]) Systolic blood pressure 107 mm[Hg] 107 mm[Hg] [facility] Body weight 3296 [oz_av] 3296 [oz_av] MARCIA ([facility]) Diastolic blood pressure 85 mm[Hg] 85 mm[Hg] MEDENT ([facility]) Systolic blood pressure 135 mm[Hg] 135 mm[Hg] M EDCLAUDIA ([facility]) Body weight 206.00 [lb_av] 206.00 [lb_av] MEDEN T ([facility]) Body height 71 [in_i] 71 [in_i] MEDCLAUDIA ([facility]) 5'11" Body mass index (BMI) [Ratio] 28.7 kg/m2 28.7 k g/m2 MEDCLAUDIA ([facility]) Diastolic blood pressure 62 mm[Hg] 62 mm[Hg] MARCIA ([facility]) Body height 72 [in_i] 72 [in_i] MARCIA ([facility]) Systolic blood pressure 90 mm[Hg] 90 mm[Hg] A THENA ([facility]) Body height 72 [in_i] 72 [in_i] MARCIA ([facility]) Diastolic blood pressure 62 mm[Hg] 62 mm[Hg] MARCIA ([facility]) Systolic blood pressure 90 mm[Hg] 90 mm[Hg] A THENA ([facility]) Diastolic blood pressure 62 mm[Hg] 62 mm[Hg] MARCIA ([facility]) Body height 72 [in_i] 72 [in_i] MARCIA ([facility]) Systolic blood pressure 90 mm[Hg] 90 mm[Hg] A THENA ([facility]) Diastolic blood pressure 62 mm[Hg] 62 mm[Hg] MARCIA ([facility]) Body height 72 [in_i] 72 [in_i] MARCIA ([facility]) Systolic blood pressure 90 mm[Hg] 90 mm[Hg] A THENA ([facility]) Diastolic blood pressure 62 mm[Hg] 62 mm[Hg] MARCIA ([facility]) Body height 72 [in_i] 72 [in_i] MARCIA ([facility]) Systolic blood pressure 90 mm[Hg] 90 mm[Hg] A THENA ([facility]) Body height 72 [in_i] 72 [in_i] MARCIA ([facility]) Body height 72 [in_i] 72 [in_i] MARCIA ([facility]) Body height 72 [in_i] 72 [in_i] MARCIA ([facility]) Body height 72 [in_i] 72 [in_i] MARCIA ([facility]) Body height 72 [in_i] 72 [in_i] MARCIA ([facility]) Body height 72 [in_i] 72 [in_i] MARCIA ([facility]) Body height 182.9 cm 182.9 cm [facility] Body weight 97.07 kg 97.07 kg [facility] Body mass index (BMI) [Ratio] 29.02 kg/m2 29.02 kg/m2 [facility] Oxygen saturation in Arterial blood by Pulse oximetry 98 % 98 % [facility] Systolic blood pressure 118 mm[Hg] 118 mm[Hg] [facility] Diastolic blood pressure 58 mm[Hg] 58 mm[Hg] [facility] Heart rate 80 /min 80 /min [facility] Systolic blood pressure 125 mm[Hg] 125 mm[Hg] [facility] Diastolic blood pressure 83 mm[Hg] 83 mm[Hg] [facility] Heart rate 86 /min 86 /min [facility] Body temperature 36.5 Keiko 36.5 Keiko [facility] Respiratory rate 12 /min 12 /min [facility] Oxygen saturation in Arterial blood by Pulse oximetry 97 % 97 % [facility] Body height 180.3 cm 180.3 cm [facility] Body weight 94.7 kg 94.7 kg [facility] Body mass index (BMI) [Ratio] 29.12 kg/m2 29.12 kg/m2 [facility] Systolic blood pressure 110 mm[Hg] 110 mm[Hg] [facility] Diastolic blood pressure 74 mm[Hg] 74 mm[Hg] [facility] Heart rate 82 /min 82 /min [facility] Body height 182.9 cm 182.9 cm [facility] Body weight 96.616 kg 96.616 kg [facility] Body mass index (BMI) [Ratio] 28.89 kg/m2 28.89 kg/m2 [facility] Oxygen saturation in Arterial blood by Pulse oximetry 98 % 98 % [facility] Body height 70 [in_i] 70 [in_i] [facility] ([facility], ) 5'10" [place] body weight 166 [lb_av] 166 [lb_av] MEDEN T ([facility], ) Body weight 96.787 kg 96.787 kg [facility] ([facility]) Body surface area Derived from formula 2.15 m2 2.15 m2 [facility] ([facility], ) Body weight 213.38 [lb_av] 213.38 [lb_av] MEDEN T ([facility]) Body mass index (BMI) [Ratio] 30.6 kg/m2 30.6 k g/m2 [facility] ([facility]) Systolic blood pressure 116 mm[Hg] 116 mm[Hg] [facility], [facility] Oxygen saturation in Arterial blood by Pulse oximetry 97 % 97 % [facility] ([facility]) Diastolic blood pressure 68 mm[Hg] 68 mm[Hg] [facility] ([facility], ) Heart rate 86 /min 86 /min [facility] ([facility]) Diastolic blood pressure 67 mm[Hg] 67 mm[Hg] MARCIA ([facility]) Body height 72 [in_i] 72 [in_i] MARCIA ([facility]) Body mass index (BMI) [Ratio] 26.5 kg/m2 26.5 k g/m2 MARCIA ([facility]) Systolic blood pressure 97 mm[Hg] 97 mm[Hg] A THENA ([facility]) Body weight 3122 [oz_av] 3122 [oz_av] MARCIA ([facility]) Diastolic blood pressure 67 mm[Hg] 67 mm[Hg] MARCIA ([facility]) Body height 72 [in_i] 72 [in_i] MARCIA ([facility]) Body mass index (BMI) [Ratio] 26.5 kg/m2 26.5 k g/m2 MARCIA ([facility]) Systolic blood pressure 97 mm[Hg] 97 mm[Hg] A [facility] ([facility]) Body weight 3122 [oz_av] 3122 [oz_av] MARCIA ([facility]) Diastolic blood pressure 67 mm[Hg] 67 mm[Hg] MARCIA ([facility]) Body height 72 [in_i] 72 [in_i] MARCIA ([facility]) Body mass index (BMI) [Ratio] 26.5 kg/m2 26.5 k g/m2 MARCIA ([facility]) Systolic blood pressure 97 mm[Hg] 97 mm[Hg] A [facility] ([facility]) Body weight 3122 [oz_av] 3122 [oz_av] MARCIA ([facility]) Diastolic blood pressure 67 mm[Hg] 67 mm[Hg] MARCIA ([facility]) Body height 72 [in_i] 72 [in_i] MARCIA ([facility]) Body mass index (BMI) [Ratio] 26.5 kg/m2 26.5 k g/m2 MARCIA ([facility]) Systolic blood pressure 97 mm[Hg] 97 mm[Hg] A THENA ([facility]) Body weight 3122 [oz_av] 3122 [oz_av] MARCIA ([facility]) Diastolic blood pressure 67 mm[Hg] 67 mm[Hg] MARCIA ([facility]) Body height 72 [in_i] 72 [in_i] MARCIA ([facility]) Body mass index (BMI) [Ratio] 26.5 kg/m2 26.5 k g/m2 MARCIA ([facility]) Systolic blood pressure 97 mm[Hg] 97 mm[Hg] A [facility] ([facility]) Body weight 3122 [oz_av] 3122 [oz_av] MARCIA ([facility]) Diastolic blood pressure 67 mm[Hg] 67 mm[Hg] MARCIA ([facility]) Body height 72 [in_i] 72 [in_i] MARCIA ([facility]) Body mass index (BMI) [Ratio] 26.5 kg/m2 26.5 k g/m2 MARCIA ([facility]) Systolic blood pressure 97 mm[Hg] 97 mm[Hg] A JUAN AA ([facility]) Body weight 3122 [oz_av] 3122 [oz_av] MARCIA ([facility]) Diastolic blood pressure 67 mm[Hg] 67 mm[Hg] MARCIA ([facility]) Body height 72 [in_i] 72 [in_i] MARCIA ([facility]) Body mass index (BMI) [Ratio] 26.5 kg/m2 26.5 k g/m2 MARCIA ([facility]) Systolic blood pressure 97 mm[Hg] 97 mm[Hg] A MEGAN ([facility]) Body weight 3122 [oz_av] 3122 [oz_av] MARCIA ([facility]) Body height 72 [in_i] 72 [in_i] MARCIA ([facility]) Body height 72 [in_i] 72 [in_i] MARCIA ([facility]) Body height 72 [in_i] 72 [in_i] MARCIA ([facility]) Body height 72 [in_i] 72 [in_i] MARCIA ([facility]) Body height 72 [in_i] 72 [in_i] MARCIA ([facility]) Body height 72 [in_i] 72 [in_i] MARCIA ([facility]) Body height 72 [in_i] 72 [in_i] MARCIA ([facility]) Body height 72 [in_i] 72 [in_i] MARCIA ([facility]) Body height 72 [in_i] 72 [in_i] MEDENT ([facility], [facility]) 6'0" Systolic blood pressure 112 mm[Hg] 112 mm[Hg] M EDENT ([facility], [facility]) Diastolic blood pressure 78 mm[Hg] 78 mm[Hg] MEDENT ([facility], [facility]) Respiratory rate 13 /min 13 /min [facility] ( [facility], [facility]) Oxygen saturation in Arterial blood by Pulse oximetry 97 % 97 % MEDENT ([facility], [facility]) Body temperature 97.3 [degF] 97.3 [degF] MEDENT ([facility], [facility]) Body mass index (BMI) [Ratio] 29.0 kg/m2 29.0 k g/m2 MEDENT ([facility], [facility]) Body weight 214.00 [lb_av] 214.00 [lb_av] MEDEN T ([facility], [facility]) Heart rate 76 /min 76 /min [facility] ([facility], [facility]) Body height 182.9 cm 182.9 cm [facility] Systolic blood pressure 110 mm[Hg] 110 mm[Hg] [facility] Diastolic blood pressure 76 mm[Hg] 76 mm[Hg] [facility] Heart rate 100 /min 100 /min [facility] Body weight 96.616 kg 96.616 kg [facility] Body mass index (BMI) [Ratio] 28.89 kg/m2 28.89 kg/m2 [facility] Oxygen saturation in Arterial blood by Pulse oximetry 96 % 96 % [facility] Diastolic blood pressure 81 mm[Hg] 81 mm[Hg] MARCIA ([facility]) Diastolic blood pressure 81 mm[Hg] 81 mm[Hg] MARCIA ([facility]) Body height 72 [in_i] 72 [in_i] MARCIA ([facility]) Body mass index (BMI) [Ratio] 28.5 kg/m2 28.5 k g/m2 MARCIA ([facility]) Systolic blood pressure 114 mm[Hg] 114 mm[Hg] A THENA ([facility]) Body weight 3364 [oz_av] 3364 [oz_av] MARCIA ([facility]) Body height 72 [in_i] 72 [in_i] MARCIA ([facility]) Body mass index (BMI) [Ratio] 28.5 kg/m2 28.5 k g/m2 MARCIA ([facility]) Systolic blood pressure 114 mm[Hg] 114 mm[Hg] A THENA ([facility]) Body weight 3364 [oz_av] 3364 [oz_av] MARCIA ([facility]) Diastolic blood pressure 81 mm[Hg] 81 mm[Hg] MARCIA ([facility]) Body height 72 [in_i] 72 [in_i] MARCIA ([facility]) Body mass index (BMI) [Ratio] 28.5 kg/m2 28.5 k g/m2 MARCIA ([facility]) Systolic blood pressure 114 mm[Hg] 114 mm[Hg] A JUAN AA ([facility]) Body weight 3364 [oz_av] 3364 [oz_av] MARCIA ([facility]) Diastolic blood pressure 81 mm[Hg] 81 mm[Hg] MARCIA ([facility]) Body height 72 [in_i] 72 [in_i] MARCIA ([facility]) Body mass index (BMI) [Ratio] 28.5 kg/m2 28.5 k g/m2 MARCIA ([facility]) Systolic blood pressure 114 mm[Hg] 114 mm[Hg] A JUAN AA ([facility]) Body weight 3364 [oz_av] 3364 [oz_av] MARCIA ([facility]) Diastolic blood pressure 81 mm[Hg] 81 mm[Hg] MARCIA ([facility]) Body height 72 [in_i] 72 [in_i] MARCIA ([facility]) Body mass index (BMI) [Ratio] 28.5 kg/m2 28.5 k g/m2 MARCIA ([facility]) Systolic blood pressure 114 mm[Hg] 114 mm[Hg] A THENA ([facility]) Body weight 3364 [oz_av] 3364 [oz_av] MARCIA ([facility]) Body height 72 [in_i] 72 [in_i] MARCIA ([facility]) Diastolic blood pressure 81 mm[Hg] 81 mm[Hg] MARCIA ([facility]) Body mass index (BMI) [Ratio] 28.5 kg/m2 28.5 k g/m2 MARCIA ([facility]) Systolic blood pressure 114 mm[Hg] 114 mm[Hg] A THENA ([facility]) Body weight 3364 [oz_av] 3364 [oz_av] MARCIA ([facility]) Diastolic blood pressure 81 mm[Hg] 81 mm[Hg] MARCIA ([facility]) Body height 72 [in_i] 72 [in_i] MARCIA ([facility]) Body mass index (BMI) [Ratio] 28.5 kg/m2 28.5 k g/m2 MARCIA ([facility]) Systolic blood pressure 114 mm[Hg] 114 mm[Hg] A THENA ([facility]) Body weight 3364 [oz_av] 3364 [oz_av] MARCIA ([facility]) Body mass index (BMI) [Ratio] 28.5 kg/m2 28.5 k g/m2 MARCIA ([facility]) Systolic blood pressure 114 mm[Hg] 114 mm[Hg] A THENA ([facility]) Body weight 3364 [oz_av] 3364 [oz_av] MARCIA ([facility]) Diastolic blood pressure 81 mm[Hg] 81 mm[Hg] MARCIA ([facility]) Body height 72 [in_i] 72 [in_i] MARCIA ([facility]) Diastolic blood pressure 81 mm[Hg] 81 mm[Hg] MARCIA ([facility]) Body height 72 [in_i] 72 [in_i] MARCIA ([facility]) Body mass index (BMI) [Ratio] 28.5 kg/m2 28.5 k g/m2 MARCIA ([facility]) Systolic blood pressure 114 mm[Hg] 114 mm[Hg] A THENA ([facility]) Body weight 3364 [oz_av] 3364 [oz_av] MARCIA ([facility]) Systolic blood pressure 135 mm[Hg] 135 mm[Hg] M EDENT ([facility], [facility]) Diastolic blood pressure 91 mm[Hg] 91 mm[Hg] MEDENT ([facility] Body mass index (BMI) [Ratio] 29.0 kg/m2 29.0 k g/m2 MEDENT ([facility], [facility]) Heart rate 104 /min 104 /min MEDENT ([facility], [facility]) Respiratory rate 16 /min 16 /min MEDENT ( [facility], [facility]) Oxygen saturation in Arterial blood by Pulse oximetry 97 % 97 % MEDENT ([facility], [facility]) Body temperature 95.1 [degF] 95.1 [degF] MEDENT ([facility], [facility]) Body weight 214.00 [lb_av] 214.00 [lb_av] MEDEN T ([facility], [facility]) Body height 72 [in_i] 72 [in_i] MEDENT ([facility], [facility]) 6'0" Diastolic blood pressure 98 mm[Hg] 98 mm[Hg] MARCIA ([facility]) Body height 72 [in_i] 72 [in_i] MARCIA ([facility]) Body mass index (BMI) [Ratio] 30.1 kg/m2 30.1 k g/m2 MARCIA ([facility]) Systolic blood pressure 143 mm[Hg] 143 mm[Hg] A [facility] ([facility]) Body weight 3554 [oz_av] 3554 [oz_av] MARCIA ([facility]) Diastolic blood pressure 98 mm[Hg] 98 mm[Hg] MARCIA ([facility]) Body height 72 [in_i] 72 [in_i] MARCIA ([facility]) Body mass index (BMI) [Ratio] 30.1 kg/m2 30.1 k g/m2 MARCIA ([facility]) Systolic blood pressure 143 mm[Hg] 143 mm[Hg] A [facility] ([facility]) Body weight 3554 [oz_av] 3554 [oz_av] MARCIA ([facility]) Diastolic blood pressure 98 mm[Hg] 98 mm[Hg] MARCIA ([facility]) Body height 72 [in_i] 72 [in_i] MARCIA ([facility]) Body mass index (BMI) [Ratio] 30.1 kg/m2 30.1 k g/m2 MARCIA ([facility]) Systolic blood pressure 143 mm[Hg] 143 mm[Hg] A THENA ([facility]) Body weight 3554 [oz_av] 3554 [oz_av] MARCIA ([facility]) Diastolic blood pressure 98 mm[Hg] 98 mm[Hg] MARCIA ([facility]) Body height 72 [in_i] 72 [in_i] MARCIA ([facility]) Body mass index (BMI) [Ratio] 30.1 kg/m2 30.1 k g/m2 MARCIA ([facility]) Systolic blood pressure 143 mm[Hg] 143 mm[Hg] A THENA ([facility]) Body weight 3554 [oz_av] 3554 [oz_av] MARCIA ([facility]) Diastolic blood pressure 98 mm[Hg] 98 mm[Hg] MARCIA ([facility]) Body height 72 [in_i] 72 [in_i] MARCIA ([facility]) Body mass index (BMI) [Ratio] 30.1 kg/m2 30.1 k g/m2 MARCIA ([facility]) Systolic blood pressure 143 mm[Hg] 143 mm[Hg] A THENA ([facility]) Body weight 3554 [oz_av] 3554 [oz_av] MARCIA ([facility]) Body weight 3554 [oz_av] 3554 [oz_av] MARCIA ([facility]) Diastolic blood pressure 98 mm[Hg] 98 mm[Hg] MARCIA ([facility]) Body height 72 [in_i] 72 [in_i] MARCIA ([facility]) Body mass index (BMI) [Ratio] 30.1 kg/m2 30.1 k g/m2 MARCIA ([facility]) Systolic blood pressure 143 mm[Hg] 143 mm[Hg] A THENA ([facility]) Diastolic blood pressure 98 mm[Hg] 98 mm[Hg] MARCIA ([facility]) Body height 72 [in_i] 72 [in_i] MARCIA ([facility]) Body mass index (BMI) [Ratio] 30.1 kg/m2 30.1 k g/m2 MARCIA ([facility]) Systolic blood pressure 143 mm[Hg] 143 mm[Hg] A THENA ([facility]) Body weight 3554 [oz_av] 3554 [oz_av] MARCIA ([facility]) Diastolic blood pressure 98 mm[Hg] 98 mm[Hg] MARCIA ([facility]) Body height 72 [in_i] 72 [in_i] MARCIA ([facility]) Body mass index (BMI) [Ratio] 30.1 kg/m2 30.1 k g/m2 MARCIA ([facility]) Systolic blood pressure 143 mm[Hg] 143 mm[Hg] A JUAN AA ([facility]) Body weight 3554 [oz_av] 3554 [oz_av] MARCIA ([facility]) Diastolic blood pressure 98 mm[Hg] 98 mm[Hg] MARCIA ([facility]) Body height 72 [in_i] 72 [in_i] MARCIA ([facility]) Body mass index (BMI) [Ratio] 30.1 kg/m2 30.1 k g/m2 MARCIA ([facility]) Systolic blood pressure 143 mm[Hg] 143 mm[Hg] A THENA ([facility]) Body weight 3554 [oz_av] 3554 [oz_av] MARCIA ([facility]) Diastolic blood pressure 98 mm[Hg] 98 mm[Hg] MARCIA ([facility]) Body height 72 [in_i] 72 [in_i] MARCIA ([facility]) Body mass index (BMI) [Ratio] 30.1 kg/m2 30.1 k g/m2 MARCIA ([facility]) Systolic blood pressure 143 mm[Hg] 143 mm[Hg] A THENA ([facility]) Body weight 3554 [oz_av] 3554 [oz_av] MARCIA ([facility]) Systolic blood pressure 128 mm[Hg] 128 mm[Hg] M EDENT ([facility]) Diastolic blood pressure 71 mm[Hg] 71 mm[Hg] MEDENT ([facility]) Body weight 208.00 [lb_av] 208.00 [lb_av] MEDEN T ([facility]) Body temperature 97.1 [degF] 97.1 [degF] MEDENT ([facility]) Body temperature 97.1 [degF] 97.1 [degF] MEDENT ([facility]) Body height 72 [in_i] 72 [in_i] MEDENT ([facility]) 6'0" Body weight 208.00 [lb_av] 208.00 [lb_av] MEDEN T ([facility]) Body mass index (BMI) [Ratio] 28.2 kg/m2 28.2 k g/m2 [facility] ([facility]) Systolic blood pressure 140 mm[Hg] 140 mm[Hg] [facility] Diastolic blood pressure 70 mm[Hg] 70 mm[Hg] [facility] Heart rate 70 /min 70 /min [facility] Body height 182.9 cm 182.9 cm [facility] Body weight 98.068 kg 98.068 kg [facility] Body mass index (BMI) [Ratio] 29.32 kg/m2 29.32 kg/m2 [facility] Oxygen saturation in Arterial blood by Pulse oximetry 97 % 97 % [facility] Body surface area Derived from formula 2.18 m2 2.18 m2 KAHUL[place] ([facility]) Systolic blood pressure 110 mm[Hg] 110 mm[Hg] G REENWAY ([facility]) Diastolic blood pressure 78 mm[Hg] 78 mm[Hg] KAHULUI ([facility]) Heart rate 74 /min 74 /min KAHULUI ([facility]) Respiratory rate 22 /min 22 /min KAHULUI ([facility]) Body height 71.5 [in_i] 71.5 [in_i] KAHULUI ([facility]) Body weight 212.8 [lb_av] 212.8 [lb_av] [facility]) Body mass index (BMI) [Ratio] 29.3 kg/m2 29.3 k g/m2 KAHULUI ([facility]) Body height 71.5 [in_i] 71.5 [in_i] KAHULUI ([facility]) Body weight 209 [lb_av] 209 [lb_av] KAHULUI ([facility]) Body mass index (BMI) [Ratio] 28.7 kg/m2 28.7 k g/m2 K[place]UL[place] ([facility]) Body surface area Derived from formula 2.16 m2 2.16 m2 KAHULUI ([facility]) Systolic blood pressure 98 mm[Hg] 98 mm[Hg] [facility] ([facility]) Diastolic blood pressure 64 mm[Hg] 64 mm[Hg] KAHULUI ([facility]) Heart rate 88 /min 88 /min KAHULUI ([facility]) Respiratory rate 20 /min 20 /min KAHULUI ([facility]) Systolic blood pressure 98 mm[Hg] 98 mm[Hg] [facility] ([facility]) Diastolic blood pressure 64 mm[Hg] 64 mm[Hg] KAHULUI ([facility]) Heart rate 88 /min 88 /min KAHULUI ([facility]) Body weight 209 [lb_av] 209 [lb_av] KAHULUI ([facility]) Body mass index (BMI) [Ratio] 28.7 kg/m2 28.7 k g/m2 K[place]UL[place] ([facility]) Body surface area Derived from formula 2.16 m2 2.16 m2 K[place]ULUI ([facility]) Respiratory rate 20 /min 20 /min KAHULUI ([facility]) Body height 71.5 [in_i] 71.5 [in_i] KAHULUI ([facility]) Patient Treatment Plan of Care Planned Activity Planned Date Details Description Data Source (s) normal saline flush 0.9 % injection 3 mL 06/12/2021 09:00:00 AM EDT [facility] Acetaminophen 325 MG Oral Tablet 06/12/2021 08:21:12 AM EDT [facility] 24 HR Metformin hydrochloride 500 MG Extended Release Oral Tablet 03/13/2021 12:00:00 AM EDT [facility] Losartan Potassium 25 MG Oral Tablet 03/13/2021 12:00:00 AM EDT [facility] apixaban 5 MG Oral Tablet 03/13/2021 12:00:00 AM EDT [facility] sodium chloride 0.9% (NS) infusion 03/11/2021 04:00:00 PM EDT [facility] normal saline flush 0.9 % injection 3 mL 03/11/2021 09:00:00 AM EDT [facility] normal saline flush 0.9 % injection 3 mL 03/11/2021 09:00:00 AM EDT [facility] normal saline flush 0.9 % injection 3 mL 03/11/2021 09:00:00 AM EDT [facility] clopidogrel 75 MG Oral Tablet 02/14/2021 12:00:00 AM EDT [facility] Digoxin 0.125 MG Oral Tablet 01/17/2021 12:00:00 AM EDT [facility] Losartan Potassium 25 MG Oral Tablet 12/20/2020 12:00:00 AM EDT [facility] Losartan Potassium 25 MG Oral Tablet 07/19/2020 12:00:00 AM EST [facility] FLUAD QUADRIVALENT 0.5 ML PRSY 06/12/2020 12:00:00 AM EDT [facility] tramadol hydrochloride 50 MG Oral Tablet 05/24/2020 12:00:00 AM EDT [facility] 24 HR Fesoterodine Fumarate 4 MG Extended Release Oral Tablet [Toviaz] 05/23/2020 12:00:00 AM EDT [facility] tramadol hydrochloride 50 MG Oral Tablet 05/23/2020 12:00:00 AM EDT [facility]) Glipizide 5 MG Oral Tablet 05/21/2020 12:00:00 AM EDT [facility]) 24 HR Metformin hydrochloride 500 MG Extended Release Oral Tablet 04/29/2020 12:00:00 AM EDT [facility] 24 HR Metformin hydrochloride 500 MG Extended Release Oral Tablet 10/28/2019 12:00:00 AM EDT KAHULUI ([facility]) Lancets 30G Miscellaneous 09/29/2019 12:00:00 AM EST [facility]) GE100 Blood Glucose Test In Vitro Strip 09/29/2019 12:00:00 AM EST KAHULUI ([facility]) apixaban 5 MG Oral Tablet [Eliquis] 09/05/2019 12:00:00 AM EST [facility]) 7 ACTUAT umeclidinium 0.0625 MG/ACTUAT Dry Powder Inha ler [Incruse] 08/11/2019 12:00:00 AM EST [facility] valsartan 80 MG Oral Tablet 06/07/2019 12:00:00 AM EDT [facility]) empagliflozin 10 MG Oral Tablet 04/21/2019 12:00:00 AM EDT [facility] apixaban 5 MG Oral Tablet 01/31/2017 12:00:00 AM EDT [facility] Metformin hydrochloride 1000 MG Oral Tablet 01/31/2017 12:00:00 AM EDT [facility] tramadol hydrochloride 50 MG Oral Tablet [place] ([facility]) Simvastatin 20 MG Oral Tablet [place] ([facility]) 24 HR mirabegron 50 MG Extended Release Oral Tablet [Myrbetriq] [facility]) 24 HR metoprolol succinate 200 MG Extended Release Oral Tablet [place] ([facility]) Loratadine 10 MG Oral Capsule [place] ([facility]) empagliflozin 10 MG Oral Tablet [Jardiance] [facility]) irbesartan 150 MG Oral Tablet [place] ([facility]) POLYETHYLENE GLYCOL 3350 59 MG/ML / Pota ssium Chloride 0.01 MEQ/ML / Sodium Bicarbonate 0.02 MEQ/ML / Sodium Chloride 0.025 MEQ/ML / sodium sulfate 0.04 MEQ/ML Oral Solution [Gaviltye-G] [place] ([facility]) fluticasone propionate 50 mcg/actuation nasal spray,suspension INSTILL TWO SPRAYS IN EACH NOSTRIL ONCE DAILY MARCIA ([facility]) Fluoxetine 40 MG Oral Capsule [place] ([facility]) fluoxetine 20 mg tablet Take 1 tablet every day by oral route. MARCIA ([facility]) Fluoxetine 20 MG Oral Capsule [facility]) Cephalexin 500 MG Oral Capsule MARCIA ([facility]) tramadol hydrochloride 50 MG Oral Tablet MARCIA ([facility]) Simvastatin 20 MG Oral Tablet MARCIA ([facility]) 24 HR mirabegron 50 MG Extended Release Oral Tablet [Myrbetriq] MARCIA ([facility]) 24 HR metoprolol succinate 200 MG Extended Release Oral Tablet MARCIA ([facility]) Loratadine 10 MG Oral Capsule MARCIA ([facility]) empagliflozin 10 MG Oral Tablet [Jardiance] MARCIA ([facility]) irbesartan 150 MG Oral Tablet MARCIA ([facility]) POLYETHYLENE GLYCOL 3350 59 MG/ML / Pota ssium Chloride 0.01 MEQ/ML / Sodium Bicarbonate 0.02 MEQ/ML / Sodium Chloride 0.025 MEQ/ML / sodium sulfate 0.04 MEQ/ML Oral Solution [Gaviltye-G] MARCIA ([facility]) fluticasone propionate 50 mcg/actuation nasal spray,suspension INSTILL TWO SPRAYS IN EACH NOSTRIL ONCE DAILY MARCIA ([facility]) Fluoxetine 40 MG Oral Capsule MARCIA ([facility]) fluoxetine 20 mg tablet Take 1 tablet every day by oral route. MARCIA ([facility]) Fluoxetine 20 MG Oral Capsule [place] ([facility]) Cephalexin 500 MG Oral Capsule [place] ([facility]) Vitamin B 12 0.5 MG Oral Tablet [facility] Glipizide 5 MG Oral Tablet [facility] tramadol hydrochloride 50 MG Oral Tablet MARCIA ([facility]) Simvastatin 20 MG Oral Tablet MARCIA ([facility]) 24 HR mirabegron 50 MG Extended Release Oral Tablet [Myrbetriq] MARCIA ([facility]) 24 HR metoprolol succinate 200 MG Extended Release Oral Tablet MARCIA ([facility]) empagliflozin 10 MG [facility]t [facility] irbes[facility] 150 MG Oral Tablet MARCIA ([facility]) fluticasone propionate 50 mcg/actuation nasal spray,suspension INSTILL TWO SPRAYS IN EACH NOSTRIL ONCE DAILY MARCIA ([facility]) fluoxetine 20 mg tablet Take 1 tablet every day by oral route. MARCIA ([facility]) Fluoxetine 20 MG Oral Capsule MARCIA ([facility]) Cephalexin 500 MG Oral Capsule MARCIA ([facility]) tramadol hydrochloride 50 MG Oral Tablet MARCIA ([facility]) Simvastatin 20 MG Oral Tablet MARCIA ([facility]) 24 HR mirabegron 50 MG Extended Release Oral Tablet [Myrbetriq] MARCIA ([facility]) 24 HR metoprolol succinate 200 MG Extended Release Oral Tablet MARCIA ([facility]) empagliflozin 10 MG Oral Tablet [Jardiance] MARCIA ([facility]) irbesartan 150 MG Oral Tablet MARCIA ([facility]) fluticasone propionate 50 mcg/actuation nasal spray,suspension INSTILL TWO SPRAYS IN EACH NOSTRIL ONCE DAILY MARCIA ([facility]) fluoxetine 20 mg tablet Take 1 tablet every day by oral route. MARCIA ([facility]) Fluoxetine 20 MG Oral Capsule MARCIA ([facility]) Cephalexin 500 MG Oral Capsule MARCIA ([facility]) tramadol hydrochloride 50 MG Oral Tablet MARCIA ([facility]) Simvastatin 20 MG Oral Tablet MRACIA ([facility]) 24 HR mirabegron 50 MG Extended Release Oral Tablet [Myrbetriq] MARCIA ([facility]) 24 HR metoprolol succinate 200 MG Extended Release Oral Tablet MARCIA ([facility]) empagliflozin 10 MG Oral Tablet [Jardiance] MARCIA ([facility]) irbesartan 150 MG Oral Tablet MARCIA ([facility]) fluticasone propionate 50 mcg/actuation nasal spray,suspension INSTILL TWO SPRAYS IN EACH NOSTRIL ONCE DAILY MARCIA ([facility]) fluoxetine 20 mg tablet Take 1 tablet every day by oral route. MARCIA ([facility]) Fluoxetine 20 MG Oral Capsule MARCIA ([facility]) Cephalexin 500 MG Oral Capsule MARCIA ([facility]) tramadol hydrochloride 50 MG Oral Tablet MARCIA ([facility]) 24 HR mirabegron 50 MG Extended Release Oral Tablet [Myrbetriq] MARCIA ([facility]) empagliflozin 10 MG Oral Tablet [Jardiance] MARCIA ([facility]) irbesartan 150 MG Oral Tablet MARCIA ([facility]) fluticasone propionate 50 mcg/actuation nasal spray,suspension INSTILL TWO SPRAYS IN EACH NOSTRIL ONCE DAILY MARCIA ([facility]) fluoxetine 20 mg tablet Take 1 tablet every day by oral route. MARCIA ([facility]) Fluoxetine 20 MG Oral Capsule MARCIA ([facility]) Cephalexin 500 MG Oral Capsule MARCIA ([facility]) Digoxin 0.125 MG Oral Tablet [facility] tramadol hydrochloride 50 MG Oral Tablet MARCIA ([facility]) 24 HR mirabegron 50 MG Extended Release Oral Tablet [Myrbetriq] MARCIA ([facility]) tramadol hydrochloride 50 MG Oral Tablet MARCIA ([facility]) 24 HR mirabegron 50 MG Extended Release Oral Tablet [Myrbetriq] MARCIA ([facility]) empagliflozin 10 MG Oral Tablet [Jardiance] MARCIA ([facility]) irbesartan 150 MG Oral Tablet MARCIA ([facility]) fluticasone propionate 50 mcg/actuation nasal spray,suspension INSTILL TWO SPRAYS IN EACH NOSTRIL ONCE DAILY MARCIA ([facility]) Fluoxetine 40 MG Oral Capsule MARCIA ([facility]) Cephalexin 500 MG Oral Capsule [place] ([facility]) ferrous sulfate 325 MG Oral Tablet [facility] fluticasone (FLONASE) 50 MCG/ACT nasal spray [facility] Simvastatin 20 MG Oral Tablet [facility] Omeprazole 40 MG Delayed Release Oral Capsule [facility] tramadol hydrochloride 50 MG Oral Tablet MARCIA ([facility]) 24 HR mirabegron 50 MG Extended Release Oral Tablet [Myrbetriq] MARCIA ([facility]) empagliflozin 10 MG Oral Tablet [Jardiance] MARCIA ([facility]) irbesartan 150 MG Oral Tablet MARCIA ([facility]) fluticasone propionate 50 mcg/actuation nasal spray,suspension INSTILL TWO SPRAYS IN EACH NOSTRIL ONCE DAILY MARCIA ([facility]) Fluoxetine 40 MG Oral Capsule MARCIA ([facility]) Digoxin 0.125 MG Oral Tablet MARCIA ([facility]) Cephalexin 500 MG Oral Capsule MARCIA ([facility]) tramadol hydrochloride 50 MG Oral Tablet MARCIA ([facility]) 24 HR mirabegron 50 MG Extended Release Oral Tablet [Myrbetriq] MARCIA ([facility]) empagliflozin 10 MG Oral Tablet [Jardiance] MARCIA ([facility]) irbesartan 150 MG Oral Tablet M[place]IA ([facility]) Glipizide 5 MG Oral Tablet A THENA ([facility]) fluticasone propionate 50 mcg/actuation nasal spray,suspension INSTILL TWO SPRAYS IN EACH NOSTRIL ONCE DAILY MARCIA ([facility]) Fluoxetine 40 MG Oral Capsule MARCIA ([facility]) Digoxin 0.125 MG Oral Tablet MARCIA ([facility]) Cephalexin 500 MG Oral Capsule MARCIA ([facility]) Cholecalciferol 2000 UNT Oral Tablet [facility] empagliflozin 10 MG Oral Tablet [Jardiance] MARCIA ([facility]) irbesartan 150 MG Oral Tablet MARCIA ([facility]) fluticasone propionate 50 mcg/actuation nasal spray,suspension INSTILL TWO SPRAYS IN EACH NOSTRIL ONCE DAILY MARCIA ([facility]) fluoxetine 20 mg tablet Take 1 tablet every day by oral route. MARCIA ([facility]) Fluoxetine 20 MG Oral Capsule MARCIA ([facility]) Cephalexin 500 MG Oral Capsule MARCIA ([facility])
== END 2021-06-29 15:29 | disposition home or self-care (01) ==
LOC: M ED 13:51 → EDBD 13:51 → M ED 15:29
DX: S00.83XA Contusion of other part of head, initial encounter (principal); V49.40XA Driver injured in collision with unspecified motor vehicles in traffic accident, initial encounter; Y92.9 Unspecified place or not applicable; Y93.9 Activity, unspecified; Y99.9 Unspecified external cause status; Z79.82 Long term (current) use of aspirin; Z79.899 Other long term (current) drug therapy; Z79.01 Long term (current) use of anticoagulants; M47.812 Spondylosis without myelopathy or radiculopathy, cervical region

== ENCOUNTER → 2021-10-22 | Outpatient (REF) | payer OTHER, MEDICARE, BC | LOC: M SFHCDERM 17:55 | PROVIDERS: ATTEND Physician Assistant | DX: L08.9 Local infection of the skin and subcutaneous tissue, unspecified (principal) ==

== ENCOUNTER 2022-05-13 16:55 | Inpatient (IN) | payer MEDICARE, BC, OTHER ==
[~2022-05-13] VITALS: Ht 180.3 cm; Wt 86.4 kg
[2022-05-13] MEDS ORDERED: ATOR1TAB21 (17:06)
[2022-05-13] MEDS ORDERED: SERT25TA21 (17:06)
[2022-05-13] MEDS ORDERED: LOSA25TA13 (17:06)
[2022-05-13 18:09] LABS: BASO % 0.7 % (0.0-1.0); EOS # 0.3 10^3/uL (0.0-0.5); EOS % 5.9 % (0.0-3.0); HEMATOCRIT 44.9 % (42.0-52.0); HEMOGLOBIN 14.3 g/dl (13.5-17.5); LYMPH # 0.6 10^3/uL (1.5-5.0); LYMPH % 11.2 % (24.0-44.0); MEAN CORPUSCULAR HEMOGLOBIN 31.1 pg (27.0-33.0); MEAN CORPUSCULAR HGB CONC 31.8 g/dl (32.0-36.5); MEAN CORPUSCULAR VOLUME 97.6 fl (80.0-96.0); MONO # 0.5 10^3/uL (0.0-0.8); MONO % 9.4 % (2.0-8.0); NEUTROPHILS # 3.9 10^3/uL (1.5-8.5); NEUTROPHILS % 72.2 % (36.0-66.0); WHITE BLOOD COUNT 5.4 10^3/uL (4.0-10.0)
[2022-05-13 18:16] LABS: PLATELET COUNT, AUTOMATED 88 10^3/uL (150-450)
[2022-05-13 18:45] LABS: ALBUMIN 3.3 GM/DL (3.2-5.2); BILIRUBIN,DIRECT 0.2 MG/DL (0.0-0.2); BILIRUBIN,TOTAL 0.7 MG/DL (0.2-1.0); CALCIUM LEVEL 8.3 MG/DL (8.8-10.2); CREATININE FOR GFR 1.47 MG/DL (0.70-1.30); GLOMERULAR FILTRATION RATE 49.3 (>42); TOTAL PROTEIN 7.2 GM/DL (6.4-8.2)
[2022-05-13] MEDS ORDERED: NS 1,000 ML IV ONE (21:15)
[2022-05-13] MEDS ORDERED: ISOVUE-370 76% 100ML VIAL As Ordered ONE (21:23)
[2022-05-13] MEDS ORDERED: NS 500 ML IV ONE (23:40)
[2022-05-14 01:33] LABS: RSV AMPLIFICATION NEGATIVE (NEGATIVE)
[2022-05-14] MEDS ORDERED: GLUCOSE 4GM CHEW TABLET PO PRN (01:35)
[2022-05-14] MEDS ORDERED: NS 1,000 ML IV SCH (01:35)
[2022-05-14] MEDS ORDERED: DEXTROSE 50% 50 ML SYRINGE IV PRN (01:35)
[2022-05-14] MEDS ORDERED: GLUCAGON INJ 1MG VIAL SC PRN (01:35)
[2022-05-14] MEDS ORDERED: METO1TAB33 PO (04:14)
[2022-05-14] MEDS ORDERED: DIGO0.123 PO (04:14)
[2022-05-14] MEDS ORDERED: ATOR1TAB21 PO (04:14)
[2022-05-14] MEDS ORDERED: METF-838 PO (04:14)
[2022-05-14] MEDS ORDERED: ELIQ5TAB PO (04:14)
[2022-05-14] MEDS ORDERED: GLIP5TAB8 PO (04:14)
[2022-05-14] MEDS ORDERED: LOSA25TA13 PO (04:14)
[2022-05-14] MEDS ORDERED: SERT25TA21 PO (04:14)
[2022-05-14] MEDS ORDERED: JARD1TAB3 PO (04:14)
[2022-05-14] MEDS ORDERED: ASPI-161 PO (04:15)
[2022-05-14] MEDS ORDERED: HOME MED LIST COMPLETE! XX SCH (04:15)
[2022-05-14 06:26] LABS: BLOOD UREA NITROGEN 29 MG/DL (7-18); CALCIUM LEVEL 7.5 MG/DL (8.8-10.2); CARBON DIOXIDE LEVEL 21 MEQ/L (21-32); CHLORIDE LEVEL 115 MEQ/L (98-107); CREATININE FOR GFR 0.99 MG/DL (0.70-1.30); GLOMERULAR FILTRATION RATE > 60.0 (>42); GLUCOSE, FASTING 98 MG/DL (70-100); POTASSIUM SERUM 3.8 MEQ/L (3.5-5.1); SODIUM LEVEL 143 MEQ/L (136-145)
[2022-05-14] MEDS: INSULIN LISPRO (NovoLOG) PER UNIT SC SCH ×2 (08:29→12:03)
[2022-05-14] MEDS ORDERED: LOSARTAN 25 MG TAB PO SCH (09:00)
[2022-05-14] MEDS ORDERED: APIXABAN 5 MG TAB (ELIQUIS) PO SCH (09:00)
[2022-05-14] MEDS ORDERED: ASPIRIN 81MG ENTERIC TABLET PO SCH (09:00)
[2022-05-14] MEDS ORDERED: SERTRALINE HCL 25 MG TABLET PO SCH (09:00)
[2022-05-14] MEDS ORDERED: PEPT262T2 PO (10:15)
[2022-05-14 12:01] VITALS: BP 128/74
[2022-05-14] MEDS ORDERED: ATORVASTATIN 20 MG TAB PO SCH (21:00)
[2022-05-14] MEDS ORDERED: DIGOXIN 0.125 MG TAB PO SCH (21:00)
[2022-05-14] MEDS ORDERED: METOPROLOL SUCC (TopROL XL) 100MG *XL* TAB PO SCH (21:00)
== END 2022-05-14 10:33 | disposition home or self-care (01) | DRG 392 ==
LOC: M ED 16:55 → M ED INP 23:38 → CANRESERV 05-14 12:28 → ENRESERV 05-14 12:28
PROVIDERS: ADMIT Internal Medicine; ATTEND Internal Medicine
DX: A08.4 Viral intestinal infection, unspecified (principal); N17.9 Acute kidney failure, unspecified; J44.9 Chronic obstructive pulmonary disease, unspecified; I10 Essential (primary) hypertension; M06.9 Rheumatoid arthritis, unspecified; E11.51 Type 2 diabetes mellitus with diabetic peripheral angiopathy without gangrene; K74.60 Unspecified cirrhosis of liver; Z95.0 Presence of cardiac pacemaker; R16.1 Splenomegaly, not elsewhere classified; E78.5 Hyperlipidemia, unspecified; I48.91 Unspecified atrial fibrillation; I95.9 Hypotension, unspecified; I25.10 Atherosclerotic heart disease of native coronary artery without angina pectoris; K83.8 Other specified diseases of biliary tract; G47.33 Obstructive sleep apnea (adult) (pediatric); Z79.899 Other long term (current) drug therapy; Z79.82 Long term (current) use of aspirin; Z95.2 Presence of prosthetic heart valve; Z85.828 Personal history of other malignant neoplasm of skin; F32.A Depression, unspecified

== ENCOUNTER → 2022-05-26 | Outpatient (CLI) | payer MEDICARE, BC, OTHER ==
[~2022-05-26] MED LIST changes: +ASPI-161 PO; +ATOR1TAB21; +ATOR1TAB21 PO; +DIGO0.123 PO; +ELIQ5TAB PO; +IRON65TA2 PO; +JARD1TAB3 PO; +LOSA25TA13; +LOSA25TA13 PO; +METF-838 PO; +METO1TAB33 PO; +NITR2.5C4 PO; +NOXI1TAB PO; +PEPT262T2 PO; +SERT25TA21; +SERT25TA21 PO; +TOVI4TAB PO; +VITA100062 PO
== END ==
LOC: M LABSMTC 09:03
PROVIDERS: ATTEND Anesthesiology
DX: Z01.812 Encounter for preprocedural laboratory examination (principal); Z20.822 Contact with and (suspected) exposure to COVID-19

== ENCOUNTER → 2022-07-22 | Outpatient (CLI) | payer MEDICARE, BC, OTHER | LOC: M LABSMTC 09:06 | PROVIDERS: ATTEND Anesthesiology | DX: Z01.818 Encounter for other preprocedural examination (principal); Z11.52 Encounter for screening for COVID-19 ==

== ENCOUNTER 2022-07-24 07:48 | Day surgery (SDC) | payer MEDICARE, BC, OTHER ==
[~2022-07-24] VITALS: Ht 180.3 cm; Wt 89.3 kg
[~2022-07-24 07:48] MED LIST changes: +BSS IRRIG/VANCO(10MG)/TOBRA(5MG)/EPINEPH(1:1000-0.5CC)500ML BAG-ORONLY IR ONE; +CYCLOPENTOLATE 1% OPHTH SOLN 2ML BTL OD SCH; +LIDOCAINE 3.5 % 1ML OPHTH TOPICAL GEL OU ONE; +MIDAZOLAM INJ 2MG/2ML VIAL (J2250 PER 1MG) As Ordered ONE; +OFLOXACIN 0.3 % (OCUFLOX) OPTH SOL 5ML OD ONE; +PHENYLEPHRINE 10% OPHTH SOL 5ML OD PRN; +PHENYLEPHRINE 2.5% OPHTH SOL 2ML OD SCH; +TROPICAMIDE 1% OPHTH SOLN 15ML OD SCH; +fentaNYL 100 MCG/2 ML INJECTION As Ordered ONE
[2022-07-24 09:37] VITALS: BP 113/77
[2022-07-24] MEDS ORDERED: CEFUROXIME 1MG/0.1ML INTRACAMERAL INJ As Ordered ONE (09:42)
[2022-07-24] MEDS ORDERED: LIDOCAINE 1% SDV 5ML VIAL As Ordered ONE (09:42)
[2022-07-29] MEDS ORDERED: B-12100010 PO (10:56)
[2022-07-29] MEDS ORDERED: VITA200016 PO (10:56)
== END 2022-07-24 10:07 | disposition home or self-care (01) ==
LOC: M SDC 07:48
PROVIDERS: ATTEND Ophthalmology
DX: H25.11 Age-related nuclear cataract, right eye (principal); I48.91 Unspecified atrial fibrillation; I25.10 Atherosclerotic heart disease of native coronary artery without angina pectoris; I10 Essential (primary) hypertension; E78.5 Hyperlipidemia, unspecified; E11.9 Type 2 diabetes mellitus without complications; D64.9 Anemia, unspecified; G47.33 Obstructive sleep apnea (adult) (pediatric); J44.9 Chronic obstructive pulmonary disease, unspecified; Z79.84 Long term (current) use of oral hypoglycemic drugs; Z79.899 Other long term (current) drug therapy; Z79.01 Long term (current) use of anticoagulants; Z79.82 Long term (current) use of aspirin; Z95.0 Presence of cardiac pacemaker; Z98.61 Coronary angioplasty status
CPT/HCPCS: 66984; J0697; J2250; J3010; V2632

== ENCOUNTER → 2022-07-29 | Outpatient (CLI) | payer MEDICARE, BC, OTHER ==
[~2022-07-29] MED LIST changes: +B-12100010 PO; -BSS IRRIG/VANCO(10MG)/TOBRA(5MG)/EPINEPH(1:1000-0.5CC)500ML BAG-ORONLY IR ONE; -CYCLOPENTOLATE 1% OPHTH SOLN 2ML BTL OD SCH; -LIDOCAINE 3.5 % 1ML OPHTH TOPICAL GEL OU ONE; -MIDAZOLAM INJ 2MG/2ML VIAL (J2250 PER 1MG) As Ordered ONE; -OFLOXACIN 0.3 % (OCUFLOX) OPTH SOL 5ML OD ONE; -PHENYLEPHRINE 10% OPHTH SOL 5ML OD PRN; -PHENYLEPHRINE 2.5% OPHTH SOL 2ML OD SCH; -TROPICAMIDE 1% OPHTH SOLN 15ML OD SCH; +VITA200016 PO; -fentaNYL 100 MCG/2 ML INJECTION As Ordered ONE
== END ==
LOC: M LABSMTC 11:36
PROVIDERS: ATTEND Anesthesiology
DX: Z01.812 Encounter for preprocedural laboratory examination (principal); Z20.822 Contact with and (suspected) exposure to COVID-19

== ENCOUNTER 2022-07-30 06:17 | Day surgery (SDC) | payer MEDICARE, BC, OTHER ==
[~2022-07-30] VITALS: Ht 180.3 cm; Wt 90.2 kg
[~2022-07-30 06:17] MED LIST changes: +BSS IRRIG/VANCO(10MG)/TOBRA(5MG)/EPINEPH(1:1000-0.5CC)500ML BAG-ORONLY IR ONE; +CYCLOPENTOLATE 1% OPHTH SOLN 2ML BTL OS SCH; +LIDOCAINE 3.5 % 1ML OPHTH TOPICAL GEL OU ONE; +OFLOXACIN 0.3 % (OCUFLOX) OPTH SOL 5ML OS ONE; +PHENYLEPHRINE 10% OPHTH SOL 5ML OS PRN; +PHENYLEPHRINE 2.5% OPHTH SOL 2ML OS SCH; +TROPICAMIDE 1% OPHTH SOLN 15ML OS SCH
[2022-07-30] MEDS ORDERED: LIDOCAINE 1% 1ML PF SYRINGE (OR EYE CASES) As Ordered ONE (06:35)
[2022-07-30] MEDS ORDERED: CEFUROXIME 1MG/0.1ML INTRACAMERAL INJ As Ordered ONE (06:36)
[2022-07-30] MEDS ORDERED: fentaNYL 100 MCG/2 ML INJECTION As Ordered ONE (07:49)
[2022-07-30] MEDS ORDERED: MIDAZOLAM INJ 2MG/2ML VIAL (J2250 PER 1MG) As Ordered ONE (07:49)
[2022-07-30 08:14] VITALS: BP 138/74
== END 2022-07-30 08:25 | disposition home or self-care (01) ==
LOC: M SDC 06:17
PROVIDERS: ATTEND Ophthalmology
DX: H25.12 Age-related nuclear cataract, left eye (principal); I48.91 Unspecified atrial fibrillation; I25.10 Atherosclerotic heart disease of native coronary artery without angina pectoris; I10 Essential (primary) hypertension; E78.5 Hyperlipidemia, unspecified; E11.9 Type 2 diabetes mellitus without complications; D50.9 Iron deficiency anemia, unspecified; M06.9 Rheumatoid arthritis, unspecified; J44.9 Chronic obstructive pulmonary disease, unspecified; G47.30 Sleep apnea, unspecified; Z95.5 Presence of coronary angioplasty implant and graft; Z95.0 Presence of cardiac pacemaker; Z79.01 Long term (current) use of anticoagulants; Z79.82 Long term (current) use of aspirin; Z79.84 Long term (current) use of oral hypoglycemic drugs; Z79.899 Other long term (current) drug therapy
CPT/HCPCS: 66984; J0697; J2250; J3010; V2632

== ENCOUNTER → 2022-12-08 | Outpatient (REF) | payer MEDICARE, BC, OTHER ==
[~2022-12-08] MED LIST changes: -BSS IRRIG/VANCO(10MG)/TOBRA(5MG)/EPINEPH(1:1000-0.5CC)500ML BAG-ORONLY IR ONE; -CYCLOPENTOLATE 1% OPHTH SOLN 2ML BTL OS SCH; -LIDOCAINE 3.5 % 1ML OPHTH TOPICAL GEL OU ONE; -OFLOXACIN 0.3 % (OCUFLOX) OPTH SOL 5ML OS ONE; -PHENYLEPHRINE 10% OPHTH SOL 5ML OS PRN; -PHENYLEPHRINE 2.5% OPHTH SOL 2ML OS SCH; -TROPICAMIDE 1% OPHTH SOLN 15ML OS SCH
[2022-12-08 13:46] LABS: HEMATOCRIT 46.3 % (42.0-52.0); HEMOGLOBIN 14.6 g/dl (13.5-17.5); MEAN CORPUSCULAR HGB CONC 31.5 g/dl (32.0-36.5); MEAN CORPUSCULAR VOLUME 98.3 fl (80.0-96.0); RED BLOOD COUNT 4.71 10^6/uL (4.30-6.10); WHITE BLOOD COUNT 6.3 10^3/uL (4.0-10.0)
[2022-12-08 13:49] LABS: PLATELET COUNT, AUTOMATED 89 10^3/uL (150-450)
[2022-12-08 13:53] LABS: ALBUMIN 3.4 G/DL (3.2-5.2); ALKALINE PHOSPHATASE 114 U/L (46-116); ALT/SGPT 66 U/L (7.0-40); AST/SGOT 69 U/L (<34); BILIRUBIN,TOTAL 0.6 MG/DL (0.3-1.2); BLOOD UREA NITROGEN 31 MG/DL (9-23); CALCIUM LEVEL 9.1 MG/DL (8.3-10.6); CARBON DIOXIDE LEVEL 27 MMOL/L (20-31); CHLORIDE LEVEL 105 MMOL/L (98-107); CREATININE FOR GFR 0.93 MG/DL (0.70-1.30); GLOMERULAR FILTRATION RATE > 60.0 (>42); GLUCOSE, FASTING 149 MG/DL (74-106); POTASSIUM SERUM 4.2 MMOL/L (3.5-5.1); SODIUM LEVEL 140 MMOL/L (136-145); TOTAL PROTEIN 7.1 G/DL (5.7-8.2)
== END ==
LOC: M LAB REF 12:08
PROVIDERS: ATTEND Physician Assistant Medical
DX: R93.3 Abnormal findings on diagnostic imaging of other parts of digestive tract (principal)

== ENCOUNTER 2022-12-27 21:55 | Emergency (ER) | payer MEDICARE, BC, OTHER ==
[~2022-12-27] VITALS: Ht 180.3 cm; Wt 86.1 kg
[2022-12-27 22:37] LABS: BASO # 0.1 10^3/uL (0.0-0.2); BASO % 0.9 % (0.0-1.0); EOS # 0.4 10^3/uL (0.0-0.5); EOS % 4.7 % (0.0-3.0); HEMATOCRIT 35.7 % (42.0-52.0); HEMOGLOBIN 11.2 g/dl (13.5-17.5); LYMPH # 1.9 10^3/uL (1.5-5.0); LYMPH % 21.7 % (24.0-44.0); MEAN CORPUSCULAR HGB CONC 31.4 g/dl (32.0-36.5); MEAN CORPUSCULAR VOLUME 98.9 fl (80.0-96.0); MONO # 0.6 10^3/uL (0.0-0.8); MONO % 7.2 % (2.0-8.0); NEUTROPHILS # 5.6 10^3/uL (1.5-8.5); PLATELET COUNT, AUTOMATED 109 10^3/uL (150-450); RED BLOOD COUNT 3.61 10^6/uL (4.30-6.10); WHITE BLOOD COUNT 8.6 10^3/uL (4.0-10.0)
[2022-12-27 22:50] LABS: INR 1.54; PARTIAL THROMBOPLASTIN TIME 28.1 SECONDS (24.8-34.2); PROTHROMBIN TIME 18.8 SECONDS (12.5-14.5)
[2022-12-27] MEDS ORDERED: METOCLOPRAMIDE INJ 10MG/2ML VIAL IV ONE (23:00)
[2022-12-27] MEDS ORDERED: PANTOPRAZOLE 40MG VIAL IV ONE (23:00)
[2022-12-27] MEDS ORDERED: OCTREOTIDE ACETATE 1,200 MCG in NS 238.8 ML IV SCH (23:00)
[2022-12-27 23:01] LABS: LIPASE 41 U/L (12-53)
[2022-12-27 23:03] LABS: ALBUMIN 2.4 G/DL (3.2-5.2); ALKALINE PHOSPHATASE 64 U/L (46-116); ALT/SGPT 24 U/L (7.0-40); AST/SGOT 37 U/L (<34); BILIRUBIN,DIRECT 0.1 MG/DL (<0.4); BILIRUBIN,TOTAL 0.6 MG/DL (0.3-1.2); BLOOD UREA NITROGEN 27 MG/DL (9-23); CALCIUM LEVEL 7.9 MG/DL (8.3-10.6); CARBON DIOXIDE LEVEL 24 MMOL/L (20-31); CHLORIDE LEVEL 109 MMOL/L (98-107); CREATININE FOR GFR 1.02 MG/DL (0.70-1.30); GLOMERULAR FILTRATION RATE > 60.0 (>42); GLUCOSE, FASTING 217 MG/DL (74-106); POTASSIUM SERUM 4.4 MMOL/L (3.5-5.1); SODIUM LEVEL 142 MMOL/L (136-145)
[2022-12-27 23:04] LABS: CPK CREATINE PHOSPHOKINASE 57 U/L (46-171); MB/CK RELATIVE INDEX 1.75 (< OR =4)
[2022-12-27] MEDS ORDERED: ISOVUE-370 76% 100ML VIAL As Ordered ONE (23:09)
[2022-12-27] MEDS ORDERED: NS 1,000 ML IV ONE (23:10)
[2022-12-28 00:15] VITALS: BP 115/72
[2022-12-28 00:34] LABS: RSV AMPLIFICATION NEGATIVE (NEGATIVE)
== END 2022-12-28 00:30 | disposition short-term general hospital (02) ==
LOC: EDBD 21:55 → M ED 21:55
DX: K92.0 Hematemesis (principal); K92.1 Melena; I49.1 Atrial premature depolarization; E11.9 Type 2 diabetes mellitus without complications; I10 Essential (primary) hypertension; K76.0 Fatty (change of) liver, not elsewhere classified; K40.90 Unilateral inguinal hernia, without obstruction or gangrene, not specified as recurrent; F32.A Depression, unspecified; Z79.01 Long term (current) use of anticoagulants; Z79.84 Long term (current) use of oral hypoglycemic drugs; Z79.811 Long term (current) use of aromatase inhibitors; Z79.899 Other long term (current) drug therapy
CPT/HCPCS: 74174; 80048; 80076; 82550; 82553; 83605; 83690; 84484; 85025; 85610; 85730; 86850; 86900; 86901; 87631; 93005; 93041; 96361; 96374; 96375; 99291; C9113; J2354; J2765; Q9967

== ENCOUNTER → 2023-01-21 | Outpatient (REF) | payer MEDICARE, OTHER, BC ==
[2023-01-21 17:32] LABS: BASO % 0.6 % (0.0-1.0); EOS # 0.2 10^3/uL (0.0-0.5); EOS % 3.8 % (0.0-3.0); HEMATOCRIT 29.2 % (42.0-52.0); HEMOGLOBIN 9.2 g/dl (13.5-17.5); LYMPH # 0.4 10^3/uL (1.5-5.0); MEAN CORPUSCULAR HEMOGLOBIN 29.4 pg (27.0-33.0); MEAN CORPUSCULAR HGB CONC 31.5 g/dl (32.0-36.5); MEAN CORPUSCULAR VOLUME 93.3 fl (80.0-96.0); MONO # 0.4 10^3/uL (0.0-0.8); MONO % 5.9 % (2.0-8.0); NEUTROPHILS # 5.2 10^3/uL (1.5-8.5); NEUTROPHILS % 82.2 % (36.0-66.0); PLATELET COUNT, AUTOMATED 100 10^3/uL (150-450); RED BLOOD COUNT 3.13 10^6/uL (4.30-6.10); WHITE BLOOD COUNT 6.3 10^3/uL (4.0-10.0)
[2023-01-21 17:47] LABS: ALBUMIN 3.2 G/DL (3.2-5.2); CALCIUM LEVEL 8.5 MG/DL (8.3-10.6); CREATININE FOR GFR 1.27 MG/DL (0.70-1.30); GLOMERULAR FILTRATION RATE 58.2 (>42); POTASSIUM SERUM 3.4 MMOL/L (3.5-5.1); TOTAL PROTEIN 6.5 G/DL (5.7-8.2)
== END ==
LOC: M LAB REF 16:21
PROVIDERS: ATTEND Family Medicine Addiction Medicine
DX: K92.89 Other specified diseases of the digestive system (principal); K74.60 Unspecified cirrhosis of liver

== ENCOUNTER → 2023-03-02 | Outpatient (CLI) | payer MEDICARE, BC, OTHER | LOC: M WUC 10:07 | PROVIDERS: ATTEND Student in an Organized Health Care Education/Training Program | DX: S20.212A Contusion of left front wall of thorax, initial encounter (principal) ==